=== PATIENT | female | born 1970 | race Caucasian/White ===

== ENCOUNTER 2022-10-09 16:29 | Emergency (ER) | payer OTHER, SELFPAY ==
[2022-10-09 17:22] VITALS: BP 134/83; PULSE 74; RESP 18; TEMP 36.4; O2SAT 99; BMI 25.7
--- NOTE | 2022-10-09 17:50 | ED_ITS ---
HPI - Wound/Laceration General Time Seen by Provider: 17:51 Date Seen: 10/09/22 Chief Complaint: Laceration/Wound Stated Complaint: Finger Injury Time Seen by Provider: 10/09/22 17:49 Source: patient and RN notes reviewed Mode of arrival: ambulatory Limitations: no limitations History of Present Illness HPI narrative: Patient is a 52-year-old female that cut her right index finger on a slicer at work. 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 She went to move the slicer back and the base of the slicer cut her finger. Was not actually the blade. Her tetanus is up-to-date on 02/03/2020. The tip of the finger feels a little numb. She cut the pad of the finger, only the right index finger. Nothing else was injured. This happened just prior to arrival. Patient tetanus UTD: Yes Related Data Allergies Allergy/AdvReac Type Severity Reaction Status Date / Time No Known Drug Allergies Allergy Verified 10/09/22 17:22 Review of Systems Narrative: As per HPI PFSH PFSH Social History Smoking Status: Former smoker Do you use any of these nicotine containing products: None Second hand tobacco smoke exposure: Yes How often do you have a drink containing alcohol: never How often do you have six or more drinks on one occasion: Never AUDIT-C Alcohol total score: 0 Non-prescribed substance use: denies use service: No Exam Const: Vital Signs, click to edit/add: Vital Signs - 24 hr 10/09/22 17:22 Temperature 97.5 F L Pulse Rate [Pulse Oximeter] 74 Respiratory Rate 18 Blood Pressure [Ri ght Upper Arm] 134/83 Pulse Oximetry 99 Oxygen Delivery Me thod Room Air Documenting provider has reviewed patient's vital signs: yes Common normals: no apparent distress, average body habitus, oriented x3, no limitations, healthy appearing and alert General appearance: cooperative, comfortable and well kempt Other: Bandage was removed from her right index finger and a semi circular flap of the pad of the right finger is noted. It does go into the subcutaneous tissue and starts losing blood when I remove the dressing. This will require some sutures. Patient understands and is agreeable to do so. She does have some slight sense of anesthesia on the distal portion of the pad. She still has this sense of touch but maybe feels different. Reviewed with her that this could be permanent nerve injury but there certainly chance that she will get some improved sensation with time. Neuro: Common normals: oriented x3 Sensorium/orientation: alert Psych: Appearance: well kempt Course Vital Signs Vital signs: Initial Vital Signs Temperature 97.5 F L 10/09/22 17:22 Temperature Source Temporal Artery Scan 10/09/22 17:22 Pulse Rate 74 10/09/22 17:22 Pulse Rhythm 10/09/22 17:22 Respiratory Rate 18 10/09/22 17:22 Blood Pressure 134/83 10/09/22 17:22 Blood Pressure Mean 100 10/09/22 17:22 Pulse Oximetry 99 10/09/22 17:22 Oxygen Delivery Method 10/09/22 17:22 Vital Signs Temperature 97.5 F L 10/09/22 17:22 Pulse Rate 74 10/09/22 17:22 Respiratory Rate 18 10/09/22 17:22 Blood Pressure 134/83 10/09/22 17:22 Pulse Oximetry 99 10/09/22 17:22 Oxygen Delivery Method 10/09/22 17:22 Temperature 97.5 F L 10/09/22 17:22 Pulse Rate 74 10/09/22 17:22 Respiratory Rate 18 10/09/22 17:22 Blood Pressure 134/83 10/09/22 17:22 Pulse Oximetry 99 10/09/22 17:22 Oxygen Delivery Method 10/09/22 17:22 Critical Care Time Critical Care Time Critical Care Time: No Discharge Plan Discharge Clinical Impression: Laceration of finger, index Condition: Stable Instructions: Care For Your Stitches (ED), Finger Laceration (ED) Additional Instructions: Recommend keeping this finger clean and dry. He may shower and wash her hands but otherwise should use a bandage and keep the wound dry until healed. Need to schedule clinic followup in about 7-10 days to assess the wound for suture removal. If there is concern for infection please seek re-evaluation. Recommend light application of bacitracin 3 to 4 times a day with bandages. Fine to work if your finger can be kept clean and dry. Follow Up/Referrals: Arvind Fields MD [Primary Care Provider] - Stand Alone [facility] Inst[facility] Procedures Laceration Laceration 1: Pre procedure diagnosis: Right 2nd finger laceration Post procedure diagnosis: Same Site marking: not applicable Verification/time out: correct patient, correct site and correct procedure Name of person performing procedure: Jaqueline Camacho Site: other (Finger) Side (If applicable): right Description: linear and clean Depth: simple, single layer Local Anesthetic: lidocaine 1% Amount of anesthesia used (mL): 5 (Only about 2 mL needed to be used locally) Pre-repair: wound explored, irrigated extensively and deep structures intact Skin layer closed with: other (Ethilon) Size (cm): 4-0 Number of sutures: 3 Technique: simple, interrupted Wound cleansing: sterile water Conclusion: patient tolerated procedure
[2022-10-09] MEDS: LIDOCAINE 1 % PF 30 ML 5 ML INJECTION (18:07)
--- OUTSIDE RECORDS SUMMARY | 2022-10-09 18:51 | XMS_ITS | Encounter Summary ---
:1970 Author Organization [facility] Address [address] [place] [address] Care Team Providers Name Role Phone Ni José APRN C.N.P. Primary Care Provider [phone] Reason for Referral Outpatient (Routine) - Closed Specialty Diagnoses / Procedures Referred By Contact Refer red To Contact Clinical Genomics Diagnoses Cancer Family History Malignant Neoplasm Of Brain (HCC) [facility] [address] [place] [address] Referral ID Status Reason Start Date Expiration Date Visits Requ ested Visits Authorized [id number] Closed 02/03/2020 02/02/2021 1 1 Reason for Visit Reason Comments Annual Exam Mass Lump under left armpit Suspicious Skin Lesion Check moles Encounter Details Date Type Department Care Team Description 02/03/2020 Comprehensive Visit Department of Ni José Vaccine Immunization Tetanus Diphtheria (Primary Dx); Family Medicine in [facility]IRAL L[place]z Nevus; Christos MunroeNSamantha Cancer Family History; [place] [address] Malignant Neoplasm Of Brain (HCC); [address] [place] [phone] Social History Tobacco Use Types Packs/Day Years Used Date Smoking Tobacco: Former Cigarettes 2 13 Smokeless Tobacco: Never Alcohol Use Standard Drinks/Week Comments Yes 0 (1 standard drink = 0.6 oz pure alcoho l) Alcohol Habits Answer Date Recorded How often do you have a drink containing alcohol? 2-4 times a month 06/07/2019 How many drinks containing alcohol do you have on a 1 or 2 06/07/2019 typical day when you are drinking? How often do you have six or more drinks on one Less than mo nthly 06/07/2019 occasion? Social Isolation Answer Date Recorded In a typical week, how many times do you More than three dinora es a week 06/07/2019 talk on the phone with family, friends, or neighbors? How often do you get together with friends More than three t imes a week 06/07/2019 or relatives? How often do you attend druze or 1 to 4 times per year 05/23 bahai services? Do you belong to any clubs or Yes 10/28/2019 organizations such as druze groups, unions, fraternal or athletic groups, or school groups? How often do you attend meetings of the More than 4 times pe r year 10/28/2019 clubs or organizations you belong to? Are you now , , , 06/07/2019 , never or living with a partner? Physical Activity Answer Date Recorded On average, how many days per week do you engage in moderate to 1 day 10/28/2019 strenuous exercise (like walking fast, running, jogging, dancing, swimming, biking, or other activities that cause a light or heavy sweat)? On average, how many minutes do you engage in exercise at th is 20 min 10/28/2019 level? Stress Answer Date Recorded Do you feel stress - tense, restless, nervous, or To some ex tent 06/07/2019 anxious, or unable to sleep at night because your mind is troubled all the time - these days? Financial Resource Strain Answer Date Recorded How hard is it for you to pay for the very basics like Not h jhoan at all 10/28/2019 food, housing, medical care, and heating? Intimate Partner Violence Answer Date Recorded Within the last year, have you been afraid of your partner o r No 10/28/2019 ex-partner? Within the last year, have you been humiliated or emotionall y No 10/28/2019 abused in other ways by your partner or ex-partner? Within the last year, have you been kicked, hit, slapped, or No 10/28/2019 otherwise physically hurt by your partner or ex-partner? Within the last year, have you been raped or forced to have any No 10/28/2019 kind of sexual activity by your partner or ex-partner? Food Insecurity Answer Date Recorded Within the past 12 months, you worried that your food would Never true 06/07/2019 run out before you got money to buy more. Within the past 12 months, the food you bought just didn't N ever true 06/07/2019 last and you didn't have money to get more. Transportation Needs Answer Date Recorded In the past 12 months, has lack of transportation kept you f rom No 06/07/2019 medical appointments or from getting medications? In the past 12 months, has lack of transportation kept you f rom No 06/07/2019 meetings, work, or getting things needed for daily living? Education Answer Date Recorded What is the highest level of school Associate degree: [employer], 06/07/2019 you have completed or the highest technical, or vocational p rogram degree you have received? Sex Assigned at Date Recorded Female 08/04/2018 11:10 AM CDT documented as of this encounter Last Filed Vital Signs Vital Sign Reading Time Taken Comments Blood Pressure 130/82 02/03/2020 2:23 PM CDT Pulse 78 02/03/2020 2:23 PM CDT Temperature 37.2 ??C (99 ??F) 02/03/2020 2:23 PM CDT Respiratory Rate 16 02/03/2020 2:23 PM CDT Oxygen Saturation 98% 02/03/2020 2:23 PM CDT Inhaled Oxygen Concentration - - Weight 90.7 kg (200 lb) 02/03/2020 2:23 PM CDT Height 162 cm (5' 3.78) 02/03/2020 2:23 PM CDT Body Mass Index 34.57 02/03/2020 2:23 PM CDT documented in this encounter H&P Notes Ni José, VIRAL, C.N.P. - 02/03/2020 2:30 PM CDT SUBJECTIVE HISTORY OF PRESENT ILLNESS Lissette Rogers is a 49 y.o. female who presents to clinic today here for an annual well-womanexam. She states she is feeling well. She would like her left underarm examined as she thought she may have felt a lump there. ALLERGIES/CONTRAINDICATIONS No Known Allergies CURRENT MEDICATIONS Current Outpatient Medications Medication Sig ??? buPROPion XL (WELLBUTRIN XL) 300 mg 24 hr tablet Take 300 mg by mouth daily. ??? DULoxetine (CYMBALTA) [address] capsule Take 1 capsule by mouth at bedtime. ??? acetaminophen (TYLENOL) 500 mg tablet Take 1,000 mg by mouth every 6 (six) hours as needed for pain. ??? B complex-vitamin (SUPER B-50) capsule Take 1 capsule by mouth daily. ??? cholecalciferol (VITAMIN D3) 2,000 Unit tablet Take 2,000 Units by mouth daily. ??? estradioL (ESTRACE) 1 mg tablet Take 1 tablet (1 mg total) by mouth 6 (six) times a week. Will continue with wean at 1 tab/week, each month. 1 tab 6 days a week currently ??? ibuprofen (ADVIL,MOTRIN) 200 mg tablet Take 400 mg by mouth every 6 (six) hours as needed for pain. ??? TURMERIC, BULK, MISC Take 1 capsule by mouth daily. Turmeric and curcumin MEDICAL HISTORY Past Medical History: Diagnosis Date ??? Abnormal Pap Smear Cervix 2003 History of LEEP procedure. ??? Anxiety Generalized Disorder ??? Cystocele ??? Depressive Disorder ??? Dermatitis ??? Endometriosis ??? Extruded Disc Lumbar L4-5 and S1 ??? Gastroesophageal Reflux Disease NOS occasional ??? Hand And Finger Fracture NOS fractured thumb ??? 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 Pneumonia ??? Stroke (HCC) 2003 SURGICAL HISTORY Past Surgical History: Procedure Laterality Date ??? BLADDER SUSPENSION 2006 With hysterectomy ??? BREAST BIOPSY Left WNL ??? CARPAL TUNNEL RELEASE Bilateral ??? CARPAL TUNNEL RELEASE Bilateral 1997 ??? SECTION 1 ??? COLPORRHAPHY ANTERIOR N/A 04/26/2019 Procedure: Colporrhaphy Anterior.; Surgeon: Xavier Mccurdy M.D.; Location: [facility] ??? CRANIOTOMY N/A 10/22/2004 >Right frontal craniotomy. Resection of tumor. ??? CRANIOTOMY N/A 10/24/2004 >Reopening previous craniotomy. Resection of clot. ??? CYSTOSCOPY RIGID N/A 04/26/2019 Procedure: Cystoscopy Rigid; Surgeon: Xavier Mccurdy M.D.; Location: [facility] ??? INSERTION PUBOVAGINAL SLING - SYNTHETIC N/A 04/26/2019 Procedure: Insertion Pubovaginal Sling, Synthetic.; Surgeon: Xavier Mccurdy M.D.; Location: [facility] ??? LAPAROSCOPIC HYSTERECTOMY - BSO N/A 08/05/2006 for endometrosis and progesterone receptors on meningioma--no cervix or ovaries ??? LAPAROSCOPIC HYSTERECTOMY ABDOMINAL WITH SALPINGO-OOPHORECTOMY 2004 ??? LASIK ??? LEEP PROCEDURE - LOOP ELECTRO EXCISION PROCEDURE FAMILY HISTORY Family History Problem Relation Age of Onset ??? Depression Mother ??? Hypertension Mother ??? Dementia Mother ??? Hyperlipidemia Mother ??? Asthma Mother ??? Migraines Mother ??? Anxiety disorder Mother ??? Arthritis Mother ??? Osteoporosis Mother ??? Brain Aneurysm Mother x3 ??? Depression Maternal Grandmother ??? Dementia Maternal Grandmother ??? Anxiety disorder Maternal Grandmother ??? Brain Aneurysm Maternal Grandmother ??? Cervical cancer Maternal Grandmother ??? Uterine cancer Maternal Grandmother ??? Depression Maternal Grandfather ??? Hypertension Maternal Grandfather ??? Stroke Maternal Grandfather ??? Dementia Maternal Grandfather ??? Transient ischemic attack Maternal Grandfather ??? Diabetes Maternal Grandfather ??? Heart disease Maternal Grandfather ??? Hypertension Father ??? Hyperlipidemia Father ??? Coronary artery disease Mother's Brother ??? Pancreatic cancer Mother's Brother ??? Migraines Son ??? Breast cancer Mother's Sister ??? Melanoma Brother ??? Breast cancer Cousin ??? Pancreatic cancer Other ??? Brain cancer Other ??? Diabetes Paternal Grandmother ??? No Known Problems Child ??? No Known Problems Child SOCIAL HISTORY Social History Socioeconomic History ??? Marital status: Spouse name: Not on file ??? Number of children: Not on file ??? Years of education: Not on file ??? Highest education level: Associate degree: occupational, technical, or vocational program Occupational History ??? Not on file Social Needs ??? Financial resource strain: Not hard at all ??? Food insecurity Worry: Never true Inability: Never true ??? Transportation needs Medical: No Non-medical: No Tobacco Use ??? Smoking status: Former Smoker Packs/day: 2.00 Years: 13.00 Pack years: 26.00 Types: Cigarettes ??? Smokeless tobacco: Never Used Substance and Sexual Activity ??? Alcohol use: Yes Types: 1 Cans of beer, 1 Standard drinks or equivalent per week Frequency: 2-4 times a month Drinks per session: 1 or 2 Binge frequency: Less than monthly ??? Drug use: No ??? Sexual activity: Yes Partners: Male control/protection: Other Lifestyle ??? Physical activity Days per week: 1 day Minutes per session: 20 min ??? Stress: To some extent Relationships ??? Social connections Talks on phone: More than three times a week Gets together: More than three times a week Attends bahai service: 1 to 4 times per year Active member of club or organization: Yes Attends meetings of clubs or organizations: More than 4 times per year Relationship status: ??? Intimate partner violence Fear of current or ex partner: No Emotionally abused: No Physically abused: No Forced sexual activity: No Other Topics Concern ??? Not on file Social History Narrative Exercise: Limited since back injury 2016. Dentist: Yearly Eye doctor: Yearly Not working right now. Lives with , 2 teenagers. No smokers in the home. Patient's mother smokes in her home and patient helps care for her. HEALTH MAINTENANCE: Health Maintenance Topic Date Due ??? Pneumococcal vaccine (0-64 years) (1 of 3 - PCV13) 1978 ??? Influenza Vaccine (1) 08/23/2019 ??? Mammogram 08/27/2019 ??? Fasting Glucose for Diabetes Screening 08/04/2021 ??? Pap/HPV Screening 08/04/2023 ??? Fasting Lipid Panel 08/04/2023 ??? DTaP,Tdap,and Td Vaccines (4 - Td) 02/02/2030 ??? HIV Screening Addressed REVIEW OF SYSTEMS As stated above. Otherwise, a complete review of systems was performed and was negative. OBJECTIVE VITAL SIGNS BP 130/82 (BP Location: Right arm, Patient Position: Sitting, Cuff Size: Large) Pulse 78 Temp 37.2 ??C (Temporal) Resp 16 Ht 162 cm Wt 90.7 kg SpO2 98% BMI 34.57 kg/m?? PHYSICAL EXAMINATION General: Alert, well-appearing, in no acute medical distress. HEENT: EACs normal. TMs normal. Conjunctivae noninjected, EOMI. Oropharynx moist. Normal dentition. Neck: Supple without appreciable lymphadenopathy or thyromegaly. Heart: Regular rate and rhythm. No murmurs noted. No carotid bruits. Lungs: Clear to auscultation bilaterally. Normal respiratory effort. Breasts: Symmetrical without dimpling. No masses or tenderness to palpation. No nipple discharge or axillary lymphadenopathy. Abdomen: Soft, nontender, nondistended. Normal bowel sounds. No appreciable organomegaly or masses. Musculoskeletal: Moves all limbs normally. No gross abnormalities. Neurologic: Cranial nerves II-XII grossly intact. No focal neurologic deficit noted. Skin: No rashes or worrisome lesions noted. She has several nevi noted, none that looks concerninglysuspicious. Psychiatric: Appropriate mood and affect. ASSESSMENT / PLAN #1 Need Vaccine Immunization Tetanus Diphtheria - Td (TENIVAC, DECAVAC) Vaccine PF (7 years and older) #2 Nevus Her brother has a history of melanoma. Patient has several pigmented Nevi, I think she would benefitfor establishment with dermatology for skin check. - Dermatology - Skin check consult (clinic); Future; Expected date: 02/03/2020 #3 Cancer Family History Due to patient's significant family history of cancers, we discussed a consult with genetics for evaluation and possible genetic testing in order to best determine her risks and need for screenings. Patient agrees. Order placed. She is overdue for a mammogram and so will schedule this as well. - Clinical Genomics - General genetics consult (clinic); Future; Expected date: 02/03/2020 - BI Breast Screening Bilateral with Tomosynthesis; Future; Expected date: 02/03/2020 #4 Malignant Neoplasm Of Brain (HCC) She follows with neurology for this. Last saw them 11/2019. #5 General Medical Examination Adult She is up to date on health maintenance. She defers flu vaccine today. Fasting labs ordered for her to schedule at her convenience and we will follow up pending results. She did not need any refills today. - Comprehensive Metabolic Panel; Future; Expected date: 02/03/2020 - Glucose, Fasting; Future; Expected date: 02/03/2020 - CBC without Differential; Future; Expected date: 02/03/2020 - Lipid Panel; Future; Expected date: 02/03/2020 Ni José APRN, C.N.P. documented in this encounter Plan of Treatment Scheduled Orders Name Type Priority [facility] Imaging RAD - Routine (most Cancer Family Expected: Bilateral with inpatients and all History 02/03/2020 Tomosynthesis outpatients) General Medical (Approximat e), Examination Adult Expires: 02/02/2023 Comprehensive Lab Routine General Medical Expected: Metabolic Panel Examination Adult 020 (Approximate), Expires: 02/02/2023 Glucose, Fasting Lab Routine General Medical Expected : Examination Adult 02/03/2020 (Approximate), Expires: 02/02/2023 CBC without Lab Routine General Medical Expected: Differential Examination Adult 02/03/2020 (Approximate), Expires: 02/02/2023 Lipid Panel Lab Routine General Medical Expected: Examination Adult 02/03/2020 (Approximate), Expires: 02/02/2023 Scheduled Referrals Name Type Priority [facility]oses [facility] Outpatient Referral Routine Cancer Family Ex pected: - General genetics History 02/03/2020 consult (clinic) Malignant Neoplasm (Appr oximate), Of Brain (HCC) Expires: 02/02/2023 documented as of this encounter Visit Diagnoses Diagnosis Need Vaccine Immunization Tetanus Diphth eria - Primary Nevus Cancer Family History Malignant Neoplasm Of Brain (HCC) General Medical Examination Adult documented in this encounter Additional Health Concerns Assessment Noted Time PHQ-9 Depression Total Score: 11 01/10/2019 2:41 PM CS T documented as of this encounter Care Teams Rubber Splicer Relationship Specialty Start Date End Date Ni José APRN, C.N.P. PCP - General Family Medicine 01/30/[address] [place] [address] documented as of this encounter
--- OUTSIDE RECORDS SUMMARY | 2022-10-09 18:51 | XMS_ITS | Encounter Summary ---
:1970 Author Organization [facility] Address [address] [place] [address] Care Team Providers Name Role Phone Ni José APRN, C.N.P. Primary Care Provider Reason for Visit Reason Comments Rash x 2 wks R upper lid and L ne ck Encounter Details Date Type Department Care Team Description 09/27/2021 Office Visit Urgent Care, [facility] (Primary Dx) [place], in [facility] VIRAL, C.N.P.[place], [place] D.N.P. [address] [place] [phone] Social History Tobacco Use Types Packs/Day Years [...] or relatives? How often do you attend taoist or 1 to 4 times per year 05/23 tenriism services? Do you belong to any clubs or Yes 10/28/2019 organizations such as taoist groups, unions, fraternal or athletic groups, or [...] or the highest technical, or vocational p jenaro degree you have received? Sex Assigned at Date Recorded Female 08/04/2018 11:10 AM CDT documented as of this encounter Last Filed Vital Signs Vital Sign Reading Time Taken Comments Blood Pressure 114/78 09/27/2021 12:58 PM CDT Pulse 59 09/27/2021 12:58 PM CDT Temperature 36.7 ??C (98.1 ??F) 09/27/2021 12:58 PM CDT Respiratory Rate - - Oxygen Saturation 98% 09/27/2021 12:58 PM CDT Inhaled Oxygen Concentration - - Weight - - Height - - Body Mass Index - - documented in this encounter Progress Notes Jamie Perry, VIRAL, C.N.P., D.N.P. - 09/27/2021 1:00 PM CDT SUBJECTIVE CHIEF COMPLAINT / REASON FOR VISIT Rash (x 2 wks R upper lid and L neck) HISTORY OF PRESENT ILLNESS Lissette Rogers is a 51 y.o. female who presents for evaluation of her skin rash. Reports thatshe started with a rash to the right upper eyelid and to the left side of her neck about 2 weeks ago. She feels that the symptoms probably started after she used the facial cleanser that was new. She since discarded the cleanser and tried [id number] topical steroid cream without any improvement in symptoms. The rash is itchy especially when it is hot. The rash has not spread. REVIEW OF SYSTEMS A brief review of systems was negative except for that mentioned in the history of present of illness. The patient's social history, medical history, and home medications were reviewed in the electronic medical record. ALLERGIES/CONTRAINDICATIONS No Known Allergies OBJECTIVE VITAL SIGNS BP 114/78 Pulse (!) 59 Temp 36.7 ??C SpO2 98% PHYSICAL EXAMINATION General: This patient is alert and in no acute distress. Respiratory: Effort is easy. Skin: Normal color, temperature and moisture. No mucous membrane involvement. Maculopapular rash noted to the right upper eyelid with some erythema and swelling. Similar rash noted to the left side of neck anteriorly. No warmth or tenderness to palpation. DIAGNOSTICS No results found for this or any previous visit (from the past 24 hour(s)). ASSESSMENT / PLAN #1 Dermatitis Other orders - predniSONE (DELTASONE) 10 mg tablet; Multiple Dosages:Starting 09/27/2021, Until 09/29/2021 at 2359, THEN Starting 09/30/2021, Until 10/02/2021 at 2359, THEN Starting Deborah 10/03/2021, Until 10/05/2021 at 2359, THEN Starting 10/06/2021, Until 10/08/2021 at 2359, THEN Starting 10/09/2021, Until 10/11/2021 at 2359, THEN Starting 10/12/2021, Until 10/14/2021 at 2359Take 6 tablets (60 mg total) by mouth daily for 3 days, THEN 5 tablets (50 mg total) daily for 3 days, THEN 4 tablets (40 mg total) daily for 3 days, THEN 3 tablets (30 mg total) daily for 3 days, THEN 2 tablets (20 mg total) daily for 3 days, THEN 1 tablet (10 mg total) daily for 3 days., Normal Lissette Rogers is a 51 y.o. female who presented for evaluation of her skin rash. History andphysical exam are most consistent with some irritant versus allergic phenomena. At this point, this appears to be an isolated rash without any serious systemic reaction. Supportive management is indicated and I have recommended treatment with the a tapering dose of prednisone as noted along with antihistamines. She will follow up with her primary care provider as needed. Follow-up sooner for any acute or concerning symptoms as needed. Electronically signed by: Jamie Perry APRN, C.N.P., D.N.P. 09/27/21 1:26 PM CDT documented in this encounter Plan of Treatment Not on filedocumented as of this encounter Visit Diagnoses Diagnosis Dermatitis - Primary documented in this encounter Additional Health Concerns Assessment Noted Time PHQ-9 Depression Total Score: 01/10/2019 2:41 PM CS T documented as of this encounter Care Teams Plywood Patcher Relationship Specialty Start Date End Date Ni José APRN, C.N.P. PCP - General Family Medicine 01/30/[address] [place] [phone] documented as of this encounter
--- OUTSIDE RECORDS SUMMARY | 2022-10-09 18:51 | XMS_ITS | Encounter Summary ---
:1970 Author Organization [facility] Address [address] [place] [address] Care Team Providers Name Role Phone Shawn Torre M.D. Primary Care Provider Reason for Visit Reason Comments Med Refill Encounter Details Date Type Department Care Team Description 10/14/2019 Refill Department of Family Medicine Nevaeh Salazar M.D. Med Refill in [facility] so [address] [place] [address] [place] [address] [phone] Social History Tobacco Use Types Packs/Day Years [...] or relatives? How often do you attend lutheran or 1 to 4 times per year 05/23 hoahaoism services? Do you belong to any clubs or Yes 10/28/2019 organizations such as lutheran groups, unions, fraternal or athletic groups, or [...] AM CDT documented as of this encounter Miscellaneous Notes Telephone Encounter - Florinda Mcintyre, C.M.A. - 10/18/2019 11:23 AM STAGE PRODUCER Lissette has scheduled an appointment with you for 10/28/19 to establish care and med refill. E PRODUCER Telephone Encounter - Ni José APRN, C.N.P. - 10/17/2019 8:11 PM STAGE PRODUCER Patient needs to establish with a new provider, as it appears she was directed to by Maris. Also, from Maris's instructions at April 2019 appointment: Continue weaning estrogen down by 1 tab per week and do that for a month. In 3 months you should be down to 1 pill per day. Please have her schedule upcoming appointment with whomever she is going to establish care with. If she needs a short supply of estrogen until then I will fill, but not 6 months worth. Thanks, TK E PRODUCER Telephone Encounter - Florinda Mcintyre C.M.A. - 10/14/2019 4:51 PM STAGE PRODUCER Estradiol Last refilled: 08/13/19 Last seen: 01/10/19 Mor[place] Per Maris's last note: Wean your estradiol to 2 mg 6 days a week, and 1 mg 1 day per week for 1 month. ??If no hot flashes or issue, wean to 2 mg 5 days per week and 1 mg 2 days per week for 1 month. ??Again, if tolerated, wean down to 2 mg 4 days per week, and 1 mg 3 days per week. ??Please schedule follow-up visit with this provider in 3 months.? E PRODUCER documented in this encounter Plan of Treatment Not on filedocumented as of this encounter Visit Diagnoses Diagnosis Symptoms Vasomotor documented in this encounter Additional Health Concerns Assessment Noted Time PHQ-9 Depression Total Score: 01/10/2019 2:41 PM CS T documented as of this encounter Care Teams Senior Account Director Relationship Specialty Start Date End Date Shawn Torre M.D. PCP - General 08/03/19 01/29/[address] [place] [phone] documented as of this encounter
--- OUTSIDE RECORDS SUMMARY | 2022-10-09 18:51 | XMS_ITS | Encounter Summary ---
:1970 Author Organization [facility] Address [address] [place] [address] Care Team Providers Name Role Phone Shawn Torre M.D. Primary Care Provider Reason for Visit Reason Onset Date Comments Communication 01/16/2020 blood type Encounter Details Date Type Department Care Team Description 01/16/2020 Clinical Communication Department of Shawn Torre, Comm unication (blood Family Medicine in [place] type) [place] [address] [place] [address] [facility] [phone] Social History Tobacco Use Types Packs/Day Years [...] or relatives? How often do you attend temple or 1 to 4 times per year 05/23 hinduism services? Do you belong to any clubs or Yes 10/28/2019 organizations such as temple groups, unions, fraternal or athletic groups, or [...] this encounter Miscellaneous Notes Telephone Encounter - Leslie Jerez R.N. - 01/16/2020 4:13 PM CST Informed Pt there was no record of her blood type. Informed her she can get one from a blood drive or she should call insurance company if she wants to check type how much it would cost. Pt states she would to to a blood drive. [employer]ING Telephone Encounter - Dilia Coronado - 01/16/2020 12:55 PM CST Please do not reply to sender,emails are not monitored. Thank you. If you need a prescription refill please call your pharmacy. Please allow 3 business days for processing. Expert RN: N/A (Med Refill Only) Call Center Template: ??? May we leave a message for you on this phone? yes What can I help you with today? Pt is asking if she can be called and told what her blood type is. [employer] documented in this encounter Plan of Treatment Not on filedocumented as of this encounter Visit Diagnoses Not on filedocumented in this encounter Additional Health Concerns Assessment Noted Time PHQ-9 Depression Total Score: 11 01/10/2019 2:41 PM CS T documented as of this encounter Care Teams Sawdust Machine Operator Relationship Specialty Start Date End Date Shawn Torre M.D. PCP - General 08/03/19 01/29/[address] [place] [phone] documented as of this encounter
--- OUTSIDE RECORDS SUMMARY | 2022-10-09 18:51 | XMS_ITS | Encounter Summary ---
:1970 Author Organization [facility] Address [address] [place] [address] Care Team Providers Name Role Phone Shawn Torre M.D. Primary Care Provider Encounter Details Date Type Department Care Team Description 01/13/2020 Hospital Encounter Department of Kaylen Schwab y [facility] Laboratory Medicine K, HOISTING ENGINE OPERATOR Disorder in [address] [place] [address] [phone] Social History Tobacco Use Types Packs/Day Years [...] or relatives? How often do you attend muslim or 1 to 4 times per year 05/23 druze services? Do you belong to any clubs or Yes 10/28/2019 organizations such as muslim groups, unions, fraternal or athletic groups, or [...] completed or the highest technical, or vocational frankie eason degree you have received? Sex Assigned at Date Recorded Female 08/04/2018 11:10 AM CDT documented as of this encounter Medications at Time of Discharge Medication Sig Dispensed Refills Start Date End Date acetaminophen (TYLENOL) Take 1,000 mg by 0 500 mg tablet mouth every 6 (six) hours as needed for pain. B complex-vitamin (SUPER Take 1 capsule by 0 B-50) capsule mouth daily. cholecalciferol (VITAMIN Take 2,000 Units by 0 D3) 2,000 Unit tablet mouth daily. ibuprofen (ADVIL,MOTRIN) Take 400 mg by 0 200 mg tablet mouth every 6 (six) hours as needed for pain. buPROPion XL (WELLBUTRIN Take 300 mg by 1 019 09/27/2021 XL) 300 mg 24 hr tablet mouth daily. DULoxetine (CYMBALTA) 60 Take 1 capsule by 0 07/2409/27/[address] capsule mouth at bedtime. estradiol (ESTRACE) 1 mg Currently 1mg 90 tablet 0 10/28/20 19 01/20/2020 tabletIndications: Sun-Wed, 2mg Symptoms Vasomotor -Thursday. Continue weaning down be 1mg per month as discussed at visit. TURMERIC, BULK, MISC Take 1 capsule by 0 09/27/2021 mouth daily. Turmeric and curcumin documented as of this encounter Plan of Treatment Not on filedocumented as of this encounter Procedures Procedure Name Priority Date/Time Associated Diagnosis Comme nts 25-HYDROXYVITAMIN Routine 01/13/2020 10:43 AM Anxiety Generali zed Results for this D2 AND D3, S COST COORDINATOR Disorder procedure are i n the results section. documented in this encounter Results 25-Hydroxyvitamin D2 and D3 (01/13/2020 10:43 AM COST COORDINATOR) P athologist Signature 25-Hydroxy D2 7.4 ng/mL 01/17/2020 [facility] 1:24 PM COST COORDINATOR 25-Hydroxy D3 27 ng/mL 01/17/2020 [facility] 1:24 PM COST COORDINATOR 25-Hydroxy D 34 ng/mL 01/17/2020 [facility] Total 1:24 PM COST COORDINATOR Comment: ----REFERENCE VALUE---- 25-HYDROXY D TOTAL (D2+D3) Optimum level s in the healthy population are 20-50, patients with bone disease may benefit from higher levels within this r boy. ----ADDITIONAL INFORMATION---- This test was developed and its performa nce characteristics determined by [facility] in a manner consistent with CLIA requirements. This test has not been cleared or approved by the [place] d and Drug Administration. Specimen Anatomical Collection Method Collection Time Receive d Time (Source) Location / / Volume Laterality Blood (Blood, 01/13/2020 10:43 01/16/2020 9:28 Venous) AM COST COORDINATOR AM COST COORDINATOR Kaylen Schwab HOISTING ENGINE OPERATOR LAB BLOOD ADD-ON Performing Organization Address City/State/ZIP Code Phon e Number [facility] [address] [place] [address] [facility] [place] [address] Laboratory Medicine and Pathology [address] [place] documented in this encounter Visit Diagnoses Diagnosis Anxiety Generalized Disorder documented in this encounter Additional Health Concerns Assessment Noted Time PHQ-9 Depression Total Score: 11 01/10/2019 2:41 PM CS T documented as of this encounter Care Teams Warm In Relationship Specialty Start Date End Date Shawn Torre M.D. PCP - General 08/03/19 01/29/[address] [place] [address] documented as of this encounter
--- OUTSIDE RECORDS SUMMARY | 2022-10-09 18:51 | XMS_ITS | Encounter Summary ---
:1970 Author Organization [facility] Address [address] [place] [address] Care Team Providers Name Role Phone Ni José APRN C.N.PSue Primary Care Provider [phone] Reason for Visit Reason Comments Follow-up Appointment Request (Routine) - Closed Specialty Diagnoses / Procedures Referred By Contact Refer red To Contact General Internal Diagnoses [facility] Procedures Location [address] [place] [phone] Referral ID Status Reason Start Date Expiration Date Visits Requ ested Visits Authorized [id number] Closed 09/28/2020 09/28/2021 1 1 Encounter Details Date Type Department Care Team Description 10/16/2020 Clinical Communication Division of General Internal Follow-up Medicine in [place], [place] [address] [place] [phone] Social History Tobacco Use Types Packs/Day Years [...] or relatives? How often do you attend shinto or 1 to 4 times per year 05/23 taoist services? Do you belong to any clubs or Yes 10/28/2019 organizations such as shinto groups, unions, fraternal or athletic groups, or [...] the highest level of school Associate degree: mehdithiago orantes, 06/07/2019 you have completed or the highest technical, or vocational p jenaro degree you have received? Sex Assigned at Date Recorded Female 08/04/2018 11:10 AM CDT documented as of this encounter Miscellaneous Notes Telephone Encounter - Deirdre Chen L.P.N. - 10/16/2020 1:13 PM CLIENT CARE REPRESENTATIVE Ms. Rogers has been cared for by the [facility] COVID-19 Frontline Care Team (CFCT) after a positive COVID-19 viral test was obtained. The Centers for Disease Control and Prevention (CDC) recommends a minimum 10 days self-isolation in an effort to prevent the spread of this disease. At this point, Ms. Rogers has met or exceeded this minimum timeframe, therefore participation with the CFCT monitoring program is complete. A letter regarding program completion will be mailed to the patient. NT CARE REPRESENTATIVE documented in this encounter Plan of Treatment Not on filedocumented as of this encounter Visit Diagnoses Not on filedocumented in this encounter Additional Health Concerns Infection Onset Date Last Indicated Resolved Time COVID19 09/26/2020 09/26/2020 10/26/2020 4:47 AM CLIENT CARE REPRESENTATIVE Assessment Noted Time PHQ-9 Depression Total Score: 01/10/2019 2:41 PM CS T documented as of this encounter Care Teams Religious Education Director Relationship Specialty Start Date End Date Ni José, VIRAL, C.N.P. PCP - General Family Medicine 01/30/[address] [place] [phone] documented as of this encounter
--- OUTSIDE RECORDS SUMMARY | 2022-10-09 18:51 | XMS_ITS | Encounter Summary ---
:1970 Author Organization [facility] Address [address] [place] [address] Care Team Providers Name Role Phone Ni José APRN C.N.PSue Primary Care Provider Encounter Details Date Type Department Care Team Description 09/28/2020 Virtual Visit Division of Jackson Cristina CO VID-19 Infection Internal Medicine in M.D. (Primary Dx) [place], [place] [address] [facility] [address] [place] [phone] Social History Tobacco Use Types Packs/Day Years [...] or relatives? How often do you attend faith or 1 to 4 times per year 05/23 adventism services? Do you belong to any clubs or Yes 10/28/2019 organizations such as faith groups, unions, fraternal or athletic groups, or [...] AM CDT documented as of this encounter Progress Notes Jackson Molina M.D. - 09/28/2020 6:37 AM CST TELEPHONE COMMUNICATION NOTE for CFCT This was a telephone notification to Ms. Rogers to notify them that their PCR test for SARS-CoV-2 (the virus that causes COVID-19) has returned positive.. The patient was interviewed, but not personally examined. Welder Gas Tungsten Arc: no Currently Ms. Rogers has the following symptoms: ??? Dyspnea, Cough and Congestion/rhinorrhea. Mild dyspnea, only with stairs and not activity limiting ??? Date of symptom onset 09/24 ??? Since onset, symptoms have improved Ms. Rogers has the following risk factors for severe infection: ??? None Was Ms. Rogers hospitalized? No The following features of severe or critical COVID infection are/were present: ??? None Risk Factors for Severe Infection w/ COVID-19 Current as of 3 hours ago 0 0 - 2 Points: Low Risk 3 - 5 Points: Medium Risk >= 6 Points: High Risk The patient's score has not changed in the past year.: No Change Details Returns the total points for all positive risk factors for severe infection with COVID-19 Points Metrics 0 Age: 50 Current as of 3 hours ago 0 Sex: Female Current as of 3 hours ago 0 Has Hypertension: No Current as of 3 hours ago 0 Has Congestive Heart Failure: No Current as of 3 hours ago 0 Has Congenital Heart Disease: No Current as of 3 hours ago 0 Has Coronary Artery Disease: No Current as of 3 hours ago 0 Has Chronic Lung Disease or Asthma: No Current as of 3 hours ago 0 Has Diabetes: No Current as of 3 hours ago 0 Patient is Immune Compromised: No Current as of 3 hours ago 0 Skilled Nursing Patient: No Current as of 3 hours ago 0 COVID-19 Component - End State Renal Disease: 0 Current as of 3 hours ago 0 Chronic Liver Disease Registry: No Current as of 3 hours ago 0 : No Current as of 3 hours ago Ms. Rogers has been in the following facilities in the last 14 days: ??? None Employee status: The patient is not associated with an employee at the [facility] Household members: daughter, . Visits mother regularly Employment: n/a PROBLEM LIST Patient Active Problem List Diagnosis ??? Tumor Cerebral Meninges Benign (HCC) ??? Malignant Neoplasm Of Brain (HCC) ??? Seizure (HCC) ??? Aneurysm Family History ??? Cognitive Disorder ??? Cyst Breast Left ??? Deficit Cognitive Nonpsychiatric ??? Deficit Cognitive Psychiatric ??? Endometriosis ??? Glioma Brain (HCC) ??? Hemianopsia Homonymous ??? Hypersomnia ??? Lesion Nerve Ulnar Left ??? Melanoma Family History ??? Meningioma Brain (HCC) ??? Sleep Disorder ??? Cystocele ??? Dysplasia Cervix ??? Abnormal Pap Smear Personal History ??? Symptoms Vasomotor ??? Cancer Family History ??? Incontinence Urinary Stress Female RESULTS SARS CoV-2 RNA, TMA Date Value Ref Range Status 09/26/2020 Detected (Crit) Undetected Final Comment: SARS-CoV-2 RNA present. ----ADDITIONAL INFORMATION---- This test is performed using the Aptima SARS-CoV-2 assay ([employer] which has received Emergency Use Authorization (EUA) by the U.S. Food and Drug Administration. Fact sheets for this Emergency Use Authorization (EUA) assay can be found at the following links: For Healthcare Providers: https://www.fda.gov/media/930892/download For Patients: https://www.fda.gov/media/494783/download ASSESSMENT/PLAN #1 COVID-19 disease Upcoming dptl-ep-rptv appointments: Hsbo-dl-lyku appointments are scheduled within the next 30 days.These should be suspended pending a review for urgency by the coordinating care team. If non-urgent,they should be delayed until the patient has been deemed non-infectious from their COVID-19 infection or converted to iyh-toma-vu-face visits. Note that it may take up to 30 days for some patients to recover from their infection. If the appointments are urgent, the coordinating care team should contact us to discuss expedited return to campus procedures. The patient should not come on campus until notified that it is ok to do so. Recommendations routed to coordinating care team (Informatics Spec: [facility]). Recommendations: Day 0 is 09/24. Low Risk. Symptom monitoring and release from isolation through [facility] CFCT nursing. CFCT RN education call necessary Self-isolation: at least 10 days from symptom onset with at least 72 hours of symptom improvement and fever resolution w/o use of anti-pyretics (Tylenol, NSAIDs) ??? Ms. Rogers was advised to continue to monitor their symptoms including dyspnea, chest pain, cough, fevers, lightheadedness/dizziness and vomiting/diarrhea. o If symptoms are worsening, please contact the [facility] CFCT nursing team at [phone]. ??? Worsened shortness of breath ??? New or worsening cough ??? New productive cough or cough with blood ??? New chest pain or pain with breathing ??? Fevers, chills, sweats ??? Vomiting or diarrhea ??? Lightheadedness ? ? New temperature > 38.3 ??C ??? Fast heart rate ??? Fast breathing rate o If directed to the Emergency Room or other care facility, the patient was reminded to - Inform EMS of positive COVID result and wear a mask prior to EMS arrival if available. - If patient is well enough to transport themselves to the emergency room, they should drive themselves (not use taxi, ride-share or public transport). ??? We strongly recommend continuing self-isolation until advised otherwise. o Ms. Rogers is aware that they need to: - Remain at home unless requiring medical care - Separate themselves from other people in the home - Avoid sharing personal household items - Clean and disinfect 'high-touch' surfaces daily - Wear a facemask when around other people and cover coughs/sneezes - Practice good hand hygiene - Avoid touching your eyes, nose, and mouth ??? Self-isolation should be continued until the following criteria are met and released by local public health if applicable: ??? Minimum isolation as specified above o AND ??? At least 3 days (72 hours) have passed since recovery defined as resolution of fever without theuse of fever-reducing medications o AND ??? Improvement in symptoms (e.g., cough, shortness of breath, diarrhea) o The above isolation recommendation may need to be adjusted based on the clinical course. - https://www.youtube.com/watch?time_continue=6&v=OdYU8wZiWSc&feature=emb_logo o Testing prior to release from isolation is NOT recommended by CDC or [facility] Infection Prevention and Control for clinical purposes except in extremely rare cases. o The patient was also advised to follow final recommendations as per local public health department/occupational health if relevant. ??? Advised to contact their employer's occupational health division to notify them of positive test o If the patient and/or their employer have questions about return to work best practices, they should contact [facility] Occupational Medicine at [email or web address]. o The patient should receive approval from their employer's occupational health division before returning to work. ??? Recommend self isolation for all household members/close contacts. o If any of these individuals are immunocompromised or have serious chronic medical conditions, please have them contact their primary care physician to let them know they have been exposed to close contact with COVID-19 o If unwell, recommend contacting their health care provider. Presenting directly to of the ED can be considered in the case of severe symptoms. o These individuals should call ahead to minimize wait times. The [facility] COVID Triage Line can be reached at [phone]. ??? Ms. Rogers was advised that COVID-19 is a notifiable disease and that they will [facility] contact [facility]. Please review the links below for additional education. o [facility] recommendations on isolation - https://www.[facility].org/patient-education?VID=VID-12758410 o Additional information about COVID-19 - https://www.cdc.gov/coronavirus/2019-ncov/ o Cognitive Behavior Therapy-Insomnia to help improve sleep - https://u.[facility].edu/PatientEducation/PatientLearning/index.html#/ o Building Resiliency During the COVID-19 Pandemic - https://[facility]/2020/PatientEducation/content/index.html#/ ??? Consider donating convalescent plasma once you have recovered from your illness (14 days after symptoms have resolved) o Survey to assess eligibility: https://redcap2[facility]/redcap/surveys/?s=3CDT2HQU7V and/ or contact convalescent.plasma@[facility] o More information is available at - https://www.uscovidplasma.org/ - https://ccpp19.org/ - https://covidplasma.org/ This note is being cc'ed to the patient's primary care physician for their situational awareness only. The COVID-19 Frontline Care Team will follow up on next steps related to the COVID-19 infection. From a [facility] employee exposure standpoint if Ms. Rogers was seen in person: No additional action needed if contact with the patient occurred while either: ??? Staff and patient were both wearing face masks OR ??? Staff were wearing face masks and eye protection If there is concern for staff exposure due to individual PPE breach, please touch base with Occupational Health. Garrett Molina M.D. COVID-19 Frontline Care Team [facility] This was a virtual visit. The patient was not seen face to face because of COVID-19. Total time spent in counselin minutes COORDINATOR documented in this encounter Plan of Treatment Not on filedocumented as of this encounter Visit Diagnoses Diagnosis COVID-19 Infection - Primary documented in this encounter Additional Health Concerns Infection Onset Date Last Indicated Resolved Time COVID19 Pending 09/26/2020 09/26/2020 09/28/2020 2:30 AM SPA COORDINATOR COVID19 09/26/2020 09/26/2020 10/26/2020 4:47 AM SPA COORDINATOR Assessment Noted Time PHQ-9 Depression Total Score: 11 01/10/2019 2:41 PM CS T documented as of this encounter Care Teams Occupational Medicine Specialist Relationship Specialty Start Date End Date Ni José, VIRAL, C.N.P. PCP - General Family Medicine 01/30/[address] [place] [phone] documented as of this encounter
--- OUTSIDE RECORDS SUMMARY | 2022-10-09 18:51 | XMS_ITS | Encounter Summary ---
:1970 Author Organization [facility] Address [address] [place] [address] Care Team Providers Name Role Phone Ni José APRN C.N.P. Primary Care Provider Reason for Visit Reason Onset Date Comments COVID Inquiry 05/02/2020 Encounter Details Date Type Department Care Team Description 05/02/2020 Clinical Communication Department of Physical Silver Conteh Inquiry Medicine and R, Ph.D., L.P. Rehabilitation in [address] [place] [address] [place] [phone] [place], [place] [phone] (Work) [phone] Social History Tobacco Use Types Packs/Day Years [...] or relatives? How often do you attend protestant or 1 to 4 times per year 05/23 congregation services? Do you belong to any clubs or Yes 10/28/2019 organizations such as protestant groups, unions, fraternal or athletic groups, or [...] this encounter Miscellaneous Notes Telephone Encounter - Anh Michaud - 05/02/2020 5:20 PM CDT (Note for [facility] locations only: If the patient states they are asking for testing because attended a protest, gamez, community cleanup or other mass gathering in the last 7 days and is asking for testing, complete the below questions and transfer to the COVID Nurse Line). 1. Do you have a pending COVID test because you had symptoms or exposure to someone with COVID or you have tested positive for COVID in the last 30 days? no 2. In the past 14 days, do you, anyone in the household, or anyone you have had prolonged exposure have any of the following? a. Fever greater than or equal to 37.8 C (100.0 F)? no b. New symptoms (Specifically: headache, cough, shortness of breath, respiratory distress, sore throat, diarrhea, nausea, vomiting, chills and repeated shaking with chills, myalgia's (muscle aches), loss of smell, or change or loss of taste sensation)? no c. Had close contact with a patient with known or possible COVID-19 in the last 14 days? no Route reply to: Scheduling Contact Number: [phone] documented in this encounter Plan of Treatment Not on filedocumented as of this encounter Visit Diagnoses Not on filedocumented in this encounter Additional Health Concerns Assessment Noted Time PHQ-9 Depression Total Score: 11 01/10/2019 2:41 PM CS T documented as of this encounter Care Teams System Validation Engineer Relationship Specialty Start Date End Date Ni José APRN, C.N.P. PCP - General Family Medicine 01/30/[address] [facility] [place] [address] documented as of this encounter
--- OUTSIDE RECORDS SUMMARY | 2022-10-09 18:51 | XMS_ITS | Encounter Summary ---
:1970 Author Organization [facility] Address [address] [place] [address] Care Team Providers Name Role Phone Ni José APRN, C.N.P. Primary Care Provider [phone] Encounter Details Date Type Department Care Team Description 05/02/2021 Orders Only [facility] [place] [facility] Ni José, Screening Mammogram VIRAL, C.N.P. Breast Cancer [address] [place] [phone] Social History Tobacco Use Types Packs/Day Years [...] or relatives? How often do you attend voodoo or 1 to 4 times per year 05/23 sabianism services? Do you belong to any clubs or Yes 10/28/2019 organizations such as voodoo groups, unions, fraternal or athletic groups, or [...] highest level of school Associate degree: mehdithiago alstonpao, 06/07/2019 you have completed or the highest technical, or vocational frankie eason degree you have received? Sex Assigned at Date Recorded Female 08/04/2018 11:10 AM CDT documented as of this encounter Plan of Treatment Not on filedocumented as of this encounter Visit Diagnoses Diagnosis Screening Mammogram Breast Cancer documented in this encounter Additional Health Concerns Assessment Noted Time PHQ-9 Depression Total Score: 11 01/10/2019 2:41 PM CS T documented as of this encounter Care Teams Field Technician Relationship Specialty Start Date End Date Ni José, TENTERER, C.N.P. PCP - General Family Medicine 01/30/[address] [place] [place] [phone] documented as of this encounter
--- OUTSIDE RECORDS SUMMARY | 2022-10-09 18:51 | XMS_ITS | Encounter Summary ---
:1970 Author Organization [facility] Address [address] [place] [address] Care Team Providers Name Role Phone Ni José APRN, C.N.P. Primary Care Provider Encounter Details Date Type Department Care Team Description 09/30/2022 Orders Only [facility] SELF TEST Ni Osborne, Screening Cancer Colon [address] [facility] [place] [address] [place] [phone] [place] [phone] Social History Tobacco Use Types Packs/Day Years [...] or relatives? How often do you attend moravian or 1 to 4 times per year 05/23 alevism services? Do you belong to any clubs or Yes 10/28/2019 organizations such as moravian groups, unions, fraternal or athletic groups, or [...] as of this encounter Plan of Treatment Scheduled Orders Name Type Priority Associated Diagnoses Order S chemattyle Cologuard-Sent Out Lab Lab Routine Screening Cancer C olon Expected: 10/14/2022 (Approximate), Expires: 12/31/2023 documented as of this encounter Visit Diagnoses Diagnosis Screening Cancer Colon documented in this encounter Additional Health Concerns Assessment Noted Time PHQ-9 Depression Total Score: 11 01/10/2019 2:41 PM CS T documented as of this encounter Care Teams Inspector Precision Relationship Specialty Start Date End Date Ni José, HOME RESTORATION SERVICE SUPERVISOR, C.N.P. PCP - General Family Medicine 01/30/[address] [place] [phone] documented as of this encounter
--- OUTSIDE RECORDS SUMMARY | 2022-10-09 18:51 | XMS_ITS | Encounter Summary ---
:1970 Author Organization [facility] Address [address] [place] [address] Care Team Providers Name Role Phone Ni José APRN, C.N.P. Primary Care Provider Encounter Details Date Type Department Care Team Description 07/30/2021 Orders Only [facility] PCP [facility] Ni José, Screening Examination VIRAL, C.N.P. Diabetes Mellitus [address] [place] [phone] Social History Tobacco Use Types Packs/Day Years [...] or relatives? How often do you attend zoroastrian or 1 to 4 times per year 05/23 confucianist services? Do you belong to any clubs or Yes 10/28/2019 organizations such as zoroastrian groups, unions, fraternal or athletic groups, or [...] of this encounter Visit Diagnoses Diagnosis Screening Examination Diabetes Mellitus documented in this encounter Additional Health Concerns Assessment Noted Time PHQ-9 Depression Total Score: 11 01/10/2019 2:41 PM CS T documented as of this encounter Care Teams Drywall Finisher Foreman Relationship Specialty Start Date End Date Ni José, EXCHANGE TELLER, C.N.P. PCP - General Family Medicine 01/30/[address] [place] [phone] documented as of this encounter
--- OUTSIDE RECORDS SUMMARY | 2022-10-09 18:51 | XMS_ITS | Encounter Summary ---
:1970 Author Organization [facility] Address [address] [place] [address] Care Team Providers Name Role Phone Ni José APRN CSueNSuePSue Primary Care Provider Encounter Details Date Type Department Care Team Description 09/26/2020 Admin Visit Department of Family Medicine, [address] [address] [facility] [phone] Social History Tobacco Use Types Packs/Day Years [...] 1 to 4 times per year 05/23 jew services? Do you belong to any clubs or Yes 10/28/2019 organizations such as faith groups, unions, fraternal or athletic groups, or school groups? How often do you attend meetings of the More than 4 times pe luis year 10/28/2019 clubs or organizations you belong [...] highest level of school Associate degree: camila gamalielpao, 06/07/2019 you have completed or the highest [...] COVID19 Pending 09/26/2020 09/26/2020 09/28/2020 2:30 AM THEATER SET PRODUCTION DESIGNER Assessment Noted Time PHQ-9 Depression Total Score: 11 01/10/2019 2:41 PM CS T documented as of this encounter Care Teams Buyer Grain Relationship Specialty Start Date End Date Ni José, BLUEPRINT PROCESSOR, C.N.P. PCP - General Family Medicine 01/30/[address] [place] [phone] documented as of this encounter
--- OUTSIDE RECORDS SUMMARY | 2022-10-09 18:51 | XMS_ITS | Encounter Summary ---
:1970 Author Organization [facility] Address [address] [place] [address] Care Team Providers Name Role Phone Shawn Torre M.D. Primary Care Provider Reason for Visit MRI/CAT/PET Scan (Routine) - Closed Specialty Diagnoses / Procedures Referred By Contact Refer red To Contact Radiology Diagnoses Meningioma Brain (HCC) Ayse [phone] Jose De La O M.D. Rst Rad Mr Rocn Procedures MR BRAIN WITHOUT AND WITH IV CONTRAST RAD MR BRAIN MIN SEDATION [address] [place] [address] [place] [address] [phone] [place] [address] Fax: Referral ID Status Reason Start Date Expiration Date Visits Requ ested Visits Authorized [id number] Closed 09/29/2019 09/28/2020 1 1 Encounter Details Date Type Department Care Team Description 09/29/2019 Hospital Encounter Department of Jose De La O ed (Clinic: RadiologyMaldonado M.D. Request) [facility] in [place], [address] [place], [place] [address] [place] [address] [place], [place] [phone] (Work) [phone] Social History Tobacco Use Types Packs/Day Years [...] or relatives? How often do you attend samaritan or 1 to 4 times per year 05/23 advent services? Do you belong to any clubs or Yes 10/28/2019 organizations such as samaritan groups, unions, fraternal or athletic groups, or [...] needed for pain. buPROPion XL (WELLBUTRIN Take 150 mg by 1 2 019 10/28/2019 XL) 150 mg 24 hr tablet mouth daily. DULoxetine (CYMBALTA) 60 Take 1 capsule by 0 07/2409/27/[address] capsule mouth at bedtime. estradiol (ESTRACE) 1 mg Currently 1mg 90 tablet 1 06/07/20 19 10/14/2019 tabletIndications: Tues-Sat, 2mg Symptoms Vasomotor Sun-Mon. Continue weaning down be 1mg per month as discussed at visit. FLUoxetine (PROzac) 20 mg Take 40 mg by mouth 0 1 10/28/2019 capsule daily. TURMERIC, BULK, MISC Take 1 capsule by 0 09/27/2021 mouth daily. Turmeric and curcumin documented as of this encounter Plan of Treatment Not on filedocumented as of this encounter Procedures Procedure Name Priority Date/Time Associated Comments Diagnosis MR BRAIN WITHOUT RAD - Routine 12/21/2019 10:16 Meningioma Brain Re sults for this AND WITH IV (most inpatients AM DENTAL SPECIALIST (HCC) procedure a re in CONTRAST and all the results outpatients) section. documented in this encounter Results MR Brain without and with IV Contrast (12/21/2019 10:16 AM DENTAL SPECIALIST) Anatomical Region Laterality Modality Head, Brain, Neuroradiology RST LOS, Neuroradiology ARZ N/A Magnetic Resonance LOS, Neuroradiology FLA LOS Specimen (Source) Anatomical Collection Method Collection Time Re ceived Time Location / / Volume Laterality 12/21/2019 11:12 AM DENTAL SPECIALIST Impressions 12/21/2019 11:18 AM DENTAL SPECIALIST Stable exam. No evidence for recurrent m eningioma. Narrative 12/21/2019 11:18 AM DENTAL SPECIALIST EXAM: MR BRAIN WITHOUT AND WITH IV CONTRAST COMPARISON: MRI head 08/10/2018 FINDINGS: Again demonstrated are postope rative changes of a right frontal craniotomy for meningioma resection. Sta ble increased T2 signal/gliosis surrounds the resection cavity, with mil d postoperative dural enhancement deep to the craniotomy. No evidence for recur rent meningioma. Stable minimal leukoaraiosis. Remainder unremarkable an d unchanged. Procedure Note Kerry Carlos M.D. - 12/21/2019Fo rmatting of this note might be different from the original. EXAM: MR BRAIN WITHOUT AND WITH IV CONTR AST COMPARISON: MRI head 08/10/2018 FINDINGS: Again demonstrated are postope rative changes of a right frontal craniotomy for meningioma resection. Sta ble increased T2 signal/gliosis surrounds the resection cavity, with mil d postoperative dural enhancement deep to the craniotomy. No evidence for recur rent meningioma. Stable minimal leukoaraiosis. Remainder unremarkable an d unchanged. IMPRESSION: Stable exam. No evidence for recurrent m eningioma. Jose HOWARD MRI PROCEDURES documented in this encounter Visit Diagnoses Not on filedocumented in this encounter Additional Health Concerns Assessment Noted Time PHQ-9 Depression Total Score: 11 01/10/2019 2:41 PM CS T documented as of this encounter Care Teams Account Analyst Relationship Specialty Start Date End Date Shawn Torre M.D. PCP - General 08/03/19 01/29/[address] [place] [phone] documented as of this encounter
--- OUTSIDE RECORDS SUMMARY | 2022-10-09 18:51 | XMS_ITS | Encounter Summary ---
:1970 Author Organization [facility] Address [address] [place] [address] Care Team Providers Name Role Phone Ni José APRN C.N.P. Primary Care Provider Reason for Visit Reason Comments COVID Inquiry Encounter Details Date Type Department Care Team Description 05/11/2020 Clinical Communication Department of Physical Silver Conteh Inquiry Medicine and R, Ph.D., L.P. Rehabilitation in [address] [place] [address] [place] [phone] [place], [place] [phone] (Work) [phone] Social History Tobacco Use Types Packs/Day Years [...] or relatives? How often do you attend baptism or 1 to 4 times per year 05/23 baptism services? Do you belong to any clubs or Yes 10/28/2019 organizations such as baptism groups, unions, fraternal or athletic groups, or [...] this encounter Miscellaneous Notes Telephone Encounter - Dilia Stout - 05/11/2020 9:46 AM CDT (Note for [facility] locations only: If [...] COVID-19 in the last 14 days? no Scheduling Contact Number: [phone] documented in this encounter Plan of Treatment Not on filedocumented as of this encounter Visit Diagnoses Not on filedocumented in this encounter Additional Health Concerns Assessment Noted Time PHQ-9 Depression Total Score: 11 01/10/2019 2:41 PM CS T documented as of this encounter Care Teams Radiology Asst Relationship Specialty Start Date End Date Ni José APRN, C.N.P. PCP - General Family Medicine 01/30/[address] [place] [phone] documented as of this encounter
--- OUTSIDE RECORDS SUMMARY | 2022-10-09 18:51 | XMS_ITS | Encounter Summary ---
:1970 Author Organization [facility] Address [address] [place] [address] Care Team Providers Name Role Phone Ni José APRN, C.NSuePSue Primary Care Provider [phone] Reason for Referral Behavioral Health (Routine) - Closed Specialty Diagnoses / Procedures Referred By Contact Refer red To Contact Psychology / Diagnoses Impairment Cognitive Mild [facility] and Procedures PSY Neuropsychology testing PUmer, M.S. Psychology [address] [place] [address] Referral ID Status Reason Start Date Expiration Date Visits Requ ested Visits Authorized [id number] Closed 12/21/2019 12/20/2020 6 6 WORKER FOREMAN Outpatient (Routine) - Closed Specialty Diagnoses / Procedures Referred By Contact Refer red To Contact Neurology Diane Owen P. A.-C., M.S. [facility] [address] [place], [place] [phone] Referral ID Status Reason Start Date Expiration Date Visits Requ ested Visits Authorized [id number] Closed 12/21/2019 12/20/2020 1 1 WORKER FOREMAN MRI/CAT/PET Scan (Routine) - Closed Specialty Diagnoses / Procedures Referred By Contact Refer red To Contact Radiology Diagnoses Meningioma Brain (HCC) Diane Owen P.A.-C., [facility] Procedures MR Brain without and with IV Contrast M.S. [address] [place] [phone] Referral ID Status Reason Start Date Expiration Date Visits Requ ested Visits Authorized [id number] Closed 12/21/2019 12/20/2020 1 1 WORKER FOREMAN Reason for Visit Outpatient (Routine) - Closed Specialty Diagnoses / Procedures Referred By Contact Refer red To Contact Neurology Jose De La O M. D. [facility] 200 [place] [address] Referral ID Status Reason Start Date Expiration Date Visits Requ ested Visits Authorized [id number] Closed 08/16/2018 08/16/2019 1 1 Encounter Details Date Type Department Care Team Description 12/21/2019 Office Visit Department of Diane Owen Impairmen t Cognitive Mild (Primary Dx); Neurology in Eb, M.S. Meningioma Brain (HCC) [place], [place] [address] [facility] 200 [place] [phone] Social History Tobacco Use Types Packs/Day Years [...] or relatives? How often do you attend latter-day or 1 to 4 times per year 05/23 lutheran services? Do you belong to any clubs or Yes 10/28/2019 organizations such as latter-day groups, unions, fraternal or athletic groups, or [...] Sign Reading Time Taken Comments Blood Pressure 130/83 12/21/2019 3:06 PM IRON WORKER FOREMAN Pulse 99 12/21/2019 3:06 PM IRON WORKER FOREMAN Temperature - - Respiratory Rate - - Oxygen Saturation - - Inhaled Oxygen Concentration - - Weight 88.5 kg (195 lb) 12/21/2019 3:06 PM IRON WORKER FOREMAN Height 161 cm (5' 3.39) 12/21/2019 3:06 PM IRON WORKER FOREMAN Body Mass Index 34.12 12/21/2019 3:06 PM IRON WORKER FOREMAN documented in this encounter Progress Notes Diane Owen P.A.-C., M.S. - 12/21/2019 3:00 PM CST Images from the original note were not included. SUBJECTIVE Chief Compliant: Follow-up left frontal meningioma, status post resection 2003 Lissette Rogers is a 49 y.o. year old being seen in the office accompanied by her Prashanth the above date for routine surveillance. Past medical history includes endometriosis and familialcancer syndrome, L5-S1 disc herniation with chronic low back pain 2016. She was last seen by Dr. Jose De La O MD 08/10/2018. Neurologic concerns: -reduced cognition. Forgot a routine drive a few months ago. Lost a job approximately a year ago dueto this. -mother has beginning stages of dementia she is understandably concerned Current Outpatient Medications: ??? acetaminophen (TYLENOL) 500 mg tablet, Take 1,000 mg by mouth every 6 (six) hours as needed for pain., Disp: , Rfl: ??? B complex-vitamin (SUPER B-50) capsule, Take 1 capsule by mouth daily., Disp: , Rfl: ??? buPROPion XL (WELLBUTRIN XL) 300 mg 24 hr tablet, Take 300 mg by mouth daily., Disp: , Rfl: 1 ??? cholecalciferol (VITAMIN D3) 2,000 Unit tablet, Take 2,000 Units by mouth daily., Disp: , Rfl: ??? DULoxetine (CYMBALTA) [address] capsule, Take 1 capsule by mouth at bedtime. , Disp: , Rfl: ??? estradiol (ESTRACE) 1 mg tablet, Currently 1mg Thu-Thu, 2mg -Thursday. Continue weaning down be 1mg per month as discussed at visit., Disp: 90 tablet, Rfl: 0 ??? ibuprofen (ADVIL,MOTRIN) 200 mg tablet, Take 400 mg by mouth every 6 (six) hours as needed for pain., Disp: , Rfl: ??? TURMERIC, BULK, MISC, Take 1 capsule by mouth daily. Turmeric and curcumin , Disp: , Rfl: No current facility-administered medications for this visit. Facility-Administered Medications Ordered in Other Visits: ??? LORazepam tablet 0.5 mg (ATIVAN), 0.5 mg, sublingual, PRN, Alex Hercules M.D., Ph.D. ??? sodium chloride (PF) 0.9 % injection 1-100 mL, 1-100 mL, intravenous, Once, Alex Hercules M.D., Ph.D. Genitourinary: Positive for incontinence. The following systems were negative: Constitutional, Skin, Eyes, ENT, CV, Respiratory, GI, Hematologic, Musculoskeletal, Neuro, Psych VITAL SIGNS There were no vitals filed for this visit. OBJECTIVE GENERAL: Patient is alert, oriented and responds appropriately to questions. No acute distress. ECOG score 0. NEUROLOGIC: Short test of mental status (Kokmen) score total: 33/38 Orientation: 06/30 Attention: 05/29 Registration: 02/24 (2 trials) Calculation: 11/26 Similarities: 01/23 Construction: 02/24 Knowledge: 02/24 Recall: 01/24 Mental Status: Awake, Alert. Oriented x3. Speech and cognition intact. Follows commands, has normal fund of knowledge, attention, short term recall, fluency, comprehension and insight. Cranial Nerves: Visual jamil are full without hemineglect. Extraocular movements are full. Facial sensation intact V1-V3. Facial movement intact, symmetric. Hearing intact to conversation. Nystagmus is not present. Palate elevates symmetrically. Shoulder shrug symmetric. Tongue midline. Motor: No pronator drift. Strength is symmetric proximally and distally. Good rapid alternating and fine finger movements. Sensation: Intact to light touch bilateral upper and lower extremities. Reflexes: DTRs 2+ throughout. No response with Babinski. Coordination/Cerebellar: Intact to lnkomf-ttaq-rvcuem, uspl-lq-apoz exam. Gait: walks heel and toe without difficulty, normal tandem gait and Romberg test. IMAGING: I personally reviewed current imaging. Shown below for reference, from left to right, are images dated 10/21/2004, 04/20/2012, 10/10/2018, 12/21/2019. There has been no recurrence of the meningioma locally. No concerns elsewhere. ASSESSMENT / PLAN 49-year-old female known to our service since 2003. She ended up having a left frontal transitional meningothelial meningioma resected under the direction Dr. Neri Espinosa MD 10/22/2004. RECOMMENDATIONS AND FORMULATION OF PLAN: #1 Left frontal meningioma -no recurrence -continue at 3 year intervals for MRI of the brain with and without contrast and office visit, sooner if neurologic problems; this is consistent with the National Comprehensive Cancer Network guidelines #2 Mild cognitive impairment -I have ordered thyroid, CBC, CMP to query reversible cause. If any out of reference range, we will need to ask our primary care colleagues locally to assist in management. -neuropsychometric testing also ordered, apparently she had 1 in the postoperative phase and they may use that 1 as a comparison -advised cardiovascular exercise, notes, calendar, routine to optimize heart brain health. Ultimately, perhaps we will refer to behavioral neurology for additional management Addendum 05/15/2020: Agree with and appreciate the thoughtful neuropsychometric review from my colleagues Dr. Paul Conteh and Dr. Wander Gill; no significant neuro cognitive issues detected. PATIENT EDUCATION Ready to learn, no apparent learning barriers were identified; learning preferences include listening. Explained diagnosis and treatment plan; patient expressed understanding of the content. Discussed with the patient we work together as a care team of physicians, nurse practitioners/physician assistants, nurses and other ground crewman mission support that specialize in this condition. Also, reviewed the importance of maintaining ongoing care with local medical team and primary care physician. ADMINISTRATIVE BILLING I personally spent over half of a total 40 minutes face to face with the patient in counseling and discussion and/or coordination of care as described above. documented in this encounter Plan of Treatment Scheduled Orders Name Type Priority Associated Diagnoses Order S chedule MR Brain without Imaging RAD - Routine (most Meningioma Brain Expected: and with IV inpatients and all (HCC) 3 Contrast outpatients) (Approximate), Expires: 12/21/2022 Scheduled Referrals Name Type Priority Associated Diagnoses Order S chedule Neurology office Outpatient Referral Routine Expe cted: visit (clinic) 12/21/2022, Expires: 12/21/2023 documented as of this encounter Visit Diagnoses Diagnosis Impairment Cognitive Mild - Primary Meningioma Brain (HCC) documented in this encounter Additional Health Concerns Assessment Noted Time PHQ-9 Depression Total Score: 11 01/10/2019 2:41 PM CS T documented as of this encounter Care Teams Can Sealer Relationship Specialty Start Date End Date Ni José, VIRAL, C.N.P. PCP - General Family Medicine 01/30/20 [address] [place] [phone] documented as of this encounter
--- OUTSIDE RECORDS SUMMARY | 2022-10-09 18:51 | XMS_ITS | Encounter Summary ---
:1970 Author Organization [facility] Address [address] [place] [address] Care Team Providers Name Role Phone Ni José APRN C.N.P. Primary Care Provider [phone] Encounter Details Date Type Department Care Team Description 03/12/2021 Orders Only [facility] PCP [facility] Kevin Mera Jr., M.D. [address] [place] [address] Dr [place] [phone] (Wo rk) Social History Tobacco Use Types Packs/Day Years [...] or relatives? How often do you attend presybeterian or 1 to 4 times per year 05/23 anabaptism services? Do you belong to any clubs or Yes 10/28/2019 organizations such as presybeterian groups, unions, fraternal or athletic groups, or [...] documented as of this encounter Care Teams Cuff Cutter Relationship Specialty Start Date End Date Ni José, VIRAL, C.N.P. PCP - General Family Medicine 01/30/[address] [place] [phone] documented as of this encounter
--- OUTSIDE RECORDS SUMMARY | 2022-10-09 18:51 | XMS_ITS | Encounter Summary ---
:1970 Author Organization [facility] Address [address] [place] [address] Care Team Providers Name Role Phone Ni José APRN, C.NSuePSue Primary Care Provider [phone] Reason for Visit Reason Onset Date Comments Outpatient COVID-19 Testing 09/26/2020 Encounter Details Date Type Department Care Team Description 09/26/2020 External Outreach Department of Julio C Gonzáles Infect ion Upper Internal Medicine in J, D.O. Respiratory (Primary [place], [place] [address] Dx) [address] [place] [phone] Social History Tobacco Use Types Packs/Day Years [...] or relatives? How often do you attend buddhist or 1 to 4 times per year 05/23 jew services? Do you belong to any clubs or Yes 10/28/2019 organizations such as buddhist groups, unions, fraternal or athletic groups, or [...] documented as of this encounter Progress Notes Reyna Matias L.P.N. - 09/26/2020 9:47 AM CST Encounter created for the drive-through COVID-19 testing. GN LEADER documented in this encounter Plan of Treatment Not on filedocumented as of this encounter Procedures Procedure Name Priority Date/Time Associated Diagnosis Comme nts SARS CORONAVIRUS-2 Routine 09/26/2020 12:57 PM Infection Upper Results for this RNA, V DESIGN LEADER Respiratory procedure are i n the results section. documented in this encounter Results (ABNORMAL) SARS Coronavirus-2 RNA, V Symptomatic (09/26/2020 12:57 PM DESIGN LEADER) [facility] Method Time Signature SARS-CoV-2 Swab, 09/28/2020 [facility] Specimen Nasopharynx 2:30 AM DESIGN LEADER Source SARS CoV-2 Detected (C) Undetected 09/28/2020 [facility] RNA, TMA 2:30 AM DESIGN LEADER Comment: SARS-CoV-2 RNA present. ----ADDITIONAL INFORMATION---- This test is performed using the Aptima SARS-CoV-2 assay ([employer] which has received Emergency Use Authori zation (EUA) by the U.S. Food and Drug Administration. Fact sheets for this Emergency Use Autho rization (EUA) assay can be found at the following links: For Healthcare Providers: https://www.fd a.gov/media/056787/download For Patients: https://www.fda.gov/media/ 036241/download Specimen Anatomical Collection Method Collection Time Receive d Time (Source) Location / / Volume Laterality Varies 09/26/2020 12:57 09/27/2020 3:48 (Nasopharynx) PM DESIGN LEADER AM DESIGN LEADER Julio C Gonzáles D.O. LAB MICROBIOLOGY - GENERAL O RDERABLES Performing Organization Address City/State/ZIP Code Phon e Number [facility] [address] [place] [address] [facility] [place] [address] System [address] documented in this encounter Visit Diagnoses Diagnosis Infection Upper Respiratory - Primary documented in this encounter Additional Health Concerns Infection Onset Date Last Indicated Resolved Time COVID19 Pending 09/26/2020 09/26/2020 09/28/2020 2:30 AM DESIGN LEADER Assessment Noted Time PHQ-9 Depression Total Score: 11 01/10/2019 2:41 PM CS T documented as of this encounter Care Teams Window Decorator Relationship Specialty Start Date End Date Ni José APRN, C.N.P. PCP - General Family Medicine 01/30/[address] [place] [phone] documented as of this encounter
--- OUTSIDE RECORDS SUMMARY | 2022-10-09 18:51 | XMS_ITS | Encounter Summary ---
:1970 Author Organization [facility] Address [address] [place] [address] Care Team Providers Name Role Phone Ni José APRN CSueNSuePSue Primary Care Provider Encounter Details Date Type Department Care Team Description 10/12/2020 Admin Visit Department of Family Medicine, [address] [address] [facility] [phone] Social History Tobacco Use Types Packs/Day Years [...] or relatives? How often do you attend catholic or 1 to 4 times per year 05/23 latter day services? Do you belong to any clubs or Yes 10/28/2019 organizations such as catholic groups, unions, fraternal or athletic groups, or [...] Time COVID19 09/26/2020 09/26/2020 10/26/2020 4:47 AM WOODS RIDER Assessment Noted Time PHQ-9 Depression Total Score: 01/10/2019 2:41 PM CS T documented as of this encounter Care Teams Torch Solderer Relationship Specialty Start Date End Date Ni José, NURSE'S COMPANION, C.N.P. PCP - General Family Medicine 01/30/[address] [place] [phone] documented as of this encounter
--- OUTSIDE RECORDS SUMMARY | 2022-10-09 18:51 | XMS_ITS | Encounter Summary ---
:1970 Author Organization [facility] Address [address] [place] [address] Care Team Providers Name Role Phone Shawn Torre M.D. Primary Care Provider Reason for Visit Reason Comments Establish Care Refill Estradiol Encounter Details Date Type Department Care Team Description 10/28/2019 Comprehensive Visit Department of Family Sarah José Screening Mammogram Breast Cancer (Primary Dx); Medicine in [place], BOOTH CLEANER, Symptoms Vas [place], [place] C.N.P. [address] [place], [place] [address] [place], [place] [phone] Social History Tobacco Use Types Packs/Day Years [...] or relatives? How often do you attend yazidism or 1 to 4 times per year 05/23 moravian services? Do you belong to any clubs or Yes 10/28/2019 organizations such as yazidism groups, unions, fraternal or athletic groups, or [...] or the highest technical, or vocational p tomram degree you have received? Sex Assigned at Date Recorded Female 08/04/2018 11:10 AM CDT documented as of this encounter Last Filed Vital Signs Vital Sign Reading Time Taken Comments Blood Pressure 116/72 10/28/2019 10:33 AM GLASS SETTER Pulse 86 10/28/2019 10:33 AM GLASS SETTER Temperature 36.4 ??C (97.5 ??F) 10/28/2019 10:33 AM GLASS SETTER Respiratory Rate 16 10/28/2019 10:33 AM GLASS SETTER Oxygen Saturation 98% 10/28/2019 10:33 AM GLASS SETTER Inhaled Oxygen Concentration - - Weight 87.2 kg (192 lb 3.2 oz) 10/28/2019 10:33 AM GLASS SETTER Height 160 cm (5' 2.99) 10/28/2019 10:33 AM GLASS SETTER Body Mass Index 34.06 10/28/2019 10:33 AM GLASS SETTER documented in this encounter Progress Notes Ni José, VIRAL, C.N.P. - 10/28/2019 10:30 AM CST SUBJECTIVE CHIEF COMPLAINT/REASON FOR VISIT Establish Care (Refill Estradiol) HISTORY OF PRESENT ILLNESS Lissette Rogers is a 49 y.o. female who presents for establishment of care. She states she is feeling well. She needs a refill of her estradiol. She has been slowly weaning down, now taking 1 tabSat-Wed, 2 tabs Th-Thu. She has been on this since her hysterectomy about 14-15 years ago. She isnot having any major symptoms. She is otherwise feeling well. She is not due for any health maintenance today other than immunizations, which she declines. REVIEW OF SYSTEMS As stated above. Otherwise a complete systems review was performed and negative. PROBLEM LIST: Patient Active Problem List Diagnosis ??? Tumor [...] Family History ??? Incontinence Urinary Stress Female CURRENT MEDICATIONS Current Outpatient Medications Medication Sig ??? acetaminophen (TYLENOL) 500 mg tablet Take 1,000 mg by mouth every 6 (six) hours as needed for pain. ??? B complex-vitamin (SUPER B-50) capsule Take 1 capsule by mouth daily. ??? cholecalciferol (VITAMIN D3) 2,000 Unit tablet Take 2,000 Units by mouth daily. ??? DULoxetine (CYMBALTA) [address] capsule Take 1 capsule by mouth at bedtime. ??? estradiol (ESTRACE) 1 mg tablet Currently 1mg Thu-Thu, 2mg -Thursday. Continue weaning down be 1mg per month as discussed at visit. ??? ibuprofen (ADVIL,MOTRIN) 200 mg tablet Take 400 mg by mouth every 6 (six) hours as needed for pain. ??? TURMERIC, BULK, MISC Take 1 capsule by mouth daily. Turmeric and curcumin ??? buPROPion XL (WELLBUTRIN XL) 300 mg 24 hr tablet Take 300 mg by mouth daily. ALLERGIES/CONTRAINDICATIONS No Known Allergies MEDICAL HISTORY Past Medical History: Diagnosis Date ??? Abnormal Pap Smear Cervix 2004 History of LEEP procedure. ??? Anxiety Generalized [...] Son ??? Breast cancer Mother's Sister ??? Skin cancer Brother ??? Breast cancer Cousin ??? Pancreatic cancer Other ??? Brain cancer Other ??? Diabetes Paternal Grandmother ??? No Known Problems Child ??? No Known Problems Child SOCIAL HISTORY Social History Tobacco Use ??? Smoking status: Former Smoker Packs/day: 2.00 Years: 13.00 Pack years: 26.00 Types: Cigarettes ??? Smokeless tobacco: Never Used Substance Use Topics ??? Alcohol use: Yes Types: 1 Cans of beer, 1 Standard drinks or equivalent per week Frequency: 2-4 times a month Drinks per session: 1 or 2 Binge frequency: Less than monthly ??? Drug use: No Social History Patient does not qualify to have social determinant information on file (likely too young). Social History Narrative Exercise: Limited since back injury 2016. Dentist: Yearly Eye doctor: Yearly Not working right now. Lives with , 2 teenagers. No smokers in the home. Patient's mother smokes in her home and patient helps care for her. OBJECTIVE VITAL SIGNS BP 116/72 (BP Location: Right arm, Patient Position: Sitting, Cuff Size: Large) Pulse 86 Temp 36.4 ??C (Temporal) Resp 16 Ht 160 cm Wt 87.2 kg SpO2 98% BMI 34.06 kg/m?? PHYSICAL EXAMINATION General: Patient is alert, oriented and appears to be in no distress. HENT: Grossly normal. Neck is supple and without mass or adenopathy. Cardiovascular: Heart is regular rate and rhythm. There are no murmurs, gallops or rubs. Respiratory: Breathing is nonlabored. Lungs are clear to auscultation bilaterally. Extremities: There is no lower extremity edema. Skin: No rashes or lesion noted. Neurologic: No neurologic deficit noted. ASSESSMENT / PLAN #1 Symptoms Vasomotor - estradiol (ESTRACE) 1 mg tablet; Currently 1mg Thu-Thu, 2mg -Thursday. Continue weaning down be1mg per month as discussed at visit., Normal #2 Screening Mammogram Breast Cancer - BI Breast Screening Bilateral; Future; Expected date: 10/28/2019 Patient will continue to wean down on estradiol, 1 pill monthly. This should put her at 1mg daily byFebruary 2019, at which time we can either wean down on daily dosage, or continue eliminating one pill per day, based on severity of symptoms. Patient will touch base with me at that time, I gave her a90 tab supply. All questions answered. She gets mental health care from a mental health clinic in [place]. S SETTER documented in this encounter Plan of Treatment Not on filedocumented as of this encounter Visit Diagnoses Diagnosis Screening Mammogram Breast Cancer - Prim rachell Symptoms Vasomotor documented in this encounter Additional Health Concerns Assessment Noted Time PHQ-9 Depression Total Score: 11 01/10/2019 2:41 PM CS T documented as of this encounter Care Teams Release Engineer Relationship Specialty Start Date End Date Shawn Torre M.D. PCP - General 08/03/19 01/29/[address] [place] [address] documented as of this encounter
--- OUTSIDE RECORDS SUMMARY | 2022-10-09 18:51 | XMS_ITS | Encounter Summary ---
:1970 Author Organization [facility] Address [address] [place] [address] Care Team Providers Name Role Phone Ni José APRN C.N.P. Primary Care Provider Encounter Details Date Type Department Care Team Description 05/02/2020 Clinical Communication Department of Physical Silver Conteh Medicine and R, Ph.D., L.P. Rehabilitation in [address] [place] [address] [place] [address] [place], [place] [phone] (Work) [phone] Social History Tobacco Use Types Packs/Day Years [...] or relatives? How often do you attend pentecostal or 1 to 4 times per year 05/23 jewish services? Do you belong to any clubs or Yes 10/28/2019 organizations such as pentecostal groups, unions, fraternal or athletic groups, or [...] documented as of this encounter Care Teams Broke Man Relationship Specialty Start Date End Date Ni José APRN, C.N.P. PCP - General Family Medicine 01/30/[address] [place] [phone] documented as of this encounter
--- OUTSIDE RECORDS SUMMARY | 2022-10-09 18:51 | XMS_ITS | Encounter Summary ---
:1970 Author Organization [facility] Address [address] [place] [address] Care Team Providers Name Role Phone Ni José APRN, C.N.P. Primary Care Provider Encounter Details Date Type Department Care Team Description 04/29/2022 Orders Only [facility] PCP Geetha [place] Scre ening Examination MNT S, D.O., M.B.A. Diabetes Mellitus [address] [place] [place] [address] (Wo rk) Social History Tobacco Use Types [...] Type Priority Associated Diagnoses Order S chedule Glucose, Fasting Lab Routine Screening Examination Ex pected: 05/13/2022, Diabetes Mellitus Expires: 1 12/27/2021 documented as of this encounter Visit Diagnoses Diagnosis Screening Examination Diabetes Mellitus documented in this encounter Additional Health Concerns Assessment Noted Time PHQ-9 Depression Total Score: 11 01/10/2019 2:41 PM CS T documented as of this encounter Care Teams Two Way Radio Technician Relationship Specialty Start Date End Date Ni José, CONFERENCE ORGANIZER, C.N.P. PCP - General Family Medicine 01/30/[address] [place] [address] documented as of this encounter
--- OUTSIDE RECORDS SUMMARY | 2022-10-09 18:51 | XMS_ITS | Encounter Summary ---
:1970 Author Organization [facility] Address [address] [place] [address] Care Team Providers Name Role Phone Ni José APRN C.N.PSue Primary Care Provider Reason for Visit Appointment Request (Routine) - Closed Specialty Diagnoses / Procedures Referred By Contact Refer red To Contact General Internal Diagnoses [facility] Medicine Procedures Location [address] [place] [phone] Referral ID Status Reason Start Date Expiration Date Visits Requ ested Visits Authorized [id number] Closed 09/28/2020 09/28/2021 1 1 Encounter Details Date Type Department Care Team Description 10/04/2020 Clinical Communication Division of General Canceled (Clinic: Internal Medicine in Request ) [place], [place] [address] [place] [phone] Social History Tobacco Use Types Packs/Day Years [...] or relatives? How often do you attend amish or 1 to 4 times per year 05/23 zoroastrian services? 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 PCP - General Family Medicine 01/30/[address] [place] [phone] documented as of this encounter
--- OUTSIDE RECORDS SUMMARY | 2022-10-09 18:51 | XMS_ITS | Clinical Summary ---
:1970 Author Organization [facility] Address [address] [place] [address] Care Team Providers Name Role Phone Ni José APRN C.NSuePSue Primary Care Provider [phone] Source Comments Patient records contain information from all sites at [facility]. For routine questions regarding patient records, call [phone] during business hours, M-F 8:00 AM - 5:00 PM Central Time. Record requests for emergency care only can be directed to [phone] at any time.[facility] Allergies No known active allergies Medications Medication Sig Dispensed Refills Start Date End Date Status B complex-vitamin (SUPER Take 1 capsule 0 Active B-50) capsule by mouth daily. cholecalciferol (VITAMIN Take 2,000 Units 0 Active D3) 2,000 Unit tablet by mouth daily. acetaminophen (TYLENOL) Take 1,000 mg by 0 Active 500 mg tablet mouth every 6 (six) hours as needed for pain. ibuprofen (ADVIL,MOTRIN) Take 400 mg by 0 Active 200 mg tablet mouth every 6 (six) hours as needed for pain. zinc sulfate (ZINCATE) Take 220 mg by 0 Active 220 (50 mg zinc) capsule mouth. 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 Family History 03/03/2006 Endometriosis 03/03/2006 Overview: Overview: Endometriosis NOS Malignant Neoplasm Of Brain 04/22/2005 Overview: Glioma Brain Cognitive Disorder 04/22/2005 Deficit Cognitive Psychiatric 04/22/2005 Glioma Brain 04/22/2005 Melanoma Family History 02/14/2005 Seizure 01/29/2005 Hemianopsia Homonymous 11/06/2004 Meningioma Brain 11/06/2004 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 from Last 3 Months Immunizations Name Administration Dates Next Due HepA Adult 11/24/2007 Influenza Split 09/18/2006 Td (Adult), adsorbed 05/23/2007 Td Preservative Free (TENIVAC, DECAVAC) 02/03/2020 Tdap 02/02/2007 Family History Medical History Relation Name Comments Melanoma Brother Amilcar No Known Problems Child 1 No Known Problems Child 2 Breast cancer Cousin maternal Hyperlipidemia Father jigar Hypertension Father jigar Dementia Maternal Grandfather april Depression Maternal Grandfather april Diabetes Maternal Grandfather april Heart disease Maternal Grandfather april Hypertension Maternal Grandfather april Stroke Maternal Grandfather april Transient ischemic attack Maternal Grandfather april Anxiety disorder Maternal Grandmother rosa Brain Aneurysm Maternal Grandmother rosa Cervical cancer Maternal Grandmother rosa Dementia Maternal Grandmother rosa Depression Maternal Grandmother rosa Uterine cancer Maternal Grandmother rosa Anxiety disorder Mother martell Arthritis Mother martell Asthma Mother martell Brain Aneurysm Mother martell x3 Dementia Mother martell Depression Mother martell Hyperlipidemia Mother martell Hypertension Mother martell Migraines Mother martell Osteoporosis Mother martell Coronary artery disease Mother's Brother james Pancreatic cancer Mother's Brother james Breast cancer Mother's Sister Pancreatic cancer Other 1 great uncle Brain cancer Other 2 great uncle Diabetes Paternal Grandmother Migraines Son daniella Relation Name Status Comments Brother Amilcar Child 1 Alive Child 2 Alive Cousin maternal Alive Father jigar Maternal Grandfather april Maternal Grandmother rosa Mother martell Mother's Brother james Mother's Sister Other 1 great uncle Alive Other 2 great uncle Alive Paternal Grandmother Son daniella Social History Tobacco Use Types Packs/Day Years Used Date Smoking Tobacco: Former Cigarettes 2 13 Smokeless Tobacco: Never Tobacco Cessation: Counseling Given: No Alcohol Use Standard Drinks/Week Comments Yes 0 [...] or relatives? How often do you attend scientology or 1 to 4 times per year 05/23 rastafarian services? Do you belong to any clubs or Yes 10/28/2019 organizations such as scientology groups, unions, fraternal or athletic groups, or [...] Date Recorded Female 08/04/2018 11:10 AM CDT Last Filed Vital Signs Vital Sign Reading Time Taken Comments Blood Pressure 114/78 09/27/2021 12:58 PM CDT Pulse 59 09/27/2021 12:58 PM CDT Temperature 36.7 ??C (98.1 ??F) 09/27/2021 12:58 PM CDT Respiratory Rate 16 02/03/2020 2:23 PM CDT Oxygen Saturation 98% 09/27/2021 12:58 PM CDT Inhaled Oxygen Concentration - - Weight 90.7 kg (200 lb) 02/03/2020 2:23 PM CDT Height 162 cm (5' 3.78) 02/03/2020 2:23 PM CDT Body Mass Index 34.57 02/03/2020 2:23 PM CDT Plan of Treatment Health Maintenance Due Date Last Done Comments CT Colonography 1972 Cologuard 1970 Colonoscopy 1970 Colorectal Cancer Screening 1970 FIT 1972 Hepatitis B Vaccines (1 of 3 1972 - 3-dose series) Hepatitis C Screening 1972 COVID-19 Vaccine (#1) 02/28/1973 Mammogram 08/27/2019 08/27/2018, 09/17/2016 (Performed elsewhere), 04/21/2012 Fasting Glucose for Diabetes 08/04/2021 08/04/2018, Screening 06/18/2000 (Performed elsewhere) Depression Screening (Annual 11/23/2021 PHQ-2) Influenza Vaccine (#1) 2022 09/18/2006 Zoster Vaccines (1 of 2) 2022 Cervical Cancer Screening 08/04/2023 08/04/2018, 08/04/2018 Lipid (Cholesterol) 08/04/2023 08/04/2018, Screening 04/21/2012 DTaP,Tdap,and Td Vaccines (4 02/02/2030 02/03/2020, - Td or Tdap) 05/23/2007, 02/02/2007 HIV Screening Addressed 01/11/2002 Overridden with the (Performed intention of not elsewhere) completing the t opic Pneumococcal vaccine (0-64 Aged Out No lo nger eligible based years) on patient's age to complete this to pic Medical Devices Implanted Type Area Front Desk Team Member Device Shelf Model / Identifier Expiration Serial / Date Lot Gynecologic Gynecologic Abdomen Other Other Description: sling [employer]omed-Plate Wandy Hole Large - Cash [id number] Hardware e.g. pins/s crews/rods [employer] Implanted: Qty: 1 on 10/22/2004 Description: Device Front Desk Team Member - Osteo Med. Device Status Text - [id number]. Insurance Payer Benefit Plan / Subscriber ID Effective Dates Phone Addre ss Type Group BLUE CROSS ANTHEM BLUE [id number] 2021-Prese [phone] PO [place] X [id number] PPO BLUE SHIELD ACCESS nt [address] [place] [id number] Advance Directives For more information, please contact: [phone] Documents on File Type Date Recorded Patient Book Coverer Explanati on Advance Directives 10/30/2004 12:00 AM Legacy doc ument. See document viewer. Care Teams Shuttle Filler Relationship Specialty Start Date End Date Ni José APRN, C.N.P. PCP - General Family Medicine 01/30/[address] [place] [phone]
--- OUTSIDE RECORDS SUMMARY | 2022-10-09 18:51 | XMS_ITS | Encounter Summary ---
:[address] [facility] Address [address] [place] [address] Care Team Providers Name Role Phone Shawn Torre M.D. Primary Care Provider Reason for Referral MRI/CAT/PET Scan (Routine) - Closed Specialty Diagnoses / Procedures Referred By Contact Refer red To Contact Radiology Diagnoses Meningioma Brain (HCC) Jose De La O M.D. [facility] Procedures MR Brain without and with IV Contrast [place] MRI BRAIN WO/W CNTRST HC MRI BRAIN WO/W CNTRST [address] [place] [address] Referral ID Status Reason Start Date Expiration Date Visits Requ ested Visits Authorized [id number] Closed 08/16/2018 08/16/2019 1 1 IT ADVISOR Reason for Visit MRI/CAT/PET Scan (Routine) - Closed Specialty Diagnoses / Procedures Referred By Contact Refer red To Contact Radiology Diagnoses Meningioma Brain (HCC) Ayse [phone] Jose De La O M.D. Rst Rad Mr Rocn Procedures MR BRAIN WITHOUT AND WITH IV CONTRAST RAD MR BRAIN MIN SEDATION [address] [facility] [address] [place] [address] [place] [address] Fax: Referral ID Status Reason Start Date Expiration Date Visits Requ ested Visits Authorized [id number] Closed 09/29/2019 09/28/2020 1 1 Encounter Details Date Type Department Care Team Description 12/21/2019 Hospital Encounter Department of Jose De La O Brain Radiology, Maldonado Valencia M.D. ([facility]) [facility] in [place], [address] [place], [place] [address] [facility] [address] [place], [place] [phone] (Work) [phone] Social History Tobacco Use Types Packs/Day Years [...] or relatives? How often do you attend hinduism or 1 to 4 times per year 05/23 anabaptism services? Do you belong to any clubs or Yes 10/28/2019 organizations such as hinduism groups, unions, fraternal or athletic groups, or [...] Sign Reading Time Taken Comments Blood Pressure - - Pulse - - Temperature - - Respiratory Rate - - Oxygen Saturation - - Inhaled Oxygen Concentration - - Weight - - Height 162.6 cm (5' 4) 12/21/2019 9:09 AM CREDIT ADVISOR Body Mass Index - - documented in this encounter Medications at Time of Discharge [...] and curcumin documented as of this encounter Nursing Notes Catherine Phillips, R.N. - 12/21/2019 9:25 AM CST A review of the patients current medications was completed under the context of radiology care priorto contrast/medication administration. IT ADVISOR documented in this encounter Plan of Treatment Scheduled Orders Name Type Priority Associated Diagnoses Order S chedule Creatinine, POCT Point of Care STAT STAT for 1 Occurrences Testing-Docked starting 11/24 Device until 0 documented as of this encounter Procedures Procedure Name Priority Date/Time Associated Comments Diagnosis MR BRAIN WITHOUT RAD - Routine 12/21/2019 10:16 Meningioma Brain Re sults for this AND WITH IV (most inpatients AM CREDIT ADVISOR (HCC) procedure a re in CONTRAST and all the results outpatients) section. CREATININE, POCT, Routine 12/21/2019 9:18 Results for this B AM CREDIT ADVISOR procedure are i n the results section. CREATININE, POCT, Routine 12/21/2019 9:18 Results for this B AM CREDIT ADVISOR procedure are i n the results section. documented in this encounter Results MR Brain without and with IV Contrast (12/21/2019 10:16 AM CREDIT ADVISOR) Anatomical Region Laterality Modality Head, Brain, Neuroradiology RST LOS, Neuroradiology ARZ N/A Magnetic Resonance LOS, Neuroradiology FLA LOS Specimen (Source) Anatomical Collection Method Collection Time Re ceived Time Location / / Volume Laterality 12/21/2019 11:12 AM CREDIT ADVISOR Impressions 12/21/2019 11:18 AM CREDIT ADVISOR Stable exam. No evidence for recurrent m eningioma. Narrative 12/21/2019 11:18 AM CREDIT ADVISOR EXAM: MR BRAIN WITHOUT AND WITH IV [...] No evidence for recurrent m eningioma. Jose De La O M.D. IMSelene MRI PROCEDURES Creatinine, POCT (12/21/2019 9:18 AM CREDIT ADVISOR) P athologist Signature Creatinine, 0.7 0.6 - 1.0 12/21/2019 PCDT POCT, B mg/dL 9:20 AM CREDIT ADVISOR Comment: ----ADDITIONAL INFORMATION---- Performed at the Point of Care Specimen Anatomical Collection Method Collection Time Receive d Time (Source) Location / / Volume Laterality Blood 12/21/2019 9:18 AM 0 9:21 CREDIT ADVISOR AM CREDIT ADVISOR Unknown Provider LAB POCT ORDERABLES - DEVICE Performing Organization Address City/[facility]/ZIP Code Phon e Number POC CONCEPCIÓN PERFORMING [address] [place] [address] [facility] [place] [address] [place] POC [address] Creatinine, POCT (12/21/2019 9:18 AM CREDIT ADVISOR) P athologist Signature eGFR-Black/Afri >90 >=60 12/21/2019 PCMO can Djiboutian, mL/min/BSA 9:21 AM CREDIT ADVISOR POCT Comment: ----ADDITIONAL INFORMATION---- Estimated GFR calculated using the 2009 CKD_EPI creatinine equation. eGFR Non-Black/, >90 >=60 mL/min/BSA 12/21/2019 9:21 AM CREDIT ADVISOR PCMO POCT Comment: ----ADDITIONAL INFORMATION---- Estimated GFR calculated using the 2009 CKD_EPI creatinine equation. Specimen Anatomical Collection Method Collection Time Receive d Time (Source) Location / / Volume Laterality Blood 12/21/2019 9:18 AM 0 9:21 CREDIT ADVISOR AM CREDIT ADVISOR Unknown Provider LAB POCT ORDERABLES - DEVICE Performing Organization Address City/[facility] Phon e Number POC RST [place] [address] [place] [address] [address] [facility] [place] [address] [place] POC [address] documented in this encounter Visit Diagnoses Diagnosis Meningioma Brain (HCC) documented in this encounter Administered Medications Inactive Administered Medications - up to 3 most recent administrations Medication Order MAR Action Action Date Dose Rate Site gadobutrol injection 0.01-30 mL Given 12/21/2019 9:39 AM CREDIT ADVISOR 9 m L (GADAVIST) 0.01-30 mL, intravenous, Once in imaging, contrast, Starting on Thu12/21/19 at 0907, For 1 dose, Imaging Protocol Orders, Dose per Radiant Medication Guidelines documented in this encounter Additional Health Concerns Assessment Noted Time PHQ-9 Depression Total Score: 11 01/10/2019 2:41 PM DONYA T documented as of this encounter Care Teams Population Health Manager Relationship Specialty Start Date End Date Shawn Torre M.D. PCP - General 08/03/19 01/29/[address] [place] [address] documented as of this encounter
--- OUTSIDE RECORDS SUMMARY | 2022-10-09 18:51 | XMS_ITS | Encounter Summary ---
:1970 Author Organization [facility] Address [address] [place] [address] Care Team Providers Name Role Phone Ni José APRN, C.NSuePSue Primary Care Provider Reason for Visit Reason Comments Follow-up CFCT Encounter Details Date Type Department Care Team Description 09/28/2020 Clinical Communication Division of [place] Follow-up (CFCT) Internal Medicine R, R.N. in [place], [address] [place] [address] [facility] [address] [place], [place] [phone] (Work) [phone] Social History Tobacco Use Types Packs/Day Years [...] this encounter Miscellaneous Notes Telephone Encounter - Page Galo R.N. - 09/28/2020 8:15 AM GUN EXAMINER SUBJECTIVE CHIEF COMPLAINT / REASON FOR CALL Follow-up (CFCT) Information Discussed Ms. Rogers contacted by [place] [address] Frontline Care Team (CFCT) Registered Nurse for self-monitoring symptom instruction and education related to positive test for SARS-CoV-2 (the virus that causes COVID-19). [facility] and the Center for Disease Control (CDC) require you adhere to symptom monitoring for a minimum of 10 days and follow certain precautions to control the spread of this disease. You are also required to be isolated in your home until further directed by your medical team. During this time the [facility]-19 Frontline Care Team will follow up and a Registered Nurse from our team will contact you by phone to follow-up on symptom progression. I have reinforced the importance of isolation with the patient. I also shared that if the patient has any household contacts that start to have symptoms,they should isolate themselves and call the [facility] Nurse line at [phone] for assessment and direction. Self-monitor your symptoms at home including dyspnea, chest pain, dizziness/lightheadedness, vomiting, diarrhea, cough, loss or smell or taste, headache, chills, fever, and runny nose and if they startto worsen, contact a member of our Care Team for guidance by calling [phone], Thursday- Thursday, 8a m-5pm. If you become significantly ill, call 911 or go to the emergency department. Please wear a face mask when seeking medical services. We discussed that a CFCT RN swat team member will be calling back for continued monitoring and follow-up as well as discussion regarding repeat testing, as appropriate. Patient advised, if applicable, to contact their speciality provider for discussion and/or management of other disease processes. PLAN Disposition/Recommendation: self-care is appropriate at this time, patient encouraged to call back with questions Information/Education: patient/caller able to teach back Caller agreeable to plan of care: yes The following references were used: nursing clinical judgement and CDC Guidelines. EXAMINER documented in this encounter Plan of Treatment Not on filedocumented as of this encounter Visit Diagnoses Not on filedocumented in this encounter Additional Health Concerns Infection Onset Date Last Indicated Resolved Time COVID19 Pending 09/26/2020 09/26/2020 09/28/2020 2:30 AM GUN EXAMINER COVID19 09/26/2020 09/26/2020 10/26/2020 4:47 AM GUN EXAMINER Assessment Noted Time PHQ-9 Depression Total Score: 11 01/10/2019 2:41 PM CS T documented as of this encounter Care Teams Hotel Operations Manager Relationship Specialty Start Date End Date Ni José APRN, C.N.P. PCP - General Family Medicine 01/30/[address] [facility] [phone] documented as of this encounter
--- OUTSIDE RECORDS SUMMARY | 2022-10-09 18:51 | XMS_ITS | Encounter Summary ---
:1970 Author Organization [facility] Address [address] [place] [address] Care Team Providers Name Role Phone Ni José APRN, C.N.P. Primary Care Provider Reason for Visit Reason Comments Med Refill Encounter Details Date Type Department Care Team Description 01/20/2020 Refill Department of Family Medicine Rich José APRN, Med Refill in [facility] so C.N.P. [address] [place] [address] [place] [address] (Wo rk) Social History Tobacco Use Types [...] or relatives? How often do you attend jainism or 1 to 4 times per year 05/23 sikh services? Do you belong to any clubs or Yes 10/28/2019 organizations such as jainism groups, unions, fraternal or athletic groups, or [...] this encounter Miscellaneous Notes Telephone Encounter - Ni José APRN, C.N.P. - 01/20/2020 1:13 PM PROPERTY ADMINISTRATOR Will refill at 1mg daily, how would patient like to proceed with wean? Thanks, TK ERTY ADMINISTRATOR Telephone Encounter - Yolis Foster L.PSueN. - 01/20/2020 11:03 AM PROPERTY ADMINISTRATOR Unable to refill per protocol: Name of Medications Needing Refill: Estrdiol 1 mg tab Last Refill Date: [id number] Additional Information:Per your 10/28/19 note Pt should be in touch with you soon. Last / Future Appointment: Last OV 10/28/2019 No future OV scheduled. ERTY ADMINISTRATOR documented in this encounter Plan of Treatment Not on filedocumented as of this encounter Visit Diagnoses Diagnosis Symptoms Vasomotor documented in this encounter Additional Health Concerns Assessment Noted Time PHQ-9 Depression Total Score: 11 01/10/2019 2:41 PM CS T documented as of this encounter Care Teams Chief Operating Engineer Relationship Specialty Start Date End Date Ni José APRN, C.N.P. PCP - General Family Medicine 01/30/[address] [place] [phone] documented as of this encounter
--- OUTSIDE RECORDS SUMMARY | 2022-10-09 18:51 | XMS_ITS | Encounter Summary ---
:1970 Author Organization [facility] Address [address] [place] [address] Care Team Providers Name Role Phone Ni José APRN, C.N.P. Primary Care Provider Reason for Visit Reason Comments Med Refill Encounter Details Date Type Department Care Team Description 02/07/2020 Refill Department of Family Medicine Rich José APRN, Med Refill in [facility] so C.N.P. [address] [place] [address] [place] [phone] (Wo rk) Social History Tobacco Use Types [...] or relatives? How often do you attend sabianism or 1 to 4 times per year 05/23 episcopal services? Do you belong to any clubs or Yes 10/28/2019 organizations such as sabianism groups, unions, fraternal or athletic groups, or [...] documented as of this encounter Care Teams Executive Search Consultant Relationship Specialty Start Date End Date Ni José, VIRAL, C.N.P. PCP - General Family Medicine 01/30/[address] [place] [address] documented as of this encounter
--- OUTSIDE RECORDS SUMMARY | 2022-10-09 18:52 | XMS_ITS | Encounter Summary ---
:1970 Author Organization [facility] Address [address] [place] [address] Care Team Providers Name Role Phone Maris Prakash APRN, C.N.P., R.N. Primary Care Provider +1- [phone] Reason for Visit Reason Comments Med Refill Encounter Details Date Type Department Care Team Description 06/02/2019 Refill Department of Family Medicine Ramsey Prakash APRN, Med Refill in [facility] josie C.N.P., R.N. [address] , [facility] [address] [place] [address] [place] [address] [phone] (Wo rk) Social History Tobacco Use Types [...] or relatives? How often do you attend yarsanism or 1 to 4 times per year 05/23 jain services? Do you belong to any clubs or Yes 10/28/2019 organizations such as yarsanism groups, unions, fraternal or athletic groups, or [...] or getting things needed for daily living? Sex Assigned at Date Recorded Female 08/04/2018 11:10 AM CDT documented as of this encounter Miscellaneous Notes Telephone Encounter - Gabriela Warren C.M.A. - 06/03/2019 11:08 AM CDT Last fill 03/29/2019 Last visit 05/27/2019 No future appt documented in this encounter Plan of Treatment Not on filedocumented as of this encounter Visit Diagnoses Diagnosis Symptoms Vasomotor documented in this encounter Additional Health Concerns Assessment Noted Time PHQ-9 Depression Total Score: 11 01/10/2019 2:41 PM CS T documented as of this encounter Care Teams Search Optimization Analyst Relationship Specialty Start Date End Date Maris Prakash APRN, C.N.P., R.N. PCP - General Family Medicine 01/10/19 08/02/19 documented as of this encounter
--- OUTSIDE RECORDS SUMMARY | 2022-10-09 18:52 | XMS_ITS | Encounter Summary ---
:1970 Author Organization [facility] Address [address] [place] [address] Care Team Providers Name Role Phone Maris Prakash APRN, C.NSamantha, R.N. Primary Care Provider +1- [phone] Encounter Details Date Type Department Care Team Description 05/17/2019 Clinical Communication Department of Urology Xavier Mccurdy in Danuta Euceda M.D. [place] [address] [address] [facility] [address] [place] [phone] Social History Tobacco Use Types Packs/Day Years [...] or relatives? How often do you attend mandaeism or 1 to 4 times per year 05/23 sikhism services? Do you belong to any clubs or Yes 10/28/2019 organizations such as mandaeism groups, unions, fraternal or athletic groups, or [...] documented as of this encounter Care Teams Entry Level Mechanical Engineer Relationship Specialty Start Date End Date Maris Prakash, VIRAL, C.N.P., R.N. PCP - General Family Medicine 01/10/19 08/02/19 documented as of this encounter
--- OUTSIDE RECORDS SUMMARY | 2022-10-09 18:52 | XMS_ITS | Encounter Summary ---
:1970 Author Organization [facility] Address [address] [place] [address] Care Team Providers Name Role Phone Maris Prakash APRN, C.NJosh., R.N. Primary Care Provider +1- [phone] Encounter Details Date Type Department Care Team Description 05/11/2019 Orders Only Department of Urology in Lawrence Triplett M.D. [place], [place] [address] [place] [address] Social History Tobacco Use Types Packs/Day [...] or relatives? How often do you attend buddhism or 1 to 4 times per year 05/23 jew services? Do you belong to any clubs or Yes 10/28/2019 organizations such as buddhism groups, unions, fraternal or athletic groups, or [...] documented as of this encounter Care Teams Rn Radiology Relationship Specialty Start Date End Date Maris Prakash APRN, C.N.P., R.N. PCP - General Family Medicine 01/10/19 08/02/19 documented as of this encounter
--- OUTSIDE RECORDS SUMMARY | 2022-10-09 18:52 | XMS_ITS | Encounter Summary ---
:1970 Author Organization [facility] Address [address] [place] [address] Care Team Providers Name Role Phone Maris Prakash APRN, C.N.P., R.N. Primary Care Provider +1- [phone] Reason for Visit Outpatient (Routine) - Closed Specialty Diagnoses / Procedures Referred By Contact Refer red To Contact Diagnoses Incontinence Urinary Stress Female Lawrence Triplett M.D. [facility] Procedures URO Uroflow [address] [place] [address] Referral ID Status Reason Start Date Expiration Date Visits Requ ested Visits Authorized [id number] Closed 05/10/2019 05/09/2020 1 1 Encounter Details Date Type Department Care Team Description 05/13/2019 Procedure visit Department of Lawrence Triplett M.D. In continence Urinary Urology in Demarcus Ruiz M.D. [address] [place] [phone] Stress Female [place], [place] Earlene Mandel L.P.N. [address] [place] [phone] [place] [phone] Social History Tobacco Use Types Packs/Day Years [...] or relatives? How often do you attend gnosticism or 1 to 4 times per year 05/23 islam services? Do you belong to any clubs or Yes 10/28/2019 organizations such as gnosticism groups, unions, fraternal or athletic groups, or [...] documented as of this encounter Progress Notes Earlene Mandel - 05/13/2019 2:45 PM CDT CHIEF COMPLAINT Patient here for a complex uroflow via calibrated electronic equipment and a residual urine check byultrasound. IMPRESSION/REPORT/PLAN Lawrence Triplett M.D. ordered the patient to have a complex uroflow with residual urine check via ultrasound. Patient had a strong urge to void. Uroflow was completed at this time. Patient first dwalde958 mL's and felt an immediate urge to void again. Patient voided a second time of 46 mL's and had an ultrasound residual of 17 mL's. Patient rates pain at 0 on the 0 to 10 pain scale post procedure. documented in this encounter Procedure Notes Demarcus Ruiz M.D. - 05/13/2019 2:45 PM CDTAssociated Order(s): URO UROFLOW COMPLEX UROFLOW OBTAINED VIA CALIBRATED EQUIPMENT Indications: Urinary incontinence First Uroflow Peak flow 47.6 ml/sec Average flow 20 ml/sec Voiding time 31.6 sec Total voided volume 607 mls Sommers-shaped flow pattern Residual urine 63 ml by ultrasound Second Uroflow Peak flow 11 ml/sec Average flow 7 ml/sec Voiding time 45 sec Total voided volume 46 mls Multiphasic flow pattern Residual urine 17 ml by ultrasound Impression: Patient is able to empty the bladder to low postvoid residual urines by a double voidingtechnique. documented in this encounter Plan of Treatment Not on filedocumented as of this encounter Procedures Procedure Name Priority Date/Time Associated Diagnosis Comme nts URO UROFLOW Routine 05/13/2019 2:45 PM Incontinence Urinary R esults for this CDT Stress Female procedure are in the results section. documented in this encounter Results URO Uroflow (05/13/2019 2:45 PM CDT) Narrative Demarcus Ruiz M.D. - 05/13/2019 2: 45 PM CDT Demarcus Ruiz M.D. ? 05/13/2019 ??3:14 PM COMPLEX UROFLOW OBTAINED VIA CALIBRATED EQUIPMENT Indications: ??Urinary incontinence First Uroflow Peak flow 47.6 ml/sec Average flow 20 ml/sec Voiding time ??31.6 sec Total voided volume 607 mls Sommers-shaped flow pattern Residual urine 63 ml by ultrasound Second Uroflow Peak flow 11 ml/sec Average flow 7 ml/sec Voiding time ??45 sec Total voided volume 46 mls Multiphasic flow pattern Residual urine 17 ml by ultrasound Impression: ??Patient is able to empty t he bladder to low postvoid residual urines by a double voiding tech nique. Lawrence Triplett M.D. UROLOGY ORDERABLES documented in this encounter Visit Diagnoses Diagnosis Incontinence Urinary Stress Female documented in this encounter Additional Health Concerns Assessment Noted Time PHQ-9 Depression Total Score: 11 01/10/2019 2:41 PM CS T documented as of this encounter Care Teams Vessel Manager Relationship Specialty Start Date End Date Maris Prakash APRN, C.N.P., R.N. PCP - General Family Medicine 01/10/19 08/02/19 documented as of this encounter
--- OUTSIDE RECORDS SUMMARY | 2022-10-09 18:52 | XMS_ITS | Encounter Summary ---
:1970 Author Organization [facility] Address [address] [place] [address] Care Team Providers Name Role Phone Maris Prakash APRN, C.N.P., R.N. Primary Care Provider +1- [phone] Reason for Visit Reason Comments Other Vasomotor symptoms Edema Outpatient (Routine) - Closed Specialty Diagnoses / Procedures Referred By Contact Refer red To Contact Family Medicine Diagnoses Symptoms Vasomotor Maris Prakash APRN, [facility] C.N.P., R.N. [address], [address] [place] [address] Referral ID Status Reason Start Date Expiration Date Visits Requ ested Visits Authorized [id number] Closed 01/10/2019 01/10/2020 1 1 Encounter Details Date Type Department Care Team Description 04/29/2019 Office Visit Department of Family Maris Prakash, Swe lling Leg (Primary Dx); Medicine in [facility] VIRAL, C.N.P., Symptoms Va somotor; [place], [place] R.N. Gain Weight; [address], Cognitive Disorder; [place], [place] [address] Constipation [id number] [place], [place] [phone] [address] Social History Tobacco Use Types Packs/Day Years [...] or relatives? How often do you attend yazdanism or 1 to 4 times per year 05/23 jew services? Do you belong to any clubs or [facility] 10/28/2019 organizations such as yazdanism groups, unions, fraternal or athletic groups, or school groups? How often do you attend meetings of the More than 4 times r year 10/28/2019 clubs or organizations you [...] Sign Reading Time Taken Comments Blood Pressure 118/80 04/29/2019 10:18 AM CDT Pulse 79 04/29/2019 10:18 AM CDT Temperature 36.7 ??C (98.1 ??F) 04/29/2019 10:18 AM CDT Respiratory Rate - - Oxygen Saturation 98% 04/29/2019 10:18 AM CDT Inhaled Oxygen Concentration - - Weight 92.9 kg (204 lb 11.2 oz) 04/29/2019 10:18 AM CDT Height - - Body Mass Index 36.27 04/26/2019 6:33 AM CDT documented in this encounter Patient Instructions Patient InstructionsCulvMaris rutherford APRN, C.N.P. - 04/29/2019 10:30 AM CDT Continue weaning estrogen down by 1 tab per week and do that for a month. In 3 months you should be down to 1 pill per day. Miralax as directed daily for the next week, then as needed once having stools. Work up to 30 min per day, 5 days per week with exercise as able post-op. documented in this encounter Progress Notes Maris Prakash APRN, ChristosNJosh. - 04/29/2019 10:30 AM CDT SUBJECTIVE CHIEF COMPLAINT/REASON FOR VISIT Chief Complaint Patient presents with ??? Other Vasomotor symptoms ??? Edema HISTORY OF PRESENT ILLNESS Lissette Rogers is a 48 y.o. female who presents with for follow up on hot flashes. Has been weaning estrogen as instructed at visit 01/10/2019. Currently on 1 tab Thursday through Thursday, then 2 tabs ROW. No issues. Still gaining weight. Trying to reduce portion sizes. Not exercising regularly. Last TSH 1.3 last July 2018. Three days ago patient underwent anterior colporrhaphy, insertion of pubovaginal synthetic sling, and rigid cystoscopy by Dr. Mccurdy. Last night developed leg swelling first in the right foot, then the left, now has travelled up her legs. No pain, but tight. Epsom salt foot soak did not help. Mentions odd sensation to the legs, but unable to describe. Not really tingling. No numbness. No history of DVT. 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 Notified surgeon last night who recommendedED visit to rule out DVT. Patient waited to come in today. No dyspnea or palpitations. CURRENT MEDICATIONS Current Outpatient Medications: ??? acetaminophen (TYLENOL) 500 mg tablet, Take 1,000 mg by mouth every 6 (six) hours as needed for pain., Disp: , Rfl: ??? B complex-vitamin (SUPER B-50) capsule, Take 1 capsule by mouth daily., Disp: , Rfl: ??? cefdinir (OMNICEF) 300 mg capsule, Take 1 capsule (300 mg total) by mouth every 12 (twelve) hours for 3 days., Disp: 6 capsule, Rfl: 0 ??? cholecalciferol (VITAMIN D3) 2,000 Unit tablet, Take 2,000 Units by mouth daily., Disp: , Rfl: ??? docusate sodium (COLACE) 100 mg capsule, Take 1 capsule (100 mg total) by mouth 2 (two) times a day as needed for constipation (Take while using narcotic pain medication)., Disp: 100 capsule, Rfl: 0 ??? DULoxetine (CYMBALTA) [address] capsule, Take 1 capsule by mouth at bedtime. , Disp: , Rfl: ??? estradiol (ESTRACE) 1 mg tablet, Take 2 tablets (2 mg total) by mouth daily. Wean per discharge instructions. (Patient taking differently: Take 1 mg by mouth as directed. Takes 1 mg Sat/Sun/Mon, 2 mg the rest of the week in the evening. Weaning off ), Disp: 90 tablet, Rfl: 1 ??? ibuprofen (ADVIL,MOTRIN) 200 mg tablet, Take 400 mg by mouth every 6 (six) hours as needed for pain., Disp: , Rfl: ??? oxyCODONE (ROXICODONE) 5 mg immediate release tablet, Take 1 tablet (5 mg total) by mouth every 4 (four) hours as needed for pain or severe pain or score 7-10 of 10 for up to 15 doses Indication: Acute Pain Exception., Disp: 15 tablet, Rfl: 0 ??? TURMERIC, BULK, MISC, Take 1 capsule by mouth daily. Turmeric and curcumin , Disp: , Rfl: ALLERGIES/CONTRAINDICATIONS No Known Allergies REVIEW OF SYSTEMS Per HPI. All others negative at this time. PROBLEM LIST: Patient Active Problem List Diagnosis [...] Family History ??? Incontinence Urinary Stress Female SOCIAL HISTORY Social History Tobacco Use ??? Smoking status: Former Smoker Packs/day: 2.00 Years: 13.00 Pack years: 26.00 Types: Cigarettes ??? Smokeless tobacco: Never Used Substance Use Topics ??? Alcohol use: Yes Types: 1 Cans of beer, 1 Standard drinks or equivalent per week ??? Drug use: No OBJECTIVE VITAL SIGNS BP 118/80 Pulse 79 Temp 36.7 ??C Wt 92.9 kg SpO2 98% BMI 36.27 kg/m?? PHYSICAL EXAMINATION General: Patient is alert, oriented. In no acute distress. Skin: Warm and dry. HEENT: Head normocephalic. Conjunctivae clear. Cardiovascular: Regular rate and rhythm. No murmur or extra sound. Respiratory: Breathing is nonlabored. Lung sounds clear throughout all lobes. Extremities: Posterior tibial and dorsalis pedis pulses 2+ bilaterally. 3+ pitting edema to anteriorbilateral lower legs. Nonpitting edema to bilateral feet. Terence's sign negative bilaterally. No calftenderness bilaterally. At 10 cm below the tibial tuberosity right calf measures 45 cm, left measures 44.5 cm. Musculoskeletal: Normal gait and posture. ASSESSMENT / PLAN 1. Symptoms Vasomotor Recommended continued weaning estrogen down by 1 mg per week and do that regimen for 1 month, then wean down by another mg per week and so forth. Should be down to 1 mg daily in 3 months. Will have herfollow up in 3 months or as needed prior to that should concerns develop. - Family Medicine office visit (clinic) - Family Medicine office visit (clinic); Future 2. Swelling Leg Likely secondary to postoperative status, but DVT is in the differential. She is high risk as she valencia supplemental estrogen, has history of a stroke post brain surgery, and she is 3 days postoperative. Will wait on D-dimer due to postoperative status. Ultrasound scheduled for 2:15 today. Informationprovided to patient and . Will notify of results and adjust treatment plan accordingly. See EMR for details. Meanwhile encouraged adequate protein intake, elevate legs above the level of the heart as much as possible, and good fluid intake. - US Lower Extremity Veins Bilateral; Future 3. Gain Weight Patient frustrated with continued weight gain. She follows no specific diet. She is not exercising regularly. Referral placed to dietitian. Encouraged to check with insurance to be sure covered. Encouraged to slowly work up to exercise 30 minutes per day 5 days per week. She reports has been cleared to walk without limitation by her surgeon. - Nutrition - Weight management consult (clinic); Future 4. Cognitive Disorder Stable. 5. Constipation Encouraged adequate fluid intake and fruit intake. Recommended MiraLax daily as directed for the next week in order to soften the bowel movements. Then as needed. She is currently no longer on narcoticpain medication. Last took ibuprofen last night. All questions answered. Patient and stated understanding and agreement with current plan. documented in this encounter Plan of Treatment Not on filedocumented as of this encounter Results US Lower Extremity Veins Bilateral (04/29/2019 3:28 PM CDT) Anatomical Region Laterality Modality Lower Extremity, Ultrasound RST LOS, Ultrasound ARZ LOS, Chad ateral Ultrasound Ultrasound FLA LOS Specimen (Source) Anatomical Collection Method Collection Time Re ceived Time Location / / Volume Laterality 04/29/2019 3:36 PM CDT Impressions 04/29/2019 3:38 PM CDT Negative for Acute DVT. Narrative 04/29/2019 3:38 PM CDT EXAM: US LOWER EXTREMITY VEINS BILATERAL Exam performed with color and spectral D oppler analysis. COMPARISON: None FINDINGS: The common femoral, upper deep femoral, femoral and popliteal veins are widely patent bilaterally, without thrombus. Th e posterior tibial, peroneal, soleal and gastrocnemius veins were segmentally vis ualized bilaterally and are normal where seen. The great saphenous veins bilatera lly are patent and negative for thrombus. Procedure Note Jamil Coffey M.D. - 04/29/2019Formattin g of this note might be different from the original. EXAM: US LOWER EXTREMITY VEINS BILATERAL Exam performed with color and spectral D oppler analysis. COMPARISON: None FINDINGS: The common femoral, upper deep femoral, femoral and popliteal veins are widely patent bilaterally, without thrombus. Th e posterior tibial, peroneal, soleal and gastrocnemius veins were segmentally vis ualized bilaterally and are normal where seen. The great saphenous veins bilatera lly are patent and negative for thrombus. IMPRESSION: Negative for Acute DVT. Maris Prakash APRN, C.N.P., R.N. IMG US PROCEDURES documented in this encounter Visit Diagnoses Diagnosis Swelling Leg - Primary Symptoms Vasomotor Gain Weight Cognitive Disorder Constipation Swelling Leg documented in this encounter Additional Health Concerns Assessment Noted Time PHQ-9 Depression Total Score: 11 01/10/2019 2:41 PM CS T documented as of this encounter Care Teams Radio Sportscaster Relationship Specialty Start Date End Date Maris Prakash APRN, C.N.P., R.N. PCP - General Family Medicine 01/10/19 08/02/19 documented as of this encounter
--- OUTSIDE RECORDS SUMMARY | 2022-10-09 18:52 | XMS_ITS | Encounter Summary ---
:1970 Author Organization [facility] Address [address] [place] [address] Care Team Providers Name Role Phone Maris Prakash APRN, C.NSamantha, R.N. Primary Care Provider +1- [phone] Encounter Details Date Type Department Care Team Description 05/02/2019 Clinical Communication Department of Urology Simran Triplett in [place] [address] [place] [address] Social History Tobacco Use Types Packs/Day Years [...] or relatives? How often do you attend holiness or 1 to 4 times per year 05/23 pentecostalism services? Do you belong to any clubs or Yes 10/28/2019 organizations such as holiness groups, unions, fraternal or athletic groups, or [...] this encounter Miscellaneous Notes Telephone Encounter - Lawrence Triplett M.D. - 05/02/2019 1:42 PM CDT Called patient to follow up with Dr. Scott's encounter. She was evaluated locally and an US showed no evidence of DVT bilaterally. Her swelling has now resolved. She is doing well. All questions were addressed. Encouraged her to reach out if she has any additional questions. documented in this encounter Plan of Treatment Not on filedocumented as of this encounter Visit Diagnoses Not on filedocumented in this encounter Additional Health Concerns Assessment Noted Time PHQ-9 Depression Total Score: 11 01/10/2019 2:41 PM CS T documented as of this encounter Care Teams Chief Nuclear Medicine Technologist Relationship Specialty Start Date End Date Maris Prakash, VIRAL, C.N.P., R.N. PCP - General Family Medicine 01/10/19 08/02/19 documented as of this encounter
--- OUTSIDE RECORDS SUMMARY | 2022-10-09 18:52 | XMS_ITS | Encounter Summary ---
:1970 Author Organization [facility] Address [address] [place] [address] Care Team Providers Name Role Phone Maris Prakash APRN, C.N.P., R.N. Primary Care Provider +1- [phone] Reason for Visit Reason Comments Urinary Incontinence Outpatient (Routine) - Closed Specialty Diagnoses / Procedures Referred By Contact Refer red To Contact Diagnoses Incontinence Urinary Stress Female Lawrence Triplett M.D. [facility] Procedures URO Uroflow [address] [place] [address] Referral ID Status Reason Start Date Expiration Date Visits Requ ested Visits Authorized [id number] Closed 05/13/2019 05/12/2020 1 1 Encounter Details Date Type Department Care Team Description 06/07/2019 Procedure visit Department of Lawrence Triplett M.D. In continence Urinary Urology in Xavier Mccurdy M.D. [address] [place] [phone] Stress Female [place], [place] Bouchra Yusuf L.PSueNSue [address] [place] [phone] [place] [phone] Social History Tobacco Use Types Packs/Day Years [...] or relatives? How often do you attend religion or 1 to 4 times per year 05/23 oriental orthodox services? Do you belong to any clubs or Yes 10/28/2019 organizations such as religion groups, unions, fraternal or athletic groups, or [...] or the highest technical, or vocational p [facility] degree you have received? Sex Assigned at Date Recorded Female 08/04/2018 11:10 AM CDT documented as of this encounter Progress Notes Bouchra Yusuf L.P.N. - 06/07/2019 7:30 AM CDT CHIEF COMPLAINT Patient here for a complex uroflow via calibrated electronic equipment and a residual urine check byultrasound. IMPRESSION/REPORT/PLAN Dr. Lawrence Triplett ordered the patient to have a complex uroflow with residual urine check via ultrasound. Patient had a had a moderate urge to void. Uroflow was completed at this time. Patient voided 783 mL's and had a ultrasound residual of 46 mL's. Patient rates pain at 0 on the 0 to 10 pain scale post procedure. documented in this encounter Procedure Notes Xavier Mccurdy M.D. - 06/07/2019 7:30 AM CDTAssociated Order(s): URO UROFLOW REASON FOR VISIT: Uroflow: The patient here for a complex uroflow via calibrated electronic equipment and a residual urine check by ultrasound. FINDINGS: Peak flow 50 ml/sec Average flow 26 ml/sec Voiding time 30 sec Total voided volume 783 mls Residual urine 46 ml by ultrasound Valsalva flow pattern IMPRESSION: Normal bladder capacity with good Q max and low postvoid residual. This is a normal variant uroflow documented in this encounter Plan of Treatment Not on filedocumented as of this encounter Procedures Procedure Name Priority Date/Time Associated Diagnosis Comme nts URO UROFLOW Routine 06/07/2019 7:30 AM Incontinence Urinary R esults for this CDT Stress Female procedure are in the results section. documented in this encounter Results URO Uroflow (06/07/2019 7:30 AM CDT) Narrative Xavier Mccurdy M.D. - 06/07/2019 7:3 0 AM CDT Xavier Mccurdy M.D. ? 06/07/2019 10:07 AM REASON FOR VISIT: Uroflow: The patient here for a complex uroflow via calibrated electronic equipment and a residual urin e check by ultrasound. FINDINGS: Peak flow 50 ml/sec Average flow 26 ml/sec Voiding time ??30 sec Total voided volume 783 mls Residual urine 46 ml by ultrasound Valsalva flow pattern IMPRESSION: Normal bladder capacity with good Q max and low postvoid residual. ??This is a normal variant uro flow Lawrence Triplett M.D. UROLOGY ORDERABLES documented in this encounter Visit Diagnoses Diagnosis Incontinence Urinary Stress Female documented in this encounter Additional Health Concerns Assessment Noted Time PHQ-9 Depression Total Score: 11 01/10/2019 2:41 PM CS T documented as of this encounter Care Teams Lyric Writer Relationship Specialty Start Date End Date Maris Prakash APRN, C.N.P., R.N. PCP - General Family Medicine 01/10/19 08/02/19 documented as of this encounter
--- OUTSIDE RECORDS SUMMARY | 2022-10-09 18:52 | XMS_ITS | Encounter Summary ---
:1970 Author Organization [facility] Address [address] [place] [address] Care Team Providers Name Role Phone Maris Prakash APRN, C.NSamantha, R.N. Primary Care Provider +1- [phone] Reason for Visit Reason Onset Date Comments post op concerns 05/10/2019 Encounter Details Date Type Department Care Team Description 05/10/2019 Clinical Communication Department of Xavier Mccurdy op concerns [place], [address] [place], [place] [address] [facility] [address] [place], [place] [phone] (Work) [phone] Social History Tobacco Use Types Packs/Day Years [...] or relatives? How often do you attend congregational or 1 to 4 times per year 05/23 congregation services? Do you belong to any clubs or Yes 10/28/2019 organizations such as congregational groups, unions, fraternal or athletic groups, or [...] Telephone Encounter - Lawrence Triplett M.D. - 05/10/2019 6:54 PM CDT Called patient to follow up her urinary symptoms. She underwent anterior colporrhaphy with pubovaginal sling with Dr. Kaz colvin on 04/26/2019. She calls in report that she is had persistent urinary leakage since surgery. She denies urge incontinence or urge like symptoms. This sounds stress related with movement including getting out of bed, standing, sneezing. She denies significant additionallower urinary tract symptoms like hematuria, dysuria, or frequency. She does not feel that her bladder is full in that she has an overflow incontinence. No constitutional symptoms. Discussed with patient that for stent should include urinalysis and urine culture to ensure that shedoes not have an infection as well as a uroflow with PVR to ensure that she is adequately emptying the bladder. We will arrange to urinalysis and urine culture locally in [place] and have the uroflow done here in [place]. We will follow up on these results with the patient. All questions answered. Telephone Encounter - Karla Prakash - 05/10/2019 3:12 PM CDT Patient called stating that since the surgery on 04/24, she has been unable to control her bladder, having to wear a pad at all time. She is wondering if this is normal or if she should be concerned . She would like a call back at [phone] documented in this encounter Plan of Treatment Not on filedocumented as of this encounter Visit Diagnoses Not on filedocumented in this encounter Additional Health Concerns Assessment Noted Time PHQ-9 Depression Total Score: 11 01/10/2019 2:41 PM CS T documented as of this encounter Care Teams Ager Operator Relationship Specialty Start Date End Date Maris Prakash APRN, C.N.P., R.N. PCP - General Family Medicine 01/10/19 08/02/19 documented as of this encounter
--- OUTSIDE RECORDS SUMMARY | 2022-10-09 18:52 | XMS_ITS | Encounter Summary ---
:1970 Author Organization [facility] Address [address] [place] [address] Care Team Providers Name Role Phone Maris Prakash APRN, C.NSamantha, R.N. Primary Care Provider +1- [phone] Reason for Referral Outpatient (Routine) - Closed Specialty Diagnoses / Procedures Referred By Contact Refer red To Contact Diagnoses Incontinence Urinary Stress Female Lawrence Triplett M.D. [facility] Procedures URO Uroflow [address] [place] [address] Referral ID Status Reason Start Date Expiration Date Visits Requ ested Visits Authorized [id number] Closed 05/13/2019 05/12/2020 1 1 utpatient (Routine) - Closed Specialty Diagnoses / Procedures Referred By Contact Refer red To Contact Urology Lawrence Triplett M.D . [facility] [address] [place] [address] Referral ID Status Reason Start Date Expiration Date Visits Requ ested Visits Authorized [id number] Closed 05/13/2019 05/12/2020 1 1 Encounter Details Date Type Department Care Team Description 05/13/2019 Clinical Communication Department of Urology Simran Triplett in [place], M.D. [address] [address] Social History Tobacco Use Types Packs/Day Years [...] or relatives? How often do you attend advent or 1 to 4 times per year 05/23 rastafarian services? Do you belong to any clubs or Yes 10/28/2019 organizations such as advent groups, unions, fraternal or athletic groups, or [...] Telephone Encounter - Lawrence Triplett M.D. - 05/13/2019 3:27 PM CDT Called patient to follow up with urine culture results which showed mixed david. Her uroflow also showed that she empties to completion although she did have a bladder capacity of close to 700 cc. Her urinary symptoms of stress leakage has not improved since surgery or since antibiotics. Patient at this time would like follow-up arranged to be re-evaluated. We will facilitate this. We discussed options for conservative management in the interim. All questions answered. documented in this encounter Plan of Treatment Scheduled Referrals Name Type Priority Associated Diagnoses Order S [facility] Urology office Outpatient Referral Routine Expect ed: visit (clinic) 05/13/2019 (Approximate), Expires: 05/13/2022 documented as of this encounter Results Urinalysis with Microscopic: Urine, Clean Catch (06/07/2019 7:47 AM CDT) [facility] Method Time Signature Source Midstream 06/07/2019 7:47 AM CDT Appearance Normal Normal 06/07/2019 8:15 AM CDT Osmolality, U 257 150 - 1150 06/07/2019 mOsm/kg 8:59 AM CDT pH, U 5.9 4.5 - 8.0 06/07/2019 8:59 AM CDT Comment: ----ADDITIONAL INFORMATION---- This test was developed and its performa nce characteristics determined by [facility] in a manner co nsistent with CLIA requirements. This test has not bee n cleared or approved by the U.S. Food and Drug Admin istration. Glucose 4 0 - 15 mg/dL 06/07/2019 8:15 AM CDT Protein, U 7 <26 mg/dL 06/07/2019 8:15 AM CDT Comment: ----ADDITIONAL INFORMATION---- On 05/19/2017 the total protein assay me thod changed resulting in approximately a 15% increase in prote in values. Protein/Osmolality 0.27 <0.42 Ratio 06/07/2019 8:59 AM CDT Comment: ----ADDITIONAL INFORMATION---- On 05/19/2017 the total protein assay me thod changed resulting in approximately a 15% increase in prote in values. Predicted 24 Hr Protein 205 mg/24 h 06/07/2019 8:59 AM CDT Predicted Range 51-831 mg/24 h 06/07/2019 8:59 AM CDT Hemoglobin, QL Negative Negative 06/07/2019 9:04 AM CDT Specimen Anatomical Collection Method Collection Time Receive d Time (Source) Location / / Volume Laterality Urine (Urine, 06/07/2019 7:47 AM 06/07/20 7:47 Clean Catch) CDT AM CDT Lawrence Triplett M.D. LAB URINE ORDERABLES Performing Organization Address City/State/ZIP Code Phon e Number [facility] - [address] [place] [address] [facility] URO Uroflow (06/07/2019 7:30 AM CDT) Narrative [...] Visit Diagnoses Diagnosis Incontinence Urinary Stress Female - [facility] Incontinence Urinary Stress Female documented in this encounter Additional Health Concerns Assessment Noted Time PHQ-9 Depression Total Score: 11 01/10/2019 2:41 PM CS T documented as of this encounter Care Teams Stone Rubber Relationship Specialty Start Date End Date Maris Prakash, VIRAL, C.N.P., R.N. PCP - General Family Medicine 01/10/19 08/02/19 documented as of this encounter
--- OUTSIDE RECORDS SUMMARY | 2022-10-09 18:52 | XMS_ITS | Encounter Summary ---
:1970 Author Organization [facility] Address [address] [place] [address] Care Team Providers Name Role Phone Maris Prakash APRN, C.N.P., R.N. Primary Care Provider +1- [phone] Reason for Referral Outpatient (Routine) - Closed Specialty Diagnoses / Procedures Referred By Contact Refer red To Contact Diagnoses Incontinence Urinary Stress Female Lawrence Triplett M.D. [facility] Procedures URO Uroflow [address] [place] [address] Referral ID Status Reason Start Date Expiration Date Visits Requ ested Visits Authorized [id number] Closed 05/10/2019 05/09/2020 1 1 Encounter Details Date Type Department Care Team Description 05/10/2019 Orders Only Department of Urology Lawrence Triplett In continence Urinary in Mukesh Euceda Stress Female (Primary [place] Dx) [address] [place] [phone] Social History Tobacco Use Types Packs/Day Years [...] or relatives? How often do you attend mormonism or 1 to 4 times per year 05/23 muslim services? Do you belong to any clubs or Yes 10/28/2019 organizations such as mormonism groups, unions, fraSpotster or athletic groups, or school groups? How [...] on filedocumented as of this encounter Results URO Uroflow (05/13/2019 2:45 [...] tech nique. Lawrence Triplett M.D. UROLOGY ORDERABLES (ABNORMAL) Bacterial Culture, Aerobic + Susc, Urine (05/11/2019 9:25 AM CDT) Analysis Performed At Patho logist Time Signature Urine Culture Mixed 05/12/2019 david. (A) 10:19 AM CDT Specimen Anatomical Collection Method Collection Time Receive d Time (Source) Location / / Volume Laterality Urine (Urine, 05/11/2019 9:25 AM 05/11/20 19 2:38 Midstream) CDT PM CDT Comment: Specimen Source Site: Urine Lawrence Triplett M.D. LAB MICROBIOLOGY - GENERAL O RDERABLES Performing Organization Address City/State/ZIP Code Phon e Number [facility] [address] [place] [address] LAB (ABNORMAL) Urinalysis with Microscopic: Urine, Clean Catch (05/11/2019 9:25 AM CDT) P athologist Signature Source Midstream 05/11/2019 10:07 AM CDT Clarity Clear Clear 05/11/2019 10:07 AM CDT Color Yellow 05/11/2019 10:07 AM CDT Comment: ----REFERENCE VALUE---- Colorless Yellow Magy Blood Trace (A) Negative 05/11/2019 10:07 AM CDT Nitrite Negative Negative 05/11/2019 10:07 AM CDT Leukocyte Esterase Large (A) Negative 05/11/2019 10:07 AM C DT Protein Negative mg/dL 05/11/2019 10:07 AM CDT Comment: ----REFERENCE VALUE---- Negative Trace Glucose Negative Negative mg/dL 05/11/2019 10:07 AM CDT Ketones, QI(U) Negative Negative mg/dL 05/11/2019 10:07 AM CDT Bilirubin Negative Negative 05/11/2019 10:07 AM CDT pH 7.0 5.0 - 8.0 05/11/2019 10:07 AM CDT Specific [place] 1.010 1.001 - 1.035 05/11/2019 10:07 AM CDT Urobilinogen 0.2 0.2 - 1.0 mg/dL 05/11/2019 10:07 AM C DT White Blood Cells 51-100 (A) /hpf 05/11/2019 10:21 AM C DT Comment: ----REFERENCE VALUE---- Males: 0-3 Females: 0-10 Unknown: 0-10 Red Blood Cells None Seen 0 - 2 /hpf 05/11/2019 10:21 AM CDT Squamous Cells 11-20 /hpf 05/11/2019 10:21 AM CDT Bacteria Present (A) None Seen 05/11/2019 10:21 AM CDT Specimen Anatomical Collection Method Collection Time Receive d Time (Source) Location / / Volume Laterality Urine (Urine, 05/11/2019 9:25 AM 05/11/20 9:26 Clean Catch) CDT AM CDT Lawrence Triplett M.D. LAB URINE ORDERABLES Performing Organization Address City/State/ZIP Code Phon e Number [facility] [address] [place] [address] [facility] documented in this encounter Visit Diagnoses Diagnosis Incontinence Urinary Stress Female - Lisa chung Incontinence Urinary Stress Female documented in this encounter Additional Health Concerns Assessment Noted Time PHQ-9 Depression Total Score: 11 01/10/2019 2:41 PM CS T documented as of this encounter Care Teams Embosser Operator Relationship Specialty Start Date End Date Maris Prakash, VIRAL, C.N.P., R.N. PCP - General Family Medicine 01/10/19 08/02/19 documented as of this encounter
--- OUTSIDE RECORDS SUMMARY | 2022-10-09 18:52 | XMS_ITS | Encounter Summary ---
:1970 Author Organization [facility] Address [address] [place] [address] Care Team Providers Name Role Phone Maris Prakash APRN, C.NSamantha, R.N. Primary Care Provider +1- [phone] Encounter Details Date Type Department Care Team Description 05/11/2019 Hospital Encounter Department of Lawrence Triplett Urinary Laboratory Medicine Mukesh Craven Stress F emale in [place], [place] [address] [place] [id number] Social History Tobacco Use Types Packs/Day Years [...] or relatives? How often do you attend mosque or 1 to 4 times per year 05/23 anabaptism services? Do you belong to any clubs or Yes 10/28/2019 organizations such as mosque groups, unions, fraternal or athletic groups, or [...] hours as needed for pain. B complex-vitamin Take 1 capsule by 0 (SUPER B-50) capsule mouth daily. cholecalciferol Take 2,000 Units by 0 (VITAMIN D3) 2,000 Unit mouth daily. tablet ibuprofen Take 400 mg by mouth 0 (ADVIL,MOTRIN) 200 mg every 6 (six) hours tablet as needed for pain. sulfamethoxazole-trimet Take 1 tablet by 20 tablet 0 201805/21/2019 hoprim (BACTRIM DS) mouth every 12 800-160 mg per tablet (twelve) hours for 10 days. buPROPion XL Take 150 mg by mouth 1 05/04/2019 (WELLBUTRIN XL) 150 mg daily. 24 hr tablet docusate sodium Take 1 capsule (100 100 capsule 0 04/26/2019 05/27/2019 (COLACE) 100 mg capsule mg total) by mouth 2 (two) times a day as needed for constipation (Take while using narcotic pain medication). DULoxetine (CYMBALTA) Take 1 capsule by 0 018 09/27/[address] capsule mouth at bedtime. estradiol (ESTRACE) 1 Take 2 tablets (2 mg 90 tablet 1 12/2406/02/2019 mg tabletIndications: total) by mouth Symptoms Vasomotor daily. Wean per discharge instructions. FLUoxetine (PROzac) 20 Take 40 mg by mouth 0 08/2310/28/2019 mg capsule daily. oxyCODONE (ROXICODONE) Take 1 tablet (5 mg 15 tablet 0 02/201905/27/2019 5 mg immediate release total) by mouth tabletIndications: every 4 (four) hours Acute Pain Exception as needed for pain or severe pain or score 7-10 of 10 for up to 15 doses Indication: Acute Pain Exception. TURMERIC, BULK, MISC Take 1 capsule by 0 09/27/2021 mouth daily. Turmeric and curcumin documented as of this encounter Plan of Treatment Not on filedocumented as of this encounter Procedures Procedure Name Priority Date/Time Associated Diagnosis Comme nts BACTERIAL CULTURE, Routine 05/11/2019 9:25 AM Incontinence Uri nary Results for this AEROBIC + SUSC, CDT Stress Female procedure a re in URINE the results section. URINALYSIS WITH Routine 05/11/2019 9:25 AM Incontinence Urinar y Results for this MICROSCOPIC CDT Stress Female procedure are in the results section. documented in this encounter Results (ABNORMAL) Bacterial Culture, Aerobic + Susc, Urine [...] - GENERAL O RDERABLES Performing Organization Address City/State/[facility] Phon e Number [address] [address] LAB (ABNORMAL) Urinalysis with Microscopic: Urine, Clean [...] - 8.0 05/11/2019 10:07 AM CDT Specific [place] 1.010 1.001 - 1.035 05/11/2019 10:07 AM [...] Urine (Urine, 05/11/2019 9:25 AM 05/11/20 19 9:26 Clean Catch) CDT AM CDT Lawrence Triplett M.D. LAB URINE ORDERABLES Performing Organization Address City/State/ZIP Code Phon e Number [facility] [id number] [place] [address] LAB documented in this encounter Visit Diagnoses Diagnosis Incontinence Urinary Stress Female documented in this encounter Additional Health Concerns Assessment Noted Time PHQ-9 Depression Total Score: 11 01/10/2019 2:41 PM CS T documented as of this encounter Care Teams Wide Area Network Systems Administrator Relationship Specialty Start Date End Date Maris Prakash, VIRAL, C.N.P., R.N. PCP - General Family Medicine 01/10/19 08/02/19 documented as of this encounter
--- OUTSIDE RECORDS SUMMARY | 2022-10-09 18:52 | XMS_ITS | Encounter Summary ---
:1970 Author Organization [facility] Address [address] [place] [address] Care Team Providers Name Role Phone Maris Prakash APRN, C.NSamantha, R.N. Primary Care Provider +1- [phone] Reason for Visit Reason Comments Suspicious Skin Lesion newer one, one scratched and bleeding Encounter Details Date Type Department Care Team Description 05/27/2019 Office Visit Department of Maris Metz, Sandra atosis Actinic (Primary Dx); Medicine in [facility] Christos STRATTONNSamantha, Lesion Skin Arm [place], [place] R.N. [address] [place], [place] [address] [place] [address] [phone] Social History Tobacco Use Types Packs/Day Years [...] 1 to 4 times per year 05/23 adventist services? Do you belong to any clubs [...] Sign Reading Time Taken Comments Blood Pressure 116/70 05/27/2019 8:24 AM CDT Pulse 105 05/27/2019 8:24 AM CDT Temperature 36.3 ??C (97.3 ??F) 05/27/2019 8:24 AM CDT Respiratory Rate - - Oxygen Saturation 96% 05/27/2019 8:24 AM CDT Inhaled Oxygen Concentration - - Weight 90.5 kg (199 lb 9.6 oz) 05/27/2019 8:24 AM CDT Height - - Body Mass Index 35.37 04/26/2019 6:33 AM CDT documented in this encounter Patient Instructions Patient InstructionsCulverMaris APRN, C.N.P. - 05/27/2019 8:30 AM CDT Cryotherapy done today. Dr. Bertrand, Ni José, or Dr. Fuentes documented in this encounter Progress Notes Maris Prakash APRN, C.N.P. - 05/27/2019 8:30 AM CDT SUBJECTIVE CHIEF COMPLAINT/REASON FOR VISIT Chief Complaint Patient presents with ??? Suspicious Skin Lesion newer one, one scratched and bleeding HISTORY OF PRESENT ILLNESS Lissette Rogers is a 48 y.o. female who presents with son for concerning skin lesions. One to the left upper arm that started like a sore about a month ago. Now it is not going away. Denies any injury or insect bite. Another mole left upper arm that is itching. Has picked at it and is bleeding. Another lesion to the right shoulder that was like a zit for the past month. Recently picked and is bleeding. Family history significant for brother with melanoma. CURRENT MEDICATIONS Current Outpatient Medications: ??? acetaminophen (TYLENOL) 500 mg tablet, Take 1,000 mg by mouth every 6 (six) hours as needed for pain., Disp: , Rfl: ??? B complex-vitamin (SUPER B-50) capsule, Take 1 capsule by mouth daily., Disp: , Rfl: ??? buPROPion XL (WELLBUTRIN XL) 150 mg 24 hr tablet, Take 150 mg by mouth daily., Disp: , Rfl: [...] ), Disp: 90 tablet, Rfl: 1 ??? FLUoxetine (PROzac) 20 mg capsule, Take 40 mg by mouth daily., Disp: , Rfl: ??? ibuprofen (ADVIL,MOTRIN) 200 mg tablet, Take [...] Drug use: No OBJECTIVE VITAL SIGNS BP 116/70 (BP Location: Right arm, Patient Position: Sitting, Cuff Size: Large) Pulse 105 Temp 36.3 ??C (Temporal) Wt 90.5 kg SpO2 96% BMI 35.37 kg/m?? PHYSICAL EXAMINATION General: Patient is alert, oriented. In no acute distress. Skin: Warm and dry. Left upper arm: 3 mm light brown lesion with well-defined smooth borders. Mildly raised. Dermoscopy reveals globular homogeneous formation. Symmetric. No concerning characteristics. Left upper arm: 5 mm light pink with white crust. Consistent with actinic keratoses. Right posterior shoulder: 5 mm open shallow wound consistent with picking at a zit or insect bite. Right upper arm: Crust present, but appears consistent with healing wound. HEENT: Head normocephalic. Conjunctivae clear. Musculoskeletal: Normal gait and posture. ASSESSMENT / PLAN Diagnosis Plan 1. Keratosis Actinic 2. Lesion Skin Arm Cryotherapy to left upper arm actinic keratosis per procedure note. Advised to continue to monitor remaining lesions. Discussed ABCDEs of concerning lesions. Due to brother's history, did advise patient to establish Dermatology for thorough prophylactic exam. Patient was advised that this provider is departing the clinic at the end of June. She was given some names of other providers who practice in a similar manner on her after visit summary. She is welcome to establish with them for her follow-up visit. All questions answered. Patient stated understanding and agreement with current plan. documented in this encounter Procedure Notes Maris Prakash APRN, C.N.P. - 05/27/2019 8:30 AM CDTAssociated Order(s): Lesion Destruction Post-Procedure Diagnose(s): Keratosis Actinic Lesion Destruction Date/Time: 05/27/2019 8:45 AM Performed by: Maris Prakash APRN, C.N.P. Authorized by: Maris Prakash APRN, C.N.P. PROCEDURE DETAILS Number of body areas treated: 1 Body Area Number 1 Number of lesions treated: 1 Location on body: left upper extremity Upper extremity: upper arm, posterior. Destruction method: cryotherapy CONSENT Consent obtained: verbal The benefits, risks and alternatives to the procedure and the potential need for sedation or anesthesia as well as the names, roles, and responsibilities of healthcare team members performing significant interventional tasks were discussed with the patient and/or decision maker. PRE-PROCEDURE DETAILS Procedure purpose: therapeutic Indications: Actinic keratosis Appropriate hand hygiene, gown, cap, mask, protective eyewear, sterile gloves, skin preparation, sterile drape, and strict aseptic technique were utilized as applicable for the procedure.: yes Site preparation: alcohol Pre-procedural diagnosis: actinic keratosis SEDATION / ANESTHESIA Anesthesia method: none POST-PROCEDURE DETAILS Total lesions destroyed: 1 Total lesions destroyed by chemical injection: 0 Procedure completed successfully: yes Complications: no apparent complications Tolerance: well tolerated Follow up: no follow up planned unless complications Photo taken: no COMMENTS After procedure, patient was educated on symptoms of infection that would warrant follow-up. documented in this encounter Plan of Treatment Not on filedocumented as of this encounter Procedures Procedure Name Priority Date/Time Associated Comments Diagnosis SD DEST PREMALIGNANT Routine 05/27/2019 8:30 AM Keratosis Acti malini Results for this LESN 1ST CDT procedure are i n the results section. documented in this encounter Results SD DEST PREMALIGNANT LESN 1ST (05/27/2019 8:30 AM CDT) Narrative Maris Prakash APRN, C.N.P. - 05/27/20 19 8:30 AM CDT Maris Prakash APRN C.N.P. ? 05/31/2019 ??2:57 PM Lesion Destruction Date/Time: 05/27/2019 8:45 AM Performed by: Maris Prakash APRN C.N .P. Authorized by: Maris Prakash APRN, C. N.P. PROCEDURE DETAILS Number of body areas treated: 1 Body Area Number 1 Number of lesions treated: 1 Location on body: left upper extremity Upper extremity: upper arm, posterior. Destruction method: cryotherapy CONSENT Consent obtained: verbal The benefits, risks and alternatives to the procedure and the potential need for sedation or anesthesia as well as the names, roles, and responsibilities of healthcare team memb ers performing significant interventional tasks were discussed with the patient and/or decision maker. PRE-PROCEDURE DETAILS ?? Procedure purpose: therapeutic Indications: Actinic keratosis Appropriate hand hygiene, gown, cap, mas k, protective eyewear, sterile gloves, skin preparation, sterile drape, and strict aseptic technique were utilized as applicable for the procedure .: yes ?? Site preparation: alcohol Pre-procedural diagnosis: actinic kerato sis SEDATION / ANESTHESIA Anesthesia method: none POST-PROCEDURE DETAILS ?? Total lesions destroyed: 1 Total lesions destroyed by chemical inje ction: 0 Procedure completed successfully: yes ?? Complications: no apparent complications ?? Tolerance: well tolerated Follow up: no follow up planned unless c omplications Photo taken: no COMMENTS After procedure, patient was educated on symptoms of infection that would warrant follow-up. Christos Pimentel APRNN.P., R.N. PROCEDURE/MINOR SURG ICAL ORDERABLES documented in this encounter Visit Diagnoses Diagnosis Keratosis Actinic - Primary Lesion Skin Arm documented in this encounter Additional Health Concerns Assessment Noted Time PHQ-9 Depression Total Score: 11 01/10/2019 2:41 PM CS T documented as of this encounter Care Teams Trench Digger Relationship Specialty Start Date End Date Maris Prakash APRN, C.N.P., R.N. PCP - General Family Medicine 01/10/19 08/02/19 documented as of this encounter
--- OUTSIDE RECORDS SUMMARY | 2022-10-09 18:52 | XMS_ITS | Encounter Summary ---
:1970 Author Organization [facility] Address [address] [facility] [address] Care Team Providers Name Role Phone Maris Prakash APRN, C.N.P., R.N. Primary Care Provider +1- [phone] Reason for Visit Reason Onset Date Comments Communication 06/02/2019 Wants to know if she can go swimming yet. Had a bladder sling done on 04/24/19 - told no soaking in tub for 6 weeks - 6 weeks would be nex t week - please call Encounter Details Date Type Department Care Team Description 06/02/2019 Clinical Communication Department of Maris Prakash munication (Wants Family Medicine in [place], to know i f she can go Swan, C.N.P., R.N. swimming yet. Had a [place] [address], bladder sling done on [address] [place] [address] 04/24/19 - told no MARITO RAYMOND [place] OR soaking in tu b for [id number] weeks - 6 weeks would [phone] be next week - please (Work) call) Social History Tobacco Use Types Packs/Day Years [...] or relatives? How often do you attend restorationist or 1 to 4 times per year 05/23 jainism services? Do you belong to any clubs or Yes 10/28/2019 organizations such as restorationist groups, unions, fraternal or athletic groups, or [...] Encounter - Gabriela Warren C.M.A. - 06/03/2019 9:02 AM CDT Patient notified and verbalized understanding. Telephone Encounter - Xavier Mccurdy M.D. - 06/03/2019 8:25 AM CDT She can swim/bath after 6 weeks Telephone Encounter - Ioana Joseph - 06/02/2019 5:00 PM CDT Had a bladder sling done on 04/24/19. Recovery time is 6 weeks and told not to soak in tub. She was wondering if she is allowed to swim yet. 6 weeks will be next week. documented in this encounter Plan of Treatment Not on filedocumented as of this encounter Visit Diagnoses Not on filedocumented in this encounter Additional Health Concerns Assessment Noted Time PHQ-9 Depression Total Score: 11 01/10/2019 2:41 PM CS T documented as of this encounter Care Teams Upholsterer Inside Relationship Specialty Start Date End Date Maris Prakash APRN C.N.P., R.N. PCP - General Family Medicine 01/10/19 08/02/19 documented as of this encounter
--- OUTSIDE RECORDS SUMMARY | 2022-10-09 18:52 | XMS_ITS | Encounter Summary ---
:[address] [facility] Address [address] [place] [address] Care Team Providers Name Role Phone Maris Prakash APRN, C.N.P., R.N. Primary Care Provider +1- [phone] Encounter Details Date Type Department Care Team Description 04/29/2019 Hospital Encounter Department of Radiology Ramsey Prakash, Swelling Leg in [facility] josie STRATTON, C.N.P., R.N. [address], [place], [place] [address] [place], [place] [id number] Social History Tobacco Use Types Packs/Day Years [...] 10/28/2019 organizations such as mormonism groups, unions, fraternal or athletic groups, or [...] (six) hours tablet as needed for pain. docusate sodium Take 1 capsule (100 100 [...] Procedure Name Priority Date/Time Associated Comments Diagnosis US LOWER RAD - Routine 04/29/2019 3:28 Swelling Leg Results for this EXTREMITY VEINS (most inpatients PM CDT procedur e are in BILATERAL and all the results outpatients) section. documented in this encounter Results US Lower Extremity Veins [...] this encounter Visit Diagnoses Diagnosis Swelling Leg documented in this encounter Additional Health Concerns Assessment Noted Time PHQ-9 Depression Total Score: 11 01/10/2019 2:41 PM CS T documented as of this encounter Care Teams Platinum And Palladium Kettle Tender Relationship Specialty Start Date End Date Maris Prakash APRN, C.N.P., R.N. PCP - General Family Medicine 01/10/19 08/02/19 documented as of this encounter
--- OUTSIDE RECORDS SUMMARY | 2022-10-09 18:52 | XMS_ITS | Encounter Summary ---
:1970 Author Organization [facility] Address [address] [place] [address] Care Team Providers Name Role Phone Maris Prakash APRN, C.NSamantha, R.N. Primary Care Provider +1- [phone] Encounter Details Date Type Department Care Team Description 04/28/2019 Orders Only Department of Urology in [place] Scott M.D. [place], [place] [address] [facility] [address] [place] [phone] [phone] (Wo rk) Social History Tobacco Use Types [...] 1 to 4 times per year 05/23 methodist services? Do you belong to any clubs [...] documented as of this encounter Care Teams Servicer Relationship Specialty Start Date End Date Maris Prakash, VIRAL, C.N.P., R.N. PCP - General Family Medicine 01/10/19 08/02/19 documented as of this encounter
--- OUTSIDE RECORDS SUMMARY | 2022-10-09 18:52 | XMS_ITS | Encounter Summary ---
:1970 Author Organization [facility] Address [address] [place] [id number] Care Team Providers Name Role Phone Maris Prakash APRN, C.N.PSue, R.N. Primary Care Provider [phone]- [phone] Reason for Referral Outpatient (Routine) - Closed Specialty Diagnoses / Procedures Referred By Contact Refer red To Contact Diagnoses [facility]continence [facility]inary [facility] Procedures URO Biofeedback C.N.P. [address] [place] [phone] Referral ID Status Reason Start Date Expiration Date Visits Requ ested Visits Authorized [id number] Closed 06/07/2019 06/06/2020 1 1 Reason for Visit Outpatient (Routine) - Closed Specialty Diagnoses / Procedures Referred By Contact Refer red To Contact Urology Lawrence Triplett M.D . [address] [address] Referral ID Status Reason Start Date Expiration Date Visits Requ ested Visits Authorized [id number] Closed 05/13/2019 05/12/2020 1 1 Encounter Details Date Type Department Care Team Description 06/07/2019 Office Visit Department of Urology Xavier Mccurdy ontinence Urinary in Danuta Euceda M.D. (Primary Dx) [address] [phone] [phone] Social History Tobacco Use Types Packs/Day Years [...] or relatives? How often do you attend religious or 1 to 4 times per year 05/23 roman catholic services? Do you belong to any clubs or Yes 10/28/2019 organizations such as religious groups, unions, fraternal or athletic groups, or [...] documented as of this encounter Progress Notes Natalie Dorado APRN, C.N.P. - 06/07/2019 9:30 AM CDT SUBJECTIVE CHIEF COMPLAINT/REASON FOR VISIT Follow-up HISTORY OF PRESENT ILLNESS Ms. Rogers is a pleasant 48-year-old female who was [address]. Mccurdy in August of 2018for pelvic organ prolapse and mixed urinary incontinence. She has a history of 1 vaginal delivery and 1 C section. After childbearing she had a total hysterectomy with a synthetic sling placed at the time for stress urinary incontinence. 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 On April 26, 2019 Dr. Mccurdy performed an anterior colporrhaphy with pubovaginal synthetic sling. Postoperatively, Ms. Rogers has had increasing urgency and urge incontinence. She also continues to experience significant stress incontinence. She notes incontinence with rolling over, getting on a motorcycle, going from sitting to standing, sneezing, coughing and laughing. She did not fill out a voiding diary prior to this visit but states she drinks approximately 32 oz of decaf coffee and 4 L of water per day. The following portions of the patient's history were reviewed and updated as appropriate: allergies,current medications, family history, medical history, social history, surgical history and problem list. REVIEW OF SYSTEMS Constitutional: Positive for fatigue. ENT: Positive for difficulty hearing. Genitourinary: Positive for urgency and frequent urination. Neurological: Positive for excessive daytime sleepiness. Psychiatric/Behavioral: Positive for excessive daytime sleepiness/tiredness and little interest or pleasure in doing things over past two weeks. The following systems were negative: Skin, Eyes, CV, Respiratory, GI, Hematologic, Musculoskeletal OBJECTIVE There were no vitals filed for this visit. PHYSICAL EXAM Constitutional: She is oriented to person, place, and time. She appears well- developed and well-nourished. HENT: Head: Normocephalic and atraumatic. Eyes: No scleral icterus. Neck: Neck supple. Pulmonary/Chest: Effort normal. Musculoskeletal: Normal range of motion. Neurological: She is alert and oriented to person, place, and time. Psychiatric: She has a normal mood and affect. Her behavior is normal. Genitourinary: External female genitalia normal; normal introitus and vaginal mucosa normal. Urethra cough stress test positive. Urethra is fixed. Prolapse Exam The anterior, apical, and posterior vaginal compartments are well supported. Kegel recruitment is weak. Kegel strength is 1/5. UROFLOW-reviewed and interpreted and agree with results. Total voided volume 783 mL; peak flow 50 mL/sec; mean flow 26 mL/ sec; ultrasound residual 40 mL. ASSESSMENT / PLAN #1 Incontinence Urinary- Mixed I had the pleasure meeting with Ms. Rogers , her spouse and Dr. Mccurdy in clinic today. We had a detailed discussion regarding her situation. Her physical exam reveals an intact repair. There is no evidence of pelvic organ prolapse or urethral hypermobility. There is evidence however, of stress urinary incontinence on exam. We discussed treatment options moving forward. We have decided to approach this in a stepwise fashion. We have encouraged her to decrease her overall fluid intake to no more than 2 L per day. We also encouraged timed voiding and avoidance of dietary bladder irritants. We discus sed biofeedback and bladder retraining and she has agreed to undergo evaluation and treatment with the nurse specialist in our department. If this is not successful in managing her symptoms, the next step would be initiation of anticholinergic therapy. Ms. Rogers already has issues with dry mouth so we discussed strategies to manage dry mouth including [id number] Biotene, candies or gum. If medication therapy is not successful in managing her symptoms she could consider percutaneous tibial nerve root stimulation verses periurethral bulking agents versus an obstructive sling. Multiple questions were addressed. I personally spent over half of a total 25 minutes in counseling and discussion with the patient andcoordination of care as described above. Signed by: Natalie Dorado APRN, C.N.PSue 06/07/2019 10:18 AM documented in this encounter Consult Notes Xavier Mccurdy M.D. - 06/07/2019 9:30 AM CDT I have personally reviewed the past medical history, pertinent review of systems, family history, surgical history and physical exam. I have met with and evaluated the patient. I have discussed the case with my clinical team and I agree with the plan and action as outlined by my team documented in this encounter Plan of Treatment Scheduled Orders Name Type Priority Associated Diagnoses Order S chedule URO Biofeedback Procedure Routine Incontinence Urinary Expe cted: 06/07/2019 (Approximate), Expires: 06/07/2022 documented as of this encounter Visit Diagnoses Diagnosis Incontinence Urinary - Primary documented in this encounter Additional Health Concerns Assessment Noted Time PHQ-9 Depression Total Score: 11 01/10/2019 2:41 PM CS T documented as of this encounter Care Teams Spouting Installer Relationship Specialty Start Date End Date Maris Prakash APRN, C.N.P., R.N. PCP - General Family Medicine 01/10/19 08/02/19 documented as of this encounter
--- OUTSIDE RECORDS SUMMARY | 2022-10-09 18:52 | XMS_ITS | Encounter Summary ---
:1970 Author Organization [facility] Address [address] [place] [address] Care Team Providers Name Role Phone Maris Prakash APRN, C.N.P., R.N. Primary Care Provider [phone]- [phone] Reason for Visit Auth/Cert Specialty Diagnoses / Procedures Referred By Contact Refer red To Contact Diagnoses Incontinence Urinary Stress Female incontinence urinary stress female Procedures UT SLING OPR STRESS INCONTINENCE UT COLPORPHY ANTR RPR CYSTOCELE SLING ANTERIOR WALL - VAGINAL; anterior vaginal repair Referral ID Status Reason Start Date Expiration Date Visits Requ ested Visits Authorized [id number] 1 1 Encounter Details Date Type Department Care Team Description 04/26/2019 Anesthesia Event [facility] OR Pauline Horowitz M.D. [address] [place] [address] [address] [facility] APRN, PHYSIOTHERAPY ASSISTANT [address] [place] [address] [place] [address] Anesthesia Record Procedure Summary Procedure Name Responsible Anesthesia Start Anesthesia Stop Anesthesiologist Time Time Colporrhaphy Anterior. Pauline Horowitz M.D. 04/26/19 0746 04/26/19 1018 Events Date Time Event Comment 04/26/2019 0709 0746 An Start Machine/Equipmen t Checked Infection Precautions Foll owed Procedure/Site Verified NPO Sta tus Verified Supine Standard ASA Mon itors Applied 0750 An Induction 0754 An Intubation 0755 Turnover to Proceduralist 0825 Proc Start 0949 Proc Fin 1001 Turnover to ANE Staff 1001 Airway Removal Criteria Met 1001 Extubation/Airway Removed 1017 an stop data 1018 An End I completed my h andoff to the receiving staff during [facility] we 1. Identified the patient 2. Ident ified the responsible provider 3. Revi ewed the pertinent medical history 4. Discussed the surgical course 5. Review ed intra-op anesthesia management and i ssues during anesthesia 6. Set expectati ons for post-procedure period 7. Allowe d opportunity for questions and ac knowledgement of understanding. Name Total fentanyl injection 50 mcg/mL 150 mcg lidocaine 2% (mg) injection 80 mg propofol 10 mg/mL 150 mg propofol 10 mg/mL infusion 372.12 mg ePHEDrine PF 5 mg/mL syringe injection 10 mg sugammadex 100 mg/mL injection 200 mg ceFAZolin injection 2,000 mg (ANCEF) 2 g rocuronium 10 mg/mL injection 50 mg dexamethasone 4 mg/mL injection 4 mg furosemide injection 20 mg/2 mL injection 10 mg methylene blue 1% (10 mg/mL) injection 10 mg droperidol 2.5 mg/mL injection 0.625 mg ketorolac 30 mg injection 30 mg ondansetron PF 4 mg/2 mL injection 4 mg Lactated Ringers Free Drip 1,400 mL Agents No agents on file. Blood No blood administrations on file. Lines, Drains, and Airways Type Details Placement Removal Indwelling Urinary Placement Date: 04/26/19 0000 by 04/26/19 134 0 by Catheter 04/26/19; Inserted Meri Winchester Kunert, R achel J, by: Kaz; Type: M.S.N., R.N. PBT(ASCP) Latex; Size: 16 Fr.; Balloon Size: 5 mL; Urine Returned: Yes; Removal Date: 04/26/19; Removal Time: 1340; Removal Reason: Per order Intentionally Packed 04/26/19; Packed in 04/26/19 0000 by 1330 by Surgical Item(s) wound, Secured to Meri Winchester Verdick, Paulette leg; Vagina M.S.NSue, R.N. A, R.N. Peripheral IV Placement Date: 04/26/19 0746 by 04/26/19 1422 b y 04/26/19; Placement Nav De La O Burnap, S teven W, Time: 745; Catheter KARINE STRATTON R.N. Size: 20 G; Orientation: Left; Location: Hand; Removal Date: 04/26/19; Removal Time: 1422 ETT Placement Date: 04/26/19 0754 by 04/26/19 1001 b y 04/26/19; Placement Nav De La O A, Nav De La O A, Time: 753 (created KARINE STRATTON APRN, CRNA via procedure documentation); Mask Ventilation: Easy mask; Type: Standard ETT; Single Lumen Tube Size: 7 mm; Cuffed: Yes; Blade Size: Krishna 2; Location: Oral; Removal Date: 04/26/19; Removal Time: 1001 (RETIRED) Incision 04/26/19; 0846; 04/26/19 0846 by 04/26/19 132 6 by Vagina; LADONNA SARGENT GZ Meri Winchester Verdick, Paulette RLLR 2 (x1) (soaked M.S.N., R.N. A, R.N. in betadine); 04/26/19; 1326; removed documented in this encounter Social History Tobacco Use Types Packs/Day Years [...] or relatives? How often do you attend anabaptist or 1 to 4 times per year 05/23 hinduism services? Do you belong to any clubs or Yes 10/28/2019 organizations such as anabaptist groups, unions, fraternal or athletic groups, or [...] AM CDT documented as of this encounter OR Notes Anesthesia Postprocedure Evaluation - Pauline Horowitz M.D. - 04/26/2019 11:41 AM CDT Patient: Lissette Rogers Procedure Summary Date: 04/26/19 Room / Location: [place] [address] / [facility] in [place], [place] Anesthesia Start: 07 Anesthesia Stop: 1018 Procedures: Colporrhaphy Anterior. (N/A ) Insertion Pubovaginal Sling, Synthetic. (N/A ) Cystoscopy Rigid (N/A ) Diagnosis: Incontinence Urinary Stress Female (Incontinence Urinary Stress Female [N39.3].) Provider: Xavier Mccurdy M.D. Responsible Provider: Pauline Horowitz M.D. Anesthesia Type: general ASA Status: 3 Anesthesia Type: general Last vitals Vitals Value Taken Time BP 98/66 04/26/2019 11:30 AM Temp 36.9 ??C 04/26/2019 10:18 AM Pulse 98 04/26/2019 11:40 AM Resp 17 04/26/2019 11:40 AM SpO2 94 % 04/26/2019 11:40 AM Vitals shown include unvalidated device data. Please reference Vitals flowsheet for most recent vital signs. Anesthesia Post Evaluation Patient Disposition: general care unit Cardiovascular status: hemodynamics (HR & BP) acceptable Respiratory status: patent airway with spontaneous effort Temperature: normothermic Oxygen requirements: room air Level of consciousness: awake Pain score: pain adequately controlled and/or at baseline Post Op nausea/vomiting: none Hydration status: euvolemic Anesthesia Procedure Notes - Nav De La O APRN, CRNA - 04/26/2019 8:06 AM CDTAssociated Order(s): Airway Airway Date/Time: 04/26/2019 7:54 AM Performed by: Nav De La O APRN, CRNA Authorized by: Pauline Horowitz M.D. Care team members present 1. Nav De La O APRN, CRNA 2. Pauline Horowitz M.D. Patient location during procedure: OR / Procedure Area PROCEDURE DETAILS: Mask difficulty assessment: easy mask Final airway type: direct laryngoscopy, intubation Laryngeal Manipulation: no Final airway difficulty of direct laryngoscopy (DL): 0-easy Final best view of glottic structures - Cormack/Lehane Score: grade 2A ETT location: oral Adult blade type: Krishna 2 Adult tube size: 7 Adult ETT distance at teeth/gum: 20 Oral tube type: standard ETT Cuffed: yes Airway confirmation: bilateral breath sounds, positive ETCO2 and bilateral chest rise Other previous techniques attempted: none PRE PROCEDURE DETAILS: Pre evaluation for airway management: procedure Urgency: elective Preop assessment of probable difficulty: no difficulty anticipated Sedation level: anesthetized Preoxygenation: bag valve mask SEDATION / ANESTHESIA Anesthesia method: none POST PROCEDURE DETAILS: Procedure outcome: successful Airway event: no complications Anesthesia Preprocedure Evaluation - Pauline Horowitz M.D. - 04/26/2019 7:09 AM CDT Anesthesia Pre-Evaluation Pertinent components of the patient's history including current problem list, medical history, surgical history, family history, social history, medications and allergies were reviewed and updated as appropriate. The patient was examined and the Pre-op diagnosis, planned procedure, and H&P were reviewed and remain unchanged. 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) (+) Seizure (HCC) (+) Tumor Cerebral Meninges Benign (HCC) ONC (+) Malignant Neoplasm Of Brain (HCC) Other (+) Lesion Nerve Ulnar Left OBJECTIVE PHYSICAL EXAMINATION Airway (HEENT) Mallampati: II TM Distance: >3 FB Neck ROM: Full Mouth Opening: >3 cm Cardiovascular Rhythm: Regular Rate: Normal Cardiovascular Assessment: cardiovascular normal Functional Capacity: >4 METS Pulmonary Pulmonary Assessment: Clear Neurological Normal Dental Normal General / Constitutional Normal ASSESSMENT / PLAN ANESTHESIA PLAN ASA: 3 Anesthesia Plan: general Patient seen and allergies reviewed; anesthesia plan and risks discussed directly with patient / legal guardian, or through an farm product purchaser; patient evaluated and approved for anesthesia / sedation. Use of blood products discussed with patient who consented to blood products. Discussed risk of potential decreased hormonal contraceptive efficacy for up to one month after anesthesia due to medication interactions. documented in this encounter Plan of Treatment Not on filedocumented as of this encounter Procedures Procedure Name Priority Date/Time Associated Comments Diagnosis LDA ANE ENDOTRACHEAL Routine 04/26/2019 8:06 AM R esults for this AIRWAY CDT procedure are i n the results section. documented in this encounter Results LDA ANE ENDOTRACHEAL AIRWAY (04/26/2019 8:06 AM CDT) Narrative Nav De La O APRN, CRNA - 04/26/20 19 8:06 AM CDT Nav De La O APRN, CRNA ? 04/26/2019 ??8:08 AM Airway Date/Time: 04/26/2019 7:54 AM Performed by: Nav De La O APRN, C RNA Authorized by: Pauline Horowitz M.D. Care team members present 1. Nav De La O APRN, CRNA 2. Pauline Horowitz M.D. Patient location during procedure: OR / Procedure Area PROCEDURE DETAILS: Mask difficulty assessment: easy mask Final airway type: direct laryngoscopy, intubation Laryngeal Manipulation: no ?? Final airway difficulty of direct laryng oscopy (DL): 0-easy Final best view of glottic structures - Cormack/Lehane Score: grade 2A ETT location: oral Adult blade type: Krishna 2 Adult tube size: 7 Adult ETT distance at teeth/gum: 20 Oral tube type: standard ETT Cuffed: yes Airway confirmation: bilateral breath so unds, positive ETCO2 and bilateral chest rise Other previous techniques attempted: non e PRE PROCEDURE DETAILS: Pre evaluation for airway management: pr ocedure Urgency: elective Preop assessment of probable difficulty: no difficulty anticipated Sedation level: anesthetized Preoxygenation: bag valve mask SEDATION / ANESTHESIA Anesthesia method: none POST PROCEDURE DETAILS: ? Procedure outcome: successful ?? Airway event: no complications Pauline Horowitz M.D. ANESTHESIA ORDERABLES documented in this encounter Visit Diagnoses Not on filedocumented in this encounter Administered Medications Inactive Administered Medications - up to 3 most recent administrations Medication Order MAR Action Action Date Dose Rate Site ceFAZolin injection 2,000 mg (ANCEF) Given 04/26/2019 8:03 AM CDT 2 g 2,000 mg (rounded from 2,215 mg = 25 mg/kg ? 88.6 kg), intravenous, Once, On Thu04/26/19 at 0730, For 1 dose, Intra-Op, Preoperatively within 1 hour prior to surgical incision [place] IV push over 3 minutes. Add 5 mL NS to 1 gram vial for a final concentration of 200 mg/mL., Drug Monitoring Program: Pharmacist to adjust medication dosing based on indication and drug clearance factors., Indications: Prophylaxis, surgical dexamethasone injection (DECADRON) Given 04/26/2019 8:06 AM CDT 4 mg As needed, Starting on Thu04/26/19 at 0806, Anesthesia Intra-op droperidol injection (INAPSINE) Given 04/26/2019 9:12 AM CDT 0.625 mg intravenous, As needed, Starting on Thu04/26/19 at 0912, Anesthesia Intra-op ePHEDrine (PF) injection Given 04/26/2019 9:23 AM CDT 10 mg intravenous, As needed, Starting on Thu04/26/19 at 0923, Anesthesia Intra-op fentaNYL injection (SUBLIMAZE) Given 04/26/2019 8:54 AM CDT 50 mcg intravenous, As needed, Starting on Thu04/26/19 at 0750, Anesthesia Intra-op Given 04/26/2019 7:50 AM CDT 100 mcg furosemide injection (LASIX) Given 04/26/2019 8:22 AM CDT 10 mg As needed, Starting on Thu04/26/19 at 0822, Anesthesia Intra-op ketorolac injection (TORADOL) Given 04/26/2019 9:12 AM CDT 30 mg As needed, Starting on Thu04/26/19 at 0912, Anesthesia Intra-op lactated ringers New Bag 04/26/2019 7:46 AM CDT intravenous, Continuous Infusion: Per Instructions PRN, Starting on Thu04/26/19 at 0746, Anesthesia Intra-op lidocaine (PF) (cardiac) injection Given 04/26/2019 7:50 AM CDT 80 mg intravenous, As needed, Starting on Thu04/26/19 at 0750, Anesthesia Intra-op methylene blue 1 % (10 mg/mL) injection Given 04/26/2019 8:22 AM CDT 10 mg As needed, Starting on Thu04/26/19 at 0822, Anesthesia Intra-op ondansetron (PF) injection (ZOFRAN) Given 04/26/2019 9:28 AM CDT 4 mg As needed, Starting on Thu04/26/19 at 0928, Anesthesia Intra-op propofol 10 mg/mL infusion New Bag 04/26/2019 7:50 AM 50 mcg/kg/mi n 26.6 mL/hr (DIPRIVAN) CDT intravenous, Continuous Infusion: Per Instructions PRN, Starting on Thu04/26/19 at 0750, Anesthesia Intra-op propofol injection (DIPRIVAN) Given 04/26/2019 7:50 AM CDT 150 mg intravenous, As needed, Starting on Thu04/26/19 at 0750, Anesthesia Intra-op rocuronium injection (ZEMURON) Given 04/26/2019 7:50 AM CDT 50 mg As needed, Starting on Thu04/26/19 at 0750, Anesthesia Intra-op sugammadex injection (BRIDION) Given 04/26/2019 9:27 AM CDT 200 mg As needed, Starting on Thu04/26/19 at 0927, Anesthesia Intra-op documented in this encounter Additional Health Concerns Assessment Noted Time PHQ-9 Depression Total Score: 11 01/10/2019 2:41 PM CS T documented as of this encounter Care Teams Inside Polisher Relationship Specialty Start Date End Date Maris Prakash, VIRAL, C.N.P., R.N. PCP - General Family Medicine 01/10/19 08/02/19 documented as of this encounter
--- OUTSIDE RECORDS SUMMARY | 2022-10-09 18:52 | XMS_ITS | Encounter Summary ---
:1970 Author Organization [facility] Address [address] [place] [id number] Care Team Providers Name Role Phone Maris Prakash APRN C.N.PSue, R.N. Primary Care Provider [phone]- [phone] Reason for Visit Reason Comments Urinary Incontinence Outpatient (Routine) - Closed Specialty Diagnoses / Procedures Referred By Contact Refer red To Contact Diagnoses Incontinence [facility]inary [facility] Procedures URO Biofeedback C.N.P. [address] [place] [phone] Referral ID Status Reason Start Date Expiration Date Visits Requ ested Visits Authorized [id number] Closed 06/07/2019 06/06/2020 1 1 Encounter Details Date Type Department Care Team Description 07/13/2019 Procedure visit Department of Natalie Dorado APRN, C.N.P. [address] [place] [address] [id number] Incontinence Urinary Urology in [place]by Mitchell RSocorro [address] [place] [phone] [place], [place] [address] [place] [address] [phone] Social History Tobacco Use Types Packs/Day Years [...] or relatives? How often do you attend judaism or 1 to 4 times per year 05/23 protestant services? Do you belong to any clubs or Yes 10/28/2019 organizations such as judaism groups, unions, fraternal or athletic groups, or [...] documented as of this encounter Progress Notes Aby Mitchell RSueN. - 07/13/2019 1:00 PM CDT CHIEF COMPLAINT/REASON FOR VISIT: Patient is here for pelvic floor assessment and rehabilitation session Mrs.Melanie Taisha Rogers is a 48 y.o. female who was previously evaluated in the Urology Departmentfor complaints of mixed incontinence. Patient now presents for a program of pelvic floor muscle rehabilitation and assessment of current pelvic floor dysfunction. The electronic medical record was reviewed and discussed. Please refer to the dictation noted by Natalie Dorado APRN, SPECIAL EDUCATION SCIENCE TEACHER ([id number]) dated 06/07/2019. Urinary brief history: Mrs. Rogers was evaluated for pelvic organ prolapse and mixed urinary incontinence in August [address] Xavier Mccurdy. She has a history of one vaginal delivery and one . After child bearing she had a total hysterectomy with a synthetic sling placed at the time for stress urinary incontinence. 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 On 04/26/2019 Dr. Mccurdy performed an anterior colporrhaphy with pubovaginal synthetic sling.Postoperatively, Ms. Rogers has had increasing urgency and urge incontinence. She also continues toexperience significant stress incontinence. She states that the urgency and urge incontinence is the big thing. She wears a Poise pad 15/06 and goes through 2-3 pads. The pads do become saturated at times and sometimes there is overflow outside of the pad. She states she has urgency with little warning about 90% of the time. Since the sling placement this year she has noticed pain with intercourse. She denies pain with urination. Mrs. Rogers does urinate frequently but associates this with the high volume of fluid she consumes. She gets up in the night to urinate occasionally. She is not usually wet when she wakes up. Mrs. Rogers drinks 2 to 4 liters of water per day. She mainly drinks water but occasionally has almond milk and decaf coffee. She rarely has caffeine or soda. She notes when eliminating coffee from her diet it made not difference in her symptoms. She does take an antidepressant medication that she reports causes dry mouth but her being thirsty has occurred since before she started taking the medication. She was recommended by Natalie Dorado to reduce her overall fluid intake to no more than 2 liters per day. Mrs. Rogers admits to having a little bit of a problem with constipation. She notes it depends on her diet and fluids. The stool consistency varies. URINARY INCONTINENCE ASSOCIATED WITH PELVIC FLOOR DYSFUNCTION IMPAIRMENTS: Impaired pelvic floor activation secondary to muscle weakness and Impaired sensation/recognition of bladder fullness and/or urge FUNCTIONAL LIMITATIONS: Loss of urine during daily activities and/or sleep, Inability to delay urination with urge and Preoccupation with bladder function and/or apprehension regarding potential for incontinence DISABILITIES: Altered or restricted oral intake and Altered ability to engage in social/recreational/daily activities OBJECTIVE Proceeded with EMG evaluation of the pelvic floor muscles. Patient rates pain at a none on the 0 to 10 pain scale. Position of the patient Semi-Recumbent. Equipment used Vaginal Sensor. Initial baseline EMG recording (desirable is 4.0 microvolt or less per Laborie guidelines): is elevated with an average of 6. Volitional activation of the pelvic floor: Appropriate though use of accessory muscles noted. Identification of pelvic floor movement: Aware of both lift (squeeze) and descent (release) components associated with activation and relaxation respectively. Best sustained relaxation of the pelvic floor: 3 microvolts. Best sustained contraction of the pelvic floor: 7 seconds at 14 microvolts. Short Term Goals: Patient will be able to: 1)Identify and initiate changes in those behaviors which may be contributing to pelvic floor symptoms 2)Identify, isolate, and control the pelvic floor during activation and relaxation 3)Develop and demonstrate independence with a home program to carry through with the above Home Program: Three times per day: Hold for 2-3 seconds, relax for 20-30 seconds, repeat 10 times. At this time the focus will be on relaxation of the muscles (down-training). If symptoms improve and then plateau or if after 4-6 weeks of down-training there is no symptom improvement the patient may begin working on muscle strengthening (up-training). Two to three times per day: pelvic checks (quick flicks). research and development manager goals to include: 1) Improved urinary continence ASSESSMENT / PLAN Mrs.Melanie Taisha Rogers was assessed today for pelvic floor rehabilitation for ongoing mixed urinary incontinence. An individualized pelvic floor exercise program was established for Mrs.Melanie Taisha Rogers. Written instructions were provided with this outlined plan. Patient is encouraged to continue with the exercise for at least 12 weeks' time to allow for muscle strengthening to occur and symptom improvements to be appreciated. After this time patient does not have to complete the exercises as vigorous, but should continue an exercise program to maintain pelvic floor strength. Patient verbalized understanding and agreed to the plan. Patient was also encouraged to try decreasing her overall d aily fluid intake and experiment with dietary bladder irritants. Patient was provided contact information and was encouraged to call with any questions that may arise during her home program. Patient may follow up with repeat sessions to maximize benefit; however since the patient does not live close to the clinic She can continue the exercises and increase repetitions as She begins to build endurance. Patient education materials provided: Managing an Overactive Bladder [id number], Urge Suppression Instructions [id number], Strengthening Exercisesfor Pelvic Floor Muscles [id number] and Using Relaxation Skills to Relieve Your Symptoms [id number] Aby Mitchell R.N. documented in this encounter Plan of Treatment Not on filedocumented as of this encounter Visit Diagnoses Diagnosis Incontinence Urinary documented in this encounter Additional Health Concerns Assessment Noted Time PHQ-9 Depression Total Score: 11 01/10/2019 2:41 PM CS T documented as of this encounter Care Teams Roll Over Press Operator Relationship Specialty Start Date End Date Maris Prakash APRN, C.N.P., R.N. PCP - General Family Medicine 01/10/19 08/02/19 documented as of this encounter
--- OUTSIDE RECORDS SUMMARY | 2022-10-09 18:52 | XMS_ITS | Encounter Summary ---
:1970 Author Organization [facility] Address [address] [place] [address] Care Team Providers Name Role Phone Maris Prakash APRN, C.NSamantha, R.N. Primary Care Provider [phone]- [phone] Encounter Details Date Type Department Care Team Description 04/28/2019 Clinical Communication Department of [place]rology [place] [address] [facility] [address] [place] [phone] Social History Tobacco Use Types Packs/Day Years [...] Telephone Encounter - Lawrence Triplett M.D. - 04/29/2019 4:56 PM CDT Called. NA. Telephone Encounter - Lawrence Scott M.D. - 04/28/2019 10:25 PM CDT Patient s/p colporrhaphy and sling placement 04/26. Calls in with asymmetric swelling and pain in lower extremities. No history of clot. However, given asymmetry, recommended eval at local ED to rule outDVT. Most likely just functional swelling. documented in this encounter Plan of Treatment Not on filedocumented as of this encounter Visit Diagnoses Not on filedocumented in this encounter Additional Health Concerns Assessment Noted Time PHQ-9 Depression Total Score: 11 01/10/2019 2:41 PM CS T documented as of this encounter Care Teams Manager Inventory Control Relationship Specialty Start Date End Date Maris Prakash APRN, C.N.P., R.N. PCP - General Family Medicine 01/10/19 08/02/19 documented as of this encounter
--- OUTSIDE RECORDS SUMMARY | 2022-10-09 18:52 | XMS_ITS | Encounter Summary ---
:[address] [facility] Address [address] [place] [address] Care Team Providers Name Role Phone Maris Prakash APRN C.N.P., R.N. Primary Care Provider +1- [phone] Reason for Visit Auth/Cert Specialty Diagnoses / Procedures Referred By Contact Refer red To Contact Diagnoses Incontinence Urinary Stress Female incontinence urinary stress female Procedures LA SLING OPR STRESS INCONTINENCE LA COLPORPHY ANTR RPR CYSTOCELE SLING ANTERIOR WALL - VAGINAL; anterior vaginal repair Referral ID Status Reason Start Date Expiration Date Visits Requ ested Visits Authorized [id number] 1 1 Encounter Details Date Type Department Care Team Description 04/26/2019 Surgery [facility] OR Xavier Mccurdy, Colporrhaphy Anterior. [address] [place] [address] [address] [facility] [phone] [place] [address] (Wo rk) Social History Tobacco Use Types [...] 1 to 4 times per year 05/23 baptist services? Do you belong to any clubs [...] Sign Reading Time Taken Comments Blood Pressure 113/72 04/26/2019 6:33 AM CDT Pulse 68 04/26/2019 6:33 AM CDT Temperature 36.4 ??C (97.5 ??F) 04/26/2019 6:33 AM CDT Respiratory Rate 16 04/26/2019 6:33 AM CDT Oxygen Saturation 97% 04/26/2019 6:33 AM CDT Inhaled Oxygen Concentration - - Weight 88.6 kg (195 lb 5.2 oz) 04/26/2019 6:33 AM CDT Height 160 cm (5' 2.99) 04/26/2019 6:33 AM CDT Body Mass Index 34.61 04/26/2019 6:33 AM CDT documented in this encounter Discharge Instructions Discharge InstructionsEarlene Rascon - 04/26/2019 10:09 AM CDT You were discharged from the [facility]. Please identify this service name if youcall with questions after hospitalization. documented in this encounter Medications at Time [...] (six) hours tablet as needed for pain. cefdinir (OMNICEF) 300 Take 1 capsule (300 6 capsule 0 02/201904/29/2019 mg capsule mg total) by mouth every 12 (twelve) hours for 3 days. docusate sodium Take 1 capsule (100 100 [...] and curcumin documented as of this encounter Progress Notes Trent Wang - 04/26/2019 6:52 AM CDT Encounter: Initial contact on AM Admissions. Makeda Tradition: Mrs. Rogers is affiliated with the [employer]. She requested prayer before surgery. Shared prayer. Plan: Will remain available for spiritual care as needed or requested. A account manager forest service can be contacted by paging [phone] ([place]). documented in this encounter H&P Notes Lawrence Triplett M.D. - 04/26/2019 7:05 AM CDT INTERVAL HISTORY AND PHYSICAL PRE-PROCEDURE UPDATE H&P reviewed. The patient was examined and there are no significant changes to the H&P. Lawrence Triplett M.D. Source Note - Lawrence Triplett M.D. - 04/19/2019 10:30 AM CDT SUBJECTIVE CHIEF COMPLAINT/REASON FOR VISIT Mixed urinary incontinence Patient seen on Dr. Mccurdy calendar HISTORY OF PRESENT ILLNESS Mrs. Rogers is a pleasant 48-year-old female who is well known to our service who reports for a listing visit ahead of anterior colporrhaphy and repeat synthetic pubovaginal sling. Please refer to ourprior documentation for full details. I have reassessed Mrs. Rogers's urinary symptoms. She endorses frequency q.2 hours associated with urinary urgency. She qualifies her pads per day usage ranging from 1-2 pads per day she endorses bothurge and stress urinary incontinence. Her urge component is described as worse than her stress incont inence. This is different from her prior visits which she quantified her stress incontinence as worse than urge. She denies any hematuria, dysuria, urinary tract infections, malignancy. She reports persistent pelvic organ prolapse that leads to vaginal dryness and discomfort. The following portions of the patient's history were reviewed and updated as appropriate: current medications, family history, medical history, social history, surgical history and problem list. REVIEW OF SYSTEMS Constitutional: Positive for fatigue and weight gain of more than 10 pounds. Genitourinary: Positive for incontinence, urgency and frequent urination. The following systems were negative: Skin, Eyes, ENT, CV, Respiratory, GI, Hematologic, Musculoskeletal, Neuro, Psych OBJECTIVE There were no vitals filed for this visit. PHYSICAL EXAM URO Physical Exam Constitutional: Alert and oriented, no acute distress Eyes: No scleral icterus CV: Regular rate and rhythm Resp: Normal respiratory effort GI: Abdomen soft, non-tender Musculoskeletal: Normal gait noted with ambulation Neurological: Sensation intact in abdomen and bilateral upper extremities Skin: No rashes Psychiatric: Appropriate affect ASSESSMENT / PLAN #1 Mixed urinary incontinence #2 Stage II pelvic organ prolapse with primary anterior component and minor apical component I had the pleasure evaluating Mrs. Rogers ahead of her planned anterior colporrhaphy and pubovaginal synthetic sling placement. We discussed her symptoms in detail and discussed goals of anterior colporrhaphy. We discussed a success rate of 80 a 90% at 5 years regarding her anterior repair. She unders tands that failure of the repair in an immediate or delayed fashion could occur. She does have a history of prior mid urethral sling placement. She continues to have both stress urinary incontinence and urge associated incontinence. We discussed that with this repair and with sling placement that her urge associated symptoms will not improve in may in fact worsen. This may require further therapy in the future. We have previously counseled her towards biofeedback and conservative management of her urge incontinence. She has declined biofeedback consultations. After much discussion and review risk and benefits patient would like to proceed with the before mentioned surgery. She understands that this is typically an outpatient Procedure however approximately 10% require an overnight stay. She understands the risk of requiring in and out catheterization postoperatively as well as potential for urethral sling lysis if persistent retentive symptoms were to occur. Discussed postoperative lifting restrictions of 10 lb for 6 weeks and nothing per vagina for 6 weeks. In regards the mid urethral sling, patient understands that there is approximately 80% significant improvement in stress symptoms and 9%note no improvement postoperatively. We discussed autologous pubovaginal sling versus synthetic pubovaginal sling. Risks and benefits with each procedure were discussed in detail. Patient would like to proceed with a synthetic mid urethral sling. Risks, benefits, and alternatives were discussed with patient which include but are not limited to infection, bleeding, injury to adjacent structures, anesthesia risk (including myocardial infarction, stroke, pulmonary embolism and/or ). After much consideration patient would like to proceed withthe above-mentioned procedure. Informed consent was scanned into electronic medical record. Surgicalbooklet was discussed with the patient. He understands this will require transportation. Preoperative medications were discussed with patient. Dr. Mccurdy met with patient as well in reviewed the above-mentioned surgical his occasion. Plan: --anterior colporrhaphy with pubovaginal mid urethral synthetic sling 04/26/2018 --LULI not necessary due to patient's age --will obtain urinalysis and urine culture today Signed by: Lawrence Triplett M.D. 04/19/2019 11:21 AM documented in this encounter OR Notes Op Note - Lawrence Triplett M.D. - 04/26/2019 8:25 AM CDT FULL OP NOTE Procedure(s) (LRB): Colporrhaphy Anterior. (N/A) Insertion Pubovaginal Sling, Synthetic. (N/A) Cystoscopy Rigid (N/A) Surgeon(s) and Role: * Xavier Mccurdy M.D. - Primary * Lawrence Triplett M.D. - Break And Load Operator Anesthesia Type: General Pre-Operative Diagnosis: Incontinence Urinary Stress Female [N39.3]. Post-Operative Diagnosis: Same as pre-operative diagnosis Findings: As expected Complications: None Description of Procedure: After standard anesthesia and intubation, the patient was sterilely prepared and draped in the dorsal lithotomy position. A catheter was placed under sterile conditions. A weighted vaginal speculum wasplaced. Sterile injectable normal saline was used to inject the midline to elevate it off the underlying tissues. A midline incision was made in the vaginal mucosa. The vaginal mucosa was dissected offlaterally to expose the endopelvic fascia to the level of the vaginal apex. Using 0 PDS on a CT2 needle, we then performed an anterior colporrhaphy in the standard fashion. Excellent care was taken notto narrow the vaginal lumen when tying the sutures. We then performed a cystoscopic exam and confirmed the presence of methylene blue effluxing from both ureteral orifices. At this point in time, attention was directed to the suprapubic region, where just 1 cm cephalad of the pubis, roughly 3 cm lateral to the midline bilaterally, a superficial incision was made with a knife. Using the needle passer of the Supris SP system, we very carefully passed the needle just cephalad of the pubis, making sure that we passed directly with contact along the entire pubis down and exited out of the incision made in the vagina. At this time, we performed a cystoscopic exam. There was no evidence of bladder injury with the trocars. The Prolene mesh was then adhered to the needle passers. Each needle passer was then delivered from the wound bilaterally. The Prolene mesh was in the proper position. A pair of Metzenbaum scissors were placed in between the urethra and the mesh to ensure proper level of looseness. The vaginal mucosa was closed with a running 2-0 Vicryl sutures. The supra pubic incisions were closedwith sub cuticular 4-0 chromic. The patient tolerated the procedure well. Specimens * No specimens in log * Drains Indwelling Urinary Catheter Latex 16 Fr. (Active) 04/26/19 Placed by: Kaz Placed by External Staff?: Hand Hygiene Performed Prior to Insertion: Yes Sterile technique followed?: Yes Catheter Type: Latex Tube Size (Fr.): 16 Fr. Catheter Balloon Size: 5 mL Urine Returned: Yes Removal Reason: * No drains in log * Estimated Blood Loss 200 mL Implants Implant Name Type Inv. Item Serial No. Digital X Ray Service Engineer Lot No. LRB No. Used Action Sling Neftaly ureth subur Urologic Other Coloplast [id number] N/A 1 Implanted Lawrence Triplett M.D. documented in this encounter Plan of Treatment Not on filedocumented as of this encounter Procedures Procedure Name Priority Date/Time Associated Diagnosis Comme nts CYSTOSCOPY RIGID 04/26/2019 7:26 AM Incontinence Urina ry CDT Stress Female INSERTION PUBOVAGINAL 04/26/2019 7:26 AM Incontinence Urinary SLING - SYNTHETIC CDT Stress Female COLPORRHAPHY ANTERIOR 04/26/2019 7:26 AM Incontinence Urinary CDT Stress Female documented in this encounter Visit Diagnoses Diagnosis Incontinence Urinary Stress Female - [facility] Incontinence Urinary Stress Female Incontinence Urinary Stress Female documented in this encounter Admitting Diagnoses Diagnosis Incontinence Urinary Stress Female documented in this encounter Administered Medications Inactive Administered Medications - up to 3 most recent administrations Medication Order MAR Action Action Date Dose Rate Site acetaminophen injection 1,000 mg (OFIRME V) 1,000 mg, intravenous, at 400 mL/hr, Administer over 1 5 Minutes, Once, On Thu04/26/19 at 1900, For 1 dose, PACU (only), Oral unless R ASS less than -1 or nausea/vomiting. Do not use if given in last 6 hours, Restriction Criteria (Pharmacy will review and approve if criteria met): Un able to take or tolerate medications administered via the enteral route or oral ly (not just NPO) acetaminophen tablet 1,000 mg (TYLENOL) 1,000 mg, oral, Once, On Thu04/26/19 at 1 900, For 1 dose, PACU (only), Oral unless RASS less than -1 or nausea/vomiting. Do not use if gi crow in last 6 hours acetaminophen tablet 650 mg (TYLENOL) Given 04/26/2019 12:51 PM CDT 650 mg 650 mg, oral, Every 6 hours PRN, mild pain or score 1-3 of 10, Starting on Thu04/26/19 at 1224 lactated ringers Continued from OR 04/26/2019 11:53 AM 20 mL/hr 20 mL/hr 20 mL/hr, intravenous, CDT Continuous, Starting on Thu04/26/19 at 0930, PACU & Post-Op sodium chloride 0.9 % injection 10 mL Given 04/26/2019 8:30 AM CDT 18 mL 10 mL, intravenous, As needed, line care, Starting on Thu04/26/19 at 0559, Pre-Op, Peripheral Intravenous Catheter and Rapid Infusion Catheter, prior to blood sampling, post blood transfusion or post blood sampling documented in this encounter Active and Recently Administered Medications Times are shown in CDT. Scheduled Medication Order 04/24/2019 04/25/2019 04/26/2019 acetaminophen injection 1,000 mg (OFIRMEV)(Linked Group 1) 1,000 mg, intravenous, at 400 mL/hr, Adm inister over 15 Minutes, Once, Thu04/26/19 at 1900, For 1 dose, PACU (only), Oral unless RASS less than -1 or nausea/vomiting. Do not use if given in last 6 hours, Restriction Criteria (Pharmacy will rev iew and approve if criteria met): Unable to take or tolerate medications administered via the enteral route or orally (not just NPO) acetaminophen tablet 1,000 mg (TYLENOL)(Linked Group 1) 1,000 mg, oral, Once, Thu04/26/19 at 1900 , For 1 dose, PACU (only), Oral unless RASS less than -1 or nausea/vomiting. Do not use if given in last 6 hours ceFAZolin injection 2,000 mg (ANCEF) (COMPLETED) 0803 (Given - Provider: Nav De La O, CASING MATERIAL WEIGHER, ENVIRONMENTAL FIELD OFFICE MANAGER) 2,000 mg (rounded from 2,215 mg = 25 mg/ kg ? 88.6 kg), intravenous, Once, 04/26/19 at 0730, For 1 dose, Intra-Op, Preoperatively within 1 hour prior to surgical incision Adminster IV push over 3 lenore des. Add 5 mL NS to 1 gram vial for a fi nal concentration of 200 mg/mL., Drug Monitoring Program: Pharmacist to adjust medication dosing based on indication and drug clearance factors., Indications: Prophylaxis, surgical ketorolac injection 15 mg (TORADOL) 1230 (Due) 15 mg, intravenous, Once, 04/26/19 at 1230, For 1 dose, Do not give if patient received in PACU or operating room. Adult IV push rate: Over 15 seconds. Peds IV push rate: Over 1 minute. 60 mg dose only for IM, not recommended for IV. oxyCODONE IR tablet 10 mg (ROXICODONE) 1430 (Due) 10 mg, oral, Once, 04/26/19 at 1430, F or 1 dose, PACU (only), Prior to discharge Continuous Medication Order 04/24/2019 04/25/2019 04/26/2019 lactated ringers 1153 (Continued from OR - Provider: Seema Joshi RSocorro) 20 mL/hr, intravenous, at 20 mL/hr, Cont inuous, Starting 04/26/19 at 0930, PACU & Post-Op PRN Medication Order 04/24/2019 04/25/2019 04/26/2019 acetaminophen tablet 650 mg (TYLENOL) 1251 (Given - Provider: Kiley Curtis RSueNSue) 650 mg, oral, Every 6 hours PRN, mild pa in or score 1-3 of 10, Starting 04/26/19 at 1224 belladonna alkaloids-opium 16.2-60 mg suppository 1 lawson ppository (B&O SUPPRETTS) 1 suppository, rectal, Once as needed, b ladder spasms, Starting 04/26/19 at 1417, For 1 dose, PACU (only) dexamethasone injection 4 mg (DECADRON) 4 mg, intravenous, Once as needed, nause a, vomiting, Starting 04/26/19 at 1417, For 1 dose, PACU (only), Give only if NOT given during the pre or intraoperative period. If ondansetron ordered, give dexamethasone with first dose of ondansetron. droperidol injection 0.625 mg (INAPSINE) 0.625 mg, intravenous, Every 6 hours PRN , nausea, vomiting, Starting Thu04/26/19 at 1417, For 48 hours, PACU (only), Total of 3 doses in 24 hour period. RASS must be -2 or higher to administer. Reassess for nausea or vomiting after at least 10 minutes. If nausea or vomiting persists administer next ordered antiemetic medications (order for antiemetic medication administration ondansetron then droperido l then promethazine)., Indications: Nausea and Vomiting droperidol injection 0.625 mg (INAPSINE) 0.625 mg, intravenous, Every 6 hours PRN , nausea, vomiting, Starting Thu04/26/19 at 1224, For 48 hours, Total of 3 doses in 24 hour period. RASS must be -2 or higher to administer. Reassess for nausea or vomiting after at least 10 minutes. If nausea or vomiting persists administer next ordered antiemetic medications (order for antiemetic medication administration ondansetron then droperidol then promethazine). HYDROmorphone (PF) injection 0.2 mg (DILAUDID) 0.2 mg, intravenous, Every 5 min PRN, mo derate pain or score 4-6 of 10, severe pain or score 7-10 of 10, Starting Thu04/26/19 at 1417, PACU (only), Up to maximum total dose of 2 mg ketamine injection 10 mg (KETALAR) 10 mg, intravenous, Once as needed, Pain sedation mismatch AND RASS score less than -1, Starting Thu04/26/19 at 1417, For 1 dose, PACU (only) meperidine (PF) injection 12.5 mg (DEMEROL) 12.5 mg, intravenous, Every 2 min PRN, s hivering, May repeat once, Starting Thu04/26/19 at 1417, For 2 doses, PACU (only), Restriction Criteria (Pharmacy will review and approve if criteria met): Prevention or treatment of post-anesthesia shivering naloxone injection 0.2 mg (NARCAN) 0.2 mg, intravenous, As needed, respirat ory depression, Starting 04/26/19 at 1224, For respiratory rate less than 8 breaths per minute or RASS score of -3, - 4, -5. Apply oxygen to keep oxygen saturations greater than 90% and notify service. ondansetron (PF) injection 4 mg (ZOFRAN) 4 mg, intravenous, Every 6 hours PRN, na usea, vomiting, Starting 04/26/19 at 1417, For 48 hours, PACU (only), Reassess for nausea or vomiting after at least 10 minutes. If nausea or vomiting persists administer next ordered antiemetic medic ations (order for antiemetic medication administration ondansetron then droperidol then promethazine). ondansetron (PF) injection 4 mg (ZOFRAN) 4 mg, intravenous, Every 6 hours PRN, na usea, vomiting, Starting e 04/26/19 at 1224, For 48 hours, Reassess for nausea or vomiting after at least 10 minutes. If nausea or vomiting persists administer ne xt ordered antiemetic medications (order for antiemetic medication administration ondansetron then droperidol then promethazine). oxybutynin tablet 5 mg (DITROPAN) 5 mg, oral, Once as needed, If patient i s not required to void prior to dismissal, Starting e 04/26/19 at 1417, For 1 dose, PACU (only) oxyCODONE IR tablet 10 mg (ROXICODONE) 10 mg, oral, Every 6 hours PRN, severe p ain or score 7-10 of 10, Starting 04/26/19 at 1224 oxyCODONE IR tablet 5 mg (ROXICODONE) 5 mg, oral, Every 6 hours PRN, moderate pain or score 4-6 of 10, Starting 04/26/19 at 1224 promethazine injection 6.25 mg (PHENERGAN) 6.25 mg, intravenous, Every 6 hours PRN, nausea, vomiting, Starting e 04/26/19 at 1224, For 48 hours, RASS must be -2 or higher to administer. Reassess for nausea/vomiting after at least 10 minutes. If nausea or vomiting persists administer n ext ordered antiemetic medications (order for antiemetic medication administration ondansetron then droperidol then promethazine). sodium chloride 0.9 % injection 10 mL (CANCELED) 0830 (Given - Provider: Xavier Mccurdy M.D. - Comment: suburethral) 10 mL, intravenous, As needed, line care , Starting Tu04/26/19 at 0559, Pre-Op, Peripheral Intravenous Catheter and Rapid Infusion Catheter, prior to blood sampling, post blood transfusion or post blood sampling Linked Groups Order Group 1: acetaminophen tablet 1,000 mg (TYLENOL)Jump to med 1,000 mg, oral, Once, 04/26/19 at 1900 , For 1 dose, PACU (only)
Oral unless RASS less than -1 or nausea/vomiting. Do not use if given in last 6 hours
Or acetaminophen injection 1,000 mg (OFIRMEV)Jump to med 1,000 mg, intravenous, at 400 mL/hr, Adm inister over 15 Minutes, Once, e 04/26/19 at 1900, For 1 dose, PACU (only)
Oral unless RASS less than -1 or nausea/vomiting. Do not use if given in last 6 hours
Restriction Criteria (Pharmac y will review and approve if criteria met): Unable to take or tolerate medications administered via the enteral route or orally (not just NPO) documented in this encounter Additional Health Concerns Assessment Noted Time PHQ-9 Depression Total Score: 11 01/10/2019 2:41 PM CS T documented as of this encounter Care Teams Manager Project Relationship Specialty Start Date End Date Maris Prakash APRN, C.N.P., R.N. PCP - General Family Medicine 01/10/19 08/02/19 documented as of this encounter
--- OUTSIDE RECORDS SUMMARY | 2022-10-09 18:52 | XMS_ITS | Encounter Summary ---
:1970 Author Organization [facility] Address [address] [place] [address] Care Team Providers Name Role Phone Maris Prakash APRN, C.NJosh., R.N. Primary Care Provider +1- [phone] Encounter Details Date Type Department Care Team Description 06/07/2019 Hospital Encounter Department of aLwrence Triplett Urinary Laboratory Medicine [facility] and Pathology, [facility] in [place], [place] [address] [place] [address] Social History Tobacco Use Types Packs/Day Years [...] or relatives? How often do you attend sikh or 1 to 4 times per year 05/23 holiness services? Do you belong to any clubs or Yes 10/28/2019 organizations such as sikh groups, unions, fraternal or athletic groups, or [...] XL (WELLBUTRIN Take 150 mg by 1 019 10/28/2019 XL) 150 mg 24 hr [...] Name Priority Date/Time Associated Diagnosis Comme nts MICROSCOPIC Routine 06/07/2019 7:47 AM Results f or this AUTOMATED CDT procedure are i n the results section. URINALYSIS WITH Routine 06/07/2019 7:47 AM Incontinence Urinar y Results for this MICROSCOPIC CDT Stress Female procedure are in the results section. documented in this encounter Results (ABNORMAL) Microscopic Automated (06/07/2019 7:47 AM CDT) athologist Signature Microscopy Abnormal 06/07/2019 9:04 AM CDT WBC 1-3 /hpf 06/07/2019 9:04 AM CDT Comment: ----REFERENCE VALUE---- 1-3 ??(Males) 1-10 (Females) Squamous Epithelial Cells, U 1-3 /hpf 06/07/2019 9:04 AM CDT Bacteria Present (A) 06/07/2019 9:04 AM CDT Specimen Anatomical Collection Method Collection Time Receive d Time (Source) Location / / Volume Laterality Urine 06/07/2019 7:47 AM 9 7:47 CDT AM CDT Lawrence Triplett M.D. LAB URINE ORDERABLES Performing Organization Address City/State/ZIP Code Phon e Number [facility] - [address] [place], [place] [address] [employer] [facility] [employer] [facility] Urinalysis with Microscopic: Urine, Clean Catch (06/07/2019 7:47 AM CDT) [facility] gist Method Time Signature Source Midstream 06/07/2019 7:47 AM CDT Appearance Normal Normal 06/07/2019 8:15 AM CDT Osmolality, U 257 150 - 1150 06/07/2019 mOsm/kg 8:59 AM CDT pH, U 5.9 4.5 - 8.0 06/07/2019 8:59 AM CDT Comment: ----ADDITIONAL INFORMATION---- This test was developed and its performa nce characteristics determined by [facility] in a manner co nsistent with CLIA [...] Address City/State/ZIP Code Phon e Number [facility] - [address] documented in this encounter Visit Diagnoses Diagnosis Incontinence Urinary Stress Female documented in this encounter Additional Health Concerns Assessment Noted Time PHQ-9 Depression Total Score: 11 01/10/2019 2:41 PM CS T documented as of this encounter Care Teams Paint Striping Machine Operator Relationship Specialty Start Date End Date Maris Prakash APRN, C.N.P., R.N. PCP - General Family Medicine 01/10/19 08/02/19 documented as of this encounter
--- OUTSIDE RECORDS SUMMARY | 2022-10-09 18:52 | XMS_ITS | Encounter Summary ---
:1970 Author Organization [facility] Address [address] [place] [address] Care Team Providers Name Role Phone Maris Prakash APRN, C.NSamantha, R.N. Primary Care Provider [phone]- [phone] Reason for Visit Auth/Cert Specialty Diagnoses / Procedures Referred By Contact Refer red To Contact Diagnoses Incontinence Urinary Stress Female incontinence urinary stress female Procedures AK SLING OPR STRESS INCONTINENCE AK COLPORPHY ANTR RPR CYSTOCELE SLING ANTERIOR WALL - VAGINAL; anterior vaginal repair Referral ID Status Reason Start Date Expiration Date Visits Requ ested Visits Authorized [id number] 1 1 Encounter Details Date Type Department Care Team Description 04/26/2019 Hospital Encounter Outpatient [facility] [place] [address] [facility] (Primary Dx) [address] [place] [address] [phone] Social History Tobacco Use Types Packs/Day Years [...] 1 to 4 times per year 05/23 pentecostal services? Do you belong to any clubs [...] Sign Reading Time Taken Comments Blood Pressure 97/60 04/26/2019 2:00 PM CDT Pulse 84 04/26/2019 2:00 PM CDT Temperature 36.6 ??C (97.9 ??F) 04/26/2019 2:00 PM CDT Respiratory Rate 16 04/26/2019 2:00 PM CDT Oxygen Saturation 96% 04/26/2019 2:00 PM CDT Inhaled Oxygen Concentration - - Weight 88.6 kg (195 lb 5.2 oz) 04/26/2019 6:33 AM CDT Height 160 cm (5' 2.99) 04/26/2019 6:33 AM CDT Body Mass Index 34.61 04/26/2019 6:33 AM CDT documented in this encounter Discharge Instructions Discharge InstructionsEarlene Rascon - 04/26/2019 10:09 AM CDT You were discharged from the [facility]. Please identify this service name if [...] Tradition: Mrs. Rogers is affiliated with the Sabianist Buddhism. She requested prayer before surgery. Shared prayer. Plan: Will remain available for spiritual care as needed or requested. A welder metal fab can be contacted by paging [phone] (Buddhism). documented in this encounter H&P Notes Lawrence [...] - Primary * Lawrence Triplett M.D. - Head Loader Anesthesia Type: General Pre-Operative Diagnosis: Incontinence Urinary [...] Implant Name Type Inv. Item Serial No. Mine Shifter Lot No. [id number] No. Used Action Sling Neftaly ureth subur Urologic Other Coloplast [id number] N/A 1 Implanted Lawrence Triplett M.D. documented [...] Diagnoses Diagnosis Incontinence Urinary Stress Female - [facility] Incontinence Urinary Stress Female documented in this [...] on Thu04/26/19 at 0930, PACU & Post-Op documented in this encounter Active and Recently [...] 0803 (Given - Provider: Nav De La O APRN, BULK PICKER) 2,000 mg (rounded from 2,215 mg = 25 mg/ kg ? 88.6 kg), intravenous, Once, Thu04/26/19 at 0730, For 1 dose, Intra-Op, [...] intravenous, at 20 mL/hr, Cont inuous, Starting e 04/26/19 at 0930, PACU & Post-Op PRN Medication Order 04/24/2019 04/25/2019 04/26/2019 acetaminophen tablet 650 mg (TYLENOL) 1251 (Given - Provider: Kiley Curtis RSocorro) 650 mg, oral, Every 6 hours PRN, [...] 6 hours PRN , nausea, vomiting, Starting 04/26/19 at 1417, For 48 [...] intravenous, As needed, respirat ory depression, Starting Thu04/26/19 at 1224, For respiratory rate less than [...] PRN, na usea, vomiting, Starting 04/26/19 at 1224, For 48 hours, Reassess for nausea or vomiting after at least 10 minutes. If nausea or vomiting persists administer ne xt ordered antiemetic medications (order for antiemetic medication administration ondansetron then droperidol then promethazine). oxybutynin tablet 5 mg (DITROPAN) 5 mg, oral, Once as needed, If patient i s not required to void prior to dismissal, Starting 04/26/19 at 1417, For 1 dose, [...] Every 6 hours PRN, nausea, vomiting, Starting 04/26/19 at 1224, For 48 hours, RASS [...] intravenous, As needed, line care , Starting 04/26/19 at 0559, Pre-Op, Peripheral Intravenous Catheter and Rapid Infusion Catheter, prior to blood sampling, post blood transfusion or post blood sampling Linked Groups Order Group 1: acetaminophen tablet 1,000 mg (TYLENOL)Jump to med 1,000 mg, oral, Once, e 04/26/19 at 1900 , For 1 dose, PACU (only)
Oral unless RASS less than -1 or nausea/vomiting. Do not use if given in last 6 hours
Or acetaminophen injection 1,000 mg (OFIRMEV)Jump to med 1,000 mg, intravenous, at 400 mL/hr, Adm inister over 15 Minutes, Once, 04/26/19 at 1900, For 1 dose, PACU [...] documented as of this encounter Care Teams Gis Developer Relationship Specialty Start Date End Date Maris Prakash, VIRAL, C.N.P., R.N. PCP - General Family Medicine 01/10/19 08/02/19 documented as of this encounter
--- OUTSIDE RECORDS SUMMARY | 2022-10-09 18:52 | XMS_ITS | Encounter Summary ---
:1970 Author Organization [facility] Address [address] [place] [address] Care Team Providers Name Role Phone Maris Prakash APRN, C.NSamantha, R.N. Primary Care Provider +1- [phone] Encounter Details Date Type Department Care Team Description 05/11/2019 Clinical Communication Department of Urology Simran Triplett in [place] [address] [place] [address] Social History Tobacco Use Types Packs/Day Years [...] 1 to 4 times per year 05/23 anglican services? Do you belong to any clubs [...] Telephone Encounter - Lawrence Triplett M.D. - 05/11/2019 3:32 PM CDT Called patient to follow up on urinalysis which shows 50-100 WBCs and bacteria present. This is alsoin the presence of squamous epithelial cells concerning for possible contamination. Nonetheless, with her symptoms and recent procedure we will preemptively cover with antibiotics until her culture returns. I have called in a 10 day course of Bactrim to her local pharmacy. All questions answered. documented in this encounter Plan of Treatment Not on filedocumented as of this encounter Visit Diagnoses Not on filedocumented in this encounter Additional Health Concerns Assessment Noted Time PHQ-9 Depression Total Score: 11 01/10/2019 2:41 PM CS T documented as of this encounter Care Teams Nuclear Medical Tech Relationship Specialty Start Date End Date Maris Prakash APRN, C.N.P., R.N. PCP - General Family Medicine 01/10/19 08/02/19 documented as of this encounter
--- OUTSIDE RECORDS SUMMARY | 2022-10-09 18:53 | XMS_ITS | Encounter Summary ---
:1970 Author Organization [facility] Address [address] [place] [address] Care Team Providers Name Role Phone Rosa Odom M.D. Primary Care Provider Reason for Referral MRI/CAT/PET Scan (Routine) - Closed Specialty Diagnoses / Procedures Referred By Contact Refer red To Contact Radiology Diagnoses Malignant Neoplasm Of Brain (HCC) Jose De La O M.D. [facility] Procedures MR Brain without and with IV Contrast LA MRI BRAIN WO/W CNTRST HC MRI BRAIN WO/W CNTRST [address] [place] [address] Referral ID Status Reason Start Date Expiration Date Visits Requ ested Visits Authorized [id number] Closed 08/10/2018 08/10/2019 1 1 Reason for Visit Outpatient (Routine) - Closed Specialty Diagnoses / Procedures Referred By Contact Refer red To Contact Neurology Diagnoses Meningioma Brain Personal History Maris Prakash APRN, [facility] C.N.P., R.N. [address] [facility] [address] [place] [address] Referral ID Status Reason Start Date Expiration Date Visits V isits Requested Authorized [id number] Closed Specialty 08/06/2018 08/06/2019 1 1 Services Required Encounter Details Date Type Department Care Team Description 08/10/2018 Comprehensive Visit Department of Samina Prakash i, APRN, C.N.P., R.N. [address] [facility], [place] [address] [place] [address] Meningioma Brain Personal History; Neurology in Jose De La O M.D. [address] [place] [phone] Malignant Neoplasm Of Brain (HCC) [place], [place] [address] [place] [phone] Social History Tobacco Use Types Packs/Day Years [...] 1 to 4 times per year 05/23 mu-ism services? Do you belong to any clubs [...] minutes do you engage in exercise at is 20 min 10/28/2019 level? Stress Answer [...] documented as of this encounter Progress Notes Jose De La O M.D. - 08/10/2018 10:30 AM CDT SUBJECTIVE Chief Compliant: Meningioma. Family history of cancer and intracranial aneurysms. HPI:Lissette Rogers returns today for follow-up. She was last here in 2011. That was for followup of an enormous meningioma, ER neg and LA pos.Following resectyive neurosurgery she received no adjuvant treatment and has been followed expectantly. She returns now at the request of her provider at [facility] in [place]. Issues in addition to meningioma surveillance is her family history and plans that I had discussed with her regarding Genetics consultation. I reviewed the details in my most recent note of 2011 there is additional family history. First regarding intracranial aneurysms and subarachnoid hemorrhage her mother of had 3 intracranial aneurysms 1of which presented with a subarachnoid hemorrhage which she survived. Her mother the patient's maternal grandmother of a subarachnoid hemorrhage that person also had cervical and uterine carcinoma. There are no instances of subarachnoid hemorrhage or aneurysm in her degeneration or in her children's generation. There is one additional family member with cancer; of her half brother was recently diagnosed with melanoma of the upper limb that required axillary dissection. The The patient has periodic vertex headaches and is still has inadequate nighttime sleep with cognitiveinefficiency. She is working with her primary health provider of with these issues. There are no neurologic complaints. OBJECTIVE EXAM: Neurologic examination is unchanged from before of there are no important birthmarks and and Iexamined both axillae and there are no axillary freckles. ASSESSMENT/PLAN We will arrange for an MRI and MRA a and order of Medical Genetics consultation to address both the issue of a family history of cancer and a family history of intracranial aneurysms I personally spent over half of a total 40 minutes face to face with the patient in counseling and discussion and/or coordination of care as described above. PATIENT EDUCATION Ready to learn, no apparent learning barriers were identified; learning preferences include listening. Explained diagnosis and treatment plan; patient expressed understanding of the content. documented in this encounter Plan of Treatment Not on filedocumented as of this encounter Results MR Brain without and with IV Contrast (08/10/2018 4:29 PM CDT) Anatomical Region Laterality Modality Head, Brain, Neuroradiology RST LOS, Neuroradiology BHARAT N/A Magnetic Resonance LOS, Neuroradiology FLA LOS Specimen (Source) Anatomical Collection Method Collection Time Re ceived Time Location / / Volume Laterality 08/11/2018 10:27 AM CDT Impressions 08/11/2018 10:40 AM CDT IMPRESSION: 1. Stable postoperative changes. 2. Negative for aneurysm. Narrative 08/11/2018 10:40 AM CDT EXAM: MR BRAIN WITHOUT AND WITH IV CONTRAST, MR BRAIN ANGIOGRAM WITHOUT IV CONTRAST COMPARISON: MRI head 04/20/2012 FINDINGS: Examination of the brain is st able compared to 2011. Postoperative changes in parasagittal right frontal lo be. Negative for recurrent neoplasm. No abnormal contrast enhancement. Active on chronic degenerative changes i nvolving the left C2-C3 facet joint. MRA head is negative. No evidence of [place] nosis or aneurysm. Procedure Note Shaq Ingram M.D. - 08/11/2018Formatt ing of this note might be different from the original. EXAM: MR BRAIN WITHOUT AND WITH IV CONTR AST, MR BRAIN ANGIOGRAM WITHOUT IV CONTRAST COMPARISON: MRI head 04/20/2012 FINDINGS: Examination of the brain is st able compared to 2011. Postoperative changes in parasagittal right frontal lo be. Negative for recurrent neoplasm. No abnormal contrast enhancement. Active on chronic degenerative changes i nvolving the left C2-C3 facet joint. MRA head is negative. No evidence of [place] nosis or aneurysm. IMPRESSION: 1. Stable postoperative changes. 2. Negative for aneurysm. Jose HOWARD MRI PROCEDURES documented in this encounter Visit Diagnoses Diagnosis Meningioma Brain Personal History Malignant Neoplasm Of Brain (HCC) Meningioma Brain Personal History Malignant Neoplasm Of Brain (HCC) documented in this encounter Care Teams Director Of Public Safety Relationship Specialty Start Date End Date Rosa Odom M.D. PCP - General 05/07/17 01/09/19 [address], [place] [phone] documented as of this encounter
--- OUTSIDE RECORDS SUMMARY | 2022-10-09 18:53 | XMS_ITS | Encounter Summary ---
:1970 Author Organization [facility] Address [address] [place] [address] Care Team Providers Name Role Phone Rosa Odom M.D. Primary Care Provider Encounter Details Date Type Department Care Team Description 08/12/2018 Orders Only Department of Jose De La O, Malignant Neoplasm Of Brain (HCC); Neurology in M.D. Aneurysm Cerebral Unruptured (HCC) [place], [place] [address] [facility] [address] [place] [address] [phone] Social History Tobacco Use Types Packs/Day Years [...] as of this encounter Visit Diagnoses Diagnosis Malignant Neoplasm Of Brain (HCC) Aneurysm Cerebral Unruptured (HCC) documented in this encounter Care Teams Flatlock Sewing Machine Operator Relationship Specialty Start Date End Date Rosa Odom M.D. PCP - General 05/07/17 01/09/[address] [address] documented as of this encounter
--- OUTSIDE RECORDS SUMMARY | 2022-10-09 18:53 | XMS_ITS | Encounter Summary ---
:1970 Author Organization [facility] Address [address] [place] [address] Care Team Providers Name Role Phone Rosa Odom M.D. Primary Care Provider Reason for Visit Reason Onset Date Comments MRI/MRA results 08/16/2018 Jaylyn Encounter Details Date Type Department Care Team Description 08/16/2018 Clinical Communication Department of Jose De La O MR I/MRA results Neurology in P, MSueDSue ([place]) [place], [address] [place], [place] [address] [facility] [address] [place], [place] [phone] (Work) [phone] Social History Tobacco Use Types Packs/Day Years [...] or relatives? How often do you attend restoration or 1 to 4 times per year 05/23 baptist services? Do you belong to any clubs or Yes 10/28/2019 organizations such as restoration groups, unions, fraternal or athletic groups, or [...] this encounter Miscellaneous Notes Telephone Encounter - Carley Palencia R.N. - 08/16/2018 2:30 PM CDT PLAN Name of test result(s): MRI/MRA Brain Test result information: Per Dr. De La O, I shared with Mrs. Rogers that there was not any recurrent neoplasm, no stenosis, no aneurysm found on the MRI/A. Stable. Ordered by:Dr. De La O Date performed: 08/10/2018 Pending results: complete Disposition/Recommendation: self-care appropriate at this time . Mrs. Mason shared that she did not wish to pursue the medical genetic consult Dr. De La O ordered. I shared this with Dr. De La O. Heasked me to relay to her that that is fine. We will see her with MRI and him in one years time. Orders were placed for Dr. Stahl to sign. Patient will call next summer to make sure the appointments are scheduled. She knows she may call if she has questions or concerns prior to next fall. Education: patient/caller able to teach back Caller agreeable to plan of care: yes The following references were used: nursing clinical judgement and provider Dr. De La O Telephone Encounter - Johnny Lawrence - 08/16/2018 9:16 AM CDT I didn't talk to this patient directly, but [facility] tells me that it's been close to a week since she had an MRI/MRA done here, and she hasn't heard anything. Is asking for a call back. documented in this encounter Plan of Treatment Not on filedocumented as of this encounter Visit Diagnoses Not on filedocumented in this encounter Care Teams Career Developer Relationship Specialty Start Date End Date Rosa Odom M.D. PCP - General 05/07/17 01/09/[address] [address] documented as of this encounter
--- OUTSIDE RECORDS SUMMARY | 2022-10-09 18:53 | XMS_ITS | Encounter Summary ---
:1970 Author Organization [facility] Address [address] [place] [address] Care Team Providers Name Role Phone Rosa Odom M.D. Primary Care Provider Encounter Details Date Type Department Care Team Description 09/20/2018 Abstract Department of Family Medicine, Provider, Historical [facility], in [place], [place] [address] [place] [address] Social History Tobacco Use Types Packs/Day Years [...] on filedocumented in this encounter Care Teams Director Of Sales And Marketing Relationship Specialty Start Date End Date Rosa Odom M.D. PCP - General 05/07/17 01/09/[address] [place] [phone] documented as of this encounter
--- OUTSIDE RECORDS SUMMARY | 2022-10-09 18:53 | XMS_ITS | Encounter Summary ---
:1970 Author Organization [facility] Address [address] [place] [address] Care Team Providers Name Role Phone Rosa Odom M.D. Primary Care Provider Reason for Visit Outpatient (Routine) - Closed Specialty Diagnoses / Procedures Referred By Contact Refer red To Contact Urology Diagnoses Cystocele Maris Prakash, VIRAL, C.N.P.[address] [address] Referral ID Status Reason Start Date Expiration Date Visits Requ ested Visits Authorized [id number] Closed 08/04/2018 08/04/2019 1 1 Encounter Details Date Type Department Care Team Description 08/27/2018 Comprehensive Visit Department of Xavier Mccurdy Urinary Stress Female (Primary Dx); Urology in S, [place] Cystocele [place], [address] [place], [place] [address] [facility] [address] [place], [place] [phone] (Work) [phone] Social History Tobacco Use Types Packs/Day Years [...] 1 to 4 times per year 05/23 orthodox services? Do you belong to any [...] AM CDT documented as of this encounter Consult Notes Xavier Mccurdy M.D. - 08/27/2018 10:30 AM CDT I have personally reviewed the past medical history, pertinent review of systems and physical exam. I have met with and evaluated the patient. I have discussed the case with my clinical team and I agree with the plan and action as outlined by my team Johnny Lopez M.D. - 08/27/2018 10:30 AM CDT SUBJECTIVE REQUESTING PROVIDER Maris Prakash, BUTCHER OR SMALLGOODS MAKER, C.N.P. REASON FOR CONSULT Urinary symptoms HISTORY OF PRESENT ILLNESS Patient presents for evaluation of possible cystocele. She history of a laparoscopic hysterectomy and DVT in 2005. Since then, she has developed mixed incontinence with equal stress in equal urgency. She also has complaints of bulging in her vagina that she cannot visibly see that is uncomfortable. She denies any significant dyspareunia. Denies any hematuria or issues with recurrent urinary tract infections. He does have history of a meningioma that has caused problems with her memory. Lower Urinary Symptoms Lower Urinary Sx: able to sense full bladder (+) frequency (+) 8 x per day 1 x nightly Obstructive Sx: kidney infections or required hospitalization for kidney failure (-) # of UTI's in past year: None Required catheter: no Incontinence: dribbling (+) urge incontinence (+) unintentionally leaks urine (+) leaking occurs during coughing,sneezing or lifting heavy objects (+) experiences a feeling of urgency before leaking (-) Treatments: Treatments taken for urinary symptoms: none The following portions of the patient's history were reviewed and updated as appropriate: allergies,current medications, family history, medical history, social history, surgical history and problem list. REVIEW OF SYSTEMS All other systems reviewed and are negative. OBJECTIVE PHYSICAL EXAM There were no vitals filed for this visit. Constitutional: She appears well-developed. HENT: Head: Normocephalic. Eyes: Conjunctivae are normal. Neck: Normal range of motion. Cardiovascular: She exhibits no edema. Pulmonary/Chest: Effort normal. Abdominal: Abdomen appears normal. Musculoskeletal: Normal range of motion. Neurological: She is alert. Skin: No rash noted. Psychiatric: She has a normal mood and affect. Genitourinary: Stress incontinence during Valsalva. Anterior and apical descent grade 2. No posterior prolapse. LABORATORY Lab Results Component Value Date HGB 13.5 08/04/2018 ASSESSMENT / PLAN #1 Cystocele #2 Incontinence Urinary Stress Female Discussed with patient her diagnosis of mixed incontinence and anterior and apical descent. Dr. Mccurdy reviewed with her surgical options. He additionally discussed pessary as well as pelvic floor biofeedback. At this time the patient would like to try pelvic floor biofeedback. If she would like repair of the prolapse as well as incontinence, she would have to return for a new pelvic exam, UA, LULI, and return visit. I did discuss with her that surgical treatment will not fix the urge component of her incontinence. Signed by: Johnny Lopez M.D. 08/27/2018 5:11 PM Answers for HPI/ROS submitted by the patient on 08/27/2018 Sensation that your bladder is not completely emptying after urinating: Yes How many pregnancies have you had?: 2 How many live births have you had?: 2 How many vaginal deliveries have you had?: 1 How many C-sections have you had?: 1 Is there any tissue you can see or feel bulging outside of the vaginal opening?: Yes What other symptoms do you experience secondary to pelvic organ prolapse?: fullness or pressure in the pelvic How long have these symptoms been present?: 2 years Have you ever used a pessary for your prolapse?: No Have you ever had surgery for your prolapse?: Yes If yes, what route was used for this surgery?: vagina If yes, was mesh placed during this prolapse surgery?: Yes Have you had a hysterectomy?: Yes If yes, what route was used for the surgery?: vagina If yes, did they remove your ovaries at the time of your hysterectomy?: both Are you premenpausal, perimenopausal, or post menopausal?: 1 documented in this encounter Plan of Treatment Not on filedocumented as of this encounter Visit Diagnoses Diagnosis Incontinence Urinary Stress Female - Lisa sheldon Cystocele documented in this encounter Care Teams Diamond Cleaner Relationship Specialty Start Date End Date Rosa Odom M.D. PCP - General 05/07/17 01/09/[address] [address] documented as of this encounter
--- OUTSIDE RECORDS SUMMARY | 2022-10-09 18:53 | XMS_ITS | Encounter Summary ---
:1970 Author Organization [facility] Address [address] [place] [address] Care Team Providers Name Role Phone Rosa Odom M.D. Primary Care Provider Encounter Details Date Type Department Care Team Description 08/06/2018 Abstract DATA ABSTRACTION Provider, Historical Social History Tobacco Use Types Packs/Day Years [...] or relatives? How often do you attend latter day or 1 to 4 times per year 05/23 rastafari services? Do you belong to any clubs or Yes 10/28/2019 organizations such as latter day groups, unions, fraternal or athletic groups, or [...] on filedocumented in this encounter Care Teams Welfare Specialist Relationship Specialty Start Date End Date Rosa Odom M.D. PCP - General 05/07/17 01/09/[address] [address] documented as of this encounter
--- OUTSIDE RECORDS SUMMARY | 2022-10-09 18:53 | XMS_ITS | Encounter Summary ---
:1970 Author Organization [facility] Address [address] [place] [address] Care Team Providers Name Role Phone Maris Prakash APRN C.N.P., R.N. Primary Care Provider [phone] Encounter Details Date Type Department Care Team Description 01/12/2019 Orders Only Department of Urology Scott Barillas, In continence Urinary in [place], Ph.D. Stress And Urg e [place] (Primary Dx) [address] [place] [address] Social History Tobacco Use Types Packs/Day Years [...] or relatives? How often do you attend christian or 1 to 4 times per year 05/23 voodoo services? Do you belong to any clubs or Yes 10/28/2019 organizations such as christian groups, unions, fraternal or athletic groups, or [...] on filedocumented as of this encounter Results (ABNORMAL) Urinalysis with Microscopic (02/11/2019 8:03 AM CDT) [facility] Method Time Signature Source Midstream 02/11/2019 [facility] 8:03 AM CDT LABORATORIES [facility] Appearance Normal Normal 02/11/2019 [facility] 8:39 AM T [facility] Osmolality, U 103 (L) 150 - 1150 02/11/2019 [facility] mOsm/kg 9:57 AM T [facility] pH, U 6.4 4.5 - 8.0 02/11/2019 [facility] 9:57 AM T [facility] Comment: ----ADDITIONAL INFORMATION---- This test was developed and its performa nce characteristics determined by [facility] in a manner co nsistent with CLIA requirements. This test has not bee n cleared or approved by the U.S. Food and Drug Admin istration. Glucose <2 0 - 15 mg/dL 02/11/2019 8:39 AM T [facility] Protein, U <4 <26 mg/dL 02/11/2019 8:39 AM T [facility] Comment: ----ADDITIONAL INFORMATION---- On 05/19/2017 the total protein assay me thod changed resulting in approximately a 15% increase in prote in values. Protein/Osmolality <0.39 <0.42 Ratio 02/11/2019 9:57 AM [facility] Comment: ----ADDITIONAL INFORMATION---- On 05/19/2017 the total protein assay me thod changed resulting in approximately a 15% increase in prote in values. Predicted 24 Hr <283 mg/24 h 02/11/2019 9:57 AM [facility] Protein T [facility] Predicted Range <1147 mg/24 h 02/11/2019 9:57 AM [facility] Hemoglobin, QL Negative Negative 02/11/2019 9:12 AM [facility] Specimen Anatomical Collection Method Collection Time Receive d Time (Source) Location / / Volume Laterality Urine (Urine, 02/11/2019 8:03 AM 02/12/20 8:03 Clean Catch) CDT AM CDT Scott Barillas M.D., Ph.D. LAB URINE ORDERABLES Performing Organization Address City/State/ZIP Code Phon e Number [facility] LABORATORIES - [address] [place], [place] [address] [facility] documented in this encounter Visit Diagnoses Diagnosis Incontinence Urinary Stress And Urge - P rimary documented in this encounter Additional Health Concerns Assessment Noted Time PHQ-9 Depression Total Score: 11 01/10/2019 2:41 PM CS T documented as of this encounter Care Teams Truck Trailer Mechanic Relationship Specialty Start Date End Date Maris Prakash, VIRAL, C.N.P., R.N. PCP - General Family Medicine 01/10/19 08/02/19 documented as of this encounter
--- OUTSIDE RECORDS SUMMARY | 2022-10-09 18:53 | XMS_ITS | Encounter Summary ---
:1970 Author Organization [facility] Address [address] [place] [address] Care Team Providers Name Role Phone Rosa Odom M.D. Primary Care Provider Encounter Details Date Type Department Care Team Description 08/27/2018 Hospital Encounter Department of Maris Prakash Mammogram Radiology in D, TAFE TEACHER, Breast Cancer [place], [place] C.N.P., R.N. [address] [facility] [address] [facility] [address] [address] [place], [place] [phone] [id number] Social History Tobacco Use Types Packs/Day Years [...] or relatives? How often do you attend quaker or 1 to 4 times per year 05/23 lutheran services? Do you belong to any clubs or Yes 10/28/2019 organizations such as quaker groups, unions, fraternal or athletic groups, or [...] Sig Dispensed Refills Start Date End Date B complex-vitamin (SUPER Take 1 capsule by 0 B-50) capsule mouth daily. cholecalciferol (VITAMIN Take 2,000 Units by 0 D3) 2,000 Unit tablet mouth daily. DULoxetine (CYMBALTA) 30 Take 1 capsule by 0 06/2301/10/[address] capsule mouth daily. DULoxetine (CYMBALTA) 60 Take 1 capsule by 0 07/2409/27/[address] capsule mouth at bedtime. estradiol (ESTRACE) 1 mg Take 2 mg by mouth 0 04/201801/10/2019 tablet daily. FLUoxetine (PROzac) 20 mg Take 40 mg by mouth 0 1 10/28/2019 capsule daily. TURMERIC, BULK, MISC Take 1 capsule by 0 09/27/2021 mouth daily. Turmeric and curcumin documented as of this encounter Plan of Treatment Not on filedocumented as of this encounter Procedures Procedure Name Priority Date/Time Associated Comments Diagnosis BI BREAST SCREENING RAD - Routine 08/27/2018 1:46 Screening Resu lts for BILATERAL WITH (most inpatients PM CDT Mammogram Breast this procedure TOMOSYNTHESIS and all Cancer are in the outpatients) results section. documented in this encounter Results BI Breast Screening Bilateral with Tomosynthesis (08/27/2018 1:46 PM CDT) Anatomical Region Laterality Modality Breast, Breast Imaging RST LOS, Breast Imaging ARZ LOS, [place] [address] Bilateral Mammography Imaging FLA LOS Specimen (Source) Anatomical Collection Method Collection Time Re ceived Time Location / / Volume Laterality 08/27/2018 1:47 PM CDT Impressions 08/27/2018 1:51 PM CDT IMPRESSION: ??Negative. RECOMMENDATION: ??Annual Screening Mammo gram ASSESSMENT: ??BI-RADS: 1: Negative. Narrative 08/27/2018 1:51 PM CDT EXAM: ??BI BREAST SCREENING BILATERAL WITH TOMOSYNTHESIS Current study was evaluated with a Compu ter Aided Detection (CAD) system. INDICATION: ??Screening mammogram. COMPARISON: ??Prior exams were available for comparison. DENSITY: ??d. The breast(s) are extremel y dense, which lowers the sensitivity of mammography. FINDINGS: ??No findings of malignancy. ? ?No significant change since prior exam. Procedure Note Shira Thomas M.D. - 08/27/2018Formatti ng of this note might be different from the original. EXAM: BI BREAST SCREENING BILATERAL WITH TOMOSYNTHESIS Current study was evaluated with a Compu ter Aided Detection (CAD) system. INDICATION: Screening mammogram. COMPARISON: Prior exams were available f or comparison. DENSITY: d. The breast(s) are extremely dense, which lowers the sensitivity of mammography. FINDINGS: No findings of malignancy. No significant change since prior exam. IMPRESSION: Negative. RECOMMENDATION: Annual Screening Mammogr am ASSESSMENT: BI-RADS: 1: Negative. Maris Prakash APRN, C.N.P., R.N. IMG BI PROCEDURES documented in this encounter Visit Diagnoses Diagnosis Screening Mammogram Breast Cancer documented in this encounter Care Teams Enrollment Processor Relationship Specialty Start Date End Date Rosa Odom M.D. PCP - General 05/07/17 01/09/[address] [address] documented as of this encounter
--- OUTSIDE RECORDS SUMMARY | 2022-10-09 18:53 | XMS_ITS | Encounter Summary ---
:1970 Author Organization [facility] Address [address] [place] [address] Care Team Providers Name Role Phone Rosa Odom M.D. Primary Care Provider Reason for Referral Outpatient (Routine) - Closed Specialty Diagnoses / Procedures Referred By Contact Refer red To Contact Neurology Diagnoses Meningioma Brain Personal History Maris Prakash [facility] C.N.P., R.N. [address] [facility], [facility] [address] [place] [address] Referral ID Status Reason Start Date Expiration Date Visits V isits Requested Authorized [id number] Closed Specialty 08/06/2018 08/06/2019 1 1 Services Required Scheduling Instructions Previously seen Dr. Jose De La O and wi shes to see again. Has another appointment in [place] on August 20 if they are able to work her in. Encounter Details Date Type Department Care Team Description 08/06/2018 Clinical Communication Department of Rich Metz, Medicine in [facility], [place] R[place]N. [address] [facility], [place], [place] [address] [place] [address] [phone] Social History Tobacco Use Types Packs/Day Years [...] or relatives? How often do you attend baptist or 1 to 4 times per year 05/23 confucianism services? Do you belong to any clubs or Yes 10/28/2019 organizations such as baptist groups, unions, fraternal or athletic groups, or [...] this encounter Miscellaneous Notes Telephone Encounter - Francine Swenson, R.M.A. - 08/06/2018 2:07 PM CDT Patient informed that referral was placed and [place] will be calling him to set up the appointment. Telephone Encounter - Mairs Prakash APRN, C.N.P. - 08/06/2018 12:42 PM CDT Referral placed. No guarantee for appointment on August 20, but notes sent to scheduling to try. EUSEBIO Knowles Telephone Encounter - Naheed Valiente - 08/06/2018 12:22 PM CDT Communication message that does NOT pertain to Medication Refill: Offered TACOS: Yes No__X___ Declined TACOS: Yes No____X___ Call Center Template: ??? May we leave a message for you on this phone? Yes ??? What can I help you with today? The patient has appointment in [place] on August 20 and she would like Maris Prakash to put an order for her to see her neurologist in ??? [place] because she said that way they will get her in sooner. Her neurologists name is Jose ??? Belk. She is not sure if he still works there but she said she would like that appointment jeord on August 20 as well. I will send this information to the appropriate staff member who will look into your concern. Is there anything else I can help you with today? Thank you for calling [facility]. documented in this encounter Plan of Treatment Scheduled Referrals Name Type Priority Associated Diagnoses Order S [facility] Neurology - General Outpatient Referral Routine Meningioma Bra in Expected: consult (clinic) Personal History 018 (Approximate), Expires: 08/06/2021 documented as of this encounter Visit Diagnoses Diagnosis Meningioma Brain Personal History - Prim rachell documented in this encounter Care Teams Mold Preparer Relationship Specialty Start Date End Date Rosa Odom M.D. PCP - General 05/07/17 01/09/[address] [phone] documented as of this encounter
--- OUTSIDE RECORDS SUMMARY | 2022-10-09 18:53 | XMS_ITS | Encounter Summary ---
:1970 Author Organization [facility] Address [address] [place] [address] Care Team Providers Name Role Phone Rosa Odom M.D. Primary Care Provider Reason for Referral Outpatient (Routine) - Closed Specialty Diagnoses / Procedures Referred By Contact Refer red To Contact Neurology Jose De La O M. D. [facility] [address] [place] [address] Referral ID Status Reason Start Date Expiration Date Visits Requ ested Visits Authorized [id number] Closed 08/16/2018 08/16/2019 1 1 Scheduling Instructions MRI in am; Dr. De La O pm same day 2018 MRI/CAT/PET Scan (Routine) - Closed Specialty Diagnoses / Procedures Referred By Contact Refer red To Contact Radiology Diagnoses Meningioma Brain (HCC) Jose De La O M.D. [facility] Procedures MR Brain without and with IV Contrast VT MRI BRAIN WO/W CNTRST HC MRI BRAIN WO/W CNTRST [address] [place] [phone] Referral ID Status Reason Start Date Expiration Date Visits Requ ested Visits Authorized [id number] Closed 08/16/2018 08/16/2019 1 1 Encounter Details Date Type Department Care Team Description 08/16/2018 Orders Only Department of Carley Palencia Meningioma Brain (HCC) Neurology in J, R.N. (Primary Dx) [place], [place] [address] [place] [phone] Social History Tobacco Use Types Packs/Day Years [...] 1 to 4 times per year 05/23 amish services? Do you belong to any clubs [...] of this encounter Plan of Treatment Scheduled Referrals Name Type Priority Associated Diagnoses Order S [place] [facility] Outpatient Referral Routine Expe cted: visit (clinic) 08/16/2019 (Approximate), Expires: 08/16/2021 documented as of this encounter Results MR Brain without and with IV Contrast (12/21/2019 10:16 AM REAL ESTATE ASSET MANAGER) Anatomical Region Laterality Modality Head, Brain, Neuroradiology RST LOS, Neuroradiology BHARAT N/A Magnetic Resonance LOS, Neuroradiology FLHerman SEAY Specimen (Source) Anatomical Collection Method Collection Time Re ceived Time Location / / Volume Laterality 12/21/2019 11:12 AM REAL ESTATE ASSET MANAGER Impressions 12/21/2019 11:18 AM REAL ESTATE ASSET MANAGER Stable exam. No evidence for recurrent m eningioma. Narrative 12/21/2019 11:18 AM REAL ESTATE ASSET MANAGER EXAM: MR BRAIN WITHOUT AND WITH IV CONTRAST COMPARISON: MRI head 08/10/2018 FINDINGS: Again demonstrated are postope rative changes of a right frontal craniotomy for meningioma resection. Sta ble increased T2 signal/gliosis surrounds the resection cavity, with mil d postoperative dural enhancement deep to the craniotomy. No evidence for recur rent meningioma. Stable minimal leukoaraiosis. Remainder unremarkable an d unchanged. Procedure Note eKrry Carlos M.D. - 12/21/2019Fo rmatting of this [...] encounter Visit Diagnoses Diagnosis Meningioma Brain (HCC) - Primary Meningioma Brain (HCC) documented in this encounter Care Teams Executive Cyber Leader Relationship Specialty Start Date End Date Rosa Odom M.D. PCP - General 05/07/17 01/09/[address] [address] documented as of this encounter
--- OUTSIDE RECORDS SUMMARY | 2022-10-09 18:53 | XMS_ITS | Encounter Summary ---
:1970 Author Organization [facility] Address [address] [place] [address] Care Team Providers Name Role Phone Rosa Odom M.D. Primary Care Provider Reason for Referral MRI/CAT/PET Scan (Routine) - Closed Specialty Diagnoses / Procedures Referred By Contact Refer red To Contact Radiology Diagnoses Malignant Neoplasm Of Brain (HCC) Jose De La O M.D. [facility] Procedures MR Brain without and with IV Contrast DC MRI BRAIN WO/W CNTRST HC MRI BRAIN WO/W CNTRST [address] [place] [address] Referral ID Status Reason Start Date Expiration Date Visits Requ ested Visits Authorized [id number] Closed 08/10/2018 08/10/2019 1 1 Reason for Visit MRI/CAT/PET Scan (Routine) - Closed Specialty Diagnoses / Procedures Referred By Contact Refer red To Contact Radiology Diagnoses Meningioma Brain Personal History Jose De La O M.D. [facility] Procedures MR Brain Angiogram without IV Contrast MR Brain Angiogram without and with IV Contrast DC MRA HEAD WO/W CNTRST HC MRA HEAD WO/W CNTRST DC MRA HEAD WO/W CNTRST DC MRA HEAD WO CNTRST HC MRA HEAD WO CNTRST DC MRA HEAD WO CNTRST [address] [place] [address] Referral ID Status Reason Start Date Expiration Date Visits Requ ested Visits Authorized [id number] Closed 08/10/2018 08/10/2019 1 1 Encounter Details Date Type Department Care Team Description 08/10/2018 Hospital Encounter Department of Jose De La Oma Brain Personal History; Radiology, Maldonado Valencia M.D. Malignant Neoplasm Of Brain (HCC) [facility] [place], [facility] [address] [place], [place] [address] [email or web address] [phone] [place], [place] [phone] (Work) [phone] Social History Tobacco Use Types Packs/Day Years [...] or relatives? How often do you attend caodaism or 1 to 4 times per year 05/23 christian services? Do you belong to any clubs or Yes 10/28/2019 organizations such as caodaism groups, unions, fraternal or athletic groups, or [...] - Inhaled Oxygen Concentration - - Weight 77.1 kg (170 lb) 08/10/2018 3:23 PM CDT Height - - Body Mass Index 30.12 08/04/2018 10:45 AM CDT documented in this encounter Medications at Time [...] Diagnosis MR BRAIN WITHOUT RAD - Routine 08/10/2018 4:29 Malignant Results for this AND WITH IV (most inpatients PM CDT Neoplasm Of Brain proced ure are in CONTRAST and all (HCC) the results outpatients) section. MR BRAIN RAD - Routine 08/10/2018 4:29 Meningioma Brain Results for this ANGIOGRAM WITHOUT (most inpatients PM CDT Personal History pr ocedure are in IV CONTRAST and all the results outpatients) section. documented in this encounter Results MR Brain Angiogram without IV Contrast (08/10/2018 4:29 PM CDT) Anatomical Region Laterality Modality Head, Brain, Neuroradiology RST LOS, Neuroradiology ARZ N/A Magnetic Resonance LOS, [facility] Specimen (Source) Anatomical Collection Method Collection Time [...] Negative for aneurysm. Jose HOWARD MRI PROCEDURES MR Brain without and with IV Contrast [...] the brain is st able compared to 2012. Postoperative changes in parasagittal right frontal lo [...] Of Brain (HCC) documented in this encounter Administered Medications Inactive Administered Medications - up to 3 most recent administrations Medication Order MAR Action Action Date Dose Rate Site gadobutrol injection 0.5-15 mL Given 08/10/2018 4:29 PM CDT 9 mL (GADAVIST) 0.5-15 mL, intravenous, Once in imaging, contrast, Starting on 08/10/18 at 1520, For 1 dose, Imaging Protocol Orders, Dose per Radiant Medication Guidelines documented in this encounter Care Teams Lead Software Tester Relationship Specialty Start Date End Date Rosa Odom M.D. PCP - General 05/07/17 01/09/[address] [address] documented as of this encounter
--- OUTSIDE RECORDS SUMMARY | 2022-10-09 18:53 | XMS_ITS | Encounter Summary ---
:1970 Author Organization [facility] Address [address] [place] [address] Care Team Providers Name Role Phone Rosa Odom M.D. Primary Care Provider Encounter Details Date Type Department Care Team Description 08/17/2018 Orders Only Department of Family Maris Prakash, Hyp erlipidemia (Primary Medicine in [facility], C.N.P., Dx) [place], [place] R.N [address] [facility] [phone] [place], [place] [phone] Social History Tobacco Use Types Packs/Day Years [...] or relatives? How often do you attend congregation or 1 to 4 times per year 05/23 mandaeism services? Do you belong to any clubs or Yes 10/28/2019 organizations such as congregation groups, unions, fraternal or athletic groups, or [...] as of this encounter Visit Diagnoses Diagnosis Hyperlipidemia - Primary documented in this encounter Care Teams Manager Corporate Relationship Specialty Start Date End Date Rosa Odom M.D. PCP - General 05/07/17 01/09/[address] [phone] documented as of this encounter
--- OUTSIDE RECORDS SUMMARY | 2022-10-09 18:53 | XMS_ITS | Encounter Summary ---
:1970 [address] [facility] Address [address] [place] [address] Care Team Providers Name Role Phone Maris Prakash APRN, C.N.P., R.N. Primary Care Provider [phone]- [phone] Reason for Referral Outpatient (Routine) - Closed Specialty Diagnoses / Procedures Referred By Contact Refer red To Contact Family Medicine Diagnoses Symptoms Vasomotor [facility] C.N.P., R.N. [address] [facility], [facility] [address] [place] [address] Referral ID Status Reason Start Date Expiration Date Visits Requ ested Visits Authorized [id number] Closed 01/10/2019 01/10/2020 1 1 RAFT PAINTER Outpatient (Routine) - Closed Specialty Diagnoses / Procedures Referred By Contact Refer red To Contact Urology Diagnoses Incontinence Urinary Stress Female [facility] C.[facility] [address] [facility], [place] [address] [place] [address] Referral ID Status Reason Start Date Expiration Date Visits Requ ested Visits Authorized [id number] Closed 01/10/2019 01/10/2020 [address] Mccurdy in Jul RAFT PAINTER Reason for Visit Reason Comments Med Refill estrogen Appointment needs another referral to anna Euceda for bladder Fatigue Appointment Request (Routine) - Closed Specialty Diagnoses / Procedures Referred By Contact Refer red To Contact Family Medicine Diagnoses FAM EST LONG [facility] Procedures FAM EST LONG Referral ID Status Reason Start Date Expiration Date Visits Requ ested Visits Authorized [id number] Closed 12/28/2018 12/28/2019 1 1 Encounter Details Date Type Department Care Team Description 01/10/2019 Office Visit Department of Family Kelvin Fuentes M.D. 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 [address] [facility] [address] [place] [address] Malignant Neoplasm Of Brain (HCC); [place], [place] Aneurysm Family History; [address] Cognitive Disorder; [place], [place] Deficit Cogni tive Psychiatric; [address] Deficit Cognitive Nonpsychia tric; [phone] Sleep Disorder; Symptoms Vasomo tor; Cancer Family H istory; Fatigue; Incontinence Ur inary Stress Female Social History Tobacco Use Types Packs/Day Years [...] Sign Reading Time Taken Comments Blood Pressure 116/74 01/10/2019 2:46 PM AIRCRAFT PAINTER Pulse 73 01/10/2019 2:46 PM AIRCRAFT PAINTER Temperature 36.7 ??C (98.1 ??F) 01/10/2019 2:46 PM AIRCRAFT PAINTER Respiratory Rate - - Oxygen Saturation 97% 01/10/2019 2:46 PM AIRCRAFT PAINTER Inhaled Oxygen Concentration - - Weight 89 kg (196 lb 1.6 oz) 01/10/2019 2:46 PM AIRCRAFT PAINTER Height - - Body Mass Index 34.75 08/04/2018 10:45 AM CDT documented in this encounter Patient Instructions Patient InstructionsCulvMaris rutherford APRN, C.N.P. - 01/10/2019 3:00 PM AIRCRAFT PAINTER Wean your estradiol to 2 mg 6 days a week, and 1 mg 1 day per week for 1 month. If no hot flashes orissue, wean to 2 mg 5 days per week and 1 mg 2 days per week for 1 month. Again, if tolerated, wean down to 2 mg 4 days per week, and 1 mg 3 days per week. Please schedule follow-up visit with this provider in 3 months. Referral to Sleep Medicine in [place] to evaluate fatigue and sleep patterns. Referral to Dr. Mccurdy in Urology. Referral to Genetic Counselor in [place] for updated recommendations based on new family history using up to date screening recommendations. Talk to your friend, then [place], about weight loss. Start exercising daily working up to 30min per day, 5 days per week. Let me know if you need a referral to Manager Professional Development. RAFT PAINTER documented in this encounter Progress Notes Maris Prakash APRN, C.N.P. - 01/10/2019 3:00 PM CST SUBJECTIVE CHIEF COMPLAINT: Chief Complaint Patient presents with ??? Med Refill estrogen ??? Appointment needs another referral to [facility] for bladder ??? Fatigue HISTORY OF PRESENT ILLNESS: Lissette Rogers is a 48 y.o. female who presents for follow-up. Saw Urology in [place] last fall. Never followed through with physical therapy for urinary incontinence. Requests another referral to discuss surgical options. Reports constantly feeling tired with no motivation. Feels she could sleep 24 hr. Worse than in July. Inconsistent with vitamin intake. reports snoring lately. Does not feel rested upon wake up. Endorses weight gain. Sees Psychiatry. Tried Cymbalta 90 mg per day, but when back to 60 mg, unsure why. Thyroid and vitamin-D level were normal in July. History of abnormal sleep study [place] 2011. Never tried weaning estrogen. Currently not having hot flashes. Requests refill and to retry weaning. Patient has difficulty with follow through due to memory deficits from the meningioma resection 2003. MEDICATIONS: Current Outpatient Prescriptions: ??? B complex-vitamin (SUPER B-50) capsule, Take 1 capsule by mouth daily., Disp: , Rfl: ??? cholecalciferol (VITAMIN D3) 2,000 Unit tablet, Take 2,000 Units by mouth daily., Disp: , Rfl: ??? DULoxetine (CYMBALTA) [address] capsule, Take 1 capsule by mouth daily. , Disp: , Rfl: ??? estradiol (ESTRACE) 1 mg tablet, Take 2 mg by mouth daily., Disp: , Rfl: ??? TURMERIC, BULK, MISC, , Disp: , Rfl: ALLERGIES: No Known Allergies REVIEW OF SYSTEMS: Per HPI. All others negative at this [...] ??? Symptoms Vasomotor ??? Cancer Family History SOCIAL HISTORY: Social History Substance Use Topics ??? Smoking status: Former Smoker Packs/day: 2.00 Years: 13.00 Types: Cigarettes ??? Smokeless tobacco: Never Used ??? Alcohol use Yes 1 Cans of beer, 1 Standard drinks or equivalent per week OBJECTIVE VITAL SIGNS: BP 116/74 (BP Location: Right arm, Patient Position: Sitting, Cuff Size: Large) Pulse 73 Temp 36.7 ??C (Temporal) Wt 89 kg SpO2 97% ? No BMI 34.75 kg/m?? PHYSICAL EXAM: General: Patient is alert, oriented. In no acute distress. Well kept. Skin: Warm and dry. HEENT: Head normocephalic. Conjunctivae clear. Neck: Supple. No adenopathy. No thyromegaly or nodules. Cardiovascular: Regular rate and rhythm. No murmur or extra sound. Respiratory: Breathing is nonlabored. Lung sounds clear throughout all lobes. Abdomen: Soft. Nontender. No masses. Bowel sounds present. Extremities: No peripheral edema. Musculoskeletal: Normal gait and posture. Psychiatric: Mood and affect within normal limits. Smiling and laughing appropriately. ASSESSMENT / PLAN Diagnosis Plan 1. Tumor Cerebral Meninges Benign (HCC) Clinical Genomics - General genetics consult (clinic) 2. Malignant Neoplasm Of Brain (HCC) 3. Aneurysm Family History Clinical Genomics - General genetics consult (clinic) 4. Cognitive Disorder 5. Deficit Cognitive Psychiatric 6. Deficit Cognitive Nonpsychiatric 7. Sleep Disorder Sleep Medicine - General consult (clinic) 8. Symptoms Vasomotor estradiol (ESTRACE) 1 mg tablet 9. Cancer Family History Clinical Genomics - General genetics consult (clinic) 10. Fatigue Sleep Medicine - General consult (clinic) 11. Incontinence Urinary Stress Female Urology - Female - other consult (clinic) Instructions per AVS reviewed and sent with patient: (recommended she tape them up in an obvious place such as her bathroom mirror as a reminder) Wean your estradiol to 2 mg 6 days a week, and 1 mg 1 day per week for 1 month. If no hot flashes or issue, wean to 2 mg 5 days per week and 1 mg 2 days per week for 1 month. Again, if tolerated, weandown to 2 mg 4 days per week, and 1 mg 3 days per week. Please schedule follow-up visit with this provider in 3 months. Referral to Sleep Medicine in [place] to evaluate fatigue and sleep patterns. Referral to Dr. Mccurdy in Urology. Referral to Genetic Counselor in [place] for updated recommendations based on new family history using up to date screening recommendations. Talk to your friend, then [place], about weight loss. Start exercising daily working up to 30min per day, 5 days per week. Let me know if you need a referral to [facility]. Declined flu vaccine. All questions answered. Patient stated understanding and agreement with current plan. Maris Prakash APRN, C.N.P. RAFT PAINTER documented in this encounter Plan of Treatment Scheduled Referrals Name Type Priority Associated Diagnoses Order S stivendufifi Urology - Female - Outpatient Referral Routine Incontinence Ur inary Expected: other consult Stress Female 01/10/2019 (clinic) (Approximate), Expires: 01/10/2022 Family Medicine Outpatient Referral Routine Symptoms Vasomotor Expected: office visit 04/09/2019 (clinic) (Approximate), Expires: 01/10/2022 documented as of this encounter Visit Diagnoses Diagnosis Tumor Cerebral Meninges Benign (HCC) - P rimary Malignant Neoplasm Of Brain (HCC) Aneurysm Family History Cognitive Disorder Deficit Cognitive Psychiatric Deficit Cognitive Nonpsychiatric Sleep Disorder Symptoms Vasomotor Cancer Family History Fatigue Incontinence Urinary Stress Female documented in this encounter Additional Health Concerns Assessment Noted Time PHQ-9 Depression Total Score: 11 01/10/2019 2:41 PM CS T documented as of this encounter Care Teams Office Chair Assembler Relationship Specialty Start Date End Date Maris Prakash APRN, C.N.P., R.N. PCP - General Family Medicine 01/10/19 08/02/19 documented as of this encounter
--- OUTSIDE RECORDS SUMMARY | 2022-10-09 18:53 | XMS_ITS | Encounter Summary ---
:1970 Author Organization [facility] Address [address] [place] [address] Care Team Providers Name Role Phone Maris Prakash APRN, C.N.P., R.N. Primary Care Provider [phone]- [phone] Reason for Referral Outpatient (Routine) - Closed Specialty Diagnoses / Procedures Referred By Contact Refer red To Contact Urology Diagnoses na Viki Underwood M.D. [address] [phone] Referral ID Status Reason Start Date Expiration Date Visits Requ ested Visits Authorized [id number] Closed 02/11/2019 02/11/2020 1 1 Outpatient (Routine) - Closed Specialty Diagnoses / Procedures Referred By Contact Refer red To Contact Obstetrics and Diagnoses Incontinence Urinary Stress Female Viki Underwood [facility] Gynecology Mukesh [address] [place] [phone] Referral ID Status Reason Start Date Expiration Date Visits Requ ested Visits Authorized [id number] Closed 02/11/2019 02/11/2020 1 1 Reason for Visit Outpatient (Routine) - Closed Specialty Diagnoses / Procedures Referred By Contact Refer red To Contact Urology Diagnoses Incontinence Urinary Stress Female Maris Prakash APRN, [facility] CSueNSamantha, R.N. [address] [facility] [address] [place] [address] Referral ID Status Reason Start Date Expiration Date Visits Requ ested Visits Authorized [id number] Closed 01/10/2019 01/10/2020 1 1 Encounter Details Date Type Department Care Team Description 02/11/2019 Office Visit Department of Urology Xavier Mccurdy ontinence Urinary in [place] M.D. Stress Female [place] [address] [facility] [address] [place] [phone] Social History Tobacco Use Types Packs/Day Years [...] or relatives? How often do you attend anabaptism or 1 to 4 times per year 05/23 synagogue services? Do you belong to any clubs or Yes 10/28/2019 organizations such as anabaptism groups, unions, fraternal or athletic groups, or [...] documented as of this encounter Progress Notes Viki Underwood M.D. - 02/11/2019 8:00 AM CDT REFERRAL SOURCE The patient is being seen in consultation at the request of Maris Prakash, ADHESIVE BANDAGE MAKING OPERATOR, C.N.P. [address] [place] [address] for recommendations regarding No chief complaint on file. Supervised by Dr. Mccurdy HISTORY OF PRESENT ILLNESS Ms. Rogers is a pleasant 48 y.o. female who presents today for follow-up regarding her pelvic organprolapse and mixed urinary incontinence. The patient has a history of 1 vaginal delivery and 1 C section. After childbearing, she had a total hysterectomy with a synthetic sling placed at this time forstress urinary incontinence. She also has a history of a benign brain tumor which has been removed. This is caused issues with some memory loss. She is really not sure if the sling helped with her incontinence at that time. In regards to her prolapse, she has noticed this for about a year. She feels abulge that bothers her. She feels that this comes to the enteritis but not beyond. In regards to herurinary symptoms, she reports that she has leakage with cough last knees as well as occasional leakage with urgency. She wears 1-2 pads per day and changes them when they are lightly damp. She does notwear pads at night. She has difficulty quantify her leakage, but it sounds like her stress urinary in continence is drops. The urge incontinence is occasional and situational when she has had coffee or has been holding her urine for a longer period of time. When this occurs, she loses ports of urine. The stress incontinence is what is most bothersome to her. She occasionally struggles with constipation and has bowel movements 3 times a week. She is sexually active with her and experiences dryness with intercourse. She has no history of urinary tract infections. She was previously seen by Dr. Mccurdy. At that time, they discussed biofeedback for her symptoms. The patient decided that she did not want to go through with this consultation and returns for discussion of surgical options moving forward. PAST MEDICAL/SURGICAL HISTORY MEDICAL Patient Active Problem List Diagnosis Date Noted ??? Incontinence Urinary Stress Female 02/11/2019 ??? Abnormal Pap Smear Personal History 08/04/2018 ??? Symptoms Vasomotor 08/04/2018 ??? Cancer Family History 08/04/2018 ??? Cystocele ??? Deficit Cognitive Nonpsychiatric 07/14/2012 ??? Hypersomnia 05/21/2012 ??? Cyst Breast Left 05/03/2012 ??? Sleep Disorder 04/20/2012 ??? Lesion Nerve Ulnar Left 07/13/2007 ??? Tumor Cerebral Meninges Benign (HCC) 03/03/2006 ??? Aneurysm Family History 03/03/2006 ??? Endometriosis 03/03/2006 ??? Malignant Neoplasm Of Brain (HCC) 04/22/2005 ??? Cognitive Disorder 04/22/2005 ??? Deficit Cognitive Psychiatric 04/22/2005 ??? 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 Melanoma Family History 02/14/2005 ??? Seizure (HCC) 01/29/2005 ??? Hemianopsia Homonymous 11/06/2004 ??? Meningioma Brain (HCC) 11/06/2004 ??? 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 Abnormal Pap Smear Cervix 2004 History of LEEP procedure. ??? Anxiety Generalized Disorder ??? Cystocele ??? Depressive Disorder ??? Dermatitis ??? Eczema ??? Endometriosis ??? Hand And Finger Fracture NOS fractured thumb ??? 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 Pneumonia ??? Stroke (HCC) 10/06 SURGICAL Past Surgical History: Procedure Laterality Date ??? BLADDER SUSPENSION 2005 With hysterectomy ??? BREAST BIOPSY Left WNL ??? CARPAL TUNNEL RELEASE Bilateral ??? SECTION 1 ??? CRANIOTOMY N/A 10/22/2004 >Right frontal craniotomy. Resection of tumor. ??? CRANIOTOMY N/A 10/24/2004 >Reopening previous craniotomy. Resection of clot. ??? LAPAROSCOPIC HYSTERECTOMY - BSO N/A 08/05/2006 for endometrosis and progesterone receptors on meningioma--no cervix or ovaries ??? LASIK ??? LEEP PROCEDURE - LOOP ELECTRO EXCISION PROCEDURE MEDICATIONS Current Outpatient Prescriptions: ??? B complex-vitamin (SUPER [...] total) by mouth daily. Wean per discharge instructions., Disp: 90 tablet, Rfl: 1 ??? DORCAS GARZA MISC, , Disp: , Rfl: ALLERGIES No Known Allergies SOCIAL HISTORY Social History Social History ??? Marital status: Spouse name: N/A ??? Number of children: N/A ??? Years of education: N/A Occupational History ??? Not on file. Social History Main Topics ??? Smoking status: Former Smoker Packs/day: 2.00 Years: 13.00 Types: Cigarettes ??? Smokeless tobacco: Never Used ??? Alcohol use Yes 1 Cans of beer, 1 Standard drinks or equivalent per week ??? Drug use: No ??? Sexual activity: Yes Partners: Male control/ protection: Other Other Topics Concern ??? Not on file Social History Narrative Exercise: Limited since back injury 2016. Dentist: Yearly Eye doctor: Yearly Not working right now. FAMILY HISTORY Family History Problem Relation Age [...] Brain cancer Other ??? Diabetes Paternal Grandmother SYSTEMS REVIEW Additionally, a complete 10 point review of systems was conducted and was negative except for what was mentioned above in the HPI and/or endorsed on the patient survey. PHYSICAL EXAMINATION There were no vitals taken for this visit. General: NAD Mental status: AAOx3 Psychiatric: appropriate disposition HEENT: NCAT, conjugate gaze Respiratory: non-labored breathing Cardiovascular: RRR, upper extremities warm Abdomen: soft, no CVA tenderness Musculoskeletal: moves all 4 extremities Skin: no visible rashes Neurologic: intake sensation to the upper extremities Genitourinary exam: No pelvic floor myalgia. Poor pelvic floor muscle recruitment. No stress incontinence during Valsalva a although this was a previously seen upon her last exam. Stage II prolapse, predominantly anterior distant with a smaller apical component. No posterior prolapse. LABS Lab Results Component Value Date HGB 13.5 08/04/2018 HCT 38.6 05/21/2012 WBC 6.8 05/21/2012 No results found for: CREATININE MICROBIOLOGY/CULTURE DATA Microbiology Results (last 30 days) No results found for the last 720 hours. PATHOLOGY No results found for this or any previous visit (from the past 720 hour(s)). IMAGING AND TESTS No results found. IMPRESSION/REPORT/PLAN #1 Incontinence Urinary Stress Female #2 Cystocele #3 Occasional urge incontinence I again discussed with the patient the options regarding mixed urinary incontinence as well as pelvic organ prolapse. We discussed the options for pelvic organ prolapse or observation, pessary, or surgical repair. We discussed behavioral modification and physical therapy/biofeedback the for mixed urinary incontinence. We also discussed that a pessary may be helpful for stress urinary incontinence. The patient does not want to pursue physical therapy or biofeedback. We discussed surgical options for stress urinary incontinence including bulking agents and repeat sling procedures. The urgency component of her symptoms is not as much of a concern. She is very aware how they overall modifications improve these symptoms. We also discussed how constipation complain oral. We talked about vaginal estrogen cream as being an option at this point as well. The patient showed significant interest in of voiding a 2nd mesh sling if possible. We discussed autologous slings and the need for an additional incision in the abdomen. We discussed that given her prior sling, a similar incontinence procedure may not significantly improve her stress urinary incontinence symptoms and that there is also a chance of putting her into retention necessitating sling lysis. The patient understands and is still interested in pursuing this option. The patient is very interested in surgical intervention. Dr. Mccurdy would offer her a repeat sling procedure along with an isolated anterior vaginal repair. Will tentatively plan this for April when the patient has time for recovery. In the interim, the patient is interested in trying a pessary for both her prolapse and stress incontinence. If the patient is very satisfied with the pessary, she is always free to call us to change surgical plans. Will plan to see her back in clinic prior to planned surgery. Viki Underwood M.D. documented in this encounter Consult Notes Xavier Mccurdy M.D. - 02/11/2019 8:00 AM CDT I have personally reviewed the past medical history, pertinent review of systems and physical exam. I have discussed the case with my clinical team and I agree with the plan and action as outlined by my team. documented in this encounter Plan of Treatment Scheduled Referrals Name Type Priority Associated Diagnoses Order S chedule Obstetrics and Outpatient Referral Routine Incontinence Urinar y Expected: Gynecology - Stress Female 02/11/2019 Pessary consult (Approximate ), (clinic) Expires: 02/11/2022 Urology office Outpatient Referral Routine Expect ed: visit (clinic) 04/19/2019, Expires: 02/11/2022 documented as of this encounter Visit Diagnoses Diagnosis Incontinence Urinary Stress Female documented in this encounter Additional Health Concerns Assessment Noted Time PHQ-9 Depression Total Score: 11 01/10/2019 2:41 PM CS T documented as of this encounter Care Teams Brass Buffer Relationship Specialty Start Date End Date Maris Prakash, VIRAL, C.N.P., R.N. PCP - General Family Medicine 01/10/19 08/02/19 documented as of this encounter
--- OUTSIDE RECORDS SUMMARY | 2022-10-09 18:53 | XMS_ITS | Encounter Summary ---
:1970 Author Organization [facility] Address [address] [place] [address] Care Team Providers Name Role Phone Rosa Odom M.D. Primary Care Provider Encounter Details Date Type Department Care Team Description 08/12/2018 Clinical Communication Department of Jose De La O, Neurology in [place], [place] [address] [facility] [address] [place] [phone] Social History Tobacco Use Types Packs/Day Years [...] or relatives? How often do you attend worship or 1 to 4 times per year 05/23 buddhist services? Do you belong to any clubs or Yes 10/28/2019 organizations such as worship groups, unions, fraternal or athletic groups, or [...] this encounter Miscellaneous Notes Telephone Encounter - Heidi Piedra - 08/12/2018 12:21 PM CDT Need an order for MRI and MRA. documented in this encounter Plan of Treatment Not on filedocumented as of this encounter Visit Diagnoses Not on filedocumented in this encounter Care Teams Home Teaching Grades 7 And 8 Teacher Relationship Specialty Start Date End Date Rosa Odom M.D. PCP - General 05/07/17 01/09/[address] [phone] documented as of this encounter
--- OUTSIDE RECORDS SUMMARY | 2022-10-09 18:53 | XMS_ITS | Encounter Summary ---
:1970 Author Organization [facility] Address [address] [place] [address] Care Team Providers Name Role Phone Maris Prakash APRN, C.NSamantha, R.N. Primary Care Provider +1- [phone] Reason for Visit Outpatient (Routine) - Closed Specialty Diagnoses / Procedures Referred By Contact Refer red To Contact Urology Diagnoses Viki Mcdonough M.D. [address] [phone] Referral ID Status Reason Start Date Expiration Date Visits Requ ested Visits Authorized [id number] Closed 02/11/2019 02/11/2020 1 1 Encounter Details Date Type Department Care Team Description 04/19/2019 Office Visit Department of Urology [address] ess Incontinence in [place], Mukesh Tipton Female Male (Primary [place] 200 [facility] Dx) [address] [place] [address] [phone] Social History Tobacco Use Types Packs/Day Years [...] or relatives? How often do you attend denominational or 1 to 4 times per year 05/23 jehovah's witness services? Do you belong to any clubs or Yes 10/28/2019 organizations such as denominational groups, unions, fraternal or athletic groups, or [...] documented as of this encounter Progress Notes Lawrence Triplett M.D. - 04/19/2019 10:30 AM [...] 04/19/2019 11:21 AM documented in this encounter Consult Notes Xavier Mccurdy M.D. - 04/19/2019 10:30 AM CDT I have personally reviewed the past medical history, pertinent review of systems and physical exam. I have met with and evaluated the patient. I have discussed the case with my clinical team and I agree with the plan and action as outlined by my team documented in this encounter Plan of Treatment Not on filedocumented as of this encounter Results Bacterial Culture, Aerobic + Susc, Urine (04/19/2019 1:06 PM CDT) Component Value Ref Test Analysis Performed At [email or web address] Range Method Time Signature Urine Mixed Shilpa, 04/20/2019 [facility] Culture susceptibilities 8:09 AM LABORATORIES - not performed per CDT [facility] IN laboratory CAMPUS criteria. Specimen Anatomical Collection Method Collection Time Receive d Time (Source) Location / / Volume Laterality Urine (Urine, 04/19/2019 1:06 PM 04/19/20 19 1:53 Midstream) CDT PM CDT Comment: Specimen Source Site: Urine Lawrence Triplett M.D. LAB MICROBIOLOGY - GENERAL O RDERABLES Performing Organization Address City/State/ZIP Code Phon e Number [facility] LABORATORIES - [address] [place], [place] [address] [facility] Urinalysis with Microscopic: Urine, Clean Catch (04/19/2019 1:06 PM CDT) [facility] Method Time Signature Source Midstream 04/19/2019 [facility] 1:06 PM CDT [facility] Appearance Normal Normal 04/19/2019 [facility] 1:39 PM CDT [facility] Osmolality, U 216 150 - 1150 04/19/2019 [facility] mOsm/kg 3:01 PM [facility] pH, U 7.2 4.5 - 8.0 04/19/2019 [facility] 3:01 PM CDT [facility] Comment: ----ADDITIONAL INFORMATION---- This test was developed and its performa nce characteristics determined by [facility] in a manner co nsistent with CLIA requirements. This test has not bee n cleared or approved by the U.S. Food and Drug Admin istration. Glucose <2 0 - 15 mg/dL 04/19/2019 1:39 PM CDT [facility] Protein, U <4 <26 mg/dL 04/19/2019 1:39 PM T [facility] Comment: ----ADDITIONAL INFORMATION---- On 05/19/2017 the total protein assay me thod changed resulting in approximately a 15% increase in prote in values. Protein/Osmolality <0.19 <0.42 Ratio 04/19/2019 3:[address] [facility] Comment: ----ADDITIONAL INFORMATION---- On 05/19/2017 the total protein assay me thod changed resulting in approximately a 15% increase in prote in values. Predicted 24 Hr <145 mg/24 h 04/19/2019 3:01 PM [facility] Protein T [facility] Predicted Range <586 mg/24 h 04/19/2019 3:[address] [facility] Hemoglobin, QL Negative Negative 04/19/2019 1:54 PM [facility] Specimen Anatomical Collection Method Collection Time Receive d Time (Source) Location / / Volume Laterality Urine (Urine, 04/19/2019 1:06 PM 04/19/20 19 1:06 Clean Catch) CDT PM CDT Lawrence Triplett M.D. LAB URINE ORDERABLES Performing Organization Address City/State/ZIP Code Phon e Number [facility] - [address] [place], [place] [address] [facility] documented in this encounter Visit Diagnoses Diagnosis Stress Incontinence Female Male - Primar y documented in this encounter Additional Health Concerns Assessment Noted Time PHQ-9 Depression Total Score: 11 01/10/2019 2:41 PM CS T documented as of this encounter Care Teams Fleet Sales Manager Relationship Specialty Start Date End Date Maris Prakash, VIRAL, C.N.P., R.N. PCP - General Family Medicine 01/10/19 08/02/19 documented as of this encounter
--- OUTSIDE RECORDS SUMMARY | 2022-10-09 18:53 | XMS_ITS | Encounter Summary ---
:1970 Author Organization [facility] Address [address] [place] [address] Care Team Providers Name Role Phone Rosa Odom M.D. Primary Care Provider Encounter Details Date Type Department Care Team Description 08/06/2018 Orders Only Department of Family Adriana Odom M.D. Medicine, [facility], [address] in [place], [place] [address] [address] [place] [address] [facility] [phone] Social History Tobacco Use Types Packs/Day Years [...] or relatives? How often do you attend zoroastrianism or 1 to 4 times per year 05/23 islam services? Do you belong to any clubs or Yes 10/28/2019 organizations such as zoroastrianism groups, unions, fraternal or athletic groups, or [...] on filedocumented in this encounter Care Teams Shredding Specialist Relationship Specialty Start Date End Date Rosa Odom M.D. PCP - General 05/07/17 01/09/[address] [address] documented as of this encounter
--- OUTSIDE RECORDS SUMMARY | 2022-10-09 18:53 | XMS_ITS | Encounter Summary ---
:1970 Author Organization [facility] Address [address] [place] [address] Care Team Providers Name Role Phone Maris Prakash APRN, C.NJosh., R.N. Primary Care Provider [phone]- [phone] Encounter Details Date Type Department Care Team Description 04/19/2019 Hospital Encounter Department of Lawrence Triplett Stress Incontinence Laboratory Medicine Mkuesh Craven Female M yudith and Pathology, [place], [place] [address] [place] [address] Social History Tobacco Use Types Packs/Day Years [...] or relatives? How often do you attend synagogue or 1 to 4 times per year 05/23 uatsdin services? Do you belong to any clubs or Yes 10/28/2019 organizations such as synagogue groups, unions, fraternal or athletic groups, or [...] Date/Time Associated Diagnosis Comme nts MICROSCOPIC Routine 04/19/2019 1:06 PM Results f or this AUTOMATED CDT procedure are i n the results section. BACTERIAL CULTURE, Routine 04/19/2019 1:06 PM Stress Incontine nce Results for this AEROBIC + SUSC, CDT Female Male procedure ar e in URINE the results section. URINALYSIS WITH Routine 04/19/2019 1:06 PM Stress Incontinence Results for this MICROSCOPIC CDT Female Male procedure are i n the results section. documented in this encounter Results (ABNORMAL) Microscopic Automated (04/19/2019 1:06 PM CDT) [facility] Method Time Signature Microscopy Abnormal 04/19/2019 [facility] 1:54 PM CDT LABORATORIES - [facility] Bacteria Present (A) 04/19/2019 [facility] 1:54 PM CDT LABORATORIES - [facility] Specimen Anatomical Collection Method Collection Time Receive d Time (Source) Location / / Volume Laterality Urine 04/19/2019 1:06 PM 9 1:06 CDT PM CDT Lawrence Triplett M.D. LAB URINE ORDERABLES Performing Organization Address City/[facility]/ZIP Code Phon e Number [facility] LABORATORIES - [address] [place] [address] [facility] Bacterial Culture, Aerobic + Susc, Urine (04/19/2019 1:06 PM CDT) Component Value Ref Test Analysis Performed At [facility] Method Time Signature Urine Mixed Shilpa, 04/20/2019 [facility] Culture susceptibilities 8:09 AM LABORATORIES - not performed per CDT [facility] IN laboratory CAMPUS criteria. Specimen Anatomical Collection Method Collection Time Receive d Time (Source) Location / / Volume Laterality Urine (Urine, 04/19/2019 1:06 PM 04/19/20 19 1:53 Midstream) CDT PM CDT Comment: Specimen Source Site: Urine Lawrence Triplett M.D. LAB MICROBIOLOGY - GENERAL O RDERABLES Performing Organization Address City/[facility]/ZIP Code Phon e Number [facility] LABORATORIES - [address] [place] [phone] [facility] Urinalysis with Microscopic: Urine, Clean Catch (04/19/2019 1:06 PM CDT) [facility] [employer] Method Time Signature Source Midstream 04/19/2019 [facility] 1:06 PM CDT LABORATORIES - [facility] Appearance Normal Normal 04/19/2019 [facility] 1:39 PM CDT [facility] Osmolality, U 216 150 - 1150 04/19/2019 [facility] mOsm/kg 3:01 PM T [facility] pH, U 7.2 4.5 - 8.0 04/19/2019 [facility] 3:01 PM T [facility] Comment: ----ADDITIONAL INFORMATION---- This test was developed and its performa nce characteristics determined by [facility] in a manner co nsistent with CLIA requirements. This test has not bee n cleared or approved by the U.S. Food and Drug Admin istration. Glucose <2 0 - 15 mg/dL 04/19/2019 1:39 PM CDT [facility] Protein, U <4 <26 mg/dL 04/19/2019 1:39 PM CDT [facility] Comment: ----ADDITIONAL INFORMATION---- On 05/19/2017 the total protein assay me thod changed resulting in approximately a 15% increase in prote in values. Protein/Osmolality <0.19 <0.42 Ratio 04/19/2019 3:01 PM [facility] Comment: ----ADDITIONAL INFORMATION---- On 05/19/2017 the total protein assay me thod changed resulting in approximately a 15% increase in prote in values. Predicted 24 Hr <145 mg/24 h 04/19/2019 3:01 PM [facility] Protein T [facility] Predicted Range <586 mg/24 h 04/19/2019 3:01 PM [facility] Hemoglobin, QL Negative Negative 04/19/2019 1:54 PM [facility] Specimen Anatomical Collection Method Collection Time Receive d Time (Source) Location / / Volume Laterality Urine (Urine, 04/19/2019 1:06 PM 04/19/20 1:06 Clean Catch) CDT PM CDT Lawrence Triplett M.D. LAB URINE ORDERABLES Performing Organization Address City/State/ZIP Code Phon e Number [facility] LABORATORIES - [address] [place], [place] [address] [facility] documented in this encounter Visit Diagnoses Diagnosis Stress Incontinence Female Male documented in this encounter Additional Health Concerns Assessment Noted Time PHQ-9 Depression Total Score: 11 01/10/2019 2:41 PM CS T documented as of this encounter Care Teams Printing Estimator Relationship Specialty Start Date End Date Maris Prakash APRN, C.N.P., R.N. PCP - General Family Medicine 01/10/19 08/02/19 documented as of this encounter
--- OUTSIDE RECORDS SUMMARY | 2022-10-09 18:53 | XMS_ITS | Encounter Summary ---
:1970 Author Organization [facility] Address [address] [place] [address] Care Team Providers Name Role Phone Maris Prakash APRN C.N.PSue, R.N. Primary Care Provider +1- [phone] Reason for Visit Reason Comments Abdominal Pain left side abdominal pain Flank Pain left side x couple days Appointment Request (Routine) - Closed Specialty Diagnoses / Procedures Referred By Contact Refer red To Contact Family Medicine Diagnoses FAM [facility] Procedures [facility] Referral ID Status Reason Start Date Expiration Date Visits Requ ested Visits Authorized [id number] Closed 02/18/2019 02/18/2020 1 1 Encounter Details Date Type Department Care Team Description 02/18/2019 Office Visit Department of Family Maris Prakash Bro nchitis (Primary Dx); Medicine in [facility] VIRAL, C.N.PSue, Pain Rib; [place], [place] R.N. Pain Generalized Abdominal; [address], [place] Pain Flank [place], [place] [address] [place] [address] [phone] Social History Tobacco Use Types Packs/Day Years [...] or relatives? How often do you attend mormon or 1 to 4 times per year 05/23 synagogue services? Do you belong to any clubs or Yes 10/28/2019 organizations such as mormon groups, unions, fraternal or athletic groups, or [...] Sign Reading Time Taken Comments Blood Pressure 106/68 02/18/2019 3:09 PM CDT Pulse 85 02/18/2019 3:09 PM CDT Temperature 36.6 ??C (97.9 ??F) 02/18/2019 3:09 PM CDT Respiratory Rate - - Oxygen Saturation 95% 02/18/2019 3:09 PM CDT Inhaled Oxygen Concentration - - Weight 89.1 kg (196 lb 6.4 oz) 02/18/2019 3:09 PM CDT Height - - Body Mass Index 34.8 08/04/2018 10:45 AM CDT documented in this encounter Patient Instructions Patient InstructionsCulverMaris APRN, C.N.P. - 02/18/2019 3:15 PM CDT Can try Miralax daily as directed for constipation. Avoid dairy and cheese for a few days. Follow up if worse or not improved in the next 5 days. documented in this encounter Progress Notes Maris Prakash APRN, C.N.P. - 02/18/2019 3:15 PM CDT SUBJECTIVE CHIEF COMPLAINT/REASON FOR VISIT Chief Complaint Patient presents with ??? Abdominal Pain left side abdominal pain ??? Flank Pain left side x couple days HISTORY OF PRESENT ILLNESS Lissette Rogers is a 48 y.o. female who presents with daughter for left upper quadrant and left flank pain the past few days. No known injury or new activity. Ibuprofen and Tylenol help. It is constant. Seems to get worse if she flexes towards the left. Has not had a bowel movement in a few days. Denies urinary issues. Unsure if febrile. Just took Tylenol 2 hr ago. Has had cold symptoms for about a week. They seem to be worsening. Endorses wheezing and body aches.Moderate cough that does not interrupt sleep. Denies head or chest congestion. Some right ear pain yesterday. Denies nasal congestion. Has had a dry mouth, but feels maybe due to Cymbalta. Using Tylenol and ibuprofen which seemed to help with the pain. Did not get flu vaccine. CURRENT MEDICATIONS Current Outpatient Prescriptions: ??? B complex-vitamin [...] Disp: 90 tablet, Rfl: 1 ??? DORCAS GARZA, [facility], , Disp: , Rfl: ALLERGIES/CONTRAINDICATIONS No Known Allergies REVIEW OF SYSTEMS Per HPI. At end of visit she mentions some sensation of airway restriction the past few weeks in herthroat, especially if she has her neck flexed. No wheezing or stridor. All others negative at this time. PROBLEM [...] Urinary Stress Female SOCIAL HISTORY Social History Substance Use Topics ??? Smoking status: Former Smoker Packs/day: 2.00 Years: 13.00 Types: Cigarettes ??? Smokeless tobacco: Never Used ??? Alcohol use Yes 1 Cans of beer, 1 Standard drinks or equivalent per week OBJECTIVE VITAL SIGNS BP 106/68 (BP Location: Right arm, Patient Position: Sitting, Cuff Size: Large) Pulse 85 Temp 36.6 ??C (Temporal) Wt 89.1 kg SpO2 95% ? No BMI 34.80 kg/m?? PHYSICAL EXAMINATION General: Patient is alert, oriented. In no acute distress. Skin: Warm and dry. HEENT: Head normocephalic. Conjunctivae clear. Pupils equal, round, reactive to light. Bilateral tympanic membranes pearly joseph with normal cone of light. Right ear canal slightly reddened. No tragal tenderness or swelling. Oral mucosa pink and moist. Oropharynx without erythema or exudate. Sinuses nontender to percussion throughout. Neck: Supple. No adenopathy. Cardiovascular: Regular rate and rhythm. No murmur or extra sound. Respiratory: Breathing is nonlabored. Lung sounds clear throughout all lobes except few small end inspiratory wheezes to the left mid lung. Abdomen: Soft. Mild tenderness just to the upper left of the umbilicus. No masses. Bowel sounds present. No CVA tenderness. Extremities: No peripheral edema. Musculoskeletal: Normal gait and posture. Tender with palpation over left lateral lower rib cage andleft anterior lower rib cage. No step-offs or masses. Tenderness is mild to moderate. No visible skin changes. ASSESSMENT / PLAN 1. Bronchitis Due to illness worsening and ongoing greater than a week, will treat for bacterial infection. Discussed administration of medication and to use extra sun protection. Follow-up as needed for worsening or no improvement to symptoms in 3-5 days. Anticipate this may help with the upper airway restriction she mentions over the past few weeks. Nothing found on exam. - doxycycline hyclate (VIBRAMYCIN) 100 mg capsule; Take 1 capsule (100 mg total) by mouth 2 (two) times a day for 7 days. Protect yourself against the sun. Dispense: 14 capsule; Refill: 0 2. Pain Rib Could be costochondritis. Other differential could be rib fracture, however her pain was certainly not to the extent of the rib fracture. Discussed signs of pneumothorax and when to follow up. ContinueTylenol or ibuprofen as directed as needed. Anticipated improves as the cough lessens. 3. Pain Generalized Abdominal Will notify of results and adjust treatment plan accordingly. See EMR for details. Rule out UTI or kidney stone. Advised to use MiraLax daily as directed as needed to help with constipation. Avoid dairy and cheese for a few days. Encouraged increased fruit intake. Also tried dried prunes or prune juice. Follow-up as needed for worsening or no improvement to symptoms. - Urinalysis with Microscopic if Indicated 4. Pain Flank See plan for 3. - Urinalysis with Microscopic if Indicated All questions answered. Patient stated understanding and agreement with current plan. documented in this encounter Plan of Treatment Not on filedocumented as of this encounter Procedures Procedure Name Priority Date/Time Associated Diagnosis Comme nts URINALYSIS WITH Routine 02/18/2019 3:44 PM Pain Generalized Re sults for this MICROSCOPIC IF CDT Abdominal procedure are in INDICATED, U Pain Flank the results section. documented in this encounter Results Urinalysis with Microscopic if Indicated (02/18/2019 3:44 PM CDT) P athologist Signature Source Midstream 02/18/2019 [facility] 4:02 PM CDT [facility] Clarity Clear Clear 02/18/2019 [facility] 4:02 PM CDT [facility] Color Yellow 02/18/2019 [facility] 4:02 PM CDT [facility] Comment: ----REFERENCE VALUE---- Colorless Yellow Magy Blood Negative Negative 02/18/2019 4:02 PM CDT [facility] Nitrite Negative Negative 02/18/2019 4:02 PM CDT [facility] Leukocyte Esterase Negative Negative 02/18/2019 4:02 PM CD T [facility] Protein Negative mg/dL 02/18/2019 4:02 PM CDT [facility] Comment: ----REFERENCE VALUE---- Negative Trace Glucose Negative Negative mg/dL 02/18/2019 4:02 PM [facility] Ketones, QI(U) Negative Negative mg/dL 02/18/2019 4:02 PM [facility] Bilirubin Negative Negative 02/18/2019 4:02 PM [facility] pH 6.0 5.0 - 8.0 02/18/2019 4:02 PM [facility] Specific [place] 1.010 1.001 - 1.035 02/18/2019 4:02 PM [facility] Urobilinogen 0.2 0.2 - 1.0 mg/dL 02/18/2019 4:02 PM [facility] Specimen Anatomical Collection Method Collection Time Receive d Time (Source) Location / / Volume Laterality Urine (Urine, 02/18/2019 3:44 PM 02/19/20 19 3:59 Clean Catch) CDT PM CDT Bernadine Pimentel APRN.N.P., R.N. LAB URINE ORDERABLES Performing Organization Address City/State/ZIP Code Phon e Number [facility]- [address] [place] [address] LAB [facility]- [address] [place] [address] LAB documented in this encounter Visit Diagnoses Diagnosis Bronchitis - Primary Pain Rib Pain Generalized Abdominal Pain Flank documented in this encounter Additional Health Concerns Assessment Noted Time PHQ-9 Depression Total Score: 11 01/10/2019 2:41 PM CS T documented as of this encounter Care Teams Log Yard Manager Relationship Specialty Start Date End Date Maris Prakash APRN C.N.P., R.N. PCP - General Family Medicine 01/10/19 08/02/19 documented as of this encounter
--- OUTSIDE RECORDS SUMMARY | 2022-10-09 18:53 | XMS_ITS | Encounter Summary ---
:1970 Author Organization [facility] Address [address] [place] [address] Care Team Providers Name Role Phone Rosa Odom M.D. Primary Care Provider Encounter Details Date Type Department Care Team Description 12/28/2018 Nurse Triage Department of [facility] Tamera Mcmahan R.N. Medicine, [facility], in [address] [place], [place] [address] [place] [address] [place] [address] [phone] Social History Tobacco Use Types Packs/Day Years [...] or relatives? How often do you attend orthodox or 1 to 4 times per year 05/23 sikhism services? Do you belong to any clubs or Yes 10/28/2019 organizations such as orthodox groups, unions, fraternal or athletic groups, or [...] on filedocumented in this encounter Care Teams Remotely Piloted Vehicle Controller Relationship Specialty Start Date End Date Rosa dOom M.D. PCP - General 05/07/17 01/09/[address] [address] documented as of this encounter
--- OUTSIDE RECORDS SUMMARY | 2022-10-09 18:53 | XMS_ITS | Encounter Summary ---
:1970 Author Organization [facility] Address [address] [place] [address] Care Team Providers Name Role Phone Rosa Odom M.D. Primary Care Provider Reason for Referral Outpatient (Routine) - Closed Specialty Diagnoses / Procedures Referred By Contact Refer red To Contact Urology Diagnoses Cystocele Maris Prakash APRN, C.N.P., [facility] R.N. [address], [address] [place] [address] Referral ID Status Reason Start Date Expiration Date Visits Requ ested Visits Authorized [id number] Closed 08/04/2018 08/04/2019 1 1 Reason for Visit Reason Comments Annual Exam Establish Care Depression Anxiety Appointment Request (Routine) - Closed Specialty Diagnoses / Procedures Referred By Contact Refer red To Contact Family Medicine Diagnoses FAM EST LONG [facility] Procedures FAM EST LONG Referral ID Status Reason Start Date Expiration Date Visits Requ ested Visits Authorized [id number] Closed 07/30/2018 07/30/2019 1 1 Encounter Details Date Type Department Care Team Description 08/04/2018 Comprehensive Visit Department of Maris Metz Meningioma Brain (HCC) (Primary Dx); Medicine in [place] F[place]sec[place] APRN, Sleep Disord er; [place], [place] C.N.P., R.N. Pap Smear Examination; [address], Abnormal Pap Smear Personal History; [place], [place] [address] Aneurysm Family History; [id number] [place], [place] Well Adult Examination Abnor mal; [phone] [id number] Fatigue; [phone] Gain Weight; (Work) Screening Examination Diabetes Mellitus; [phone] Screening Lipid ; (Fax) Routine Screeni ng Breast Exam; Screening Mammo gram Breast Cancer; Symptoms Vasomo tor; Cystocele; Cancer Family H istory Social History Tobacco Use Types Packs/Day Years [...] or relatives? How often do you attend jewish or 1 to 4 times per year 05/23 rastafari services? Do you belong to any clubs or Yes 10/28/2019 organizations such as jewish groups, unions, fraternal or athletic groups, or [...] Sign Reading Time Taken Comments Blood Pressure 122/68 08/04/2018 10:45 AM CDT Pulse 79 08/04/2018 10:45 AM CDT Temperature 36.7 ??C (98.1 ??F) 08/04/2018 10:45 AM CDT Respiratory Rate - - Oxygen Saturation 96% 08/04/2018 10:45 AM CDT Inhaled Oxygen Concentration - - Weight 83.9 kg (185 lb) 08/04/2018 10:45 AM CDT Height 160 cm (5' 2.99) 08/04/2018 10:45 AM CDT Body Mass Index 32.78 08/04/2018 10:45 AM CDT documented in this encounter Patient Instructions Patient InstructionsCuMaris davis APRN, C.N.P. - 08/04/2018 10:45 AM CDT Call to set up a follow-up visit with your neurologist you were previously seeing to discuss aneurysm surveillance as well as follow-up meningioma. Call to set up appointment with genetic counselor due to strong family history of cancer. This can be done in [place] as well. Check to be sure covered by insurance. Wean your estradiol to 2 mg 6 [...] visit with this provider in 3 months. documented in this encounter H&P Notes Maris Prakash APRN, C.N.P. - 08/04/2018 10:45 AM CDT SUBJECTIVE CHIEF COMPLAINT: Chief Complaint Patient presents with ??? Annual Exam ??? Establish Care ??? Depression ??? Anxiety HISTORY OF PRESENT ILLNESS: Lissette Rogers is a 47 y.o. female who presents for annual exam and to establish care. She has previously been seen at the [facility]. Is cared for through Behavioral Health at [facility] in [place] for depression and anxiety. Due to lack of ambition with basic household duties, Cymbalta was increased yesterday to 120 mg daily which she will start tonight. Patient had a meningioma removed in 2003. She is noticing issues with short-term and some long-term memory. Reports occasional throbbing to the top of her head the past few years that is sporadic. She last saw Neurology in 2011. Patient explained she had 1 seizure prior to finding the meningioma in 2003 and no seizures since. Meningioma was removed via right craniotomy, and patient suffered postoperative hemorrhage requiring a 2nd surgery. 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 Upon review of records there was also questionable aneurysm through MRI in 1999, told to repeat. MRI was okay in 2005. At last visit with neurologist he recommended genetic counseling due to strong family history of cancer as well as aneurysms. She was seen February 14, 2005. Did not recommend genetic testing for melanoma. Recommended earlier and more frequent breast cancer screening through clinical breast exams every 6months to 1 year and annual mammograms starting at age 30. Also recommended annual Pap and pelvic exam and annual digital rectal exam with fecal occult blood testing starting around age 40-45 as well as colonoscopy every 3-5 years starting around that time as well. Neurologist also recommended neuropsychiatry evaluation. Patient cannot recall if this is done. Could not locate anything in records. Patient complains of feeling tired all the time and questions if it is her thyroid or vitamin deficiency. Has gained 12 lb in the past 2 months per report. She never feels energized on wake up. Drinks decaffeinated coffee. Could go back to bed within a few hours of waking up in the mornings. Bedtime is around 10 or 11:00 p.m. and sleeps until 6:00 a.m.. Has some difficulty staying asleep, and unsure if she ever reaches REM. 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 She did not follow up with this. Patient also brings up bladder prolapse. Reports seeing Gynecology in [place] 1-2 years ago for stress incontinence that was developing into urge incontinence as well. That provider recommended seeing Urology in [facility], but patient did not follow through with this. Requests referral today. Hysterectomy for endometriosis in due to expression of progesterone receptors on the brain tumor removed. Due to history of abnormal Pap, gynecology recommended considering Pap every few years. If hormone therapy was needed in the future, Neurology advised patient see Endocrinology as hormone exposure could cause recurrence of the meningioma. Estradiol has kept hot flashes at bay. REVIEW OF SYSTEMS: Per HPI. All others negative at this time. MEDICATIONS: Current Outpatient Prescriptions: ??? B complex-vitamin (SUPER B-50) capsule, Take 1 capsule by mouth daily., Disp: , Rfl: ??? cholecalciferol (VITAMIN D3) 2,000 Unit tablet, Take 2,000 Units by mouth daily., Disp: , Rfl: ??? DULoxetine (CYMBALTA) [address] capsule, Take 1 capsule by mouth daily., Disp: , Rfl: ??? DULoxetine (CYMBALTA) [address] capsule, Take 1 capsule by mouth daily. , Disp: , Rfl: ??? estradiol (ESTRACE) 1 mg tablet, Take 2 mg by mouth daily., Disp: , Rfl: ??? DORCAS GARZA, MISC, , Disp: , Rfl: ALLERGIES: No Known Allergies PAST MEDICAL HISTORY: Past Medical History: Diagnosis Date ??? Anxiety Generalized Disorder ??? Cystocele ??? Depressive Disorder ??? Dermatitis ??? Eczema ??? Hand And Finger Fracture NOS fractured thumb ??? 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 Pneumonia ??? Stroke (HCC) 10/06 PAST SURGICAL HISTORY: Past Surgical History: Procedure Laterality Date ??? ABDOMINAL HYSTERECTOMY N/A 08/05/2006 for endometrosis--no cervix or ovaries ??? BLADDER SUSPENSION With hysterectomy ??? BREAST BIOPSY Left WNL ??? SECTION then ??? CRANIOTOMY N/A 10/22/2004 >Right frontal craniotomy. Resection of tumor. ??? CRANIOTOMY N/A 10/24/2004 >Reopening previous craniotomy. Resection of clot. ??? OTHER CONVERTED SHX (SEE COMMENT) N/A 08/24/2007 injection rt wrist ??? SALPINGO - OOPHORECTOMY 2006 FAMILY HISTORY: Family History Problem Relation Age of Onset [...] ??? Transient ischemic attack Maternal Grandfather ??? Hypertension Father ??? Hyperlipidemia Father ??? Coronary artery disease Mother's Brother ??? Migraines Son ??? Breast cancer Mother's Sister ??? Skin cancer Brother ??? Breast cancer Cousin ??? Pancreatic cancer Other ??? Brain cancer Other SOCIAL HISTORY: Social History Substance Use Topics ??? Smoking status: Former Smoker Packs/day: 2.00 Years: 13.00 Types: Cigarettes ??? Smokeless tobacco: Never Used ??? Alcohol use Yes 1 Cans of beer, 1 Standard drinks or equivalent per week Social History Social History Narrative Exercise: Limited since back injury 2015. Dentist: Yearly Eye doctor: Yearly Not working right now. HEALTH MAINTENANCE Health Maintenance Topic Date Due ??? Mammogram 04/21/2013 ??? Lipid Panel 04/21/2017 ??? DTaP,Tdap,and Td Vaccines (2 - Tdap) 05/23/2017 ??? Diabetes Screening 2017 ??? Influenza Vaccine (1) 07/24/2018 ??? Depression Screening (PHQ-2) 08/04/2019 ??? HIV Screening Addressed OBJECTIVE VITAL SIGNS: BP 122/68 (BP Location: Right arm, Patient Position: Sitting, Cuff Size: Large) Pulse 79 Temp 36.7 ??C (Temporal) Ht 160 cm Wt 83.9 kg SpO2 96% ? No BMI 32.78 kg/m?? PHYSICAL EXAM: General: Patient alert and oriented. In no acute distress. Skin: Warm and dry. HEENT: Head normocephalic. Conjunctivae clear. Pupils are equal, round and reactive to light. Bilateral tympanic membranes pearly joseph with normal cone of light. Oral mucosa pink and moist. Oropharynx without erythema or exudate. Neck: Supple. No adenopathy. No thyromegaly or nodules. Cardiovascular: Regular rate and rhythm. No murmur or extra sound. Respiratory: Lung sounds clear throughout all lobes. Breasts: Symmetric. No skin changes or dimpling. No masses, nodules or tenderness, nipple abnormality, or nipple discharge bilaterally. Inverted nipples bilaterally which patient reports is normal for her. No supraclavicular or axillary adenopathy bilaterally. Abdomen: Soft. Nontender. No masses. Bowel sounds present. Genitourinary: Normal-appearing external female genitalia. Upon speculum exam vaginal mucosa is pinkand moist. Cervix is absent. No visible bladder prolapse. Bimanual exam revealed no bladder masses or tenderness. Possible mild cystocele. Extremities: Radial and dorsalis pedis pulses 2+ bilaterally. No peripheral edema. Neuro: Normal coordination. Musculoskeletal: Normal gait and posture. Moves all extremities equally X 4. Psych: Mood and affect congruent with topic of conversation. No evidence of hallucination or self-harm. ASSESSMENT / PLAN 1. Meningioma Brain (HCC) Patient is to call her neurologist who she was previously doctoring with and set up appointment as last visit was in 2011. This will be to follow-up meningioma as well as surveillance for family history of brain aneurysm. 2. Sleep Disorder Patient declines referral to Sleep Medicine at this point. She plans to try to go to bed earlier. 3. Pap Smear Examination Will notify of results and adjust treatment plan accordingly. See EMR for details. History of abnormal Pap in 1998, possibly 2003 per records. [employer] suggested a Pap every few years post hysterectomy. It has been at least 12 years since her last. Vaginal sample taken. - ThinPrep w/HPV Co-Test Screen 4. Abnormal Pap Smear Personal History See plan for 3. - ThinPrep w/HPV Co-Test Screen 5. Aneurysm Family History See plan for 1. 6. Well Adult Examination Abnormal Encouraged routine dental and eye exams. Appropriate screening tests as documented. Will notify of results and adjust treatment plan accordingly. See EMR for details. Release of information signed to obtain records from [place] where she likely had her last Tdap and make recommendations from there. 7. Fatigue Will notify of results and adjust treatment plan accordingly. See EMR for details. - S-TSH (Thyroid-Stimulating Hormone - Sensitive) - 25-Hydroxyvitamin D2 and D3 - Hemoglobin 8. Gain Weight Will notify of results and adjust treatment plan accordingly. See EMR for details. - S-TSH (Thyroid-Stimulating Hormone - Sensitive) 9. Screening Examination Diabetes Mellitus Not fasting. Will notify of results and adjust treatment plan accordingly. See EMR for details. - Glucose, Fasting 10. Screening Lipid Not fasting. Will notify of results and adjust treatment plan accordingly. See EMR for details. - Lipid Panel 11. Routine Screening Breast Exam Normal. 12. Screening Mammogram Breast Cancer Advised importance of regular mammograms while on estrogen replacement therapy. Last was 2017 in [place]. - BI Breast Screening Bilateral; Future 13. Symptoms Vasomotor Instructions printed on AVS: Wean your estradiol to 2 mg 6 [...] visit with this provider in 3 months. Patient inquired about bone density. We can discuss at next visit due to time constraint. She was comfortable with plan. 14. Cystocele Release of information signed to obtain records from Gynecology in [place] who made the recommendation 1-2 years ago that she be seen in [place]. - Urology - General - lower urinary symptoms consult (clinic); Future 15. Cancer Family History Per Neurology note in 2011, recommendation was to see genetic counseling due to strong family history of cancer including cervical, uterine, and breast cancer. Advised patient to look into this in [place] and check with insurance to be sure it is covered. Addendum: Patient will be notified that she already saw the genetic counselor with screening recommendations. All questions answered. Patient stated understanding and agreement with current plan. Billing: Additional 30 min spent reviewing previous records to determine further care plan after visit. documented in this encounter Plan of Treatment Scheduled Referrals Name Type Priority Associated Diagnoses [facility] - General Outpatient Referral Routine Cystocele Exp ected: - lower urinary 08/04/2018 symptoms consult (Approximat e), (clinic) Expires: 08/04/2021 documented as of this encounter Procedures Procedure Name Priority Date/Time Associated Diagnosis Comme nts LIPID PANEL, S Routine 08/04/2018 12:18 PM Screening Lipid Res ults for this CDT procedure are i n the results section. 25-HYDROXYVITAMIN Routine 08/04/2018 12:18 PM Fatigue Res ults for this D2 AND D3, S CDT procedure are i n the results section. HEMOGLOBIN, B Routine 08/04/2018 12:18 PM Fatigue Results for this CDT procedure are i n the results section. THYROID-STIMULATING Routine 08/04/2018 12:18 PM Fatigue Results for this HORMONE-SENSITIVE CDT Gain Weight procedure are in (S-TSH) the results section. GLUCOSE, FASTING, Routine 08/04/2018 12:18 PM Screening Res ults for this S/P CDT Examination Diabetes procedu re are in Mellitus the results section. THINPREP W/HPV Routine 08/04/2018 11:54 AM Pap Smear Result s for this CO-TEST SCREEN CDT Examination procedure are in Abnormal Pap Smear the resul ts Personal History section. HPV WITH Routine 08/04/2018 11:54 AM Results for this GENOTYPING, PCR, CDT procedure a re in THINPREP the results section. documented in this encounter Results Hemoglobin (08/04/2018 12:18 PM CDT) athologist Signature Hemoglobin 13.5 11.6 - 15.0 08/04/2018 [facility] g/dL 2:30 PM CDT [facility] Specimen Anatomical Collection Method Collection Time Receive d Time (Source) Location / / Volume Laterality Blood (Blood, 08/04/2018 12:18 08/04/2018 2:17 Venous) PM CDT PM CDT Christos Pimentel APRNN.P., R.N. LAB BLOOD ADD-ON Performing Organization Address City/State/ZIP Code Phon e Number [address] [address] [facility] 25-Hydroxyvitamin D2 and D3 (08/04/2018 12:18 PM CDT) athologist Signature 25-Hydroxy D2 <4.0 ng/mL 08/06/2018 [facility] 6:[address] [facility] 25-Hydroxy D3 41 ng/mL 08/06/2018 [facility] 6:[address] [facility] 25-Hydroxy D 41 ng/mL 08/06/2018 [facility] Total 6:[address] [facility] Comment: ----REFERENCE VALUE---- 25-HYDROXY D TOTAL (D2+D3) Optimum level s in the healthy population are 20-50, patients with bone disease may benefit from higher levels within this r boy. ----ADDITIONAL INFORMATION---- This test was developed and its performa nce characteristics determined by [facility] in a manner consistent with CLIA requirements. This test has not been cleared or approved by the [place] d and Drug Administration. Specimen Anatomical Collection Method Collection Time Receive d Time (Source) Location / / Volume Laterality Blood (Blood, 08/04/2018 12:18 08/06/2018 8:38 Venous) PM CDT AM CDT Maris Prakash APRN, C.N.P., R.N. LAB BLOOD ADD-ON Performing Organization Address City/[facility]/ZIP Code Phon e Number [facility] [address] [place], [place] [address] [facility] S-TSH (Thyroid-Stimulating Hormone - Sensitive) (08/04/2018 12:18 PM CDT) athologist Signature TSH, Sensitive 1.3 0.3 - 4.2 08/04/2018 [facility] mIU/L 2:55 PM CDT [facility] Comment: Biotin has been identified by the adrian davis as a potential interfering substance. ??Higher concentr ations of biotin may be found in multivitamins, hair/nail supple ments, and workout supplements. ??If the result does not ma [facility] clinical observations, repeat testing after patient refrains fr om the use of supplements for at least 12 hours. Specimen Anatomical Collection Method Collection Time Receive d Time (Source) Location / / Volume Laterality Blood (Blood, 08/04/2018 12:18 08/04/2018 2:17 Venous) PM CDT PM CDT Maris Prakash APRN, C.N.P., R.N. LAB BLOOD ADD-ON Performing Organization Address City/[facility]/ZIP Code Phon e Number [facility] [address] [place] [id number] [facility] (ABNORMAL) Lipid Panel (08/04/2018 12:18 PM CDT) P athologist Signature Cholesterol, 294 (H) mg/dL 08/04/2018 [facility] Total 3:45 PM CDT [facility] Comment: ----REFERENCE VALUE---- Desirable: < 200 Borderline high: 200 - 239 High: > or = 240 Triglycerides 189 (H) mg/dL 08/04/2018 3:45 PM CDT [facility] Comment: ----REFERENCE VALUE---- Normal: <150 Borderline high: 150-199 High: 200-499 Very high: > or =500 Cholesterol, HDL, S 98 >=50 mg/dL 08/04/2018 3:45 PM CDT [facility] Calculated LDL 158 (H) mg/dL 08/04/2018 3:45 PM CDT [facility] Comment: ----REFERENCE VALUE---- Desirable: <100 Above Desirable: 100-129 Borderline high: 130-159 High: 160-189 Very high: > or =190 Cholesterol, Non-HDL, 196 (H) mg/dL 08/04/2018 3:45 PM CDT [facility] Comment: ----REFERENCE VALUE---- Desirable: <130 Above Desirable: 130-159 Borderline high: 160-189 High: 190-219 Very high: > or =220 Specimen Anatomical Collection Method Collection Time Receive d Time (Source) Location / / Volume Laterality Blood (Blood, 08/04/2018 12:18 08/04/2018 2:17 Venous) PM CDT PM CDT Maris Prakash APRN, C.N.P., R.N. LAB BLOOD ADD-ON Performing Organization Address City/[facility]/ZIP Code Phon e Number [place] [id number] [address] [place] [address] [facility] Glucose, Fasting (08/04/2018 12:18 PM CDT) P athologist Signature Glucose, 85 70 - 99 08/04/2018 [facility] Fasting, S mg/dL 3:45 PM CDT [facility] Specimen Anatomical Collection Method Collection Time Receive d Time (Source) Location / / Volume Laterality Blood (Blood, 08/04/2018 12:18 08/04/2018 2:17 Venous) PM CDT PM CDT Maris Prakash APRN, C.N.P., R.N. LAB BLOOD NON ADD-ON Performing Organization Address City/[facility]/ZIP Code Phon e Number [place] [address] [place] [address] [facility] HPV with Genotyping, PCR, ThinPrep (08/04/2018 11:54 AM CDT) P athologist Signature HPV with Negative Negative 08/05/2018 [facility] Genotyping, 1:31 PM CDT HEALTH ThinPrep, PCR SYSTEM- [facility] Comment: Negative for high risk HPV by nucleic ac id amplification. ??The following high risk HPV types were not detected: 16, 18, 31, 33, 35, 39, 45, 51, 52, 56, 58, 59, 66, and 68 Specimen Anatomical Collection Method Collection Time Receive d Time (Source) Location / / Volume Laterality Varies 08/04/2018 11:54 08/05/2018 7:20 AM CDT AM CDT Maris Prakash APRN, C.N.P., R.N. LAB MICROBIOLOGY - G ENERAL ORDERABLES Performing Organization Address City/State/ZIP Code Phon e Number [facility] [address] [place] [address] LAB ThinPrep w/HPV Co-Test Screen (08/04/2018 11:54 AM CDT) Component Value Ref Test Analysis Performed Pathologis t Range Method Time At Signature 08/06/2018 [facility] 2:49 PM HEALTH CDT SYSTEM- [facility] Report SALAZAR Santos (ASCP) 08/06/20 18 [facility] electronically I verify that I have examined all relevant slides/ma terials 2:49 PM HEALTH signed by for the specimen(s) and rendered or confirmed the diagnosi s. CDT SYSTEM- [facility] Gross Description Received specimen 08/06/2018 [facility] in a ThinPrep 2:49 PM HEALTH vial. CDT SYSTEM- [facility] Pap Test Source Vaginal 08/06/2018 [facility] 2:49 PM HEALTH CDT SYSTEM- [facility] Interpretation Vaginal ??(ThinPrep): 08/06/2018 [facility] Satisfactory for Evaluation 2:49 PM HE ALTH Negative for Intraepithelial Lesion or Malignancy CDT SYSTEM- High Risk HPV Testing results are NEGATIVE. [facility] HPV by [employer]-Mediated Amplification ??(TMA) for CYTOLOGY E6/E7 viral messenger RNA (mRNA) is an in-vitro diagnostic test for the detection of 14 high-risk Human Papilloma (HPV) types (16, 18, 31, 33, 35, 39, 45, 51, 52, 56, 58, 59, 66, and 68) in cervical specimens. Additional testing performed at [facility], [address] [place] [address]. Specimen Anatomical Collection Method Collection Time Receive d Time (Source) Location / / Volume Laterality Varies (Vagina) 08/04/2018 11:54 08/05/20 18 7:20 AM CDT AM CDT Narrative This result has an attachment that is no t available. Maris Prakash APRN C.N.P., R.N. LAB PAP PATHDX ORDER YRIS Performing Organization Address City/State/Z[place] [address] CYTOLOGY documented in this encounter Visit Diagnoses Diagnosis Meningioma Brain (HCC) - Primary Sleep Disorder Pap Smear Examination Abnormal Pap Smear Personal History Aneurysm Family History Well Adult Examination Abnormal Fatigue Gain Weight Screening Examination Diabetes Mellitus Screening Lipid Routine Screening Breast Exam Screening Mammogram Breast Cancer Symptoms Vasomotor Cystocele Cancer Family History documented in this encounter Care Teams Fire Watchman Relationship Specialty Start Date End Date Rosa Odom M.D. PCP - General 05/07/17 01/09/[address] [address] documented as of this encounter
--- OUTSIDE RECORDS SUMMARY | 2022-10-09 18:53 | XMS_ITS | Encounter Summary ---
:1970 Author Organization [facility] Address [address] [place] [address] Care Team Providers Name Role Phone Maris Prakash APRN, C.NSamantha, R.N. Primary Care Provider +1- [phone] Reason for Visit Outpatient (Routine) - Closed Specialty Diagnoses / Procedures Referred By Contact Refer red To Contact Obstetrics and Diagnoses Incontinence Urinary [facility] [address] [place] [phone] Referral ID Status Reason Start Date Expiration Date Visits Requ ested Visits Authorized [id number] Closed 02/11/2019 02/11/2020 1 1 Encounter Details Date Type Department Care Team Description 02/14/2019 Comprehensive Visit Department of Josefa Vázquez (Primary Dx); Obstetrics and R, P.A.-C. Incontinence Urinary Stress Female Gynecology, Division [address] [place] [address] of Urogynecology in [place], [place] [address] [place] [address] [place], [place] (Work) [phone] Social History Tobacco Use Types Packs/Day Years [...] documented as of this encounter Consult Notes Josefa Vázquez P.A.-C. - 02/14/2019 3:00 PM CDT REFERRING PROVIDER Viki Underwood M.D. REASON FOR VISIT Discussion of pessary HISTORY OF PRESENT CONDITION Ms.Melanie Taisha Rogersis a 48 y.o. female who had a thorough workup by Dr. Mccurdy on February 11, 2019. Please refer to his service's thorough notes which are helpful. Ms. Rogers is scheduled to have a sling surgery and anterior colporrhaphy in April according to Dr. Underwood's note. She was referred fora pessary fitting to utilize in the interim. ASSESSMENT / PLAN #1 Incontinence Urinary Stress Female,, vaginal prolapse Upon pessary discussion the patient has decided against wearing a pessary. She is not interested in the vaginal discharge that happens with pessary wearers. She was still appreciative of the consultation to answer her questions about pessaries. Thank you Dr. Mccurdy for the kind referral of this pleasant patient. She looks forward to surgical treatment by Dr. Mccurdy. BILLING Total time 15 min face to face with greater than 50% of the time spent counseling and education. documented in this encounter Plan of Treatment Not on filedocumented as of this encounter Visit Diagnoses Diagnosis Cystocele - Primary Incontinence Urinary Stress Female documented in this encounter Additional Health Concerns Assessment Noted Time PHQ-9 Depression Total Score: 11 01/10/2019 2:41 PM CS T documented as of this encounter Care Teams Medical Sales Associate Relationship Specialty Start Date End Date Maris Prakash, VIRAL, C.N.P., R.N. PCP - General Family Medicine 01/10/19 08/02/19 documented as of this encounter
--- OUTSIDE RECORDS SUMMARY | 2022-10-09 18:53 | XMS_ITS | Encounter Summary ---
:1970 Author Organization [facility] Address [address] [place] [address] Care Team Providers Name Role Phone Maris Prakash APRN C.N.P., R.N. Primary Care Provider +1- [phone] Encounter Details Date Type Department Care Team Description 02/11/2019 Hospital Encounter Department of Scott Barillas Urinary Laboratory Medicine Mukesh Tipton, Ph.D. Stress And Urge and Pathology, [place], [place] [address] [place] [address] Social History Tobacco Use Types Packs/Day Years [...] 1 to 4 times per year 05/23 worship services? Do you belong to any clubs [...] Date/Time Associated Diagnosis Comme nts MICROSCOPIC Routine 02/11/2019 8:03 AM Results f or this AUTOMATED CDT procedure are i n the results section. URINALYSIS WITH Routine 02/11/2019 8:03 AM Incontinence Urinar y Results for this MICROSCOPIC CDT Stress And Urge procedure ar e in the results section. documented in this encounter Results (ABNORMAL) Microscopic Automated (02/11/2019 8:03 AM CDT) [facility] gist Method Time Signature Microscopy Abnormal 02/11/2019 [facility] 9:12 AM CDT [facility] Bacteria Present (A) 02/11/2019 [facility] 9:12 AM CDT [facility] Specimen Anatomical Collection Method Collection Time Receive d Time (Source) Location / / Volume Laterality Urine 02/11/2019 8:03 AM 9 8:03 CDT AM CDT Scott Barillas M.D., Ph.D. LAB URINE ORDERABLES Performing Organization Address City/State/ZIP Code Phon e Number [facility]ATORIES - [address] [place], [place] [address] [facility] (ABNORMAL) Urinalysis with Microscopic (02/11/2019 8:03 AM CDT) [facility] Method Time Signature Source Midstream 02/11/2019 [facility] 8:03 AM CDT [facility] Appearance Normal Normal 02/11/2019 [facility] 8:39 AM T [facility] Osmolality, U 103 (L) 150 - 1150 02/11/2019 [facility] mOsm/kg 9:57 AM T [facility] pH, U 6.4 4.5 - 8.0 02/11/2019 [facility] 9:57 AM CDT [facility] Comment: ----ADDITIONAL INFORMATION---- This test was developed and its performa nce characteristics determined by [facility] in a manner co nsistent with CLIA requirements. This test has not bee n cleared or approved by the U.S. Food and Drug Admin istration. Glucose <2 0 - 15 mg/dL 02/11/2019 8:39 AM CDT [facility] S Protein, U <4 <26 mg/dL 02/11/2019 8:39 AM CDT [facility] Comment: ----ADDITIONAL INFORMATION---- On 05/19/2017 the total protein assay me thod changed resulting in approximately a 15% increase in prote in values. Protein/Osmolality <0.39 <0.42 Ratio 02/11/2019 9:57 AM [facility] CDT LABORATORIES - [facility] Comment: ----ADDITIONAL INFORMATION---- On 05/19/2017 the total protein assay me thod changed resulting in approximately a 15% increase in prote in values. Predicted 24 Hr <283 mg/24 h 02/11/2019 9:57 AM [facility] Protein CDT [facility] Predicted Range <1147 mg/24 h 02/11/2019 9:57 AM [facility] CDT [facility] Hemoglobin, QL Negative Negative 02/11/2019 9:[address] [facility] Specimen Anatomical Collection Method Collection Time Receive d Time (Source) Location / / Volume Laterality Urine (Urine, 02/11/2019 8:03 AM 02/12/20 19 8:03 Clean Catch) CDT AM CDT Scott Barillas M.D., Ph.D. LAB URINE ORDERABLES Performing Organization Address City/State/ZIP Code Phon e Number [facility]IES - [address] documented in this encounter Visit Diagnoses Diagnosis Incontinence Urinary Stress And Urge documented in this encounter Additional Health Concerns Assessment Noted Time PHQ-9 Depression Total Score: 11 01/10/2019 2:41 PM CS T documented as of this encounter Care Teams Life Skills Consultant Relationship Specialty Start Date End Date Maris Prakash, VIRAL, C.N.P., R.N. PCP - General Family Medicine 01/10/19 08/02/19 documented as of this encounter
--- OUTSIDE RECORDS SUMMARY | 2022-10-09 18:53 | XMS_ITS | Encounter Summary ---
:1970 Author Organization [facility] Address [address] [place] [address] Care Team Providers Name Role Phone Maris Prakash APRN, C.NSamantha, R.N. Primary Care Provider +1- [phone] Encounter Details Date Type Department Care Team Description 01/11/2019 Clinical Communication Department of Urology Xavier Mccurdy in [place] Euced[place] M.D. [place] [address] [address] [facility] [address] [place] [phone] Social History Tobacco Use Types Packs/Day Years [...] 1 to 4 times per year 05/23 mosque services? Do you belong to any clubs [...] this encounter Miscellaneous Notes Telephone Encounter - Scott Barillas M.D., Ph.D. - 01/12/2019 4:58 PM HOUSEKEEPING ASSOCIATE Orders placed. Thanks! EKEEPING ASSOCIATE documented in this encounter Plan of Treatment Not on filedocumented as of this encounter Visit Diagnoses Not on filedocumented in this encounter Additional Health Concerns Assessment Noted Time PHQ-9 Depression Total Score: 11 01/10/2019 2:41 PM CS T documented as of this encounter Care Teams Art Therapist Relationship Specialty Start Date End Date Maris Prakash APRN, C.N.P., R.N. PCP - General Family Medicine 01/10/19 08/02/19 documented as of this encounter
--- OUTSIDE RECORDS SUMMARY | 2022-10-09 18:54 | XMS_ITS | Encounter Summary ---
:1970 Author Organization [facility] Address [address] [place] [address] Care Team Providers Name Role Phone Unavailable Primary Care Provider Unavailable Encounter Details Date Type Department Care Team Description 12/03/2007 Hospital Encounter [facility] FAMILYPRA Provider, Hi storical Social History Tobacco Use Types Packs/Day Years Used Date Smoking Tobacco: Never Assessed Alcohol Habits Answer Date Recorded How often [...] or relatives? How often do you attend pentecostalism or 1 to 4 times per year 05/23 caodaism services? Do you belong to any clubs or Yes 10/28/2019 organizations such as pentecostalism groups, unions, fraternal or athletic groups, or [...]
--- OUTSIDE RECORDS SUMMARY | 2022-10-09 18:54 | XMS_ITS | Encounter Summary ---
:1970 Author Organization [facility] Address [address] [place] [address] Care Team Providers Name Role Phone Unavailable Primary Care Provider Unavailable Encounter Details Date Type Department Care Team Description 04/21/2012 Hospital Encounter [facility] Tiffanie Elizabeth M.D. [address] [place] [address] (Wo rk) Social History Tobacco Use Types [...] or relatives? How often do you attend uatsdin or 1 to 4 times per year 05/23 adventism services? Do you belong to any clubs or Yes 10/28/2019 organizations such as uatsdin groups, unions, fraternal or athletic groups, or [...] Name Priority Date/Time Associated Comments Diagnosis BI ULTRASOUND BREAST Routine 04/21/2012 1:40 PM R esults for this FOCUSED LEFT CDT procedure are i n the results section. documented in this encounter Results BI Ultrasound Breast Focused Left (04/21/2012 1:40 PM CDT) Anatomical Region Laterality Modality Breast Left Ultrasound Specimen (Source) Anatomical Collection Method Collection Time Re ceived Time Location / / Volume Laterality 04/21/2012 1:40 PM CDT Addenda Addendum by Provider, Mukesh Dias 04/21/2012 1:40 PM CDT RAD^^^OW US Breast Left 04/21/2012 13:40:00 Impressions 04/21/2012 2:43 PM CDT BI-RADS code 4A, suspicious finding, complex cyst. Biopsy suggested. Patient is aware of this shavonne mmendation. CODE: 4-SUSPICIOUS ABNORMALITY Appropriate letter sent. Full field digital mammography is used a nd Computer Aided Detection is performed on the digital mammogram im ages. Narrative 04/21/2012 2:43 PM CDT EXAM: US Breast Left INDICATION: breast mass (found on physic al done 04/16/12) COMPARISON: Correlation is made with a d iagnostic baseline bilateral mammogram done earlier today. The mammog jenn and ultrasound are reported separately. FINDINGS: The 4:00 area of the left melba st near the areola was scanned. The palpated lump is an ovoid 0 .8 cm wide cyst. One wall is slightly thickened and there is a coarse calcification in that wall. No shadowing. No angular margins. This a dany is not hypervascular. A dilated vessel was not seen. The cystic mass does not appear to enter the skin. The overlying skin is not thic kened. Procedure Note Nam Roe M.D. / Provider, Padmini verduzco M.D. - 04/14/2017 EXAM: US Breast Left INDICATION: breast mass (found on physic al done 04/16/12) COMPARISON: Correlation is made with a d iagnostic baseline bilateral mammogram done earlier today. The mammog jenn and ultrasound are reported separately. FINDINGS: The 4:00 area of the left melba st near the areola was scanned. The palpated lump is an ovoid 0 .8 cm wide cyst. One wall is slightly thickened and there is a coarse calcification in that wall. No shadowing. No angular margins. This a dany is not hypervascular. A dilated vessel was not seen. The cystic mass does not appear to enter the skin. The overlying skin is not thic kened. IMPRESSION: BI-RADS code 4A, suspicious finding, complex cyst. Biopsy suggested. Patient is aware of this shavonne mmendation. CODE: 4-SUSPICIOUS ABNORMALITY Appropriate letter sent. Full field digital mammography is used a nd Computer Aided Detection is performed on the digital mammogram im ages. Kaelyn Rodas R.V.T., RNatividadMSueS. IMG BI PROCEDURES documented in this encounter Visit Diagnoses Not on filedocumented in this encounter
--- OUTSIDE RECORDS SUMMARY | 2022-10-09 18:54 | XMS_ITS | Encounter Summary ---
:1970 Author Organization [facility] Address [address] [place] [address] Care Team Providers Name Role Phone Unavailable Primary Care Provider Unavailable Encounter Details Date Type Department Care Team Description 04/23/2007 Hospital Encounter [facility] FAMILYPRA Inge Odom M.D. Social History Tobacco Use Types Packs/Day Years [...] or relatives? How often do you attend evangelical or 1 to 4 times per year 05/23 yazidi services? Do you belong to any clubs or Yes 10/28/2019 organizations such as evangelical groups, unions, fraternal or athletic groups, or [...]
--- OUTSIDE RECORDS SUMMARY | 2022-10-09 18:54 | XMS_ITS | Encounter Summary ---
:1970 Author Organization [facility] Address [address] [place] [address] Care Team Providers Name Role Phone Unavailable Primary Care Provider Unavailable Encounter Details Date Type Department Care Team Description 06/14/2012 Hospital Encounter [facility] LAB Tiffanie Odom M.D. [address] [place], [place] [phone] (Wo rk) Social History Tobacco Use Types [...] documented as of this encounter Miscellaneous Notes Miscellaneous - Rosa Odom M.D. - 06/16/2012 2:10 PM CDT Results Notification Document Contains Addenda Addendum by LEYDI LINN on 17 June 2012 10:21:35 CDT Phone kept hanging up will mail results Addendum by LEYDI LINN on 16 June 2012 18:08:42 CDT LMTCB From: ROSA ODOM MD To: LEYDI LINN Sent: 06/16/2012 14:10:34 CDT ! Show up: 06/16/2012 19:10:34 [facility] Subject: Results Notification Actions: Notify patient of results Source: [facility] [employer] Document Id: [id number] Electronically signed by Conversion, [facility] Energy Analyst [id number] at 04/25/2017 7:52 PM CDT Miscellaneous - Rosa Odom M.D. - 06/14/2012 6:32 PM CDT Results Notification Document Contains Addenda Addendum by LEYDI LINN on 17 June 2012 10:23:06 CDT Will mail results From: ROSA ODOM MD To: LEYDI LINN Sent: 06/14/2012 18:32:36 CDT ! Show up: 06/14/2012 23:32:36 [facility] Subject: Results Notification Actions: Notify patient of results Source: [facility] WidbookCHART Document Id: [id number] Electronically signed by Conversion, [facility] Energy Analyst [id number] at 04/25/2017 7:52 PM CDT documented in this encounter Plan of Treatment Not on filedocumented as of this encounter Procedures Procedure Name Priority Date/Time Associated Diagnosis Comme nts 25-HYDROXYVITAMIN Routine 06/14/2012 7:59 AM Resu lts for this D2 AND D3, S CDT procedure are i n the results section. HEMOGLOBIN, B Routine 06/14/2012 7:59 AM Results for this CDT procedure are i n the results section. THYROID-STIMULATING Routine 06/14/2012 7:59 AM Re sults for this HORMONE-SENSITIVE CDT procedure are in (S-TSH) the results section. VITAMIN B12 ASSAY, Routine 06/14/2012 7:59 AM Res ults for this S CDT procedure are i n the results section. documented in this encounter Results Hemoglobin (06/14/2012 7:59 AM CDT) athologist Signature Hemoglobin 13.5 12.0 - 15.5 POWERCHART GDL Specimen (Source) Anatomical Collection Method Collection Time Re ceived Time Location / / Volume Laterality Blood 06/14/2012 7:59 AM CDT Rosa Odom M.D. LAB BLOOD ADD-ON Performing Organization Address City/State/ZIP Code Phon e Number POWERCHART Vitamin B12 Assay (06/14/2012 7:59 AM CDT) athologist Signature Vitamin B12 483 180 - 914 POWERCHART Assay, S PGML Specimen (Source) Anatomical Collection Method Collection Time Re ceived Time Location / / Volume Laterality Blood 06/14/2012 7:59 AM CDT Rosa Odom M.D. LAB BLOOD ADD-ON Performing Organization Address City/[facility]/ZIP Code Phon e Number POWERCHART 25-Hydroxyvitamin D2 and D3 (06/14/2012 7:59 AM CDT) athologist Signature HX25 HYDROXY D2 <4.0 NGML POWERCHART 25-Hydroxy D3 37 NGML POWERCHART Vitamin D, S 37 NGML POWERCHART Comment: -- REFERENCE VALUE -- 25-HYDROXY D TOTAL (D2+D3) Optimum levels in the normal population are 25-80 Test Performed by: [address] [address] [facility]: Dontrell corado III, M.D. Specimen (Source) Anatomical Collection Method Collection Time Re ceived Time Location / / Volume Laterality Blood 06/14/2012 7:59 AM CDT Rosa Odom M.D. LAB BLOOD ADD-ON Performing Organization Address City/State/ZIP Code Phon e Number POWERCHART Thyroid-Stimulating Hormone-Sensitive (s-TSH) (06/14/2012 7:59 AM CDT) P athologist Signature TSH 2.00 0.30 - 5.00 POWERCHART (Thyrotropin) UIUML Specimen (Source) Anatomical Collection Method Collection Time Re ceived Time Location / / Volume Laterality Blood 06/14/2012 7:59 AM CDT Rosa Odom M.D. LAB BLOOD ADD-ON Performing Organization Address City/State/ZIP Code Phon e Number POWERCHART documented in this encounter Visit Diagnoses Not on filedocumented in this encounter
--- OUTSIDE RECORDS SUMMARY | 2022-10-09 18:54 | XMS_ITS | Encounter Summary ---
:1970 Author Organization [facility] Address [address] [place] [address] Care Team Providers Name Role Phone Unavailable Primary Care Provider Unavailable Encounter Details Date Type Department Care Team Description 08/06/2005 Hospital Encounter [facility] FAMILYPRA Provider, [...] 1 to 4 times per year 05/23 yarsanism services? Do you belong to any clubs [...]
--- OUTSIDE RECORDS SUMMARY | 2022-10-09 18:54 | XMS_ITS | Encounter Summary ---
:1970 Author Organization [facility] Address [address] [place] [address] Care Team Providers Name Role Phone Unavailable Primary Care Provider Unavailable Encounter Details Date Type Department Care Team Description 02/05/2007 Hospital Encounter [facility] MRI Provider, Historic al Social History Tobacco Use Types Packs/Day Years [...] 1 to 4 times per year 05/23 mandaen services? Do you belong to any clubs [...]
--- OUTSIDE RECORDS SUMMARY | 2022-10-09 18:54 | XMS_ITS | Encounter Summary ---
:1970 Author Organization [facility] Address [address] [place] [address] Care Team Providers Name Role Phone Unavailable Primary Care Provider Unavailable Encounter Details Date Type Department Care Team Description 09/18/2006 Hospital Encounter [facility] FAMILYPRA Provider, [...]
--- OUTSIDE RECORDS SUMMARY | 2022-10-09 18:54 | XMS_ITS | Encounter Summary ---
:1970 Author Organization [facility] Address [address] [place] [address] Care Team Providers Name Role Phone Unavailable Primary Care Provider Unavailable Encounter Details Date Type Department Care Team Description 06/30/2005 Hospital Encounter [facility] FAMILYPRA Provider, [...]
--- OUTSIDE RECORDS SUMMARY | 2022-10-09 18:54 | XMS_ITS | Encounter Summary ---
:1970 Author Organization [facility] Address [address] [place] [address] Care Team Providers Name Role Phone Unavailable Primary Care Provider Unavailable Encounter Details Date Type Department Care Team Description 12/04/2006 Hospital Encounter [facility] FAMILYPRA Provider, [...] or relatives? How often do you attend sikhism or 1 to 4 times per year 05/23 pentecostalism services? Do you belong to any clubs or Yes 10/28/2019 organizations such as sikhism groups, unions, fraternal or athletic groups, or [...]
--- OUTSIDE RECORDS SUMMARY | 2022-10-09 18:54 | XMS_ITS | Encounter Summary ---
:1970 Author Organization [facility] Address [address] [place] [address] Care Team Providers Name Role Phone Unavailable Primary Care Provider Unavailable Encounter Details Date Type Department Care Team Description 07/30/2015 Hospital Encounter [facility] Gamal Coleman P.A.-C., [place] Social History Tobacco Use Types Packs/Day Years [...] Taken Comments Blood Pressure - - Pulse 98 07/30/2015 12:27 PM CDT Temperature - - Respiratory Rate 20 07/30/2015 12:27 PM CDT Oxygen Saturation - - Inhaled Oxygen Concentration - - Weight - - Height 161 cm (5' 3.39) 07/30/2015 12:27 PM CDT Body Mass Index - - documented in this encounter Progress Notes Keli Muller P.A.-C. - 07/30/2015 12:21 PM CDT [id number] CHIEF COMPLAINT/REASON FOR VISIT Cough. MEDICATIONS Review documentation in [employer]ner. ALLERGIES Review documentation in [employer]. HISTORY OF PRESENT ILLNESS The patient has had a cough for about a week, now she is coughing up greenish material and having a really hard time getting any sleep at night due to coughing. She does not have any history of allergies. She is a former smoker. She has been taking an ujah-xri-irjrclm Mucinex DM during the day, but ishoping for a strong cough medicine for nighttime so can try and get some sleep. She does have a fever. No upset stomach. SYSTEMS REVIEW CONSTITUTIONAL: Remarkable for fever, fatigue. No body aches. ENT: No ear pain. She does have nasal congestion with greenish nasal drainage, scratchy throat. RESPIRATORY: Productive cough of greenish material. She is not able to sleep at night due to coughing. SKIN: No rashes. GI: No vomiting or diarrhea. She is eating and drinking normally. NEURO: No headaches. PAST MEDICAL/SURGICAL HISTORY The patient does have a history of a brain tumor 8 years ago and some history of anxiety that is controlled by Zoloft. She states she is otherwise generally healthy PHYSICAL EXAMINATION PSYCH: Alert and oriented. She is tired from coughing. ENT: Ears: TMs pearly joseph. Nose: Purulent nasal drainage with some nasal congestion. Some maxillarysinus tenderness to palpation bilaterally. Throat is scratchy, red. She has some mild anterior cervical lymphadenopathy present. LUNGS: Clear to auscultation. HEART: Regular rate. Temperature is 38 degrees Celsius. NECK: Supple. SKIN: Cache, warm and dry. IMPRESSION/REPORT/PLAN Sinusitis, bronchitis. PLAN: Rest. Fluids. Tylenol or ibuprofen for temperature control or comfort. Humidity to the sinuses. Will start her on Zithromax 500 mg 1 tablet by mouth daily for the next 5 days and give her some Cheratussin AC 10 mL by mouth every 4 to 6 hours as needed at night. She is warned of drowsiness. She is to follow up if symptoms are not improving in the next week or any additional concerns arise. She is in agreement with this plan. Yesi Gibson/telly Electronically Signed By: KELI MULLER PA-C On: 07/31/2015 02:10 PM Source: [facility] MHSDOLBEYNONRADSYS Document Id: [id number] documented in this encounter Miscellaneous Notes Miscellaneous - Janiya Johnson - 08/11/2017 8:51 AM CDT Health Maintenance Reminder August 11, 2017 LISSETTE PERDOMO [address] [place] [address] [phone] Dear LISSETTE PERDOMO, We have developed a six-month overview of preventive and recommended services that apply to your unique health care needs. Some may be past due or may be coming due in the next three months. If youhave already scheduled any or all of these services, thank you. We recognize that this may or may not include all of your individualized health care needs; however, we are happy to help you with any and all primary care concerns you may have. Past Due Diabetes Screening: recommended preventive service starting at age 18 Fasting Lipid Panel: recommended preventive service starting at age 35 Mammogram for Breast Cancer Screening It may be possible to bundle some of the above services together to make your visit with us more convenient. Please call [phone] to schedule services that are past due or that may shortly become due (thank you if you have already done so). We will follow up in three to six months should you have more services to schedule at that time. If you have already received any of the listed past due or upcoming services outside of [facility], please call [phone] to add them to your medical record. You may want to consider contacting your health insurance company to make sure these services are covered and find out if there will be any mbq-vx-bikcqj expense. If you have any questions about the services listed above, or if you are no longer receiving care from [facility], please contact us at [phone]. Thank you for partnering to provide you with the best care possible. We encourage you to set up your Patient Online Services account [email or web address], where you can communicate in a convenient way with us, schedule appointments, receive lab results and more. To set up your account, you will need your [facility] Number, which is [id number]. Thank you for choosing the Rosa Odom M.D. care team for your health care needs! You are receiving this notice based on [facility]'s recommended standard for preventive care and ongoing condition-specific services you may need. If you have completed or do not believe you need these services, please contact your provider or care team to discuss this further. Sincerely, JANIYA JOHNSON Electronic Signature Electronically Signed By: JANIYA JOHNSON On: August 11, 2017 This document has images extracted. Source: [facility] [employer] Personal Care Device Document Id: [id number] Miscellaneous - Keli Mluler P.A.-C. - 07/30/2015 12:43 PM CDT Ambulatory Patient Summary [facility] - [address] [id number] Visit Information Name: LISSETTE PERDOMO [facility] Number: [id number] Current Date: 07/30/2015 12:43:23 Physicians Attending Provider: KELI MULLER PA-C Primary Care Provider: ROSA ODOM MD LISSETTE PERDOMO has been given the following list of follow-up instructions, medication list, and patient education materials: Follow-up Instructions Your Medications Here is a list of your medications. It is important to take your medications as directed. Use a pillbox or chart to help remind you to take your medications. Please let your doctor or nurse know if you have problems taking your medications. Medication/Strength How to Take Indications/Special Instructions/Comments/Notes for Patient Medication Changes/Routing azithromycin (Zithromax 500 mg oral tablet) 1 Tablet(s), Oral, once a day x 5 day(s) New Routed to Printer *cholecalciferol (Vitamin D3 1000 intl units oral capsule) 1 cap, Oral, once a day codeine-guaiFENesin (Cheratussin AC 10 mg-100 mg/5 mL oral syrup) 10 Milliliter, Oral, every 4 hoursas needed for cough x 7 day(s) New Routed to Printer estradiol (estradiol 2 mg oral tablet) 1.5 Tablet(s), Oral, once a day HAS UPCOMING APPT. *fluconazole (Diflucan 150 mg oral tablet) 1 Tablet(s), Oral, once a day Take one today, may repeat in two days if symptoms not resolved guaiFENesin (Mucinex) 600 mg, Oral, every 12 hours *metronidazole topical (MetroGel 1% topical kit) 1 radha, Topical, once a day *multivitamin with minerals (Centrum Ultra Women's oral tablet) 1 Tablet(s), Oral, once a day *sertraline (Zoloft 25 mg oral tablet) 1 Tablet(s), Oral, once a day Take one daily for 4-7 days then increase to 2 daily. *triamcinolone topical (triamcinolone topical 0.1% cream) 1 radha, Topical, three times a day * You have let us know that you are not taking this medication as listed. Please talk with your primary care provider or the health care provider who prescribed the medication as soon as possible. Stop Taking the Following Medications: Medication list as of 07-30-15 12:43 Attention: If you have any medications at home that are not on this list, DO NOT take them until youcontact your provider for clarification. Give a copy of your medication list to your primary care provider. Update your medication list any time medications or doses are changed and carry your medication list at all times in case of emergency. 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 Consider Using Patient Online Services Patient Online Services is a secure online and Mobile application that lets you: ?? View lab and test results ?? View portions of your medical record including clinical notes, immunizations and discharge summaries ?? Request an appointment or medication refill ?? Review your appointment schedule ?? Send secure messages to your care team Its easy to create an account if you dont have one. Go to [email or web address] and click on Create Your Account. Then, follow the directions to complete the online form. Youll be asked for your [facility] number which you can find at the top of this document. Your Goals/Additional instructions: Source: [facility] POWERCHART Document Id: [id number] Miscellaneous - Keli Muller P.A.-C. - 07/30/2015 12:43 PM CDT Ambulatory Discharge Medication List [facility] - [address] [id number] Visit Information Name: LISSETTE PERDOMO [facility] Number: [id number] Visit Date: 07/30/2015 12:43:22 Attending Provider: KELI MULLER PA-C Primary Care Provider: ROSA ODOM MD LISSETTE PERDOMO has been given the following list of medications: Your Medications It is important to take your medications as directed. Use a pill box or chart to help remind you to take your medications. Please let your doctor or nurse know if you have problems taking your medications. Medication/Strength How to Take Indications/Special Instructions/Comments/Notes for Patient Medication Changes/Routing azithromycin (Zithromax 500 mg oral tablet) 1 Tablet(s), Oral, once a day x 5 day(s) New Routed to Printer *cholecalciferol (Vitamin D3 1000 intl units oral capsule) 1 cap, Oral, once a day codeine-guaiFENesin (Cheratussin AC 10 mg-100 mg/5 mL oral syrup) 10 Milliliter, Oral, every 4 hoursas needed for cough x 7 day(s) New Routed to Printer estradiol (estradiol 2 mg oral tablet) 1.5 Tablet(s), Oral, once a day HAS UPCOMING APPT. *fluconazole (Diflucan 150 mg oral tablet) 1 Tablet(s), Oral, once a day Take one today, may repeat in two days if symptoms not resolved guaiFENesin (Mucinex) 600 mg, Oral, every 12 hours *metronidazole topical (MetroGel 1% topical kit) 1 radha, Topical, once a day *multivitamin with minerals (Centrum Ultra Women's oral tablet) 1 Tablet(s), Oral, once a day *sertraline (Zoloft 25 mg oral tablet) 1 Tablet(s), Oral, once a day Take one daily for 4-7 days then increase to 2 daily. *triamcinolone topical (triamcinolone topical 0.1% cream) 1 radha, Topical, three times a day * You have let us know that you are not taking this medication as listed. Please talk with your primary care provider or the health care provider who prescribed the medication as soon as possible. Stop Taking the Following Medications: Medication list as of 07-30-15 12:43 Attention: If you have any medications at home that are not on this list, DO NOT take them until youcontact your provider for clarification. Give a copy of your medication list to your primary care provider. Update your medication list any time medications or doses are changed and carry your medication list at all times in case of emergency. 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 : No FREDIS TILLMAN - 07/30/2015 12:27 CDT Subjective Pain Symptoms : No FREDIS TILLMAN - 07/30/2015 12:27 CDT Dependent Habits Tobacco Use/Currently Using : No Exposure to Tobacco Smoke : Other: FORMER Smoking Status : Former smoker Alcohol Use : Yes FREDIS TILLMAN - 07/30/2015 12:27 CDT Caffeine Use Grid Caffeine Use : Current Type : Coffee, Soft drinks Frequency : Daily Amount : 4 CUPS OF COFFEE DAILY, POP OCCASSIONAL FREDIS TILLMAN - 07/30/2015 12:27 CDT Recreational Drug Use Grid Drug Use : None FREDIS TILLMAN - 07/30/2015 12:27 CDT Source: [facility] [employer] Personal Care Device Document Id: [id number] CDT!29 documented in this encounter Plan of Treatment Not on filedocumented as of this encounter Visit Diagnoses Not on filedocumented in this encounter
--- OUTSIDE RECORDS SUMMARY | 2022-10-09 18:54 | XMS_ITS | Encounter Summary ---
:1970 Author Organization [facility] Address [address] [place] [address] Care Team Providers Name Role Phone Unavailable Primary Care Provider Unavailable Encounter Details Date Type Department Care Team Description 05/16/2011 Hospital Encounter [facility]X [facility] Tiffanie Odom M.D. [address] [place] [address] (Wo rk) Social History Tobacco [...] 1 to 4 times per year 05/23 [employer]? Do you belong to any clubs [...] AM CDT documented as of this encounter H&P Notes Rosa Odom M.D. - 05/16/2011 12:00 AM CDT [id number] CHIEF COMPLAINT / REASON FOR VISIT Complete physical. HISTORY OF PRESENT ILLNESS Patient is a 40-year-old seen in the clinic today for a complete physical exam. Everything is going well. No concerns. CURRENT MEDICATIONS Estrace 3 mg one daily. ALLERGIES No known drug allergies. SYSTEMS REVIEW No visual disturbance, hearing disorders, dental concerns, shortness of breath, chest pain, stomach problems, urinary symptoms, joint aches and pains, numbness, weakness or other neurologic symptoms. PAST MEDICAL / SURGICAL HISTORY 1) Endometriosis. 2) Incontinence. 3) Brain tumor meningioma. 4) LASIK. 5) Hysterectomy with sling procedure. 6) Brain tumor removed in 2003. 7) G2, P2. 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 HABITS: She drinks a couple caffeinated beverages. No smoking. Alcohol is occasional. No recreational drug use. She does wear her seat belt and is trying to exercise regularly. FAMILY HISTORY She has a brother with lymphoma. Both of her parents with hypertension and hyperlipidemia. Mother with some depression and anxiety. Mother also had a brain aneurysm. Both paternal and maternal grandmothers from aneurysms. Otherwise, the rest of family history is negative. VITAL SIGNS HEIGHT: 160.5 cm WEIGHT: 73.3 kg TEMP: 36.6 degreesC RESP RATE: 20/min PULSE: 76 BLOOD PRESSURE: 92/64 PHYSICAL EXAM GENERAL: Pleasant female in no acute distress. EYES: Pupils were equal and reactive. EOMI. ENT: TMs are normal. Mouth is moist. Pharynx is normal. Neck is supple. LYMPH NODES: No lymphadenopathy. THYROID: No thyromegaly. BREASTS: Normal breast tissue. No masses or axillary nodes noted. PERIPHERAL VESSELS: Neck has no jugular venous distention or carotid bruits. HEART: S1, S2 regular rate and rhythm without murmurs or rubs. LUNGS: Clear to auscultation. ABDOMEN: Soft. Positive bowel sounds. No hepatosplenomegaly or tenderness. PELVIS: Pap and pelvic were deferred since she has had a complete hysterectomy. EXTREMITIES: No edema, clubbing, or cyanosis. NEURO: Otherwise intact. IMPRESSION / REPORT / PLAN 1) Healthcare maintenance. Pap and pelvic were deferred since she has had a hysterectomy. Plan: At some point, we need to check a fasting lipid profile; however, she does not have insurance so we will wait hopefully for her to get insurance. Her tetanus is up to date. She gets yearly flu shots. Did discuss healthy lifestyle, regular exercise, 100% seat belt use, no smoking, and follow up in 1 year. 2) Hysterectomy and postmenopausal, on Estrace 3 mg, doing well. I will refill this for 1 year. Rosa Odom M.D. 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 Intake/History Entered On: 05/16/2011 13:49 CDT Performed On: 05/16/2011 13:45 CDT by TOM DAMON Intake Chief Complaint: annual physical LMP Date: Hysterectomy Temperature Oral: 36.6C(Converted to: 97.9DegF) Peripheral Pulse Rate: 76/min Respiratory Rate: 20/min Systolic Blood Pressure: 92mmHg Diastolic Blood Pressure: 64mmHg NIBP Mean: 73mmHg BP Location: Right upper extremity Height: 160.50cm(Converted to: 5ft 3in, 63.19in) Actual Weight: 73.300kg(Converted to: 161lb 10oz) Dosing Weight Clinic: 73.30kg Clinic BSA: 1.81 Body Mass Index: 28.45kg/m2 TOM DAMON S - 05/16/2011 13:45 CDT General Info Information Given By: Patient Preferred Communication Mode: Verbal Languages: [place] TOM DAMON S - 05/16/2011 13:45 CDT Subjective Pain Symptoms: No TOM DAMON 05/16/2011 13:45 CDT Dependent Habits Tobacco Use/Currently Using: No Exposure to Tobacco Smoke: Other: FORMER Alcohol Use: No TOM DAMON 05/16/2011 13:45 CDT Caffeine Use Grid Caffeine Use: Current Type: Coffee, Soft drinks Frequency: Daily Amount: 4 CUPS OF COFFEE DAILY, POP OCCASSIONAL TOM DAMON S - 05/16/2011 13:45 CDT Recreational Drug Use Grid Drug Use: None TOM DAMON S - 05/16/2011 13:45 CDT Allergy Allergies (Active) NKA Estimated Onset Date: Unspecified ; Created By: BAL SMITH; Reaction Status: Active ; Category: Drug ; Substance: NKA ; Type: Allergy ; Updated By: BAL SMITH; Reviewed Date: 05/16/2011 13:44 CDT Source: [facility] [employer] Document Id: [id number] CDT!35 documented in this encounter Plan of Treatment Not on filedocumented as of this encounter Visit Diagnoses Not on filedocumented in this encounter
--- OUTSIDE RECORDS SUMMARY | 2022-10-09 18:54 | XMS_ITS | Encounter Summary ---
:1970 Author Organization [facility] Address [address] [place] [address] Care Team Providers Name Role Phone Unavailable Primary Care Provider Unavailable Encounter Details Date Type Department Care Team Description 11/22/2007 Hospital Encounter [facility]X [facility] Provider, [...]
--- OUTSIDE RECORDS SUMMARY | 2022-10-09 18:54 | XMS_ITS | Encounter Summary ---
:1970 Author Organization [facility] Address [address] [place] [address] Care Team Providers Name Role Phone Unavailable Primary Care Provider Unavailable Encounter Details Date Type Department Care Team Description 01/03/2008 Hospital Encounter HX [facility] Toñito Dumont M.D. Social History Tobacco Use Types Packs/Day [...] or relatives? How often do you attend restorationism or 1 to 4 times per year 05/23 [employer] services? Do you belong to any clubs or Yes 10/28/2019 organizations such as restorationism groups, unions, fraternal or athletic groups, or [...]
--- OUTSIDE RECORDS SUMMARY | 2022-10-09 18:54 | XMS_ITS | Encounter Summary ---
:1970 Author Organization [facility] Address [address] [place] [address] Care Team Providers Name Role Phone Unavailable Primary Care Provider Unavailable Encounter Details Date Type Department Care Team Description 07/30/2005 Hospital Encounter HX NO MAPPING Provider, Historical Social History Tobacco Use Types [...] 1 to 4 times per year 05/23 church services? Do you belong to any clubs [...]
--- OUTSIDE RECORDS SUMMARY | 2022-10-09 18:54 | XMS_ITS | Encounter Summary ---
:1970 Author Organization [facility] Address [address] [place] [address] Care Team Providers Name Role Phone Unavailable Primary Care Provider Unavailable Encounter Details Date Type Department Care Team Description 10/30/2010 Hospital Encounter [facility] Tiffanie Odom M.D. [address] [place] [address] (Wo rk) Social History Tobacco [...] or relatives? How often do you attend yazidi or 1 to 4 times per year 05/23 congregation services? Do you belong to any clubs or Yes 10/28/2019 organizations such as yazidi groups, unions, fraternal or athletic groups, or [...] documented as of this encounter Progress Notes Rosa Odom M.D. - 10/30/2010 12:00 AM CST [id number] CHIEF COMPLAINT / REASON FOR VISIT Stye in the left eye. HISTORY OF PRESENT ILLNESS The patient is a 40-year-old who is seen in the clinic today for evaluation of a stye that she has in left eyelid. It started on Thursday. It is getting a little bit bigger. It is sore. She has not really done anything for it. She has not tried hot packing it. Otherwise, everything else really has been going well. No other concerns. CURRENT MEDICATIONS Estradiol 3 mg daily. Multivitamin daily. ALLERGIES No known drug allergies. VITAL SIGNS WEIGHT: 73.8 kg TEMP: 36.5 degreesC RESP RATE: 20/min PULSE: 84 BLOOD PRESSURE: 96/58 PHYSICAL EXAM GENERAL: She is a pleasant female in no distress. EYES: On evaluation of her left upper eyelid she has some redness and swelling, and just underneath the lid the opening of the stye was noted. It was tender to touch. Sclerae looked unremarkable. ENT: TMs were normal. Mouth was moist. Pharynx was normal. Neck was supple. HEART: Regular rate. LUNGS: Clear to auscultation. IMPRESSION / REPORT / PLAN 1) Stye of the upper left lid. PLAN: We are going to try hot packing this. If no improvement, would start Keflex 500 mg 3 times a day for 10 days. Follow up if no improvement. Rosa Odom M.D. [facility] Electronically Signed By:ROSA ODOM MD On 11/10/2010 06:55 PM Source: [facility] MHSDOLBEYNONRADSYS Document Id: [id number] ING SUPERVISOR documented in this encounter Miscellaneous Notes Miscellaneous - Rosa Odom M.D. - 10/30/2010 5:54 PM CST Ambulatory Patient Summary [facility] [address] [place] [id number] Visit Information Name: LISSETTE PERDOMO Current Date: 10/30/2010 17:54:14 Primary Care Provider: ROSA ODOM MD Your Medications Here is a list of your medications. It is important to take your medications as directed. Use a pillbox or chart to help remind you to take your medications. Please let your doctor or nurse know if you have problems taking your medications. 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 Active 01/28/2005 Other Convulsions Active 01/29/2005 Endometriosis, Site Unspecified Active 01/29/2005 Family History of Other Condition Active 01/29/2005 Unspecified Persistent Mental Disorders Due to Conditions Classified Elsewhere Active 02/03/2005 Family History of Other Specified Malignant Neoplasm Active 02/14/2005 Unspecified Persistent Mental Disorders Due to Conditions Classified Elsewhere Active 04/22/2005 Malignant Neoplasm of Brain, Unspecified Active 04/22/2005 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 Here is a customized list of recommendations, based on information we have in your medical record. Your doctor may have additional recommendations for you, based on your personal medical history and risk factors. You can help us by calling us to make an appointment when you are due for your tests. Additional information regarding recommendations: Test/Treatment Last Done Next Due Additional Information Screening Pap Smear every 3 years Women 21-65 10/30/2010 Checks for signs of cancer of the cervix. Lipid Panel every 5 years Age 20-75 10/30/2010 Checks blood for good (HDL) and bad (LDL) cholesterol. Know your numbers, they are one indicator of your risk for heart attack and stroke. Vaccine: Tetanus every 10 years 02/02/2007 01/29/2017 Immunization to help prevent you from getting the serious disease Tetanus (Lockjaw). Your Upcoming Appointments Date Time Location Reason Provider No Appointments found Your Goals/Additional instructions: Source: [facility] POWERCHART Document Id: [id number] Electronically signed by Conversion, [facility] Palliative Senior Np [id number] at 04/27/2017 5:52 AM CDT Miscellaneous - Rosa Odom M.D. - 10/30/2010 5:54 PM CST Ambulatory Depart Summary [facility] [address] [place] [id number] Visit Information Name: LEANNELISSETTE Current Date: 10/30/2010 17:54:13 Primary Care Provider: ROSA ODOM MD LISSETTE PERDOMO has been given the following list of medications: Your Medications It is important to take your medications as directed. Use a pill box or chart to help remind you to take your medications. Please let your doctor or nurse know if you have problems taking your medications. Medication/Strength Dose Route Frequency Indications/Special Instructions/Comments cephalexin (Keflex 500 mg oral capsule) 500 mg Oral three times a day multivitamin (multivitamin) 1 tab Oral once a day estradiol (estradiol 2 mg oral tablet) 3 mg Oral once a day Additional Information: Yes - Current list of reconciled medications is provided and explained to the patient and/or family, guardian/caregiver. Source: [facility] POWERCHART Document Id: [id number] Miscellaneous - Kelli, Larissa Provider Ser - 10/30/2010 10:19 AM CARDING SUPERVISOR Adult Customer Development Manager Intake/History Adult Customer Development Manager Intake/History Entered On: 10/30/2010 10:26 CARDING SUPERVISOR Performed On: 10/30/2010 10:19 CARDING SUPERVISOR by ROSIE MARVIN Intake Chief Complaint: PT HERE FOR LEFT TOP EYE LID RED, SWOLLEN, IRRITATING, SORE X SINCE THURSDAY. PT HAS HAD STY BEFORE. NO OTHER CONCERNS. Temperature Oral: 36.5C(Converted to: 97.7DegF) Peripheral Pulse Rate: 84/min Respiratory Rate: 20/min Systolic Blood Pressure: 96mmHg Diastolic Blood Pressure: 58mmHg NIBP Mean: 71mmHg BP Location: Right upper extremity Heart Rhythm: Regular Actual Weight: 73.800kg(Converted to: 162lb 11oz) Dosing Weight Clinic: 73.80kg ROSIE MARVIN - 10/30/2010 10:19 CARDING SUPERVISOR General Info Information Given By: Patient Preferred Communication Mode: Verbal Languages: German ROSIE MARVIN 10/30/2010 10:19 CARDING SUPERVISOR Subjective Pain Symptoms: Yes ROSIE MARVIN 10/30/2010 10:19 CARDING SUPERVISOR Pain Pain Assessment Grid Pain 1 Location: Eye Laterality: Left Intensity: 2 Time Pattern: Acute Onset: Gradual Quality: Other: eye lid, tip of it feels like it's sore ROSIE MARVIN 10/30/2010 10:19 CARDING SUPERVISOR Effects of Pain Grid Appetite: None Concentration: None Daily Life: None Emotions: None Relationships: None Sleep: None Work/School: None ROSIE MARVIN 10/30/2010 10:19 CARDING SUPERVISOR Dependent Habits Tobacco Use/Currently Using: No Exposure to Tobacco Smoke: Other: FORMER Alcohol Use: No ROSIE MARVIN 10/30/2010 10:19 CARDING SUPERVISOR Caffeine Use Grid Caffeine Use: Current Type: Coffee, Soft drinks Frequency: Daily Amount: 4 CUPS OF COFFEE DAILY, POP OCCASSIONAL ROSIE MARVIN 10/30/2010 10:19 CARDING SUPERVISOR Recreational Drug Use Grid Drug Use: None ROSIE MARVIN 10/30/2010 10:19 CARDING SUPERVISOR Allergies Allergies (Active) NKA Estimated Onset Date: Unspecified ; Created By: BAL SMITH; Reaction Status: Active ; Category: Drug ; Substance: NKA ; Type: Allergy ; Updated By: BAL SMITH; Reviewed Date: 10/30/2010 10:18 CARDING SUPERVISOR Source: [facility] [employer] Document Id: [id number] CARDING SUPERVISOR!49 documented in this encounter Plan of Treatment Not on filedocumented as of this encounter Visit Diagnoses Not on filedocumented in this encounter
--- OUTSIDE RECORDS SUMMARY | 2022-10-09 18:54 | XMS_ITS | Encounter Summary ---
:1970 Author Organization [facility] Address [address] [place] [address] Care Team Providers Name Role Phone Unavailable Primary Care Provider Unavailable Encounter Details Date Type Department Care Team Description 04/21/2012 Hospital Encounter [facility]X [facility] Marian Wright M.D. [address] [place], [place] [phone] (Wo rk) Social History [...] 1 to 4 times per year 05/23 episcopalian services? Do you belong to any clubs [...] Priority Date/Time Associated Comments Diagnosis BI BREAST DIAGNOSTIC Routine 04/21/2012 9:38 AM R esults for this BILATERAL WITH CDT procedure are in COMPUTER AIDED the results DETECTION section. documented in this encounter Results BI Breast Diagnostic Bilateral with Computer Aided Detection (04/21/2012 9:38 AM CDT) Anatomical Region Laterality Modality Breast Bilateral Mammography Specimen (Source) Anatomical Collection Method Collection Time Re ceived Time Location / / Volume Laterality 04/21/2012 9:38 AM CDT Addenda Addendum by Provider, Mukesh Dias 04/21/2012 9:38 AM CDT RAD^^^OW [facility] Mammo Diagnostic Bilat w/ CADD 04/21/2012 09:38:01 Narrative 04/21/2012 3:21 PM CDT EXAM: [facility] Mammo Diag Bilat w/ CADD INDICATION: Nontender left breast lump 4 :00 just under nipple with slight bluish discoloration without mullen ge since it was first felt 2 months ago. Cousin with breast cancer COMPARISON: None. ??Baseline. FINDINGS: Spot compression views in the MLO and cc projections were done in addition to the 4 standard views . Also a medial lateral view of the left breast. Both breasts are ext remely dense. A suspicious area is not identified within either george ast by mammography. A triangular marker was placed on the skin at about 4:00 near the left areola. The negative mammogram is correl ated with an ultrasound which also was done today. The ultrasound is r eported separately. The ultrasound demonstrated a slightly compl ex cyst for which a biopsy is recommended. Patient is aware of this re commendation. Impression: BI-RADS code 4A, suspicious finding CODE: 4-SUSPICIOUS ABNORMALITY Appropriate letter sent. Full field digital mammography is used a nd Computer Aided Detection is performed on the digital mammogram im ages. The left breast ultrasound of the periar eolar region demonstrated a 0.8 cm wide complex cyst. One wall is sl ightly thickened. There is a coarse calcification within one of the w alls. The area is not hypervascular. Dilated vessels were not seen. The cyst does not enter the cutaneous level. Overlying skin is n ot thickened. Procedure Note Nam Roe M.D. / Provider, Padmini verduzco M.D. - 04/14/2017 EXAM: [facility] Mammo Diag Bilat w/ CADD INDICATION: Nontender left breast lump 4 :00 just under nipple with slight bluish discoloration without mullen ge since it was first felt 2 months ago. Cousin with breast cancer COMPARISON: None. Baseline. FINDINGS: Spot compression views in the MLO and cc projections were done in addition to the 4 standard views . Also a medial lateral view of the left breast. Both breasts are ext remely dense. A suspicious area is not identified within either george ast by mammography. A triangular marker was placed on the skin at about 4:00 near the left areola. The negative mammogram is correl ated with an ultrasound which also was done today. The ultrasound is r eported separately. The ultrasound demonstrated a slightly compl ex cyst for which a biopsy is recommended. Patient is aware of this re commendation. Impression: BI-RADS code 4A, suspicious finding CODE: 4-SUSPICIOUS ABNORMALITY Appropriate letter sent. Full field digital mammography is used a nd Computer Aided Detection is performed on the digital mammogram im ages. The left breast ultrasound of the periar eolar region demonstrated a 0.8 cm wide complex cyst. One wall is sl ightly thickened. There is a coarse calcification within one of the w alls. The area is not hypervascular. Dilated vessels were not seen. The cyst does not enter the cutaneous level. Overlying skin is n ot thickened. Lakisha Ruiz(R), RSueTSue(R)(M) IMG BI PROCEDU RES documented in this encounter Visit Diagnoses Not on filedocumented in this encounter
--- OUTSIDE RECORDS SUMMARY | 2022-10-09 18:54 | XMS_ITS | Encounter Summary ---
:1970 Author Organization [facility] Address [address] [place] [address] Care Team Providers Name Role Phone Unavailable Primary Care Provider Unavailable Encounter Details Date Type Department Care Team Description 04/21/2012 Hospital Encounter [facility]X [facility] Tiffanie Odom M.D. [address] [place], [place] [phone] (Wo rk) Social History [...] 1 to 4 times per year 05/23 yarsani services? Do you belong to any clubs [...] Diagnosis Comme nts LIPID PANEL, S Routine 04/21/2012 9:27 AM Results for this CDT procedure are i n the results section . documented in this encounter Results (ABNORMAL) Lipid Panel (04/21/2012 9:27 AM CDT) P athologist Signature Total 3.04 2.20 - POWERCHART Cholesterol/HDL 4.40 Ratio Calculated LDL 148 (H) 0 - 100 POWERCHART MGDL Cholesterol, 252 (H) 0 - 200 POWERCHART Total MGDL Comment: Reference value 0-11 months: No t Established Triglycerides 106 41 - 150 MGDL POWERCHART HX HDL 83 (H) 40 - 60 MGDL POWERCHART HXLDL/HDL 2 POWERCHART Specimen (Source) Anatomical Collection Method Collection Time Re ceived Time Location / / Volume Laterality Blood 04/21/2012 9:27 AM CDT Rosa Odom M.D. LAB BLOOD ADD-ON Performing Organization Address City/State/ZIP Code Phon e Number POWERCHART documented in this encounter Visit Diagnoses Not on filedocumented in this encounter
--- OUTSIDE RECORDS SUMMARY | 2022-10-09 18:54 | XMS_ITS | Encounter Summary ---
:1970 Author Organization [facility] Address [address] [place] [address] Care Team Providers Name Role Phone Unavailable Primary Care Provider Unavailable Encounter Details Date Type Department Care Team Description 07/05/2009 Hospital Encounter [facility] Radha Bryan, P.A. [address] [place] [address] (Wo rk) Social History Tobacco Use Types [...] or relatives? How often do you attend alevism or 1 to 4 times per year 05/23 moravian services? Do you belong to any clubs or Yes 10/28/2019 organizations such as alevism groups, unions, fraternal or athletic groups, or [...]
--- OUTSIDE RECORDS SUMMARY | 2022-10-09 18:54 | XMS_ITS | Encounter Summary ---
:1970 Author Organization [facility] Address [address] [place] [address] Care Team Providers Name Role Phone Unavailable Primary Care Provider Unavailable Encounter Details Date Type Department Care Team Description 03/11/2008 Hospital Encounter [facility] Henrry Corrales L, D.O. Social History Tobacco Use Types Packs/Day Years [...] or relatives? How often do you attend spiritism or 1 to 4 times per year 05/23 anabaptist services? Do you belong to any clubs or Yes 10/28/2019 organizations such as spiritism groups, unions, fraternal or athletic groups, or [...]
--- OUTSIDE RECORDS SUMMARY | 2022-10-09 18:54 | XMS_ITS | Encounter Summary ---
:1970 Author Organization [facility] Address [address] [place] [address] Care Team Providers Name Role Phone Unavailable Primary Care Provider Unavailable Encounter Details Date Type Department Care Team Description 10/25/2009 Hospital Encounter [facility]X [facility] Provider, [...]
--- OUTSIDE RECORDS SUMMARY | 2022-10-09 18:54 | XMS_ITS | Encounter Summary ---
:1970 Author Organization [facility] Address [address] [place] [address] Care Team Providers Name Role Phone Unavailable Primary Care Provider Unavailable Encounter Details Date Type Department Care Team Description 04/20/2007 Hospital Encounter [facility]X [facility] Inge [...] 1 to 4 times per year 05/23 gnosticist services? Do you belong to any clubs [...]
--- OUTSIDE RECORDS SUMMARY | 2022-10-09 18:54 | XMS_ITS | Encounter Summary ---
:1970 Author Organization [facility] Address [address] [place] [address] Care Team Providers Name Role Phone Unavailable Primary Care Provider Unavailable Encounter Details Date Type Department Care Team Description 10/22/2012 Hospital Encounter [facility]X [facility] Tiffanie Odom M.D. [address] [place] [address] (Wo rk) Social History Tobacco [...] Sign Reading Time Taken Comments Blood Pressure 102/60 10/22/2012 3:35 PM GEL COAT SPRAYER Pulse 66 10/22/2012 3:35 PM GEL COAT SPRAYER Temperature - - Respiratory Rate 18 10/22/2012 3:35 PM GEL COAT SPRAYER Oxygen Saturation - - Inhaled Oxygen Concentration - - Weight 68.4 kg (150 lb 12.7 oz) 10/22/2012 3:35 PM GEL COAT SPRAYER Height - - Body Mass Index 26.45 05/21/2012 1:53 PM CDT documented in this encounter Progress Notes Rosa Odom M.D. - 10/22/2012 3:19 PM CST [id number] CHIEF COMPLAINT/REASON FOR VISIT Anxiety. HISTORY OF PRESENT ILLNESS Lissette is a 42-year-old female who presents to the clinic today for her anxiety. For a few weeks she states her anxiety is so bad that she is shaking and feels that she needs to crawl out of her skin.This feeling is becoming more consistent than once in a while. She hasn't been sleeping but denies any depression and does still find things pleasurable. She denies any increasing stressors at home that are triggering this. She has been drinking a lot of tea to help calm herself. The patient states she rather do something natural rather than pharmaceutical. She has been on Zoloft in the past. She has been using a steroid for her rash on her chin, but it appears to be more consistent with rosacea. CURRENT MEDICATIONS Reviewed and updated in the EMR dated 10/22/2012. ALLERGIES Reviewed and updated in the EMR dated 10/22/2012. VITAL SIGNS WEIGHT: 68.40 kg TEMP: 36.7 C PULSE: 66 /min RESP RATE: 18 /min SYSTOLIC: 102 mmHg DIASTOLIC: 60 mmHg PHYSICAL EXAM GENERAL: Pleasant female in no distress. ENT: TMs are normal. Mouth is moist. Pharynx is normal. HEART: S1, S2 regular rate and rhythm without murmurs or rubs. LUNGS: Negative for cough, wheezing, shortness of breath, excessive snoring. SKIN: Erythematous rash on cheeks and also perioral. IMPRESSION/REPORT/PLAN 1. Anxiety. Plan: She is going to start Zoloft 25 mg oral tablet one daily for 4-7 days and then increase to twice daily and will watch for side effects. She will also take Ativan 0.5 mg oral tablet three times daily as needed. She will follow up in one month. 2. Rosacea. Plan: She will try MetroGel 1% topical cream applying daily and follow up if any worsening symptoms. This document serves as a record of services personally performed by Dr. Rosa Odom. It was created on their behalf by Kayla Humphrey, a trained biomedical equipment specialist. The creation of this record is based on the scribe's personal observations and the provider's statements to them. This document has been checked and approved by the attending provider. Rosa Odom M.D./ Electronically Signed By: ROSA ODOM MD On: 10/27/2012 06:40 PM Source: [facility] [id number] Document Id: [id number] COAT SPRAYER documented in this encounter Miscellaneous Notes Miscellaneous - Janiya Johnson - 08/05/2017 10:35 AM CDT Hysterectomy Procedure From: JANIYA JOHNSON To: ROSA ODOM MD; Sent: 08/05/2017 10:35:07 CDT Subject: Hysterectomy Procedure Good morning, This patient is coming up in scheduled outreach for a pap as well we other things, however I am seeing that in many of the notes she is stated to have had a hysterectomy. I would normally update this myself, but need a date to do that. Could you please review this patient, update the procedures and cancel the Pap in Health Maintenance with the proper date? Thanks, Mariya, Superbealth Assisant Source: [facility] POWERCHART Document Id: [id number] Miscellaneous - Rosa Odom M.D. - 10/22/2012 4:00 PM CST Ambulatory Patient Summary [address] [address] Visit Information Name: LISSETTE PERDOMO [facility] Number: [id number] Current Date: 10/22/2012 16:00:19 Physicians Attending Provider: ROSA ODOM MD Primary Care Provider: ROSA ODOM MD Your Medications Here is a list of your medications. It is important to take your medications as directed. Use a pillbox or chart to help remind you to take your medications. Please let your doctor or nurse know if you have problems taking your medications. Medication/Strength Dose Route Frequency Indications/Special Instructions/Comments lorazepam (Ativan 0.5 mg oral tablet) 0.5 mg Oral three times a day as needed for Anxiety 0.5 to 1 tabs three times a day PRN anxiety sertraline (Zoloft 25 mg oral tablet) 25 mg Oral once a day Take one daily for 4-7 days then increase to 2 daily. metronidazole topical (MetroGel 1% topical kit) 1 radha Topical once a day multivitamin with minerals (Centrum Ultra Women's oral tablet) 1 tab(s) Oral once a day cholecalciferol (Vitamin D3 1000 intl units oral capsule) 1,000 IntU Oral once a day triamcinolone topical (triamcinolone topical 0.1% cream) 1 radha Topical three times a day estradiol (estradiol 2 mg oral tablet) 3 mg Oral once a day HAS UPCOMING APPT. fluconazole (Diflucan 150 mg oral tablet) 150 mg Oral once a day Attention: If you have any medications at home that are not on this list, DO NOT take them until youcontact your provider for clarification. Your Allergies & Intolerances Substance Reaction Symptoms [...] 07/13/2007 Your Upcoming Appointments Date Time Location Reason Provider No Appointments found Your Goals/Additional instructions: Source: [facility] POWERCHART Document Id: [id number] Miscellaneous - Rosa Odom M.D. - 10/22/2012 4:00 PM CST Ambulatory Depart Summary [facility] [address] [place] [address] Visit Information Name: LISSETTE PERDOMO [facility] Number: [id number] Visit Date: 10/22/2012 16:00:18 Attending Provider: ROSA ODOM MD Primary Care Provider: ROSA ODOM MD LISSETTE PERDOMO has been given the following list of medications: Your Medications It is important to take your medications as directed. Use a pill box or chart to help remind you to take your medications. Please let your doctor or nurse know if you have problems taking your medications. Medication/Strength Dose Route Frequency Indications/Special Instructions/Comments lorazepam (Ativan 0.5 mg oral tablet) 0.5 mg Oral three times a day as needed for Anxiety 0.5 to 1 tabs three times a day PRN anxiety sertraline (Zoloft 25 mg oral tablet) 25 mg Oral once a day Take one daily for 4-7 days then increase to 2 daily. metronidazole topical (MetroGel 1% topical kit) 1 radha Topical once a day multivitamin with minerals (Centrum Ultra Women's oral tablet) 1 tab(s) Oral once a day cholecalciferol (Vitamin D3 1000 intl units oral capsule) 1,000 IntU Oral once a day triamcinolone topical (triamcinolone topical 0.1% cream) 1 radha Topical three times a day estradiol (estradiol 2 mg oral tablet) 3 mg Oral once a day HAS UPCOMING APPT. fluconazole (Diflucan 150 mg oral tablet) 150 mg Oral once a day Attention: If you have any medications at home that are not on this list, DO NOT take them until youcontact your provider for clarification. Additional Information: Source: [facility] POWERCHART Document Id: [id number] COAT SPRAYER Miscellaneous - Reyna Matias L.P.N. - 10/22/2012 3:35 PM CST Adult Round Cutter Operator Intake/History Adult Round Cutter Operator Intake/History Entered On: 10/22/2012 15:38 GEL COAT SPRAYER Performed On: 10/22/2012 15:35 GEL COAT SPRAYER by REYNA MATIAS Intake Chief Complaint : consult on anxiety Temperature Oral : 36.7C(Converted to: 98.1DegF) Peripheral Pulse Rate : 66/min Respiratory Rate : 18/min Heart Rhythm : Regular Systolic Blood Pressure : 102mmHg Diastolic Blood Pressure : 60mmHg NIBP Mean : 74mmHg BP Location : Right upper extremity Blood Pressure Cuff Size : Regular Actual Weight : 68.4kg(Converted to: 150lb 13oz) Dosing Weight Clinic : 68.40kg REYNA MATIAS - 10/22/2012 15:35 GEL COAT SPRAYER General Info Information Given By : Patient Preferred Communication Mode : Verbal Languages : Greenlandic REYNA MATIAS - 10/22/2012 15:35 GEL COAT SPRAYER Subjective Pain Symptoms : No REYNA MATIAS - 10/22/2012 15:35 GEL COAT SPRAYER Dependent Habits Tobacco Use/Currently Using : No Exposure to Tobacco Smoke : Other: FORMER Smoking Status : Former smoker REYNA MATIAS - 10/22/2012 15:35 GEL COAT SPRAYER Caffeine Use Grid Caffeine Use : Current Type : Coffee, Soft drinks Frequency : Daily Amount : 4 CUPS OF COFFEE DAILY, POP OCCASSIONAL REYNA MATIAS - 10/22/2012 15:35 GEL COAT SPRAYER Recreational Drug Use Grid Drug Use : None REYNA MATIAS - 10/22/2012 15:35 GEL COAT SPRAYER Allergy Allergies (Active) NKA Estimated Onset Date: Unspecified ; Created By: BAL SMITH; Reaction Status: Active ; Category: Drug ; Substance: NKA ; Type: Allergy ; Updated By: BAL SMITH; Reviewed Date: 10/22/2012 15:34 GEL COAT SPRAYER Source: [facility] POWERCHART Document Id: [id number] COAT SPRAYER documented in this encounter Plan of Treatment Not on filedocumented as of this encounter Visit Diagnoses Not on filedocumented in this encounter
--- OUTSIDE RECORDS SUMMARY | 2022-10-09 18:54 | XMS_ITS | Encounter Summary ---
:1970 Author Organization [facility] Address [address] [place] [address] Care Team Providers Name Role Phone Unavailable Primary Care Provider Unavailable Encounter Details Date Type Department Care Team Description 08/20/2006 Hospital Encounter HX [facility] Inge [...] or relatives? How often do you attend episcopal or 1 to 4 times per year 05/23 orthodoxy services? Do you belong to any clubs or Yes 10/28/2019 organizations such as episcopal groups, unions, fraternal or athletic groups, or [...]
--- OUTSIDE RECORDS SUMMARY | 2022-10-09 18:54 | XMS_ITS | Encounter Summary ---
:1970 Author Organization [facility] Address [address] [place] [address] Care Team Providers Name Role Phone Rosa Odom M.D. Primary Care Provider Encounter Details Date Type Department Care Team Description 09/22/2017 Orders Only Department of Family Rosa Odom Ge nermatt Medical Examination Adult; Medicine, Jamari Mayorga Screening Examination Diabetes Mellitus Clinic, in [facility] [address] [place], [place] [address] [address] [place], [place] [phone] [address] (Work) [phone] Social History Tobacco Use Types Packs/Day Years Used Date Smoking Tobacco: Former Alcohol Habits Answer Date Recorded How often [...] or relatives? How often do you attend rastafari or 1 to 4 times per year 05/23 gnosticist services? Do you belong to any clubs or Yes 10/28/2019 organizations such as rastafari groups, unions, fraternal or athletic groups, or [...] as of this encounter Visit Diagnoses Diagnosis General Medical Examination Adult Screening Examination Diabetes Mellitus documented in this encounter Care Teams Departure Clerk Relationship Specialty Start Date End Date Rosa Odom M.D. PCP - General 05/07/17 01/09/[address] [address] documented as of this encounter
--- OUTSIDE RECORDS SUMMARY | 2022-10-09 18:54 | XMS_ITS | Encounter Summary ---
:1970 Author Organization [facility] Address [address] [place] [address] Care Team Providers Name Role Phone Unavailable Primary Care Provider Unavailable Encounter Details Date Type Department Care Team Description 09/10/2005 Hospital Encounter HX NO MAPPING Provider, Historical [...]
--- OUTSIDE RECORDS SUMMARY | 2022-10-09 18:54 | XMS_ITS | Encounter Summary ---
:1970 Author Organization [facility] Address [address] [place] [address] Care Team Providers Name Role Phone Unavailable Primary Care Provider Unavailable Encounter Details Date Type Department Care Team Description 04/14/2007 Hospital Encounter [facility]X [facility] Provider, [...]
--- OUTSIDE RECORDS SUMMARY | 2022-10-09 18:54 | XMS_ITS | Encounter Summary ---
:1970 Author Organization [facility] Address [address] [place] [address] Care Team Providers Name Role Phone Unavailable Primary Care Provider Unavailable Encounter Details Date Type Department Care Team Description 06/21/2012 Hospital Encounter HX [facility] Tiffanie Odom M.D. [address] [place], [place] [address] (Wo rk) Social History [...] of this encounter Miscellaneous Notes Miscellaneous - Juany Joseph M.D. - 06/21/2012 1:40 PM CDT Results Notification Document Contains Addenda Addendum by JUANY ODOM MD on 24 June 2012 13:13:02 CDT Tired all the time. She is being evaluated at [facility] with nl sleep study and they are wanting to do other test and she is wondering if it could be worked up in a less expensive way. Recommended she schudule an appt with Dr Rosa Odom since she did not mention fatigue at her last GE. Addendum by RAHUL COCHRAN on 23 June 2012 10:57:16 CDT From: RAHUL COCHRAN To: JUANY ODOM MD; Sent: 06/23/2012 10:57:16 CDT Show up: 06/23/2012 10:57:00 CDT Subject: RE: Results Notification Patient notified. Would like to speak directly to Dr. Odom please call her at [phone] Addendum by RAHUL COCHRAN on 23 June 2012 09:34:46 CDT tcb From: JUANY ODOM MD To: PTAEL BRITO Sent: 06/21/2012 13:40:23 CDT ! Show up: 06/21/2012 18:40:23 [facility] Subject: Results Notification Actions: Notify patient of results Source: [facility] POWERCHART Document Id: [id number] documented in this encounter Plan of Treatment Not on filedocumented as of this encounter Procedures Procedure Name Priority Date/Time Associated Diagnosis Comme nts PROLACTIN, S Routine 06/21/2012 9:12 AM Results f or this CDT procedure are i n the results section . documented in this encounter Results Prolactin Level (06/21/2012 9:12 AM CDT) P athologist Signature Prolactin Total 6.1 3.3 - 26.7 POWERCHART NGML Comment: Effective 12/26/2009 per Modumetal e xpected values Female Premenopausal (<50) ??3.34-26.72 Postmenopausal (>=50) ??2.74-19.64 Male ??2.64-13.13 Specimen (Source) Anatomical Collection Method Collection Time Re ceived Time Location / / Volume Laterality Blood 06/21/2012 9:12 AM CDT Rosa Odom M.D. LAB BLOOD ADD-ON Performing Organization Address City/State/ZIP Code Phon e Number POWERCHART documented in this encounter Visit Diagnoses Not on filedocumented in this encounter
--- OUTSIDE RECORDS SUMMARY | 2022-10-09 18:54 | XMS_ITS | Encounter Summary ---
:1970 Author Organization [facility] Address [address] [place] [address] Care Team Providers Name Role Phone Unavailable Primary Care Provider Unavailable Encounter Details Date Type Department Care Team Description 06/17/2007 Hospital Encounter HX [facility] Provider, [...]
--- OUTSIDE RECORDS SUMMARY | 2022-10-09 18:54 | XMS_ITS | Encounter Summary ---
:1970 Author Organization [facility] Address [address] [place] [address] Care Team Providers Name Role Phone Rosa Odom M.D. Primary Care Provider Encounter Details Date Type Department Care Team Description 02/12/2018 Orders Only Department of Family Medicine, Merissa [facility], in [place], [place] [address], [place] [address] [facility] [phone] Social History Tobacco Use Types Packs/Day Years Used Date Smoking Tobacco: Unknown Alcohol Habits Answer Date Recorded How often [...] on filedocumented in this encounter Care Teams Instructor Nurse Relationship Specialty Start Date End Date Rosa Odom M.D. PCP - General 05/07/17 01/09/[address] [address] documented as of this encounter
--- OUTSIDE RECORDS SUMMARY | 2022-10-09 18:54 | XMS_ITS | Encounter Summary ---
:1970 Author Organization [facility] Address [address] [place] [address] Care Team Providers Name Role Phone Unavailable Primary Care Provider Unavailable Encounter Details Date Type Department Care Team Description 02/01/2008 Hospital Encounter HX [facility] Toñito Dumont [...]
--- OUTSIDE RECORDS SUMMARY | 2022-10-09 18:54 | XMS_ITS | Encounter Summary ---
:1970 Author Organization [facility] Address [address] [place] [address] Care Team Providers Name Role Phone Unavailable Primary Care Provider Unavailable Encounter Details Date Type Department Care Team Description 02/02/2007 Hospital Encounter HX [facility] Provider, [...]
--- OUTSIDE RECORDS SUMMARY | 2022-10-09 18:54 | XMS_ITS | Encounter Summary ---
:1970 Author Organization [facility] Address [address] [place] [address] Care Team Providers Name Role Phone Unavailable Primary Care Provider Unavailable Encounter Details Date Type Department Care Team Description 04/26/2007 Hospital Encounter HX [facility] Inge [...] or relatives? How often do you attend confucianism or 1 to 4 times per year 05/23 sabianism services? Do you belong to any clubs or Yes 10/28/2019 organizations such as confucianism groups, unions, fraternal or athletic groups, or [...]
--- OUTSIDE RECORDS SUMMARY | 2022-10-09 18:54 | XMS_ITS | Encounter Summary ---
:1970 Author Organization [facility] Address [address] [place] [address] Care Team Providers Name Role Phone Unavailable Primary Care Provider Unavailable Encounter Details Date Type Department Care Team Description 04/16/2012 Hospital Encounter [facility]X [facility] Tiffanie Odom M.D. [address] [place] [address] (Wo rk) Social History Tobacco [...] Sign Reading Time Taken Comments Blood Pressure 104/62 04/16/2012 2:16 PM CDT Pulse 74 04/16/2012 2:16 PM CDT Temperature - - Respiratory Rate 16 04/16/2012 2:16 PM CDT Oxygen Saturation - - Inhaled Oxygen Concentration - - Weight 72.8 kg (160 lb 7.9 oz) 04/16/2012 2:16 PM CDT Height 160.6 cm (5' 3.23) 04/16/2012 2:16 PM CDT Body Mass Index 28.23 04/16/2012 2:16 PM CDT documented in this encounter H&P Notes Rosa Odom M.D. - 04/16/2012 12:00 AM CDT [id number] CHIEF COMPLAINT/REASON FOR VISIT Annual physical exam HISTORY OF PRESENT ILLNESS Lissette is a 41-year-old female who presents today for her annual physical exam. She has a little bit of rough skin on her face around her cheeks and eyes. She has used a steroid cream in the past that worked well. She also states that she might have a genital wart. She has a history of these. She also states that she has a black and blue spot on her left nipple that she would like evaluated. She feels a small mass. She also states that she has a leaky bladder. She states that she feels like she is constantly going to the bathroom. There have been times, usually after walking for a while, that she has not quite made it to the bathroom. She did have a bladder sling placed but she states that it has apparently fallen. She has had some leakage with sneezing and laughing, depending on how full her bladder is. SYSTEMS REVIEW No visual disturbance, hearing disorders, dental concerns, shortness of breath, chest pain, stomach problems, urinary symptoms, joint aches and pains, numbness, weakness or other neurologic symptoms. CURRENT MEDICATIONS Estradiol 3 mg daily Diflucan 150 mg daily Multivitamin daily ALLERGIES No known drug allergies. PAST MEDICAL / SURGICAL HISTORY 1) Endometriosis. 2) Incontinence. 3) Brain tumor meningioma. 4) LASIK. 5) Hysterectomy with sling procedure in 2005. 6) Brain tumor removed in 2003. 7) [...] anxiety. Mother also had a brain aneurysm. Grandfather with colon cancer in his 60s. Maternal cousin with breast cancer. Both paternal and maternal grandmothers from aneurysms. Otherwise, the rest of family history is negative. VITAL SIGNS HEIGHT: 160.6 cm WEIGHT: 72.80 kg BMI: 28.23 kg/m2 TEMP: 36.5 C PULSE: 74 /min RESP RATE: 16 /min SYSTOLIC: 104 mmHg DIASTOLIC: 62 mmHg PHYSICAL EXAM GENERAL: Pleasant female in no distress. EYES: Pupils were equal and reactive. Extraocular movements were intact. ENT: TMs are normal. Mouth is moist. Pharynx is normal. Neck is supple. LYMPH NODES: No lymphadenopathy. THYROID: No thyromegaly. BREASTS: Just underneath the left areola at about 4 o clock, she has a nodular density, still probably fibrous breast tissues. The rest of her breast exam showed fibrous breast tissue but no other discreet masses were noted. PERIPHERAL VESSELS: Neck has no jugular venous distention or carotid bruits. HEART: S1, S2 regular rate and rhythm without murmurs or rubs. LUNGS: Clear. No wheezes, rales, or rhonchi. ABDOMEN: Soft. Positive bowel sounds. No hepatosplenomegaly or tenderness. PELVIS: Normal external female genitalia. Pap was deferred since she has had a hysterectomy. No evidence of any genital warts. EXTREMITIES: No pitting edema, clubbing, or cyanosis. NEURO: Otherwise intact. IMPRESSION/REPORT/PLAN 1. Healthcare maintenance. Tetanus was on 02/02/2007. Plan: Pap was deferred since she has had a hysterectomy. She will return fasting for a fasting lipid profile. We discussed healthy diet, regular exercise, 100% seatbelt use, and no smoking. She will follow up in one year. 2. Left breast lump, family history of breast cancer in maternal cousin Plan: Will set her up for a diagnostic mammogram. 3. Seborrheic dermatitis Plan: Refilled triamcinolone 0.1% topical. 4. Status post hysterectomy Plan: Refilled estradiol 3 mg daily. 5. Stress incontinence, status post sling with persistent prolapse Plan: Will send her to urogynecology at [place]. This document serves as a record of services personally performed by Dr. Rosa Odom. It was created on their behalf by Mandi Meng, a trained medical office technologist. The creation of this record is based on the scribe's personal observations and the provider's statements to them. This document has been checked and approved by the attending provider. Rosa Odom M.D. ho Electronically Signed By: ROSA ODOM MD On: 04/16/2012 05:05 PM Source: [facility] MHSDOLBEYNONRADSYS Document Id: [id number] documented in this encounter Miscellaneous Notes Miscellaneous - Rosa Odom M.D. - 04/16/2012 3:10 PM CDT Ambulatory Patient Summary [address] [id number] Visit Information Name: LISSETTE PERDOMO Current Date: 04/16/2012 15:10:09 Physicians Attending Provider: ROSA ODOM MD Primary Care Provider: ROSA ODOM MD Your Medications Here is a list of your medications. It is important to take your medications as directed. Use a pillbox or chart to help remind you to take your medications. Please let your doctor or nurse know if you have problems taking your medications. Medication/Strength Dose Route Frequency Indications/Special Instructions/Comments estradiol (estradiol 2 mg oral tablet) 3 [...] No Appointments found Your Goals/Additional instructions: Source: [facility] POWERCHART Document Id: [id number] Sherwin - Rosa Odom M.D. - 04/16/2012 3:10 PM CDT Ambulatory Depart Summary [facility] [address] [place] [address] Visit Information Name: LEANNELISSETTE Visit Date: 04/16/2012 15:10:09 Attending Provider: ROSA ODOM MD Primary Care [...] medications. Medication/Strength Dose Route Frequency Indications/Special Instructions/Comments estradiol (estradiol 2 mg oral tablet) 3 mg Oral once a day HAS UPCOMING APPT. fluconazole (Diflucan 150 mg oral tablet) 150 mg Oral once a day Attention: If you have any medications at home that are not on this list, DO NOT take them until youcontact your provider for clarification. Additional Information: Source: [facility] [employer] MediaCHART Document Id: [id number] Giannacelljames - Paris Linn, R.M.A. - 04/16/2012 2:20 PM CDT Health Assessment Health Assessment Entered On: 04/16/2012 14:20 CDT Performed On: 04/16/2012 14:20 CDT by PARIS LINN Health Assessment Complete Health Assessment Complete or Modified : Annual Health Assessment Annual Health Assessment Completed : Yes PARIS LINN - 04/16/2012 14:20 CDT Nutrition Nutrition Risk Factors by History Adult : None PARIS LINN - 04/16/2012 14:20 CDT Functional Current Daily Living Assistance : None PARIS LINN - 04/16/2012 14:20 CDT Dependent Habits Tobacco Use/Currently Using : No Exposure to Tobacco Smoke : Other: FORMER Smoking Status : Former smoker PARIS LINN - 04/16/2012 14:20 CDT Caffeine Use Grid Caffeine Use : Current Type : Coffee, Soft drinks Frequency : Daily Amount : 4 CUPS OF COFFEE DAILY, POP OCCASSIONAL PARIS LINN - 04/16/2012 14:20 CDT Recreational Drug Use Grid Drug Use : None PARIS LINN 04/16/2012 14:20 CDT Psychosocial Domestic Abuse Concerns : None PARIS LINN 04/16/2012 14:20 CDT Advance Directive Advanced Directives : No PARIS LINN 04/16/2012 14:20 CDT Educ Needs Learning Style Preference Adult Grid Patient : Printed materials Family : Printed materials PARIS LINN - 04/16/2012 14:20 CDT Source: [email or web address] Document Id: [id number] CDT!29 Miscellaneous - Paris Linn, R.M.A. - 04/16/2012 2:16 PM CDT Adult Director Of Instrumental Music Intake/History Adult Director Of Instrumental Music Intake/History Entered On: 04/16/2012 14:20 CDT Performed On: 04/16/2012 14:16 CDT by PARIS LINN Intake Chief Complaint : Physical, black and blue spot on breast feels a lump under there left side Temperature Oral : 36.5C(Converted to: 97.7DegF) Peripheral Pulse Rate : 74/min Respiratory Rate : 16/min Heart Rhythm : Regular Systolic Blood Pressure : 104mmHg Diastolic Blood Pressure : 62mmHg NIBP Mean : 76mmHg BP Location : Right upper extremity Blood Pressure Cuff Size : Regular Height : 160.6cm(Converted to: 5ft 3inch(es), 63.23inch(es)) Actual Weight : 72.8kg(Converted to: 160lb 8oz) Dosing Weight Clinic : 72.80kg Clinic BSA : 1.80 Body Mass Index : 28.23kg/m2 PARIS LINN - 04/16/2012 14:16 CDT Subjective Pain Symptoms : Yes PARIS LINN - 04/16/2012 14:16 CDT Dependent Habits Tobacco Use/Currently Using : No Exposure to Tobacco Smoke : Other: FORMER Smoking Status : Former smoker PARIS LINN - 04/16/2012 14:16 CDT Caffeine Use Grid Caffeine Use : Current Type : Coffee, Soft drinks Frequency : Daily Amount : 4 CUPS OF COFFEE DAILY, POP OCCASSIONAL PARIS LINN - 04/16/2012 14:16 CDT Recreational Drug Use Grid Drug Use : None PARIS LINN - 04/16/2012 14:16 CDT Allergy Allergies (Active) NKA Estimated Onset Date: Unspecified ; Created By: BAL SMITH; Reaction Status: Active ; Category: Drug ; Substance: NKA ; Type: Allergy ; Updated By: BAL SMITH; Reviewed Date: 05/16/2011 13:44 CDT Source: [email or web address] Document Id: [id number] CDT!32 documented in this encounter Plan of Treatment Not on filedocumented as of this encounter Visit Diagnoses Not on filedocumented in this encounter
--- OUTSIDE RECORDS SUMMARY | 2022-10-09 18:54 | XMS_ITS | Encounter Summary ---
:1970 Author Organization [facility] Address [address] [place] [address] Care Team Providers Name Role Phone Unavailable Primary Care Provider Unavailable Encounter Details Date Type Department Care Team Description 12/31/2006 Hospital Encounter [facility]X [facility] Provider, [...] or relatives? How often do you attend islam or 1 to 4 times per year 05/23 pentecostal services? Do you belong to any clubs or Yes 10/28/2019 organizations such as islam groups, unions, fraternal or athletic groups, or [...]
--- OUTSIDE RECORDS SUMMARY | 2022-10-09 18:55 | XMS_ITS | Encounter Summary ---
:1970 Author Organization [facility] Address [address] [place] [address] Care Team Providers Name Role Phone Unavailable Primary Care Provider Unavailable Encounter Details Date Type Department Care Team Description 10/21/2004 - 10/28/2004 Hospital Encounter HX NO MAPPING Social History Tobacco Use Types Packs/Day Years [...]
--- OUTSIDE RECORDS SUMMARY | 2022-10-09 18:55 | XMS_ITS | Encounter Summary ---
:1970 Author Organization [facility] Address [address] [place] [address] Care Team Providers Name Role Phone Unavailable Primary Care Provider Unavailable Encounter Details Date Type Department Care Team Description 01/13/2005 Hospital Encounter [facility]X [facility] Provider, [...]
--- OUTSIDE RECORDS SUMMARY | 2022-10-09 18:55 | XMS_ITS | Encounter Summary ---
:1970 Author Organization [facility] Address [address] [place] [address] Care Team Providers Name Role Phone Unavailable Primary Care Provider Unavailable Encounter Details Date Type Department Care Team Description 10/03/2004 Hospital Encounter [facility]X [facility] Provider, [...]
--- OUTSIDE RECORDS SUMMARY | 2022-10-09 18:55 | XMS_ITS | Encounter Summary ---
:1970 Author Organization [facility] Address [address] [place] [address] Care Team Providers Name Role Phone Ni José APRN CSueNSuePSue Primary Care Provider Encounter Details Date Type Department Care Team Description 11/06/2004 Historical Ophthalmology RST OPH Jose Pineda M.D. Social History Tobacco Use Types Packs/Day [...] as of this encounter Progress Notes Jose Pineda M.D. - 11/06/2004 12:00 AM CST Eye General CHIEF COMPLAINT s/p meningioma HISTORY OF PRESENT ILLNESS Noted that eye sight has changed since the tumor and stroke. Tumor was removed 10/22/04 and patient experience stroke 10/23/04. Complaints of flashes, floaters and hearing a clicking sound when moving right eye. Noted a decrease in over all vision. IMPRESSION / REPORT / PLAN #1 Incomplete R homonymous hemianopsia She sees fingers inferiorly, and movement superiorly, but should not drive for at least 6 months. See then or thereabouts. Copy of above Rx for change of glasses. 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 PCP - General Family Medicine 01/30/[address] [place] [id number] documented as of this encounter
--- OUTSIDE RECORDS SUMMARY | 2022-10-09 18:55 | XMS_ITS | Encounter Summary ---
:1970 Author Organization [facility] Address [address] [place] [address] Care Team Providers Name Role Phone Unavailable Primary Care Provider Unavailable Encounter Details Date Type Department Care Team Description 02/11/2005 Hospital Encounter [facility]X [facility] Provider, [...] or relatives? How often do you attend adventist or 1 to 4 times per year 05/23 caodaism services? Do you belong to any clubs or Yes 10/28/2019 organizations such as adventist groups, unions, fraternal or athletic groups, or [...]
--- OUTSIDE RECORDS SUMMARY | 2022-10-09 18:55 | XMS_ITS | Encounter Summary ---
:1970 Author Organization [facility] Address [address] [place] [address] Care Team Providers Name Role Phone Unavailable Primary Care Provider Unavailable Encounter Details Date Type Department Care Team Description 09/18/2004 Hospital Encounter HX [facility] Provider, [...] or relatives? How often do you attend adventism or 1 to 4 times per year 05/23 catholic services? Do you belong to any clubs or Yes 10/28/2019 organizations such as adventism groups, unions, fraternal or athletic groups, or [...]
--- OUTSIDE RECORDS SUMMARY | 2022-10-09 18:55 | XMS_ITS | Encounter Summary ---
:1970 [address] [facility] Address [address] [place] [address] Care Team Providers Name Role Phone Unavailable Primary Care Provider Unavailable Encounter Details Date Type Department Care Team Description 07/10/2003 Hospital Encounter HX [facility] Toñito Ann M.D. [address] [place] [address] (Wo rk) Social History Tobacco [...]
--- OUTSIDE RECORDS SUMMARY | 2022-10-09 18:55 | XMS_ITS | Encounter Summary ---
:1970 Author Organization [facility] Address [address] [place] [address] Care Team Providers Name Role Phone Unavailable Primary Care Provider Unavailable Encounter Details Date Type Department Care Team Description 10/21/2004 - 10/28/2004 Hospital Encounter HX RST JOSE D CONNER 9D Social History Tobacco Use Types Packs/Day Years [...] or relatives? How often do you attend episcopalian or 1 to 4 times per year 05/23 restorationist services? Do you belong to any clubs or Yes 10/28/2019 organizations such as episcopalian groups, unions, fraternal or athletic groups, or [...] for the very basics like Not h johan at all 10/28/2019 food, housing, medical care, [...]
--- OUTSIDE RECORDS SUMMARY | 2022-10-09 18:55 | XMS_ITS | Encounter Summary ---
:1970 Author Organization [facility] Address [address] [place] [address] Care Team Providers Name Role Phone Unavailable Primary Care Provider Unavailable Encounter Details Date Type Department Care Team Description 06/02/2005 Hospital Encounter HX [facility] Provider, [...]
--- OUTSIDE RECORDS SUMMARY | 2022-10-09 18:55 | XMS_ITS | Encounter Summary ---
:1970 Author Organization [facility] Address [address] [place] [address] Care Team Providers Name Role Phone Unavailable Primary Care Provider Unavailable Encounter Details Date Type Department Care Team Description 10/21/2004 Hospital Encounter HX [facility] INTERNMED Ra darrell [place] [address] [place] [phone] (Wo rk) Social History Tobacco Use Types [...] 1 to 4 times per year 05/23 samaritan services? Do you belong to any clubs [...]
--- OUTSIDE RECORDS SUMMARY | 2022-10-09 18:55 | XMS_ITS | Encounter Summary ---
:1970 Author Organization [facility] Address [address] [place] [address] Care Team Providers Name Role Phone Unavailable Primary Care Provider Unavailable Encounter Details Date Type Department Care Team Description 02/12/2004 Hospital Encounter HX [facility]ILY[facility] Provider, [...] or relatives? How often do you attend oriental orthodox or 1 to 4 times per year 05/23 adventism services? Do you belong to any clubs or Yes 10/28/2019 organizations such as oriental orthodox groups, unions, fraternal or athletic groups, [...]
--- OUTSIDE RECORDS SUMMARY | 2022-10-09 18:55 | XMS_ITS | Encounter Summary ---
:1970 Author Organization [facility] Address [address] [place] [address] Care Team Providers Name Role Phone Unavailable Primary Care Provider Unavailable Encounter Details Date Type Department Care Team Description 05/09/2004 Hospital Encounter HX [facility]ILY[facility] Provider, [...]
--- OUTSIDE RECORDS SUMMARY | 2022-10-09 18:55 | XMS_ITS | Encounter Summary ---
:1970 Author Organization [facility] Address [address] [place] [address] Care Team Providers Name Role Phone Unavailable Primary Care Provider Unavailable Encounter Details Date Type Department Care Team Description 01/01/2004 Hospital Encounter HX [facility] FAMILYPRA Provider, [...]
--- OUTSIDE RECORDS SUMMARY | 2022-10-09 18:55 | XMS_ITS | Encounter Summary ---
:1970 Author Organization [facility] Address [address] [place] [address] Care Team Providers Name Role Phone Ni José APRN CSueNSuePSue Primary Care Provider Encounter Details Date Type Department Care Team Description 10/25/2004 Historical Ophthalmology RST OPH Jose Pineda M.D. [...] 1 to 4 times per year 05/23 quaker services? Do you belong to any clubs [...] encounter Progress Notes Jose Pineda M.D. - 10/25/2004 12:00 AM CST Eye General HISTORY OF PRESENT ILLNESS AUTOMATED VISUAL FIELD TEST COMPLETED. Pt. underwent emergent craniotomy on 10/22/04 and resection of a clot on 10/23/04. Pt. states that since waking up from surgery she has loss vision in her superior field; I can't see your forehead on up. Denies flashes, floaters or diplopia. 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 Correctly counts fingers in the L field. Suspect this might well clear, suggest re-test 2-3 months. 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 PCP - General Family Medicine 01/30/[address] [place] [phone] documented as of this encounter
--- OUTSIDE RECORDS SUMMARY | 2022-10-09 18:55 | XMS_ITS | Encounter Summary ---
:1970 Author Organization [facility] Address [address] [place] [address] Care Team Providers Name Role Phone Unavailable Primary Care Provider Unavailable Encounter Details Date Type Department Care Team Description 07/26/2003 Hospital Encounter HX [facility] FAMILYPRA Provider, [...] or relatives? How often do you attend bahai or 1 to 4 times per year 05/23 moravian services? Do you belong to any clubs or Yes 10/28/2019 organizations such as bahai groups, unions, fraternal or athletic groups, or [...]
--- OUTSIDE RECORDS SUMMARY | 2022-10-09 18:55 | XMS_ITS | Encounter Summary ---
:1970 Author Organization [facility] Address [address] [place] [address] Care Team Providers Name Role Phone Unavailable Primary Care Provider Unavailable Encounter Details Date Type Department Care Team Description 08/29/2003 Hospital Encounter HX [facility] FAMILYPRA Provider, [...]
--- OUTSIDE RECORDS SUMMARY | 2022-10-09 18:55 | XMS_ITS | Encounter Summary ---
:1970 Author Organization [facility] Address [address] [place] [address] Care Team Providers Name Role Phone Unavailable Primary Care Provider Unavailable Encounter Details Date Type Department Care Team Description 10/21/2004 Hospital Encounter HX [facility] URGENTCAR Provider, Nv tanner Social History Tobacco Use Types Packs/Day Years [...]
--- OUTSIDE RECORDS SUMMARY | 2022-10-09 18:56 | XMS_ITS | Encounter Summary ---
:1970 Author Organization [facility] Address [address] [place] [address] Care Team Providers Name Role Phone Unavailable Primary Care Provider Unavailable Encounter Details Date Type Department Care Team Description 04/16/2021 [facility] CONVERSION Provider, Histor ical Social History Tobacco Use Types Packs/Day Years Used Date Smoking Tobacco: Never Assessed Sex Assigned at Date Recorded Not on file documented as of this encounter Plan of Treatment Not on filedocumented as of this encounter Procedures Procedure Name Priority Date/Time Associated Comments Diagnosis US OB LIMITED >14 Routine 10/21/2000 12:00 Result s for this WEEKS WO AM ASSOCIATE MUSIC PROFESSOR procedure are in MEASUREMENT the results section. documented in this encounter Results US OB >14 Weeks Limited wo Measurement (10/21/2000 12:00 AM ASSOCIATE MUSIC PROFESSOR) Anatomical Region Laterality Modality Abdomen/Pelvis Other Specimen (Source) Anatomical Location Collection Method / Collectio n Time Received Time / Laterality Volume Narrative 10/21/2000 12:00 AM ASSOCIATE MUSIC PROFESSOR See Historical Hospital Medical Record f or documentation Procedure Note Provider, Historical - 04/16/2021Formatt ing of this note might be different from the original. See Historical Hospital Medical Record f or documentation Historical Provider IMG US ORDERABLES documented in this encounter Visit Diagnoses Not on filedocumented in this encounter
--- OUTSIDE RECORDS SUMMARY | 2022-10-09 18:56 | XMS_ITS | Clinical Summary ---
:1970 Author Organization [facility] [place] [address] Care Team Providers Name Role Phone Pcp, No Primary Care Provider Unavailable Allergies No known active allergies Medications Medication Sig Dispensed Refills Start Date End Date Status multivitamin (MVI) Take by 0 A ctive tablet mouth. b complex vitamins Take 1 0 A ctive (VITAMIN B Capsule by COMPLEX) capsule mouth. estradioL Insert 1 30 Tablet 3 09/11/2022 Active (VAGIFEM) 10 mcg Tablet (10 tab vaginal mcg) into the tabletIndications: vagina every Atrophic vaginitis Thursday and . Use daily to every other day for 2 weeks first. EPIDUO FORTE 0 08/28/2017 Discon tinued 0.3-2.5 % topical 2 (* Patient states gel no longer taking/Not on sending fa cility list) estradiol 0 07/31/2017 Discontin ued (ESTRACE) 1 mg 2 (*Pat ient states tablet no longer taking/Not on sending fa cility list) FLUoxetine 0 09/05/2017 Disconti nued (PROZAC) 20 mg 2 (*Pat ient states capsule no longer taking/Not on sending fa cility list) minocycline 0 07/17/2017 Discont inued (MINOCIN) 50 mg 2 (*Pa tient states capsule no longer taking/Not on sending fa cility list) tretinoin 0.025 % 0 08/28/2017 D iscontinued gel 2 (*Patient states no longer taking/Not on sending fa cility list) Active Problems Problem Noted Date Malignant neoplasm of brain, unspecified location 08/24 Seizure 09/11/2022 Encounters Date Type Specialty Care Team Description 10/07/2022 Telephone Vicki Wang, LATE CANCELLATION [facility] 09/23/2022 Office Visit Vicki [facility] Visit; Trmt Plan 09/23/2022 Travel 09/16/2022 Telephone Vicki Wang, [facility] 09/11/2022 Office Visit Jordy Haddad, Vagina l Itching DO (intermittent v aginal itching x1 year ); Sexual Problem (Low se x drive for multiple years) ; Anxiety (Patient states she has had anxiety for mo st of her life) 09/11/2022 Travel from Last 3 Months Immunizations Name Administration Dates Next Due Hepatitis A (Adult) 11/24/2007 Td (Age >=7 Years) 05/23/2007 Td, Preservative Free (age >= 7 Years) 02/03/2020 Tdap 02/02/2007 Social History Tobacco Use Types Packs/Day Years Used Date Former Smoker Cigarettes Quit: 1998 Smokeless Tobacco: Never Used Tobacco Cessation: Counseling Given: No Alcohol Use Standard Drinks/Week Comments Not Currently 0 (1 standard drink = 0.6 oz pure alcoho l) 2-5 per month Alcohol Habits Answer Date Recorded How often do you have a drink containing alcohol? Not asked How many drinks containing alcohol do you have on a Not aske d typical day when you are drinking? How often do you have six or more drinks on one occasion? No t asked Comment: 2-5 per month 05/28/2015 Sex Assigned at Date Recorded Not on file COVID-19 Exposure Response Date Recorded In the last 10 days, have you been in contact with No / Unsu re 09/23/2022 8:33 AM CDT someone who was confirmed or suspected to have Coronavirus/COVID-19? 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 Oxygen Saturation 100% 05/28/2015 6:37 PM CDT Inhaled Oxygen Concentration - - Weight 68.5 kg (151 lb) 09/11/2022 10:59 AM CDT Height 160.7 cm (5' 3.25) 01/07/2016 3:51 PM LINUX SERVER ADMINISTRATOR Body Mass Index 26.54 01/07/2016 3:51 PM LINUX SERVER ADMINISTRATOR Plan of Treatment Upcoming Encounters Date Type Specialty Care Team Description 10/14/2022 Office Visit Vicki Wang, [facility] [address] [place], [place] [address] (Wo rk) 10/21/2022 Appointment Health Maintenance Due Date Last Done Comments COVID-19 vaccine series (#1) 02/28/1973 HIV for age 15-65 1987 Pap test for age 21-65 1993 Colonoscopy through age 75 2017 Mammogram for age 45-75 2017 Influenza for age 50-64 2022 Zoster (shingles) series for age 50+ 2022 (1 of 2) BMI (ht and wt on same day) for age 1009/11/2023 09/11/2022, 01/07/2016 18+ Depression screening for age 12+ 09/23/2023 09/23/2022 Lipids for age 45-75 09/11/2027 09/11/2022 Tetanus booster 02/02/2030 02/03/2020, 05/23/2007, 02/02/2007 Tdap Completed 02/02/2007 Hepatitis C screening for age 18-79 Completed 09/11/2022 Procedures Procedure Name Priority Date/Time Associated Comments Diagnosis URINE CULTURE Routine 09/11/2022 1:53 PM Urinary frequency Res ults for this CDT procedure are i n the results section. UA W/ SEDIMENT EXAM Routine 09/11/2022 1:53 PM Urinary frequen cy Results for this REFLEXED PER CRITERIA CDT proced ure are in the results section. CBC WITH AUTO Routine 09/11/2022 1:41 PM Screening for Results for this DIFFERENTIAL CDT condition procedure are i n the results section. ANTI HCV Routine 09/11/2022 1:41 PM Need for hepatitis Res ults for this CDT C screening test procedure a re in the results section. TSH WITH REFLEX Routine 09/11/2022 1:41 PM Screening for Resul ts for this CDT condition procedure are i n the results section. COMP METABOLIC PANEL Routine 09/11/2022 1:41 PM Screening for Results for this CDT condition procedure are i n the results section. CBC WITH AUTO Routine 09/11/2022 1:41 PM Screening for Results for this DIFFERENTIAL CDT condition procedure are i n the results section. LIPID PANEL W REFLEX Routine 09/11/2022 1:41 PM Lipid screenin g Results for this MEASURED LDL CDT procedure are i n the results section. TRICHOMONAS, CHANDNI, Routine 09/11/2022 1:10 PM Urinary frequency Results for this AND BACTERIAL CDT Vaginal irritation procedur e are in VAGINOSIS BY DANITZA the results section. from Last 3 Months Results URINE CULTURE (09/11/2022 1:53 PM CDT) athologist Signature CULTURE No growth 09/12/2022 [facility] (<1,000 9:28 PM CDT LABORATORY-CENT CFU/mL) [facility] Specimen Anatomical Collection Method Collection Time Receive d Time (Source) Location / / Volume Laterality Urine URINE SPECIMEN / Non-Blood / 09/11/2022 1:53 PM 09/11 1:53 Unknown Unknown CDT PM CDT Jordy Haddad DO MICROBIOLOGY Performing Organization Address City/State/ZIP Code Phon e Number [facility] [address] [place] [address] LABORATORY-CENTRAL 1999 LABORATORY (ABNORMAL) UA W/ SEDIMENT EXAM REFLEXED PER CRITERIA (09/11/2022 1:53 PM CDT) [facility] Method Time Signature COLOR Yellow Yellow Color 09/11/2022 [place] 2:08 PM CDT [facility] CLARITY Clear Clear 09/11/2022 [place] Clarity 2:08 PM CDT [facility] SPECIFIC 1.015 1.010, 09/11/2022 [place] GRAVITY,URINE 1.015, 2:08 PM CDT [facility] 1.020, 1.025 LABORATORY PH,URINE 6.5 6.0, 7.0, 09/11/2022 [place] 8.0, 5.5, 2:08 PM CDT [facility] 6.5, 7.5, LABORATORY 8.5 UROBILINOGEN, Normal Normal EU/dl 09/11/2022 [facility] QUALITATIVE 2:08 PM [facility] LABORATORY PROTEIN, Negative Negative 09/11/2022 [facility] URINE mg/dL 2:08 PM [facility] LABORATORY GLUCOSE, Negative Negative 09/11/2022 [facility] URINE mg/dL 2:08 PM [facility] LABORATORY KETONES,URINE 15 (A) Negative 09/11/2022 [facility] mg/dL 2:08 PM [facility] LABORATORY BILIRUBIN,URI Negative Negative 09/11/2022 [place] NE 2:08 PM [facility] LABORATORY OCCULT Negative Negative 09/11/2022 [facility] BLOOD,URINE 2:08 PM [facility] LABORATORY NITRITE Negative Negative 09/11/2022 [facility] 2:08 PM [facility] LABORATORY LEUKOCYTE Negative Negative 09/11/2022 [facility] ESTERASE 2:08 PM [facility] LABORATORY Specimen Anatomical Collection Method Collection Time Receive d Time (Source) Location / / Volume Laterality Urine URINE SPECIMEN / Non-Blood / 09/11/2022 1:53 PM 09/11 1:53 Unknown Unknown CDT PM CDT Jordy Haddad DO URINE Performing Organization Address City/State/ZIP Code Phon e Number [facility] [address] [place] [address] (ABNORMAL) CBC WITH AUTO DIFFERENTIAL (09/11/2022 1:41 PM CDT) [facility] Method Time Signature WHITE BLOOD 7.8 4.5 - 09/11/2022 [place] COUNT 11.0 2:05 PM [facility] thou/cu LABORATORY mm RED BLOOD COUNT 4.53 4.00 - 09/11/2022 [place] 5.20 2:05 PM [facility] mil/cu mm LABORATORY HEMOGLOBIN 13.5 12.0 - 09/11/2022 [place] 16.0 g/dL 2:05 PM [facility] LABORATORY HEMATOCRIT 41.3 33.0 - 09/11/2022 [place] 51.0 % 2:05 PM [facility] LABORATORY MCV 91 80 - 100 09/11/2022 [facility] fL 2:05 PM [facility] LABORATORY MCH 29.8 26.0 - 09/11/2022 [place] 34.0 pg 2:05 PM [facility] LABORATORY MCHC 32.7 32.0 - 09/11/2022 [place] 36.0 g/dL 2:05 PM [facility] LABORATORY RDW 12.3 11.5 - 09/11/2022 [place] 15.5 % 2:05 PM [facility] LABORATORY PLATELET COUNT 270 140 - 440 09/11/2022 [place] thou/cu 2:05 PM [facility] mm LABORATORY MPV 11.2 (H) 6.5 - 09/11/2022 [place] 11.0 fL 2:05 PM [facility] LABORATORY % NEUT 58.2 % 09/11/2022 [place] 2:05 PM [facility] LABORATORY % LYMPH 29.7 % 09/11/2022 [place] 2:05 PM [facility] LABORATORY % MONO 9.5 % 09/11/2022 [place] 2:05 PM [facility] LABORATORY % EOS 2.0 % 09/11/2022 [place] 2:05 PM [facility] LABORATORY % BASO 0.6 % 09/11/2022 [place] 2:05 PM [facility] LABORATORY ABSOLUTE 4.6 1.7 - 7.0 09/11/2022 [place] NEUTROPHILS thou/cu 2:05 PM [facility] mm LABORATORY ABSOLUTE 2.3 0.9 - 2.9 09/11/2022 [place] LYMPHOCYTES thou/cu 2:05 PM [facility] mm LABORATORY ABSOLUTE 0.7 <0.9 09/11/2022 [place] MONOCYTES thou/cu 2:05 PM [facility] mm LABORATORY ABSOLUTE 0.2 <0.5 09/11/2022 [place] EOSINOPHILS thou/cu 2:05 PM [facility] mm LABORATORY ABSOLUTE 0.1 <0.3 09/11/2022 [place] BASOPHILS thou/cu 2:05 PM [facility] mm LABORATORY Specimen Anatomical Collection Method / Collection Time Recei roe Time (Source) Location / Volume Laterality Blood BLOOD SPECIMEN / Venipuncture / 09/11/2022 1:41 2021 1:49 Unknown Unknown PM [facility] Jordy Haddad DO HEMATOLOGY Performing Organization Address City/State/ZIP Code Phon e Number [facility] [address] [place] [address] TSH WITH REFLEX (09/11/2022 1:41 PM CDT) P athologist Signature TSH 1.15 0.35 - 4.94 09/13/2022 [place] uIU/mL 5:19 PM CDT LABORATORY-CENTR AL LABORATORY Specimen Anatomical Collection Method / Collection Time Recei roe Time (Source) Location / Volume Laterality Blood BLOOD SPECIMEN / Venipuncture / 09/11/2022 1:41 2021 1:49 Unknown Unknown PM CDT PM CDT Narrative [facility]AL LAB[facility]AT [facility] - 09/13/2022 5:19 PM CDT In Adults, TSH values between 5.00 and 10.00 uIU/ml do not necessarily indicate the presence of Hyp othyroidism. Correlation with clinical findings such as presence of goiter and/or Thyroperoxidase (TPO) Antibody ma y be helpful. For more information please refer to [facility] 20 ; 291: [phone]. Jordy Haddad DO CHEMISTRY Performing Organization Address City/[facility]/ZIP Code Phon e Number [facility] [address] [place], [place] [address] [place] [address] LABORATORY-CENTRAL 2000 LABORATORY (ABNORMAL) LIPID PANEL W REFLEX MEASURED LDL (09/11/2022 1:41 PM CDT) Patholo gist Method Time Signature CHOLESTEROL,TOTAL 268 (H) 100 - 199 09/11/2022 [place] mg/dL 2:18 PM [facility]T [facility] TRIGLYCERIDES 113 <150 09/11/2022 [place] mg/dL 2:18 PM CDT [facility] HDL CHOLESTEROL 84 >40 mg/dL 09/11/2022 [place] 2:18 PM CDT [facility] NON-HDL 184 (H) <145 09/11/2022 [place] CHOLESTEROL mg/dl 2:18 PM CDT [facility] CHOL/HDL RATIO 3.19 <4.50 09/11/2022 [place] 2:18 PM CDT [facility] LDL CHOLESTEROL 161 (H) <=130 09/11/2022 [place] mg/dL 2:18 PM CDT [facility] VLDL CHOLESTEROL 23 <=30 09/11/2022 [place] mg/dL 2:18 PM CDT [facility] PROVIDER ORDERED RANDOM 09/11/2022 [place] STATUS 2:18 PM CDT [facility] Specimen Anatomical Collection Method / Collection Time Recei roe Time (Source) Location / Volume Laterality Blood BLOOD SPECIMEN / Venipuncture / 09/11/2022 1:41 2021 1:49 Unknown Unknown PM CDT PM CDT Jordy Haddad DO CHEMISTRY Performing Organization Address City/[facility] Phon e Number [facility] [address] [place] [address] ANTI HCV (09/11/2022 1:41 PM CDT) [facility] gist Method Time Signature HEPATITIS C Non-Reacti Non-Reacti 09/13/2022 [facility] ANTIBODY ve ve 5:33 PM CDT LABORATORY-[facility] LABORATORY Comment: Antibodies to HCV not detected; does not exclude the possibility of exposure to HCV. Specimen Anatomical Collection Method / Collection Time Recei roe Time (Source) Location / Volume Laterality Blood BLOOD SPECIMEN / Venipuncture / 09/11/2022 1:41 2021 1:49 Unknown Unknown PM CDT PM CDT Jordy Haddad DO SEND OUTS Performing Organization Address City/[facility]/ZIP [facility] Phon e Number [facility] [address] [address] LABORATORY-CENTRAL 2000 LABORATORY (ABNORMAL) COMP METABOLIC PANEL (09/11/2022 1:41 PM CDT) Analysis Performed At Path logist Time Signature SODIUM 140 135 - 145 09/11/2022 [place] mmol/L 2:18 PM CDT [facility] POTASSIUM 3.7 3.5 - 5.0 09/11/2022 [place] mmol/L 2:18 PM CDT [facility] CHLORIDE 101 98 - 110 09/11/2022 [place] mmol/L 2:18 PM CDT [facility] CO2,TOTAL 24 21 - 31 09/11/2022 [place] mmol/L 2:18 PM CDT [facility] ANION GAP 15 5 - 18 09/11/2022 [place] 2:18 PM [facility] LABORATORY GLUCOSE 87 65 - 100 09/11/2022 [place] mg/dL 2:18 PM [facility] LABORATORY CALCIUM 9.7 8.5 - 10.5 09/11/2022 [place] mg/dL 2:18 PM [facility] LABORATORY BUN 12 8 - 25 09/11/2022 [place] mg/dL 2:18 PM [facility] LABORATORY CREATININE 0.81 0.57 - 09/11/2022 [place] 1.11 mg/dL 2:18 PM [facility] LABORATORY BUN/CREAT RATIO 15 10 - 20 09/11/2022 [place] 2:18 PM [facility] LABORATORY ALBUMIN 4.5 3.5 - 5.2 09/11/2022 [place] g/dL 2:18 PM [facility] LABORATORY PROTEIN,TOTAL 7.7 6.0 - 8.0 09/11/2022 [place] g/dL 2:18 PM [facility] LABORATORY GLOBULIN 3.2 2.0 - 3.7 09/11/2022 [place] g/dL 2:18 PM [facility] LABORATORY A/G RATIO 1.4 1.0 - 2.0 09/11/2022 [place] 2:18 PM [facility] LABORATORY BILIRUBIN,TOTAL 0.3 0.2 - 1.2 09/11/2022 [place] mg/dL 2:18 PM [facility] LABORATORY ALK PHOSPHATASE 64 50 - 136 09/11/2022 [place] IU/L 2:18 PM [facility] LABORATORY ALT (SGPT) 25 8 - 45 09/11/2022 [place] IU/L 2:18 PM [facility] LABORATORY AST (SGOT) 18 2 - 40 09/11/2022 [place] IU/L 2:18 PM [facility] LABORATORY eGFR 89 (L) >90 09/11/2022 [place] mL/min/1.7 2:18 PM [facility] 3m2 LABORATORY Comment: As of 2022, eGFR is calcu lated by the CKD-EPI creatinine equation without race adjustment. eGFR can be inf luenced by muscle mass, exercise, and diet. The reported eGFR is an estimation only and is only applicable if the renal function is stable. Specimen Anatomical Collection Method / Collection Time Recei roe Time (Source) Location / Volume Laterality Blood BLOOD SPECIMEN / Venipuncture / 09/11/2022 1:41 2021 1:49 Unknown Unknown PM CDT PM CDT Jordy Haddad DO CHEMISTRY Performing Organization Address City/[facility]/ZIP [facility] Phon e Number [facility] [address] [place] [address] TRICHOMONAS, CHANDNI, AND BACTERIAL VAGINOSIS BY DANITZA (09/11/2022 1:10 PM CDT) [facility] gist Method Time Signature CHANDNI SPECIES Negative Negative 09/12/2022 [facility] 1:56 AM CDT LABORATORY-[facility] LABORATORY CHANDNI Negative Negative 09/12/2022 [facility] [place] 1:56 AM CDT LABORATORY-[facility] LABORATORY TRICHOMONAS VVA Negative Negative 09/12/2022 [facility] 1:56 AM CDT LABORATORY-[facility] LABORATORY BACTERIAL Negative Negative 09/12/2022 [facility] VAGINOSIS 1:56 AM CDT LABORATORY-[facility] LABORATORY Specimen Anatomical Collection Method Collection Time Receive d Time (Source) Location / / Volume Laterality Other VAGINAL SWAB / Non-Blood / 09/11/2022 1:10 PM 022 1:15 Unknown Unknown CDT PM CDT Jodry Haddad DO MICROBIOLOGY Performing Organization Address City/[facility]/ZIP Code Phon e Number [employer] [employer] [address] [place] [address] LABORATORY-CENTRAL 2000 LABORATORY from Last 3 Months Insurance Payer Benefit Plan / Subscriber ID Effective Dates Phone Addre ss Type Group WC WORKERS WC TRAVELERS [id number] 2020-[employer]en [address] [place] [address] BLUE [employer]OSS BLUE [employer] OF [id number] 2021-Presen [address] [address] [place] [address] Lissette Rogers Workers Comp Self 1970 [address] (Home) [facility] [place] [address] [employer] [facility] Other 11/23/2000 ATTN: Herber DICKEY PX [phone] (Home) [place] [address] [place] [address] Care Teams Computer Mechanic Relationship Specialty Start Date End Date Pcp, No PCP - General 05/28/15 .
--- OUTSIDE RECORDS SUMMARY | 2022-10-09 18:56 | XMS_ITS | Encounter Summary ---
:1970 Author Organization [place] Address [facility] [place] [address] Care Team Providers Name Role Phone Unavailable Primary Care Provider Unavailable Reason for Visit Reason Comments Urgent Care Ear Problem Bilateral ear pain, swelling and drainage-Patient says she was picking in ear with lj pen-Patient h as been treated w/Amox got better but started picking in ear again. Encounter Details Date Type Department Care Team Description 04/21/2021 Office Visit [facility] Karely Morales Acute buster tis externa Urgent Care Ankita Naranjo PA-C of both ears, [address] unspecified type [place], [place] (Primary Dx) [phone] Social History Tobacco Use Types Packs/Day Years Used Date Smoking Tobacco: Former Smokeless Tobacco: Never Sex Assigned at Date Recorded Not on file COVID-19 Exposure Response Date Recorded In the last month, have you been in contact with No / Unsure 04/21/2021 4:25 PM CDT someone who was confirmed or suspected to have Coronavirus / COVID-19? documented as of this encounter Last Filed Vital Signs Vital Sign Reading Time Taken Comments Blood Pressure 130/81 04/21/2021 4:35 PM CDT Pulse 81 04/21/2021 4:35 PM CDT Temperature 37.3 ??C (99.1 ??F) 04/21/2021 4:35 PM CDT Respiratory Rate - - Oxygen Saturation 98% 04/21/2021 4:35 PM CDT Inhaled Oxygen Concentration - - Weight - - Height - - Body Mass Index - - documented in this encounter Patient Instructions Patient InstructionsKarely Morales PA-C - 04/21/2021 4:25 PM CDT Images from the original note were not included. Patient Education External Ear Infection (Adult) External otitis (also called ???swimmer???s ear?? ) is an infection in the ear canal. It's often caused by bacteria or fungus. It can occur a few days after water gets trapped in the ear canal (from swimming or bathing). It can also occur after cleaning too deeply in the ear canal with a cotton swab or other object. Sometimes, hair care products get into the ear canal and cause this problem. Symptoms can include pain, fever, itching, redness, drainage, or swelling of the ear canal. Temporary hearing loss may also occur. Home care ?? Don't try to clean the ear canal. This can push pus and bacteria deeper into the canal. ?? Use prescribed ear drops as directed. These help reduce swelling and fight the infection. If an ear wick was placed in the ear canal, apply drops right onto the end of the wick. The wick will draw the medicine into the ear canal even if it's swollen closed. ?? A cotton ball may be loosely placed in the outer ear to absorb any drainage. ?? You may use [id number]-[id number] medicines to control pain as directed by the healthcare provider, unless another medicine??was prescribed. Talk with your provider before using these medicines if you have chronic liver or kidney disease or ever had a stomach ulcer or digestive tract bleeding. ?? Don't allow water to get into your ear when bathing. Also don't swim until the infection has cleared. Prevention ?? Keep your ears dry. This helps lower the risk of infection. Dry your ears with a towel or chair car attendant after getting wet. Also, use ear plugs when swimming. ?? Don't stick any objects in the ear to remove wax. ?? Talk with your provider about using ear drops to prevent swimmer's ear in case you feel water trapped in your ear canal. You can get these drops over the counter at most drugstores. They work by removing water from the ear canal. Follow-up care Follow up with your healthcare provider in 1 week, or as advised. When to seek medical advice Call your healthcare provider right away if any of these occur: ?? Ear pain becomes worse or doesn???t improve after 3 days of treatment ?? Redness or swelling of the outer ear occurs or gets worse ?? Headache ?? Fever of 100.4??F (38??C) or higher, or as directed by your healthcare provider Call 911 Call 911 or get immediate medical care if any of the following occur: ?? Seizure ?? Unusual drowsiness or confusion ?? Unusual painful or stiff neck [employer]. last reviewed this educational content on 06/23/2020 ?? [id number] [employer]. All rights reserved. This information is not intended as a substitute for professional medical care. Always follow your healthcare professional's instructions. documented in this encounter Progress Notes Karely Morales PA-C - 04/21/2021 4:25 PM CDT Assessment & Plan Acute otitis externa of both ears, unspecified type Symptoms and exam suggest. Patient was recently on amoxicillin. Cefdinir is prescribed today. VoSoL otic suspension also prescribed. Refrain from putting foreign objects in the ear canals. Keep monitoring symptoms. We discussed follow-up with ENT will be warranted if recurring symptoms. Follow-up if any worsening symptoms. Patient agrees with the plan. - cefdinir (OMNICEF) 300 MG capsule Dispense: 14 capsule; Refill: 0 - acetic acid-hydrocortisone (VOSOL-HC) 1-2 % otic solution Dispense: 5 mL; Refill: 0 Return in about 10 days (around 05/01/2021) for Symptoms failing to improve. Karely Morales PA-C [facility] RICHARD Mclaughlin is a 50 year old female who presents to clinic today for the following health issues: Chief Complaint Patient presents with ??? Urgent Care ??? Ear Problem Bilateral ear pain, swelling and drainage-Patient says she was picking in ear with lj pen-Patient has been treated w/Amox got better but started picking in ear again. HPI Ear problem Onset of symptoms was 2 week(s) ago. Course of illness is worsening. Severity moderate Current and Associated symptoms: Bilateral ear pain, L>R, left ear drainage Denies: fever, runny nose, stuffy nose, cough and sore throat Treatment measures tried include Amoxicillin. She notes she was seen at an outside clinic 2 weeks ago and started on Amoxicillin. Symptoms were improving until a few days ago. The ears were very itchy so she used a kaushik pin to scratch inside the ear canal and this has flared up her symptoms again. Review of Systems Constitutional, HEENT, cardiovascular, pulmonary, gi and gu systems are negative, except as otherwise noted. Objective BP 130/81 Pulse 81 Temp 99.1 ??F (37.3 ??C) (Tympanic) SpO2 98% No Physical Exam GENERAL: healthy, alert and no distress HENT: mouth without ulcers or lesions, bilateral ear canals with moderate swelling and erythema. There is some drainage noted in the left ear canal. Tenderness with traction of the tragus bilaterally. RESP: lungs clear to auscultation - no rales, rhonchi or wheezes CV: regular rate and rhythm, normal S1 S2 SKIN: no suspicious lesions or rashes documented in this encounter Plan of Treatment Not on filedocumented as of this encounter Visit Diagnoses Diagnosis Acute otitis externa of both ears, unspe cified type - Primary documented in this encounter
--- OUTSIDE RECORDS SUMMARY | 2022-10-09 18:56 | XMS_ITS | Encounter Summary ---
:1970 Author Organization [place] Address [address] [place] [id number] Care Team Providers Name Role Phone Unavailable Primary Care Provider Unavailable Encounter Details Date Type Department Care Team Description 04/21/2021 Travel Social History Tobacco Use Types Packs/Day Years Used Date Smoking Tobacco: Former Smokeless Tobacco: Never Sex Assigned at Date Recorded Not on file COVID-19 Exposure Response Date Recorded In the last month, have you been in contact with No / Unsure 04/21/2021 4:25 PM CDT someone who was confirmed or suspected to have Coronavirus / COVID-19? documented as of this encounter Plan of Treatment Not on filedocumented as of this encounter Visit Diagnoses Not on filedocumented in this encounter
--- OUTSIDE RECORDS SUMMARY | 2022-10-09 18:56 | XMS_ITS | Clinical Summary ---
:1970 Author Organization [place] Address [address] [place] [address] Care Team Providers Name Role Phone Unavailable Primary Care Provider Unavailable Allergies No known active allergies Medications Medication Sig Dispensed Refills Start Date End Date Status acetaminophen (TYLENOL) Take 1,000 mg by 0 Active 500 MG tablet mouth vitamin (B COMPLEX) Take 1 capsule 0 Active capsule by mouth buPROPion (WELLBUTRIN TAKE ONE TABLET 0 12/28/2020 Active XL) 150 MG 24 hr tablet BY MOUTH ONCE DAILY WITH 300MG cholecalciferol 50 MCG Take 2,000 Units 0 Active (2000 UT) tablet by mouth DULoxetine (CYMBALTA) 60 TAKE TWO 0 12/27/2020 Active MG capsule CAPSULES BY MOUTH EVERY DAY ibuprofen (ADVIL/MOTRIN) Take 400 mg by 0 Active 200 MG tablet mouth zinc sulfate (ZINCATE) Take 220 mg by 0 Active 220 (50 Zn) MG capsule mouth daily Multiple Vitamin (DAILY 0 Active VITAMINS PO) Active Problems No known active problems Social History Tobacco Use Types Packs/Day Years Used Date Smoking Tobacco: Former Smokeless Tobacco: Never Sex Assigned at Date Recorded Not on file Last Filed Vital Signs Vital Sign Reading Time Taken Comments Blood Pressure 130/81 04/21/2021 4:35 PM CDT Pulse 81 04/21/2021 4:35 PM CDT Temperature 37.3 ??C (99.1 ??F) 04/21/2021 4:35 PM CDT Respiratory Rate - - Oxygen Saturation 98% 04/21/2021 4:35 PM CDT Inhaled Oxygen Concentration - - Weight - - Height - - Body Mass Index - - Plan of Treatment Health Maintenance Due Date Last Done Comments ADVANCE CARE PLANNING 1970 ANNUAL REVIEW OF HM ORDERS 1970 CT COLONOGRAPHY 1972 FIT-DNA (Cologuard) 1970 FIT 1970 FLEX SIG 1970 HEPATITIS B IMMUNIZATION (1 1972 of 3 - 3-dose series) MAMMO SCREENING 1970 COVID-19 Vaccine (#1) 02/28/1973 COLONOSCOPY 1982 COLORECTAL CANCER SCREENING 1982 HIV SCREENING 1987 HEPATITIS C SCREENING 1990 PAP 1993 LIPID 2017 YEARLY PREVENTIVE VISIT 02/02/2021 02/03/2020, 08/04/2018 PHQ-2 (once per calendar 11/23/2021 year) INFLUENZA VACCINE (#1) 2022 09/18/2006 ZOSTER IMMUNIZATION (1 of 2) 2022 DTAP/TDAP/TD IMMUNIZATION (2 02/02/2030 02/03/2020, - Td or Tdap) 05/23/2007 IPV IMMUNIZATION Aged Out No longer eligi ble based on patient's age to complete this to pic MENINGITIS IMMUNIZATION Aged Out No longe r eligible based on patient's age to complete this to [facility] Pneumococcal Vaccine: Aged Out No longer eligible based Pediatrics (0 to 5 Years) and on patient's age to At-Risk Patients (6 to 64 comple te this topic Years)
== END 2022-10-09 18:56 | disposition home or self-care (01) ==
LOC: ED 18:49
PROVIDERS: Emergency Provider Family Medicine; PCP Family Medicine
DX: S61.210A Laceration without foreign body of right index finger without damage to nail, initial encounter (principal); W29.0XXA Contact with powered kitchen appliance, initial encounter
CPT/HCPCS: 12001; 99283; J2001

== ENCOUNTER 2023-05-19 08:30 | Outpatient (RCR) | payer BC, SELFPAY | END 2023-09-16 23:59 | disposition home or self-care (01) | PROVIDERS: PCP Family Medicine; Visit Provider Family Medicine | DX: N39.46 Mixed incontinence (principal); N81.4 Uterovaginal prolapse, unspecified; R35.0 Frequency of micturition; N94.10 Unspecified dyspareunia; Z51.89 Encounter for other specified aftercare | CPT/HCPCS: 97140; 97162; 97535 ==

== ENCOUNTER 2023-06-24 14:42 | Outpatient (CLI) | payer BC, SELFPAY ==
--- NOTE | 2023-06-24 15:00 | CRLHL7_ITS ---
For Patients: As a result of the Century Cures Act, medical imaging exams and procedure reports are released immediately into your electronic medical record. You may view this report before your referring provider. If you have questions, please contact your health care provider. BILATERAL SCREENING MAMMOGRAM WITH COMPUTER-AIDED DETECTION TECHNIQUE: CC and MLO views were obtained. These mammographic images have been obtained using full-field digital technique. These mammographic images were interpreted with the benefit of computer-aided detection. COMPARISON FILM: 09/17/16, 09/13/13 FINDINGS: The breasts are heterogeneously dense, which may obscure small masses IMPRESSION: There is no radiographic evidence for malignancy. ASSESSMENT: BI-RADS Category 1: Negative RECOMMENDATION: Routine screening mammogram in 1 year. A lay language report of this examination will be provided to the patient. Johnny Carrillo M.D. Diagnostic Radiologist [email or web address] Transcribed: 4:44 p.mSue paez/Dictated by: Johnny Carrillo MD @ 06/25/2023 11:10:00 AM (Electronically Signed)
== END 2023-06-24 14:43 | disposition home or self-care (01) ==
PROVIDERS: PCP Family Medicine; Visit Provider Family Medicine
DX: Z12.31 Encounter for screening mammogram for malignant neoplasm of breast (principal); R92.2 Inconclusive mammogram
CPT/HCPCS: 77063; 77067